=== PATIENT | male | born 1950 | race Caucasian/White ===

== ENCOUNTER 2022-02-26 18:05 | Inpatient (IN) | payer MEDICARE, BC, SELFPAY ==
[2022-02-26 18:46] VITALS: BP 204/103; PULSE 83; RESP 20; TEMP 37.9; O2SAT 93; BMI 21.5
--- NOTE | 2022-02-26 19:08 | ED_ITS ---
History of Present Illness General Date Seen: 02/26/22 Chief Complaint: Epistaxis/Nosebleed Stated Complaint: Spiting up blood, on blood thinner Time Seen by Provider: 02/26/22 18:10 Source: patient Mode of arrival: ambulatory Limitations: no limitations History of Present Illness HPI Narrative: Patient is a very nice 71-year-old gentleman who presents here with the left- sided nose bleed since 4:00 a.m., he is spitting up blood and swallowing blood, he told his that he would go to the ER before 9:00 a.m., but the bleeding has continued any re thought is planning came here instead. He is on warfarin for valve that is been replace, he tells me he has had to replace valves which I suspect her both his mitral and his aortic valve. His last INR was normal, but this was quite sometime ago. No significant history of nose bleeds in the past, denies any pain, denies any abdominal pain, any weakness, feeling he is going to be dizzy or pass out, has not been taking excessive ibuprofen or lever aspirin, does not drink Location: Yes left naris Onset/current episode: Yes hour(s) Duration: Yes constant Pertinent past history: Yes hypertension Context: Yes warfarin use Associated symptoms: Yes bleeding down back of throat Treatment prior to arrival: Yes nose pinching Related Data Home Medications Medication Instructions Recorded Confirmed carvedilol 3.125 mg tablet mg 02/26/22 cyclobenzaprine 5 mg tablet mg 02/26/22 gabapentin 100 mg capsule mg 02/26/22 warfarin 3 mg tablet mg 02/26/22 Allergies Allergy/AdvReac Type Severity Reaction Status Date / Time No Known Drug Allergies Allergy Verified 02/26/22 18:49 Review of Systems Status of ROS: Reports: 10 or more systems reviewed and unremarkable except as noted in History and below PFSH PFS Social History Smoking Status: Smoker, status unknown Non-prescribed substance use: denies use Exam Narrative: Exam Narrative: I see this gentleman in room 3 he is in no apparent distress but he does have blood in his mouth, and a little bit of blood around his left nares. Hypertensive , no apparent distress, speaking to me normally, pupils equal round reactive to light, well perfused, blood in the left nares none in the right, there has blood in the oropharynx in the back, he is got both the top and bottom plate. Chest is clear bilaterally with no wheezing crackles noted, there is a click in his chest, consistent with aortic valve, S1-S2 are otherwise normal. I do not hear a murmu in his chest., abdomen is soft, there is no tenderness to pal pation, bowel sounds are normal, color is otherwise good, he moves all extremities independently and well. Const: Vital Signs, click to edit/add: Vital Signs - 24 hr 02/26/22 18:46 Temperature 100.3 F H Pulse Rate [Right Pulse Oximeter] 83 Respiratory Rate 20 Blood Pressure [Ri ght Upper Arm] 204/103 H Pulse Oximetry 93 Oxygen Delivery Me thod Room Air Documenting provider has reviewed patient's vital signs: yes Course Course Hospital Course: Will start an IV, I will do some blood test, we will get him to rinse out his mouth, so I can see to make sure that the bleeding is not from the soft palate of the mouth, I suspect is from his nose, he likely will needed nasal pack. After getting his mouth rinse doubt, I did note that there is a small laceration on his lower lip, this is bleeding, and I suspect that this is the cause of all the blood in his mouth, that is refluxing into his left naris. I did use a little bit of lidocaine with epi, into this area has stop the oozing, and put a clip on his lip. Along with a 4 x 4. His blood pressure continued to be elevated, we will give him a little Ativan some Zofran as he was retching a little bit. Given his hemoglobin came back low at 7.8 knife no other documentation on him. I think we will need to watch him overnight. I will type and screen him also, I spoke to him he is agreeable to this I then discussed this with the hospitalist. I recheck the clip in 15 minutes I did note that the bleeding had pretty well stopped. We will leave it on for another 15 minutes, but at this point I do not think he needs stitch. Vital Signs Vital signs: Initial Vital Signs Temperature 100.3 F H 02/26/22 18:46 Temperature Source Temporal Artery Scan 02/26/22 18:46 Pulse Rate 83 02/26/22 18:46 Respiratory Rate 20 02/26/22 18:46 Blood Pressure 204/103 H 02/26/22 18:46 Blood Pressure Mean 136 02/26/22 18:46 Pulse Oximetry 93 02/26/22 18:46 Oxygen Delivery Method 02/26/22 18:46 Vital Signs Temperature 100.3 F H 02/26/22 18:46 Pulse Rate 83 02/26/22 18:46 Respiratory Rate 20 02/26/22 18:46 Blood Pressure 204/103 H 02/26/22 18:46 Pulse Oximetry 93 02/26/22 18:46 Oxygen Delivery Method 02/26/22 18:46 Temperature 100.3 F H 02/26/22 18:46 Pulse Rate 83 02/26/22 18:46 Respiratory Rate 20 02/26/22 18:46 Blood Pressure 204/103 H 02/26/22 18:46 Pulse Oximetry 93 02/26/22 18:46 Oxygen Delivery Method 02/26/22 18:46 MDM - Epistaxis MDM Narrative Medical decision making narrative: Differential diagnosis here includes nasal bleeding, hemoptysis, hematemesis, oral laceration, anemia, Medical Records Attestation: I reviewed the patient's medical records. Lab Data Attestation: I reviewed the patient's lab results. Labs: Lab Results 02/26/22 02/26/22 02/26/22 Range/Units 19:48 19:48 19:48 WBC 10.88 (4.50-11.00) K/uL RBC 2.53 L (4.30-5.90) m/uL Hgb 7.8 L* (13.5-17.5) gm/dL Hct 23.0 L (37.0-53.0) % MCV 91 (80-100) fL MCH 31 (26-34) pg MCHC 34 (32-36) gm/dL RDW Coeff of Bernabe 17.1 H (11.5-15.5) % Plt Count 436 (140-440) K/uL Neut % (Auto) 79.3 H (42.0-72.0) % Lymph % (Auto) 8.6 L (20-44) % [place] % (Auto) 9.8 (0.0-11.0) % Eos % (Auto) 1.7 (0.0-7.0) % Baso % (Auto) 0.2 (0.0-3.0) % Neut # (Auto) 8.60 H (1.7-7.0) K/uL Lymph # (Auto) 0.90 (0.90-2.90) K/uL [place] # (Auto) 1.10 H (0.00-0.90) K/UL Eos # (Auto) 0.18 (0.00-0.50) K/uL Baso # (Auto) 0.02 (0.00-0.30) K/uL INR 5.12 H* (0.91-1.10) APTT 129 H* (23-33) Seconds Sodium 136 (135-149) mmol/L Potassium 3.7 (3.6-5.1) mmol/L Chloride 103 (96-114) mmol/L Carbon Dioxide 27 (20-32) mmol/L BUN 19 (7-30) mg/dL Creatinine 0.5 (0.5-1.5) mg/dL Estimated Creat Clear 65.97 Estimated GFR 108 ml/min Glucose 93 (60-115) mg/dL Calcium 8.3 L (8.4-10.6) mg/dL Discharge Plan Discharge Clinical Impression: Elevated blood pressure reading, Dizziness, Anemia, Coagulopathy, Laceration of lip Patient Disposition: Admitted As Inpatient Prescriptions: No Action carvedilol 3.125 mg tablet warfarin 3 mg tablet gabapentin 100 mg capsule cyclobenzaprine 5 mg tablet Label Comments: TAKE ONE TABLET BY MOUTH THREE TIMES DAILY NEEDED FOR MUSCLE SPASM
[2022-02-26] MEDS: 0.9 % SODIUM CHLORIDE 500 ML 500 ML IV (19:21)
[2022-02-26] MEDS: OXYMETAZOLINE 0.05% NASAL SPRAY 1 SPRAY NOSTRIL-B (19:22)
[2022-02-26 19:54] LABS: Basophils Absolute Auto 0.02 K/uL (0.00-0.30); Basophils Percent Auto 0.2 % (0.0-3.0); Eosinophils Absolute Auto 0.18 K/uL (0.00-0.50); Eosinophils Percent Auto 1.7 % (0.0-7.0); Immature Granulocytes Abs Auto 0.04 K/uL (0.00-0.30); Immature Granulocytes Pct Auto 0.4 %; Lymphocytes Percent Auto 8.6 % (20-44); Mean Corpuscular HGB Conc 34 gm/dL (32-36); Mean Corpuscular Hemoglobin 31 pg (26-34); Mean Corpuscular Volume 91 fL (80-100); Monocytes Percent Auto 9.8 % (0.0-11.0); Neutrophils Percent Auto 79.3 % (42.0-72.0); Platelet Count* 436 K/uL (140-440); RDW Coefficient of Variation % 17.1 % (11.5-15.5); Red Blood Count 2.53 m/uL (4.30-5.90); White Blood Count* 10.88 K/uL (4.50-11.00)
[2022-02-26 19:57] LABS: Hemoglobin* 7.8 gm/dL (13.5-17.5)
[2022-02-26] MEDS: ONDANSETRON 2 MG/ML inj 4 MG IVP (20:03)
[2022-02-26] MEDS: LORazepam 2 MG/ML inj 0.5 MG IVP (20:03)
[2022-02-26 20:06] LABS: Chloride* 103 mmol/L (96-114); Potassium* 3.7 mmol/L (3.6-5.1); Sodium* 136 mmol/L (135-149)
[2022-02-26 20:09] LABS: Blood Urea Nitrogen* 19 mg/dL (7-30); Carbon Dioxide* 27 mmol/L (20-32); Creatinine* 0.5 mg/dL (0.5-1.5); Est. Creatinine Clearance* 65.97; Estimated Glomerular Filt Rate 108 ml/min
[2022-02-26 20:10] LABS: Calcium* 8.3 mg/dL (8.4-10.6); Glucose* 93 mg/dL (60-115)
[2022-02-26 20:23] LABS: INR 5.12 (0.91-1.10); Partial Thromboplastin Time* 129 Seconds (23-33); Prothrombin Time 49.4 Seconds
--- NOTE | 2022-02-26 20:23 | ED.NURSE ---
inr 5.1, ptt 129. md gamboa updated on criticals.
[2022-02-26 20:55] LABS: PCR FLU A Negative PCR FLU A (Negative); PCR FLU B Negative PCR FLU B (Negative)
[2022-02-26 20:56] LABS: SARS PCR* POSITIVE SARS-CoV-2 (Negative)
[2022-02-26 21:00] VITALS: BP 172/98
--- NOTE | 2022-02-26 21:34 | ED.NURSE ---
Per Dr. Naranjo, Pt accepted by Dr. aBrnes. Report given to LOUISE Pereira.
--- NOTE | 2022-02-26 21:50 | ED.NURSE ---
Report given to Med/surg Patient transported via cart with mechatronics technologist to room 276.
[2022-02-26 21:51] VITALS: O2SAT 94
[2022-02-26 22:06] LABS: Albumin* 3.5 g/dL (3.3-5.0)
[2022-02-26 22:09] LABS: Alanine Aminotransferase* 15 U/L (4-50); Alkaline Phosphatase* 126 U/L (40-150); Aspartate Amino Transferase* 24 U/L (12-35); Bilirubin Direct* 0.3 mg/dL (0.0-0.5); Bilirubin Total* 0.9 mg/dL (0.1-1.5); Total Protein* 7.3 g/dL (6.0-8.3)
--- NOTE | 2022-02-26 22:11 | PM.IMHP1 ---
Hospitalist- H&P: HPI History of Present Illness Date Seen: 02/26/22 Chief complaint: Spiting up blood, on blood thinner Narrative: Isaac Clay is a 71 year old male admitted to the hospital with ongoing bleeding. He reports that he was bleeding for about 4-1/2 hours at home. He said he was bleeding from both his nose and his mouth. Evaluation in the emergency room showed that he was bleeding from a lesion in the middle of his lower lip just inside on the mucosal surface. The bleeding was controlled in the emergency department using direct pressure only. He is on chronic anticoagulation with warfarin and his INR today is 5.1. He is also on aspirin 81 mg daily. He is on anticoagulation because he has a TAVR which required a 2nd TAVR and subsequently he has valvular regurgitation. The indication for his aspirin is uncertain possibly also because of his TAVR. He is not aware of having coronary or cerebrovascular disease. He has had previous problems with bleeding. He had an upper GI bleed 2 years ago and he was hospitalized at [facility] for this. EGD showed a nonbleeding angiectasia in the stomach and 2 bleeding angiectasias in the duodenum. These were treated with argon plasma coagulation. Last summer he had a retroperitoneal bleed. Review of Systems Narrative: Patient reports that he has had ongoing back pain for last few days. He is not aware of a specific injury. He is not aware of a fever, cold, cough, sore throat, chest pain, abdominal pain, nausea, vomiting. Urination is normal. Bowel movements are soft but otherwise normal. No blood in his stool. [facility] Medical History (Updated 02/26/22 @ 22:44 by Jose Alejandro Barnes MD) AAA (abdominal aortic aneurysm) without rupture COPD (chronic obstructive pulmonary disease) History of GI bleed Lung cancer Nasopharyngeal cancer Paravalvular leak (prosthetic valve) Retroperitoneal bleed Surgical History (Updated 02/26/22 @ 22:31 by Jose Alejandro Barnes MD) History of arthroscopic knee surgery History of cardiac radiofrequency ablation History of lobectomy of lung History of right inguinal hernia repair History of splenectomy S/P TAVR (transcatheter aortic valve replacement) Family History (Updated 02/26/22 @ 22:34 by Jose Alejandro Barnes MD) Brother Nasopharyngeal carcinoma Father Diabetes Mother Melanoma Social History (Updated 02/26/22 @ 22:34 by Jose Alejandro Barnes MD) Narrative: Patient has remote history of smoking. He lives in [place] with his . She currently has significant health problems as well. He does not drink alcohol. No recreational drug use. Highest level of school completed/degree received: don't know Smoking Status: Smoker, status unknown How often do you have a drink containing alcohol: never AUDIT-C Alcohol total score: 0 Non-prescribed substance use: denies use Caffeine: Yes (3-4 pops/day) service: No Meds Home Medications and Allergies Home Medications Medication Instructions Recorded Confirmed Type carvedilol 3.125 mg tablet 3.125 mg PO BID 02/26/22 02/26/22 History cyclobenzaprine 5 mg tablet 5 mg PO TID PRN 02/26/22 02/26/22 History gabapentin 100 mg capsule 100 mg PO DAILY 02/26/22 02/26/22 History gabapentin 300 mg capsule 300 mg PO HS 02/26/22 02/26/22 History pantoprazole 40 mg tablet,delayed 40 mg PO DAILY 02/26/22 02/26/22 History release tamsulosin 0.4 mg capsule 0.4 mg PO .bidac 02/26/22 02/26/22 History warfarin 3 mg tablet 3 mg PO DAILY 02/26/22 02/26/22 History Allergies Allergy/AdvReac Type Severity Reaction Status Date / Time No Known Drug Allergies Allergy Verified 02/26/22 18:49 Exam Narrative: Exam Narrative: He is alert and appears in no distress. He gives his own history. He is oriented to his circumstances. Head is normal. Eyes normal. Oropharynx with dry mucous membranes. He has some staining of blood in his mouth. He has a nasal clamp on his lower lip which is cause the bleeding in his lip to stop. The mucosal surface of his lower lip has a crack in it which is likely the site of the bleeding. This is controlled now. Neck is supple without mass or adenopathy. Respirations with somewhat diminished breath sounds but otherwise clear to auscultation without wheezing rales or rhonchi. Cardiovascular: S1, S2, 2/6 systolic murmur. No gallop or rub. Regular rate and rhythm. Abdomen is soft he has mild tenderness just above the right inguinal area and suprapubic area. No significant pain except tenderness with palpation. There is no mass there. External genitalia normal. Const: Vital Signs, click to edit/add: Vital Signs - 24 hr 02/26/22 18:46 02/26/22 21:00 Temperature 100.3 F H Pulse Rate [Right Pulse Oximeter] 83 Respiratory Rate 20 Blood Pressure [Ri ght Upper Arm] 204/103 H 172/98 H Pulse Oximetry 93 Oxygen Delivery Me thod Room Air Documenting provider has reviewed patient's vital signs: yes Hospitalist - H&P: Result Labs Labs: Short CBC 02/26/22 Range/Units 19:48 WBC 10.88 (4.50-11.00) K/uL Hgb 7.8 L* (13.5-17.5) gm/dL Hct 23.0 L (37.0-53.0) % Plt Count 436 (140-440) K/uL BMP 02/26/22 19:48 Sodium 136 Potassium 3.7 Chloride 103 Carbon Dioxide 27 BUN 19 Creatinine 0.5 Glucose 93 Calcium 8.3 L Assessment and Plan Assessment and plan (1) Bleeding: Status: Acute (2) Laceration of lip: Problem comment: Bleeding stopped with pressure. Avoid trauma to lower lip Status: Acute (3) COVID: Problem comment: On presentation to the hospital he had a low-grade fever. COVID was discovered on screening for hospital admission. Not currently hypoxic. Uncertain when he acquired COVID. Likely recent infection given that he has a fever. Very high risk for complications so will start Remdesivir. Status: Acute (4) Coagulopathy: Problem comment: Vitamin K 2.5 mg given to reverse coagulopathy. Reassess need for aspirin and warfarin with Cardiology. Status: Acute (5) Abdominal tenderness: Problem comment: Patient is reporting suprapubic and right inguinal area tenderness. I do not palpate an obvious mass. Reassess in the morning an image if ongoing symptoms. Status: Acute (6) Anemia: Problem comment: Acute on chronic. Baseline hemoglobin is 9.5 Status: Acute (7) Dizziness: Problem comment: Possibly multifactorial. Possibly chronic. Does not appear to be orthostatic. Continue to monitor Status: Acute (8) Back pain: Problem comment: Suspect this is acute on chronic as well. Reassess daily Status: Acute Plan 71-year-old male admitted to the hospital with uncontrolled bleeding from his lower lip with secondary finding of coagulopathy. Bleeding has been controlled with pressure. Vitamin K given to reverse coagulopathy. Monitor for ongoing bleeding. Found to have fever with COVID infection. Start Remdesivir as patient is very high risk for complications with previous history of lung cancer, COPD, heart disease. Multiple other symptoms can be addressed as well including his abdominal tenderness, back pain, dizziness. Only limited evaluation of were done on those problems tonight Total time spent tonight is 90 minutes, 60 minutes in coordination of care discussing with patient and other providers management of COVID and bleeding.
[2022-02-26 22:19] VITALS: PULSE 78; RESP 20; TEMP 37.2; O2SAT 94; BMI 20.7
[2022-02-26 22:31] LABS: C Reactive Protein* 22.7 mg/dL (0.5-1.0)
[2022-02-26] MEDS: TAMSULOSIN HCL 0.4 MG CAPSULE PO (22:53)
[2022-02-26] MEDS: GABAPENTIN 300 MG CAPSULE PO ×2 (22:53→22:55)
[2022-02-26] MEDS: CYCLOBENZAPRINE HCL 10 MG TABLET 5 MG PO (22:53)
[2022-02-26] MEDS: ACETAMINOPHEN 325 MG TABLET 650 MG PO (22:56)
[2022-02-26] MEDS: carvediloL 6.25 MG TABLET 3.125 MG PO (23:06)
--- NOTE | 2022-02-26 23:44 | PC.NURSE ---
Patient admitted to the M/S floor around 2200. Patient cooperative with care. Lower lip contines to bleed. Clamp put into place and patient removed. Clamp put back into place and patient instructed to leave d/t bleeding. Vitamin K given. Remdesivir given. Attempted to call , Leandra @ [phone] but no answer.
[2022-02-27] VITALS (13 sets, daily range): BP systolic 113–192; BP diastolic 61–90; PULSE 66–89; RESP 16–18; TEMP 36.9–38.3; O2SAT 91–98
[2022-02-27] MEDS: ACETAMINOPHEN 325 MG TABLET 650 MG PO ×2 (04:57→17:32)
[2022-02-27] MEDS: CYCLOBENZAPRINE HCL 10 MG TABLET 5 MG PO ×3 (04:58→22:20)
[2022-02-27 05:30] LABS: Slide Review Reflex No
--- NOTE | 2022-02-27 06:22 | PC.NURSE ---
End of shift status [id number] Pt alert and oriented. Pleasant and cooperative. PRN tylenol and flexeril given for c/o back pain. BP elevated. T-max 100.5. Remains on room air. Lower lip laceration continues to bleed. Mouth washed out, gauze and clip applied to lip. Remained in bed this shift. Encouraged to shift weight in bed. Using urinal in bed independently. Pt observed resting intermittently between cares.
[2022-02-27 07:03] LABS: Basophils Absolute Auto 0.01 K/uL (0.00-0.30); Basophils Percent Auto 0.1 % (0.0-3.0); Eosinophils Absolute Auto 0.16 K/uL (0.00-0.50); Hematocrit 19.6 % (37.0-53.0); Immature Granulocytes Abs Auto 0.07 K/uL (0.00-0.30); Immature Granulocytes Pct Auto 0.9 %; Lymphocytes Percent Auto 9.4 % (20-44); Mean Corpuscular HGB Conc 35 gm/dL (32-36); Mean Corpuscular Hemoglobin 32 pg (26-34); Mean Corpuscular Volume 92 fL (80-100); Monocytes Percent Auto 15.1 % (0.0-11.0); Neutrophils Percent Auto 72.5 % (42.0-72.0); Platelet Count* 416 K/uL (140-440); RDW Coefficient of Variation % 16.9 % (11.5-15.5); Red Blood Count 2.14 m/uL (4.30-5.90); White Blood Count* 7.89 K/uL (4.50-11.00)
[2022-02-27 07:21] LABS: Hemoglobin* 6.9 gm/dL (13.5-17.5)
[2022-02-27 07:23] LABS: Slide Review Reflex No
[2022-02-27 08:18] LABS: INR 4.65 (0.91-1.10); Prothrombin Time 45.8 Seconds
[2022-02-27] MEDS: OMEPRAZOLE 20 MG CAPSULE DR 40 MG PO (08:26)
[2022-02-27] MEDS: GABAPENTIN 100 MG CAPSULE PO (08:27)
[2022-02-27] MEDS: carvediloL 6.25 MG TABLET 3.125 MG PO ×2 (08:27→17:33)
[2022-02-27] MEDS: TAMSULOSIN HCL 0.4 MG CAPSULE PO ×2 (08:28→19:59)
[2022-02-27 08:33] LABS: Partial Thromboplastin Time* 108 Seconds (23-33)
[2022-02-27 08:58] LABS: Chloride* 104 mmol/L (96-114); Potassium* 3.5 mmol/L (3.6-5.1); Sodium* 135 mmol/L (135-149)
[2022-02-27 09:01] LABS: Blood Urea Nitrogen* 14 mg/dL (7-30); Carbon Dioxide* 27 mmol/L (20-32); Creatinine* 0.5 mg/dL (0.5-1.5); Est. Creatinine Clearance* 63.53; Estimated Glomerular Filt Rate 108 ml/min
[2022-02-27 09:02] LABS: Calcium* 7.7 mg/dL (8.4-10.6); Glucose* 95 mg/dL (60-115)
--- NOTE | 2022-02-27 09:07 | CRLHL7_ITS ---
For Patients: As a result of the Century Cures Act, medical imaging exams and procedure reports are released immediately into your electronic medical record. You may view this report before your referring provider. If you have questions, please contact your health care provider. INDICATION: Abdominal pain. History of retroperitoneal bleed. TECHNIQUE: CT abdomen and pelvis acquired with 72 cc Isovue 370 IV contrast. COMPARISON: August 19, 2021. FINDINGS: Lower chest: Cardiomegaly present. Trace left-sided pleural effusion with adjacent atelectasis. Liver: Unremarkable. Normal in size and attenuation. No suspicious masses. Gallbladder and bile ducts: Unremarkable. No stones or inflammation. No biliary dilatation. Pancreas: Unremarkable. No mass or inflammation. Spleen: Status post splenectomy with a residual splenule in the left upper quadrant which is unchanged in appearance. Adrenal glands: Unremarkable. No nodules. Kidneys: Unremarkable. No suspicious masses, stones, or hydronephrosis. GI tract: Unremarkable. Normal in caliber. No sign of mass or inflammation. Vasculature: Diffuse relatively severe atherosclerosis again demonstrated. Stable fusiform aneurysmal dilatation of the abdominal aorta and iliac arteries. These are unchanged. No sign of aortic leak or rupture. Lymph nodes: No lymphadenopathy. Peritoneum/Abdominal Wall: Unremarkable. No sign of mass or infiltration. No free air or significant free fluid. Pelvis: Unchanged prostatomegaly. Pelvic structures otherwise unremarkable. Bones: Unremarkable for age. IMPRESSION: 1. No acute or specific finding to explain abdominal pain. 2. No signs of recurrent retroperitoneal bleeding or metastatic disease. 3. Trace left-sided pleural effusion. Please note that all CT scans at this facility use dose modulation, iterative reconstruction, and/or weight-based dosing when appropriate to reduce radiation dose to as low as reasonably achievable. Dictated by Ky Guajardo MD @ 02/27/2022 11:44:40 AM (Electronically Signed)
--- NOTE | 2022-02-27 12:19 | P.IMPN_ITS ---
Progress Note: A&P Assessment and plan (1) Laceration of lip: Problem details: - Bleeding stopped with pressure, continue clamp as needed. Avoid trauma to lower lip Status: Acute (2) COVID: Problem details: - temperature of 100.5? on admission, no hypoxia. Timeline of COVID acquisition unclear, notes that is also ill at home - not requiring supplemental oxygen - high risk for complications so will start Remdesivir Status: Acute (3) Coagulopathy: Problem details: - Vitamin K 2.5 mg given on 02/26 to reverse coagulopathy - Repeat vitamin K 2.5 orally on 02/27 given persistently elevated INR and bleeding - blood transfusion 02/27 given hemoglobin of 6.9 Status: Acute (4) Abdominal tenderness: Problem details: - no acute findings on CT of abdomen/pelvis, obtained 02/27/22 Status: Acute (5) Anemia: Problem details: - acute on chronic. Baseline hemoglobin is 9.5 - transfused 1 U PRBCs 02/27 Status: Acute (6) Back pain: Problem details: - Acute on chronic, follow symptomatically Status: Acute Plan - per above - continue to hold Warfarin - daily INRs Subjective Date Seen: 02/27/22 Interval history: No acute events overnight. Isaac continues to complain of low abdominal pain, in addition to back pain. Notes that his back pain is chronic, unclear if it is different than baseline. He is tolerating Remdesivir. He has no cough or hypoxia. This morning, patient's INR is 4.65, hemoglobin 6.9. He is amenable to a blood transfusion and other dose of oral vitamin K. Exam Narrative: Exam Narrative: GEN: Alert and oriented, sitting comfortably in bed and does appear ill/pale HEENT: Normal external ears, EOMIs bilaterally, no scleral icterus, + conjunctival pallor. Patient has a clamp on lower lip; I do not remove this for formal exam given bleeding risk CV: RRR, + systolic murmur without concerning findings, consistent with history R: LCTA bilaterally without concerning wheezing, rales, or rhonchi Ab: Moderately tender in bilateral lower quadrants without rebound or guarding, no skin changes noted Back: No bruising or skin lesions on back noted, no tenderness to palpation over spinous processes, mild discomfort with palpation of bilateral flanks Ext: wwp, no concerning edema Skin: No concerning skin lesions or rashes on exposed skin Neuro: Nonfocal Psych: Appropriate Const: Vital Signs, click to edit/add: Vital Signs - 24 hr 02/26/22 18:46 02/26/22 21:00 02/26/22 21:51 Temperature 100.3 F H Pulse Rate [Pulse Oximeter] Pulse Rate [Right Pulse Oximeter] 83 Respiratory Rate 20 Blood Pressure [Ri ght Arm] Blood Pressure [Ri ght Upper Arm] 204/103 H 172/98 H Pulse Oximetry 93 94 Oxygen Delivery Me thod Room Air 02/26/22 22:19 02/27/22 00:15 02/27/22 00:15 Temperature 99 F 100.5 F H 100.5 F H Pulse Rate [Pulse Oximeter] 78 76 Pulse Rate [Right Pulse Oximeter] Respiratory Rate 20 16 Blood Pressure [Ri ght Arm] 157/75 H Blood Pressure [Ri ght Upper Arm] Pulse Oximetry 94 91 Oxygen Delivery Me thod Room Air Room Air 02/27/22 00:15 02/27/22 04:41 02/27/22 07:00 Temperature 98.5 F Pulse Rate [Pulse Oximeter] 71 Pulse Rate [Right Pulse Oximeter] Respiratory Rate 18 Blood Pressure [Ri ght Arm] 189/87 H Blood Pressure [Ri ght Upper Arm] Pulse Oximetry 91 98 96 Oxygen Delivery Me thod Room Air 02/27/22 07:00 02/27/22 07:00 Temperature 98.8 F Pulse Rate [Pulse Oximeter] 66 66 Pulse Rate [Right Pulse Oximeter] Respiratory Rate 18 18 Blood Pressure [Ri ght Arm] 175/86 H Blood Pressure [Ri ght Upper Arm] Pulse Oximetry 96 Oxygen Delivery Me thod Room Air Labs Labs: Laboratory Results - last 24 hr 02/26/22 02/26/22 02/26/22 19:48 19:48 19:48 WBC 10.88 RBC 2.53 L Hgb 7.8 L* Hct 23.0 L MCV 91 MCH 31 MCHC 34 RDW Coeff of Bernabe 17.1 H Plt Count 436 Neut % (Auto) 79.3 H Lymph % (Auto) 8.6 L [place] % (Auto) 9.8 Eos % (Auto) 1.7 Baso % (Auto) 0.2 Neut # (Auto) 8.60 H Lymph # (Auto) 0.90 [place] # (Auto) 1.10 H Eos # (Auto) 0.18 Baso # (Auto) 0.02 INR 5.12 H* APTT 129 H* Sodium 136 Potassium 3.7 Chloride 103 Carbon Dioxide 27 BUN 19 Creatinine 0.5 Estimated Creat Clear 65.97 Estimated GFR 108 Glucose 93 Calcium 8.3 L Total Bilirubin 0.9 Direct Bilirubin 0.3 AST 24 ALT 15 Alkaline Phosphatase 126 C-Reactive Protein 22.7 H Total Protein 7.3 Albumin 3.5 SARS-CoV-2 (PCR) Influenza Type A (PCR) Influenza Type B (PCR) Blood Type Antibody Screen Crossmatch ([facility]) 02/26/22 02/26/22 02/27/22 19:48 20:10 06:30 WBC 7.89 RBC 2.14 L Hgb 6.9 L* Hct 19.6 L MCV 92 MCH 32 MCHC 35 RDW Coeff of Bernabe 16.9 H Plt Count 416 Neut % (Auto) 72.5 H Lymph % (Auto) 9.4 L [place] % (Auto) 15.1 H Eos % (Auto) 2.0 Baso % (Auto) 0.1 Neut # (Auto) 5.70 Lymph # (Auto) 0.70 L [place] # (Auto) 1.20 H Eos # (Auto) 0.16 Baso # (Auto) 0.01 INR APTT Sodium Potassium Chloride Carbon Dioxide BUN Creatinine Estimated Creat Clear Estimated GFR Glucose Calcium Total Bilirubin Direct Bilirubin AST ALT Alkaline Phosphatase C-Reactive Protein Total Protein Albumin SARS-CoV-2 (PCR) POSITIVE SARS-CoV-2 A Influenza Type A (PCR) Negative PCR FLU A Influenza Type B (PCR) Negative PCR FLU B Blood Type O Positive Antibody Screen NEGATIVE Crossmatch ([facility]) See Detail 02/27/22 02/27/22 06:30 06:30 WBC RBC Hgb Hct MCV MCH MCHC RDW Coeff of Bernabe Plt Count Neut % (Auto) Lymph % (Auto) [place] % (Auto) Eos % (Auto) Baso % (Auto) Neut # (Auto) Lymph # (Auto) [place] # (Auto) Eos # (Auto) Baso # (Auto) INR 4.65 H APTT 108 H* Sodium 135 Potassium 3.5 L Chloride 104 Carbon Dioxide 27 BUN 14 Creatinine 0.5 Estimated Creat Clear 63.53 Estimated GFR 108 Glucose 95 Calcium 7.7 L Total Bilirubin Direct Bilirubin AST ALT Alkaline Phosphatase C-Reactive Protein Total Protein Albumin SARS-CoV-2 (PCR) Influenza Type A (PCR) Influenza Type B (PCR) Blood Type Antibody Screen Crossmatch ([facility])
[2022-02-27] MEDS: 0.9 % SODIUM CHLORIDE 250 ml IV (13:30)
--- NOTE | 2022-02-27 19:05 | PC.NURSE ---
End of shift [id number]: Pt alert and oriented. Pleasant and cooperative. KIANA. Afebrile most shift until evening, temp was 100.3 PRN tylenol administered. PRN Flexeril administered for c/o back pain. BP elevated. Pt. high 90's on room air. Lower lip laceration stopped bleeding and clamp removed. Remained in bed this shift during PRBC administration, pt. tolerated well. Up to chair for lunch and pt. tolerated activity well. Pt. using urinal in bed independently.
[2022-02-27 19:28] LABS: Hemoglobin* 7.5 gm/dL (13.5-17.5)
[2022-02-27] MEDS: LORazepam 0.5 MG TABLET PO (22:21)
[2022-02-28] VITALS (14 sets, daily range): BP systolic 103–193; BP diastolic 53–89; PULSE 66–76; RESP 16–20; TEMP 36.7–38.4; O2SAT 93–99
[2022-02-28] MEDS: ACETAMINOPHEN 325 MG TABLET 650 MG PO ×3 (03:08→23:50)
--- NOTE | 2022-02-28 04:44 | PC.NURSE ---
Shift note 19-07: Pt alert, able to make needs known, up to BSC w/ SBA. Pt continues to c/o 4-9/10 chronic back pain, verbalizes able to tolerate pain w/ use of Flexeril and repositioning. Lungs clear, on RA, intermittent cough producing yellowish sputum. Max temp of 101.2, Tylenol given x1. Hemoccult negative.
[2022-02-28] MEDS: OMEPRAZOLE 20 MG CAPSULE DR 40 MG PO (05:06)
[2022-02-28 06:45] LABS: Basophils Percent Auto 0.1 % (0.0-3.0); Hematocrit 22.9 % (37.0-53.0); Immature Granulocytes Pct Auto 0.6 %; Lymphocytes Percent Auto 6.1 % (20-44); Mean Corpuscular HGB Conc 35 gm/dL (32-36); Mean Corpuscular Hemoglobin 31 pg (26-34); Mean Corpuscular Volume 90 fL (80-100); Monocytes Percent Auto 8.4 % (0.0-11.0); Neutrophils Percent Auto 83.8 % (42.0-72.0); Platelet Count* 428 K/uL (140-440); RDW Coefficient of Variation % 16.6 % (11.5-15.5); Red Blood Count 2.54 m/uL (4.30-5.90); White Blood Count* 15.53 K/uL (4.50-11.00)
[2022-02-28 06:53] LABS: INR 2.12 (0.91-1.10); Prothrombin Time 24.8 Seconds
[2022-02-28 06:54] LABS: Hemoglobin* 7.9 gm/dL (13.5-17.5); Slide Review Reflex No
[2022-02-28 06:56] LABS: Albumin* 2.8 g/dL (3.3-5.0); Chloride* 103 mmol/L (96-114); Sodium* 134 mmol/L (135-149)
[2022-02-28 06:57] LABS: Potassium* 3.7 mmol/L (3.6-5.1)
[2022-02-28 06:59] LABS: Alanine Aminotransferase* 13 U/L (4-50); Alkaline Phosphatase* 96 U/L (40-150); Aspartate Amino Transferase* 21 U/L (12-35); Bilirubin Total* 0.9 mg/dL (0.1-1.5); Blood Urea Nitrogen* 12 mg/dL (7-30); Carbon Dioxide* 26 mmol/L (20-32); Creatinine* 0.5 mg/dL (0.5-1.5); Est. Creatinine Clearance* 63.53; Estimated Glomerular Filt Rate 108 ml/min; Glucose* 93 mg/dL (60-115); Total Protein* 6.1 g/dL (6.0-8.3)
[2022-02-28 07:00] LABS: Calcium* 7.6 mg/dL (8.4-10.6)
[2022-02-28] MEDS: carvediloL 6.25 MG TABLET 3.125 MG PO ×2 (08:36→18:20)
[2022-02-28] MEDS: GABAPENTIN 100 MG CAPSULE PO (09:29)
[2022-02-28] MEDS: TAMSULOSIN HCL 0.4 MG CAPSULE PO ×2 (09:29→21:17)
[2022-02-28] MEDS: MAGNESIUM HYDROXIDE 30 ML ORAL.SUSP PO (15:07)
--- NOTE | 2022-02-28 15:42 | PM.IMPN1 ---
Progress Note: A&P Assessment and plan (1) Laceration of lip: Problem details: - Bleeding stopped with pressure, continue clamp as needed. Avoid trauma to lower lip Status: Acute (2) COVID: Problem details: - temperature of 100.5? on admission, no hypoxia. 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 Baseline hemoglobin is 9.5 - transfused 1 U PRBCs 02/27, and will transfuse with 1 more unit packed red blood cells 02 28 Status: Acute (6) Back pain: Problem details: - Acute on chronic, follow symptomatically Status: Acute Assessment and Plan: Continue supportive efforts (7) Hypovolemic shock: Status: Acute Plan 1. Reviewed impression and recommendations with patient. He is agreeable. 2. Transfuse with 1 more unit of packed red blood cells 3. Add daily scheduled senna Plus once daily milk of magnesia 30 mL Time Spent With Patient Total time spent: 40 minutes Subjective Time Seen by Provider: 09:00 Date Seen: 02/28/22 Interval history: Hospital day 3. Acknowledges a sense of orthostasis today. Has otherwise been doing well. No complaints or concerns. Denies nausea vomiting. Denies abdominal pain. Denies chest heaviness, pressure, tightness. Denies palpitations. Denies dyspnea at rest. Acknowledges baseline dyspnea with exertion. No longer bleeding. Tolerating medication regimen, including remdesivir. Exam Narrative: Exam Narrative: Appears comfortable and in no acute distress. Vision is grossly normal. [id number] chronic bilateral hearing deficit noted. Lips are stable. No bleeding. Dry skin noted. Lungs are clear to auscultation. Heart tones with regular rhythm. Abdomen with active bowel sounds, soft, nontender. Extremities without edema. Const: Vital Signs, click to edit/add: Vital Signs - 24 hr 02/27/22 19:45 02/27/22 23:00 02/27/22 23:00 Temperature 99.7 F H Pulse Rate [Pulse Oximeter] 79 76 Pulse Rate [orthos tatic lying Left] Pulse Rate [orthos tatic sitting Left ] Pulse Rate [orthos tatic standing Lef t] Respiratory Rate 18 18 Blood Pressure [Le ft Arm] Blood Pressure [Ri ght Arm] 124/64 Blood Pressure [or thostatic lying] Blood Pressure [or thostatic sitting Left Arm] Blood Pressure [or thostatic standing Left Arm] Pulse Oximetry 95 95 Oxygen Delivery Me thod Room Air 02/27/22 23:00 02/28/22 03:08 02/28/22 03:00 Temperature 99.9 F H 101.2 F H 101.2 F H Pulse Rate [Pulse Oximeter] 76 72 Pulse Rate [orthos tatic lying Left] Pulse Rate [orthos tatic sitting Left ] Pulse Rate [orthos tatic standing Lef t] Respiratory Rate 18 18 Blood Pressure [Le ft Arm] Blood Pressure [Ri ght Arm] 176/89 H 177/83 H Blood Pressure [or thostatic lying] Blood Pressure [or thostatic sitting Left Arm] Blood Pressure [or thostatic standing Left Arm] Pulse Oximetry 95 93 Oxygen Delivery Me thod Room Air Room Air 02/28/22 05:05 02/28/22 08:11 02/28/22 07:00 Temperature 98.0 F 99.3 F Pulse Rate [Pulse Oximeter] 76 Pulse Rate [orthos tatic lying Left] Pulse Rate [orthos tatic sitting Left ] Pulse Rate [orthos tatic standing Lef t] Respiratory Rate 20 Blood Pressure [Le ft Arm] 176/84 H Blood Pressure [Ri ght Arm] Blood Pressure [or thostatic lying] Blood Pressure [or thostatic sitting Left Arm] Blood Pressure [or thostatic standing Left Arm] Pulse Oximetry 93 99 Oxygen Delivery Me thod Room Air 02/28/22 12:45 02/28/22 13:17 02/28/22 13:18 Temperature 99.1 F 99.1 F Pulse Rate [Pulse Oximeter] 66 Pulse Rate [orthos tatic lying Left] 66 Pulse Rate [orthos tatic sitting Left ] 70 Pulse Rate [orthos tatic standing Lef t] 73 Respiratory Rate 18 Blood Pressure [Le ft Arm] 147/71 H Blood Pressure [Ri ght Arm] Blood Pressure [or thostatic lying] 147/71 H Blood Pressure [or thostatic sitting Left Arm] 130/64 Blood Pressure [or thostatic standing Left Arm] 103/53 L Pulse Oximetry 95 Oxygen Delivery Me thod Room Air Documenting provider has reviewed patient's vital signs: yes Labs Labs: Laboratory Results - last 24 hr 02/26/22 02/27/22 02/28/22 19:48 19:03 06:18 WBC RBC Hgb 7.5 L* Hct MCV MCH MCHC RDW Coeff of Bernabe Plt Count Neut % (Auto) Lymph % (Auto) Culberson % (Auto) Eos % (Auto) Baso % (Auto) Neut # (Auto) Lymph # (Auto) [place] # (Auto) Eos # (Auto) Baso # (Auto) INR 2.12 H Sodium Potassium Chloride Carbon Dioxide BUN Creatinine Estimated Creat Clear Estimated GFR Glucose Calcium Total Bilirubin AST ALT Alkaline Phosphatase Total Protein Albumin Crossmatch ([facility]) See Detail 02/28/22 02/28/22 06:18 06:18 WBC 15.53 H RBC 2.54 L Hgb 7.9 L* Hct 22.9 L MCV 90 MCH 31 MCHC 35 RDW Coeff of Bernabe 16.6 H Plt Count 428 Neut % (Auto) 83.8 H Lymph % (Auto) 6.1 L Culberson % (Auto) 8.4 Eos % (Auto) 1.0 Baso % (Auto) 0.1 Neut # (Auto) 13.00 H Lymph # (Auto) 0.90 Culberson # (Auto) 1.30 H Eos # (Auto) 0.20 Baso # (Auto) 0.00 INR Sodium 134 L Potassium 3.7 Chloride 103 Carbon Dioxide 26 BUN 12 Creatinine 0.5 Estimated Creat Clear 63.53 Estimated GFR 108 Glucose 93 Calcium 7.6 L Total Bilirubin 0.9 AST 21 ALT 13 Alkaline Phosphatase 96 Total Protein 6.1 Albumin 2.8 L Crossmatch (G)
[2022-02-28] MEDS: CYCLOBENZAPRINE HCL 10 MG TABLET 5 MG PO (21:16)
[2022-02-28] MEDS: GABAPENTIN 300 MG CAPSULE PO (21:16)
[2022-02-28] MEDS: SENNOSIDES/DOCUSATE TABLET 1 TAB PO (21:17)
--- NOTE | 2022-02-28 23:37 | PC.NURSE ---
Started infusion of PRB. No reaction. Pt. tolerated first 15 min and hour well. Resting comfortably. VSS. Temp 100.1. PRN Flexeril administered for back pain.
[2022-02-28] MEDS: 0.9 % SODIUM CHLORIDE 250 ml IV (23:59)
[2022-03-01] VITALS (9 sets, daily range): BP systolic 127–186; BP diastolic 71–93; PULSE 64–93; RESP 16–20; TEMP 37.2–38; O2SAT 90–97
--- NOTE | 2022-03-01 05:33 | PC.NURSE ---
Shift note: Pt is on bedrest, complained of weakness and pain. Pt has fever of 100.4, Tylenol was given. Pt uses urinal in bed.
[2022-03-01] MEDS: OMEPRAZOLE 20 MG CAPSULE DR 40 MG PO (06:19)
[2022-03-01 07:26] LABS: Hematocrit 25.8 % (37.0-53.0); Hemoglobin* 8.7 gm/dL (13.5-17.5); Mean Corpuscular HGB Conc 34 gm/dL (32-36); Mean Corpuscular Hemoglobin 30 pg (26-34); Mean Corpuscular Volume 89 fL (80-100); Platelet Count* 452 K/uL (140-440); Red Blood Count 2.91 m/uL (4.30-5.90); White Blood Count* 12.27 K/uL (4.50-11.00)
[2022-03-01 07:33] LABS: Slide Review Reflex No
[2022-03-01 07:41] LABS: INR 1.78 (0.91-1.10); Prothrombin Time 21.7 Seconds
[2022-03-01] MEDS: carvediloL 6.25 MG TABLET 3.125 MG PO ×2 (08:37→17:54)
[2022-03-01] MEDS: GABAPENTIN 100 MG CAPSULE PO (08:38)
[2022-03-01] MEDS: TAMSULOSIN HCL 0.4 MG CAPSULE PO ×2 (08:38→21:08)
[2022-03-01] MEDS: SENNOSIDES/DOCUSATE TABLET 1 TAB PO ×2 (08:38→21:08)
[2022-03-01] MEDS: ACETAMINOPHEN 325 MG TABLET 650 MG PO ×3 (09:19→21:08)
[2022-03-01] MEDS: CYCLOBENZAPRINE HCL 10 MG TABLET 5 MG PO (09:20)
[2022-03-01] MEDS: WARFARIN 3 MG TABLET PO (16:26)
[2022-03-01] MEDS: KETOROLAC 15 MG/ML inj IVP (16:26)
--- NOTE | 2022-03-01 17:20 | PC.NURSE ---
Shift Summary: Patient pleasant and cooperative, has been in bed all shift. When doing orthostatic BP unable to stand, dizzy when sitting at edge of bed. Using urinal per self. Continues to have back pain, new orders, aqua-k pad placed. Tolerating regular diet well, denies nausea. o2 sats >90% on RA.
--- NOTE | 2022-03-01 17:25 | P.IMPN_ITS ---
Progress Note: A&P Assessment and plan (1) Laceration of lip: Problem details: - Bleeding stopped with pressure, continue clamp as needed. Avoid trauma to lower lip Status: Acute Assessment and Plan: Bleeding is resolved. (2) COVID: Problem details: - temperature of 100.5? on admission, no hypoxia. 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 Will need close monitoring for INRs hereafter. (4) Abdominal tenderness: Problem details: - no acute findings on CT of abdomen/pelvis, obtained 02/27/22 Status: Acute (5) Anemia: Problem details: - acute on chronic. Baseline hemoglobin is 9.5 - transfused 1 U PRBCs 02/27, and 1 more unit packed red blood cells 02/28/2022 Status: Acute (6) Back pain: Problem details: - Acute on chronic, follow symptomatically Status: Acute Assessment and Plan: I have schedule acetaminophen. P.r.n. tramadol 25 mg p.o. q.i.d. Topical heat and ice as needed (7) Hypovolemic shock: Status: Acute Assessment and Plan: Appears to have resolved now. He continues to complain of a sense of orthostasis but there is no obvious orthostatic blood pressure or pulse changes. Reassess orthostatic blood pressures and pulses tomorrow morning. Plan PT and OT consultation. Did discuss with patient that if he is not able to go back home that he may need to consider an alternative living situation for short period of time. He states he is not interested in this at this time. Time Spent With Patient Total time spent: 30 minutes Subjective Time Seen by Provider: 15:00 Date Seen: 03/01/22 Interval history: Hospital day 4. Acknowledges a sense of orthostasis still today. Has otherwise been doing well. Also notes increasing low back pain. Denies nausea vomiting. Denies abdominal pain. Denies chest heaviness, pressure, tightness. Denies palpitations. Denies dyspnea at rest. Acknowledges baseline dyspnea with exertion. No longer bleeding. Tolerating medication regimen, including remdesivir. Exam Narrative: Exam Narrative: Appears comfortable and in no acute distress. Articulate, friendly, cooperative. Nevertheless appears anxious. Lungs clear to auscultation. Heart tones with regular rhythm. Abdomen is thin with active bowel sounds, soft, nontender. Extremities without edema. Can move all 4 extremities. No focal motor neurologic deficits. No obvious nystagmus, spontaneous or with rotations of the head. Skin is warm, dry, intact. Const: Vital Signs, click to edit/add: Vital Signs - 24 hr 02/28/22 17:26 02/28/22 21:50 02/28/22 19:00 Temperature 98.2 F 100.1 F H 100.1 F H Pulse Rate 67 Pulse Rate [Pulse Oximeter] 66 67 Pulse Rate [orthos tatic lying Left] Pulse Rate [orthos tatic sitting Left ] Respiratory Rate 20 16 16 Blood Pressure 139/76 Blood Pressure [Le ft Arm] Blood Pressure [Ri ght Arm] 121/69 139/76 Blood Pressure [or thostatic lying] Blood Pressure [or thostatic sitting Left Arm] Pulse Oximetry 96 93 Oxygen Delivery Me thod Room Air Room Air 02/28/22 23:00 02/28/22 23:00 02/28/22 23:00 Temperature 100.3 F H Pulse Rate Pulse Rate [Pulse Oximeter] 67 Pulse Rate [orthos tatic lying Left] Pulse Rate [orthos tatic sitting Left ] Respiratory Rate 16 16 Blood Pressure Blood Pressure [Le ft Arm] 193/89 H Blood Pressure [Ri ght Arm] Blood Pressure [or thostatic lying] Blood Pressure [or thostatic sitting Left Arm] Pulse Oximetry 93 93 Oxygen Delivery Me thod Room Air 02/28/22 22:06 03/01/22 02:44 03/01/22 07:56 Temperature 100.3 F H 100.4 F H Pulse Rate 67 Pulse Rate [Pulse Oximeter] 72 Pulse Rate [orthos tatic lying Left] 65 Pulse Rate [orthos tatic sitting Left ] 64 Respiratory Rate 16 16 Blood Pressure 193/89 H Blood Pressure [Le ft Arm] 170/76 H Blood Pressure [Ri ght Arm] Blood Pressure [or thostatic lying] 178/82 H Blood Pressure [or thostatic sitting Left Arm] 146/73 H Pulse Oximetry 93 90 Oxygen Delivery Me thod Room Air 03/01/22 08:23 03/01/22 08:23 03/01/22 10:00 Temperature 98.9 F 99.1 F Pulse Rate Pulse Rate [Pulse Oximeter] 64 66 Pulse Rate [orthos tatic lying Left] Pulse Rate [orthos tatic sitting Left ] Respiratory Rate 20 18 Blood Pressure Blood Pressure [Le ft Arm] 178/82 H 127/71 Blood Pressure [Ri ght Arm] Blood Pressure [or thostatic lying] Blood Pressure [or thostatic sitting Left Arm] Pulse Oximetry 94 94 95 Oxygen Delivery Me thod Room Air Room Air 03/01/22 15:43 03/01/22 16:01 03/01/22 16:35 Temperature 99.1 F Pulse Rate Pulse Rate [Pulse Oximeter] 65 Pulse Rate [orthos tatic lying Left] 71 Pulse Rate [orthos tatic sitting Left ] 71 Respiratory Rate 18 Blood Pressure Blood Pressure [Le ft Arm] 163/83 H Blood Pressure [Ri ght Arm] Blood Pressure [or thostatic lying] 186/93 H Blood Pressure [or thostatic sitting Left Arm] 157/78 H Pulse Oximetry 96 96 Oxygen Delivery Me thod Room Air Documenting provider has reviewed patient's vital signs: yes Labs Labs: Laboratory Results - last 24 hr 02/26/22 03/01/22 03/01/22 19:48 07:15 07:15 WBC 12.27 H RBC 2.91 L Hgb 8.7 L Hct 25.8 L MCV 89 MCH 30 MCHC 34 Plt Count 452 H INR 1.78 H Procalcitonin Blood Type O Positive Antibody Screen NEGATIVE Crossmatch ([facility]) See Detail 03/01/22 07:15 WBC RBC Hgb Hct MCV MCH MCHC Plt Count INR Procalcitonin 0.40 Blood Type Antibody Screen Crossmatch ([facility])
[2022-03-01] MEDS: GABAPENTIN 300 MG CAPSULE PO (21:08)
[2022-03-01] MEDS: TRAMADOL HCL 50 MG TABLET 25 MG PO (21:08)
[2022-03-01] MEDS: SODIUM CHLORIDE 0.9 % (FLUSH) 10 ML SYRINGE 5 ML IVF (21:09)
[2022-03-02] VITALS (11 sets, daily range): BP systolic 96–185; BP diastolic 58–94; PULSE 59–112; RESP 16–18; TEMP 36.5–37.1; O2SAT 65–99
[2022-03-02] MEDS: OMEPRAZOLE 20 MG CAPSULE DR 40 MG PO (05:02)
[2022-03-02] MEDS: TRAMADOL HCL 50 MG TABLET 25 MG PO ×3 (05:15→23:19)
--- NOTE | 2022-03-02 05:54 | PC.NURSE ---
[id number] Pt rested well during night, using urinal in bed. he does c/o lightheaded/dizziness when sitting up in bed. Coughing up think yellow phlegm, encouraged pt to use Aer[employer]. maintaining O2 sats well in the 90's on RA.
[2022-03-02 07:49] LABS: HCO3 VBG 29 mmol/L (21-28); PCO2 VBG 39 mmHG (40-50); PO2 VBG 53.8 mmHG (25-47); pH VBG 7.477 (7.32-7.43)
[2022-03-02 07:55] LABS: Hematocrit 27.1 % (37.0-53.0); Hemoglobin* 9.1 gm/dL (13.5-17.5); Mean Corpuscular HGB Conc 34 gm/dL (32-36); Mean Corpuscular Hemoglobin 30 pg (26-34); Mean Corpuscular Volume 89 fL (80-100); Platelet Count* 467 K/uL (140-440); Red Blood Count 3.04 m/uL (4.30-5.90); White Blood Count* 10.23 K/uL (4.50-11.00)
[2022-03-02 08:01] LABS: Slide Review Reflex No
[2022-03-02 08:10] LABS: Albumin* 2.8 g/dL (3.3-5.0); Chloride* 102 mmol/L (96-114); Potassium* 4.1 mmol/L (3.6-5.1); Sodium* 133 mmol/L (135-149)
[2022-03-02 08:13] LABS: Blood Urea Nitrogen* 14 mg/dL (7-30); Carbon Dioxide* 27 mmol/L (20-32); Creatinine* 0.5 mg/dL (0.5-1.5); Est. Creatinine Clearance* 63.53; Estimated Glomerular Filt Rate 108 ml/min
[2022-03-02 08:14] LABS: Calcium* 7.7 mg/dL (8.4-10.6); Glucose* 89 mg/dL (60-115); Phosphorus* 3.3 mg/dL (2.5-4.5)
[2022-03-02 08:18] LABS: INR 1.63 (0.91-1.10); Prothrombin Time 20.2 Seconds
[2022-03-02] MEDS: ACETAMINOPHEN 325 MG TABLET 650 MG PO ×4 (09:08→20:40)
[2022-03-02] MEDS: GABAPENTIN 100 MG CAPSULE PO (09:09)
[2022-03-02] MEDS: SENNOSIDES/DOCUSATE TABLET 1 TAB PO (09:10)
[2022-03-02] MEDS: TAMSULOSIN HCL 0.4 MG CAPSULE PO (09:10)
[2022-03-02] MEDS: carvediloL 6.25 MG TABLET 3.125 MG PO ×2 (09:10→17:47)
[2022-03-02] MEDS: SODIUM CHLORIDE 0.9 % (FLUSH) 10 ML SYRINGE 5 ML IVF ×2 (09:14→20:40)
[2022-03-02] MEDS: WARFARIN 5 MG TABLET PO (10:03)
[2022-03-02] MEDS: 0.9 % SODIUM CHLORIDE 500 ML 500 ML IV (10:05)
--- NOTE | 2022-03-02 14:45 | P.IMPN_ITS ---
Progress Note: A&P Assessment and plan (1) Laceration of lip: Problem details: - Bleeding stopped with pressure, continue clamp as needed. Avoid trauma to lower lip Status: Acute (2) COVID: Problem details: - temperature of 100.5? on admission, no hypoxia. 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 Baseline hemoglobin is 9.5 - transfused 1 U PRBCs 02/27, and 1 more unit packed red blood cells 02/28/2022 Status: Acute (6) Back pain: Problem details: - Acute on chronic, follow symptomatically Status: Acute (7) Hypovolemic shock: Problem details: Resolved on presentation with IV fluid and packed red blood cell administration Status: Acute (8) Orthostatic hypotension: Problem details: Most likely related to combination of alpha-xin tamsulosin, chronic beta- xin use with decrease heart rate response, and acute blood loss anemia Status: Acute Assessment and Plan: 1. Decrease the tamsulosin does from 0.4 mg twice daily to 0.4 mg at bedtime starting tomorrow. Will stop b.i.d. dosing of tamsulosin today. I informed the patient that he may need to follow up with his primary care physician and/or urologist should his urinary outlet obstruction worsen with the decreased dose of the tamsulosin. May need to consider temporary catheter verses procedure for long-term management. Plan Should he tolerate the decreased dose of the tamsulosin he may be in a position to be discharged home as early as tomorrow. Time Spent With Patient Total time spent: 30 minutes Subjective Time Seen by Provider: 11:00 Date Seen: 12/19/22 Interval history: Hospital day 5. Still notes a sense of orthostasis when he transfers from supine to sitting and sitting to standing. Worse when transferring from sitting to standing. This is not necessarily new, as he has had these sort of symptoms in the past. Has otherwise been doing well. His complaint of low back pain, while still present, is slightly improved from yesterday. Denies nausea vomiting. Denies abdominal pain. Denies chest heaviness, pressure, tightness. Denies palpitations. Denies dyspnea at rest. Acknowledges baseline dyspnea with exertion. No longer bleeding. Tolerating medication regimen, including remdesivir. Exam Narrative: Exam Narrative: Appears comfortable. No acute distress. Friendly, articulate, cooperative. Alert and oriented to self, place, time, situation. Lungs clear to auscultation. Heart tones with regular rhythm. Abdomen with active bowel sounds, soft, nontender. Extremities without edema. Independent in transfer, station, and gait, but does move slowly with standing and walking. No focal motor neurologic deficits. Skin is warm, dry, intact. Const: Vital Signs, click to edit/add: Vital Signs - 24 hr 03/01/22 15:43 03/01/22 16:01 03/01/22 16:35 Temperature 99.1 F Pulse Rate [Pulse Oximeter] 65 Pulse Rate [orthos tatic lying Left] 71 Pulse Rate [orthos tatic sitting Left ] 71 Pulse Rate [orthos tatic standing Lef t] Respiratory Rate 18 Blood Pressure [Le ft Arm] 163/83 H Blood Pressure [Ri ght Arm] Blood Pressure [or thostatic lying Ri ght Arm] Blood Pressure [or thostatic lying] 186/93 H Blood Pressure [or thostatic sitting Left Arm] 157/78 H Blood Pressure [or thostatic sitting Right Arm] Blood Pressure [or thostatic standing Right Arm] Pulse Oximetry 96 96 Oxygen Delivery Me thod Room Air 03/01/22 19:00 03/01/22 23:00 03/01/22 23:00 Temperature 99.1 F 98.9 F Pulse Rate [Pulse Oximeter] 93 91 Pulse Rate [orthos tatic lying Left] Pulse Rate [orthos tatic sitting Left ] Pulse Rate [orthos tatic standing Lef t] Respiratory Rate 18 18 Blood Pressure [Le ft Arm] Blood Pressure [Ri ght Arm] 158/82 H Blood Pressure [or thostatic lying Ri ght Arm] Blood Pressure [or thostatic lying] Blood Pressure [or thostatic sitting Left Arm] Blood Pressure [or thostatic sitting Right Arm] Blood Pressure [or thostatic standing Right Arm] Pulse Oximetry 94 97 97 Oxygen Delivery Me thod Room Air Room Air 03/02/22 03:00 03/02/22 07:00 03/02/22 07:00 Temperature 98.2 F Pulse Rate [Pulse Oximeter] 59 L 68 Pulse Rate [orthos tatic lying Left] Pulse Rate [orthos tatic sitting Left ] Pulse Rate [orthos tatic standing Lef t] Respiratory Rate 18 Blood Pressure [Le ft Arm] Blood Pressure [Ri ght Arm] 172/84 H Blood Pressure [or thostatic lying Ri ght Arm] Blood Pressure [or thostatic lying] Blood Pressure [or thostatic sitting Left Arm] Blood Pressure [or thostatic sitting Right Arm] Blood Pressure [or thostatic standing Right Arm] Pulse Oximetry 93 95 Oxygen Delivery Ri thod Room Air 03/02/22 07:00 03/02/22 09:00 03/02/22 12:30 Temperature 98.7 F Pulse Rate [Pulse Oximeter] 68 Pulse Rate [orthos tatic lying Left] 77 64 Pulse Rate [orthos tatic sitting Left ] 72 65 Pulse Rate [orthos tatic standing Lef t] 68 63 Respiratory Rate 16 Blood Pressure [Le ft Arm] Blood Pressure [Ri ght Arm] 172/85 H Blood Pressure [or thostatic lying Ri ght Arm] 171/85 H 146/72 H Blood Pressure [or thostatic lying] Blood Pressure [or thostatic sitting Left Arm] Blood Pressure [or thostatic sitting Right Arm] 141/78 H 141/71 H Blood Pressure [or thostatic standing Right Arm] 96/66 116/58 L Pulse Oximetry 95 Oxygen Delivery Me thod Room Air 03/02/22 11:00 Temperature 97.7 F Pulse Rate [Pulse Oximeter] 64 Pulse Rate [orthos tatic lying Left] Pulse Rate [orthos tatic sitting Left ] Pulse Rate [orthos tatic standing Lef t] Respiratory Rate 16 Blood Pressure [Le ft Arm] Blood Pressure [Ri ght Arm] 146/72 H Blood Pressure [or thostatic lying Ri ght Arm] Blood Pressure [or thostatic lying] Blood Pressure [or thostatic sitting Left Arm] Blood Pressure [or thostatic sitting Right Arm] Blood Pressure [or thostatic standing Right Arm] Pulse Oximetry 97 Oxygen Delivery Me thod Room Air Documenting provider has reviewed patient's vital signs: yes Labs Labs: Laboratory Results - last 24 hr 03/01/22 03/02/22 03/02/22 07:15 07:37 07:37 WBC 10.23 RBC 3.04 L Hgb 9.1 L Hct 27.1 L MCV 89 MCH 30 MCHC 34 Plt Count 467 H INR 1.63 H VBG pH VBG pCO2 VBG pO2 VBG HCO3 Sodium Potassium Chloride Carbon Dioxide BUN Creatinine Estimated Creat Clear Estimated GFR Glucose Calcium Phosphorus Albumin Procalcitonin 0.40 03/02/22 03/02/22 07:37 07:37 WBC RBC Hgb Hct MCV MCH MCHC Plt Count INR VBG pH 7.477 H VBG pCO2 39 L VBG pO2 53.8 H VBG HCO3 29 H Sodium 133 L Potassium 4.1 Chloride 102 Carbon Dioxide 27 BUN 14 Creatinine 0.5 Estimated Creat Clear 63.53 Estimated GFR 108 Glucose 89 Calcium 7.7 L Phosphorus 3.3 Albumin 2.8 L Procalcitonin
[2022-03-02 17:46] LABS: C Reactive Protein* 8.2 mg/dL (0.5-1.0)
--- NOTE | 2022-03-02 18:38 | PC.NURSE ---
Pt alert and oriented, pleasant and cooperative. Pt lung sounds clear. Pt reports dizziness with position changes. Pt orthostatic in am, Dr. Schreiber updated and 500 ml bolus NS given. Recheck of orthostatic BP's taken after lunch, improved. Pt continues to report dizziness with position changes. Pt reports chronic back pain, managed with Tramadol and brenda Tylenol. Up 1 assist. Pt had episode of incontinent bowel.
[2022-03-02] MEDS: GABAPENTIN 300 MG CAPSULE PO (20:40)
[2022-03-03] VITALS (10 sets, daily range): BP systolic 87–191; BP diastolic 52–95; PULSE 62–79; RESP 16–20; TEMP 37.2–38.1; O2SAT 93–98
[2022-03-03] MEDS: LORazepam 0.5 MG TABLET PO (02:54)
--- NOTE | 2022-03-03 03:24 | PC.NURSE ---
Pt rested well this night. States pain 8/10 at all times. PRN meds given with no change. Pt voiding. Remains on RA. LS clear. Sats in the mid to high 90s. Afebrile.
[2022-03-03] MEDS: OMEPRAZOLE 20 MG CAPSULE DR 40 MG PO (06:08)
[2022-03-03] MEDS: 0.9 % SODIUM CHLORIDE 500 ML 500 ML IV (08:10)
[2022-03-03 08:13] LABS: INR 1.72 (0.91-1.10)
[2022-03-03] MEDS: ACETAMINOPHEN 325 MG TABLET 650 MG PO ×3 (08:54→20:23)
[2022-03-03] MEDS: SENNOSIDES/DOCUSATE TABLET 1 TAB PO ×2 (08:55→20:22)
[2022-03-03] MEDS: GABAPENTIN 100 MG CAPSULE PO (08:55)
[2022-03-03] MEDS: SODIUM CHLORIDE 0.9 % (FLUSH) 10 ML SYRINGE 5 ML IVF ×2 (08:55→20:24)
[2022-03-03] MEDS: carvediloL 6.25 MG TABLET 1.5625 MG PO ×2 (10:05→17:26)
--- NOTE | 2022-03-03 10:39 | CRLHL7_ITS ---
For Patients: As a result of the Cures Act, medical imaging exams and procedure reports are released immediately into your electronic medical record. You may view this report before your referring provider. If you have questions, please contact your health care provider. INDICATION: Fever, COVID. History of osteosarcoma. TECHNIQUE: Chest 1 view. COMPARISON: Chest radiograph 02/25/2020. CT chest, abdomen, pelvis 11/27/2019. FINDINGS: Suture chains in the right mid and upper lung appear new since prior exam. There is associated right lung volume loss and mild elevation of the right hemidiaphragm. Streaky opacity in the right upper lobe may represent pneumonia. Probable scarring along the right hemidiaphragm. Linear atelectasis or scarring left lower lung. No pleural effusion or pneumothorax. Heart size upper limits of normal. Dilation and tortuosity of the ascending thoracic aorta. TAVR. Normal pulmonary vascularity. The bones are unremarkable. IMPRESSION: 1. Streaky opacity in the right upper lung may represent pneumonia. 2. Interval postoperative changes in the right lung with associated volume loss. 3. Dilation and tortuosity of the ascending thoracic aorta Dictated by Rosalba Rivera MD @ 03/03/2022 12:34:47 PM (Electronically Signed)
[2022-03-03 12:27] LABS: Eosinophils Absolute Auto 0.42 K/uL (0.00-0.50); Eosinophils Percent Auto 4.1 % (0.0-7.0); Hematocrit 26.8 % (37.0-53.0); Hemoglobin* 9.2 gm/dL (13.5-17.5); Immature Granulocytes Abs Auto 0.04 K/uL (0.00-0.30); Immature Granulocytes Pct Auto 0.4 %; Lymphocytes Percent Auto 5.7 % (20-44); Mean Corpuscular HGB Conc 34 gm/dL (32-36); Mean Corpuscular Hemoglobin 31 pg (26-34); Mean Corpuscular Volume 89 fL (80-100); Neutrophils Percent Auto 76.8 % (42.0-72.0); Platelet Count* 465 K/uL (140-440); RDW Coefficient of Variation % 16.7 % (11.5-15.5); Red Blood Count 3.02 m/uL (4.30-5.90); White Blood Count* 10.32 K/uL (4.50-11.00)
[2022-03-03 12:29] LABS: Slide Review Reflex No
[2022-03-03 12:46] LABS: Sodium* 129 mmol/L (135-149)
[2022-03-03 13:04] LABS: C Reactive Protein* 16.7 mg/dL (0.5-1.0)
--- NOTE | 2022-03-03 15:40 | PC.NURSE ---
Pt pleasant an cooperative at initial assessment. 500 cc NS fluid bolus over 1hour initiated at initial assessment. Ortho static BPs reported to Dr. Hurd. Pt had adequate I & 0, rested at intervals. During the late afternoon pt became forgetful about seeing the hospitalist this morning. Reassurance provided and Dr. Hurd in to speak with pt about his questions, concerns about his INR. RN called to update at shift change Leandra Sood [phone] and discuss her concerns about Karl's confusion/symptoms. Report to Alisha GIL for evening shift.
--- NOTE | 2022-03-03 16:35 | P.IMPN_ITS ---
Progress Note: A&P Assessment and plan (1) Laceration of lip: Problem details: - Bleeding stopped with pressure, continue clamp as needed. Avoid trauma to lower lip Status: Acute (2) COVID: Problem details: - temperature of 100.5? on admission, no hypoxia. 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 today. Continue with daily PT INR. (4) Abdominal tenderness: Problem details: - no acute findings on CT of abdomen/pelvis, obtained 02/27/22 Status: Acute (5) Anemia: Problem details: - acute on chronic. Baseline hemoglobin is 9.5 - transfused 1 U PRBCs 02/27, and 1 more unit packed red blood cells 02/28/2022 Status: Acute (6) Back pain: Problem details: - Acute on chronic, follow symptomatically Status: Acute (7) Hypovolemic shock: Problem details: Resolved on presentation with IV fluid and packed red blood cell administration Status: Acute (8) Orthostatic hypotension: Problem details: Most likely related to combination of alpha-xin tamsulosin, chronic beta- xin use with decrease heart rate response, acute blood loss anemia and hypovolemia, and possible concurrent sick sinus syndrome. Status: Acute Assessment and Plan: 1. Hold the alpha xin altogether. Last dose he received was yesterday morning. 2. Decrease carvedilol dose in half to 1.0625 mg twice daily. 3. With his hypertension I will add a low dose of lisinopril 2.5 mg once daily. (9) Right upper lobe pulmonary infiltrate: Problem details: Likely a pneumonia. Secondary complication of COVID. Status: Acute Assessment and Plan: 1. Will at ceftriaxone and azithromycin. 2. Continue to monitor vital signs and labs. Plan 1. Answered patient's questions to satisfaction. 2. Patient agreeable. Time Spent With Patient Total time spent: 30 minutes Subjective Time Seen by Provider: 11:00 Date Seen: 03/03/22 Interval history: Hospital day 6. Still notes orthostasis when he transfers from supine to sitting and sitting to standing. Worse when transferring from sitting to standing. This is not necessarily new, as he has had these sort of symptoms in the past. However it seems more profound now than it has in the past for him. Also acknowledges a sense of more weakness as the days have evolved here in the hospital. Has otherwise been doing well. His complaint of low back pain is still present. Denies sense of urinary hesitancy or inability to empty his bladder. Denies nausea vomiting. Denies abdominal pain. Denies chest heaviness, pressure, tightness. Denies palpitations. Denies dyspnea at rest. Acknowledges baseline dyspnea with exertion. No longer bleeding. Tolerating medication regimen, including remdesivir. Intermittent cough sometimes productive of purulent sputum, no hemoptysis or any other blood loss. Exam Narrative: Exam Narrative: No acute distress. Brigido when he talks, seems anxious, but also appears comfortable. Seemingly oriented to self, place, and situation. Knows he has been here few days but is losing track of time. Lungs clear to auscultation. Heart tones with regular rhythm. Murmur still present. Abdomen with active bowel sounds, soft, nontender. Extremities without edema. Skin is warm, dry, intact. No focal motor neurologic deficits. Const: Vital Signs, click to edit/add: Vital Signs - 24 hr 03/02/22 19:31 03/02/22 20:40 03/02/22 23:21 Temperature 97.7 F 97.7 F 97.7 F Pulse Rate [Pulse Oximeter] 59 L 65 Pulse Rate [orthos tatic lying Left] Pulse Rate [orthos tatic sitting Left ] Pulse Rate [orthos tatic standing Lef t] Respiratory Rate 16 16 Blood Pressure [Le ft Arm] Blood Pressure [Ri ght Arm] 148/78 H 179/87 H Blood Pressure [or thostatic lying Ri ght Arm] Blood Pressure [or thostatic lying] Blood Pressure [or thostatic sitting Left Arm] Blood Pressure [or thostatic sitting Right Arm] Blood Pressure [or thostatic standing Left Arm] Blood Pressure [or thostatic standing Right Arm] Pulse Oximetry 97 95 Oxygen Delivery Me thod Room Air Room Air 03/02/22 23:24 03/02/22 23:24 03/03/22 02:46 Temperature 99 F Pulse Rate [Pulse Oximeter] 65 66 Pulse Rate [orthos tatic lying Left] Pulse Rate [orthos tatic sitting Left ] Pulse Rate [orthos tatic standing Lef t] Respiratory Rate 16 16 Blood Pressure [Le ft Arm] Blood Pressure [Ri ght Arm] 167/87 H Blood Pressure [or thostatic lying Ri ght Arm] Blood Pressure [or thostatic lying] Blood Pressure [or thostatic sitting Left Arm] Blood Pressure [or thostatic sitting Right Arm] Blood Pressure [or thostatic standing Left Arm] Blood Pressure [or thostatic standing Right Arm] Pulse Oximetry 65 L 97 [facility] 03/03/22 05:54 03/03/22 08:54 03/03/22 08:00 Temperature 100.6 F H 100.6 F H Pulse Rate [Pulse Oximeter] 73 Pulse Rate [orthos tatic lying Left] 65 Pulse Rate [orthos tatic sitting Left ] 67 Pulse Rate [orthos tatic standing Lef t] 74 Respiratory Rate 18 Blood Pressure [Le ft Arm] 169/95 H Blood Pressure [Ri ght Arm] Blood Pressure [or thostatic lying Ri ght Arm] Blood Pressure [or thostatic lying] 191/84 H Blood Pressure [or thostatic sitting Left Arm] 161/77 H Blood Pressure [or thostatic sitting Right Arm] Blood Pressure [or thostatic standing Left Arm] 97/52 L Blood Pressure [or thostatic standing Right Arm] Pulse Oximetry 95 [facility] 03/03/22 08:00 03/03/22 11:00 03/03/22 10:00 Temperature 100.1 F H Pulse Rate [Pulse Oximeter] 70 Pulse Rate [orthos tatic lying Left] 70 Pulse Rate [orthos tatic sitting Left ] 74 Pulse Rate [orthos tatic standing Lef t] 79 Respiratory Rate 20 Blood Pressure [Le ft Arm] Blood Pressure [Ri ght Arm] 135/77 Blood Pressure [or thostatic lying Ri ght Arm] 135/77 Blood Pressure [or thostatic lying] Blood Pressure [or thostatic sitting Left Arm] Blood Pressure [or thostatic sitting Right Arm] 106/81 Blood Pressure [or thostatic standing Left Arm] Blood Pressure [or thostatic standing Right Arm] 87/53 L Pulse Oximetry 95 97 Oxygen Delivery Me thod Documenting provider has reviewed patient's vital signs: yes Labs Labs: Laboratory Results - last 24 hr 03/02/22 03/03/22 03/03/22 07:37 07:40 12:20 WBC 10.32 RBC 3.02 L Hgb 9.2 L Hct 26.8 L MCV 89 MCH 31 MCHC 34 RDW Coeff of Bernabe 16.7 H Plt Count 465 H Neut % (Auto) 76.8 H Lymph % (Auto) 5.7 L Simpson % (Auto) 13.0 H Eos % (Auto) 4.1 Baso % (Auto) 0.0 Neut # (Auto) 7.90 H Lymph # (Auto) 0.60 L Simpson # (Auto) 1.30 H Eos # (Auto) 0.42 Baso # (Auto) 0.00 INR 1.72 H Sodium C-Reactive Protein 8.2 H 03/03/22 12:20 WBC RBC Hgb Hct MCV MCH MCHC RDW Coeff of Bernabe Plt Count Neut % (Auto) Lymph % (Auto) Simpson % (Auto) Eos % (Auto) Baso % (Auto) Neut # (Auto) Lymph # (Auto) Simpson # (Auto) Eos # (Auto) Baso # (Auto) INR Sodium 129 L C-Reactive Protein 16.7 H Imaging Chest x-ray: Attestation: I have reviewed the pertinent imaging results. Radiologist's impression: 1. Streaky opacity in the right upper lung may represent pneumonia. 2. Interval postoperative changes in the right lung with associated volume loss. 3. Dilation and tortuosity of the ascending thoracic aorta
[2022-03-03] MEDS: AZITHROMYCIN 250 MG TABLET 500 MG PO (17:25)
[2022-03-03] MEDS: CYCLOBENZAPRINE HCL 10 MG TABLET 5 MG PO (17:28)
[2022-03-03] MEDS: WARFARIN 5 MG TABLET PO (17:29)
[2022-03-03] MEDS: cefTRIAXone 1 GM in 0.9 % SODIUM CHLORIDE Mini-bag 100 ML IVPB (17:29)
[2022-03-03 18:36] LABS: Appearance Urine Clear (Clear); Bilirubin Urine Negative (Negative); Blood Urine Negative (Negative); Color Urine Yellow (Yellow); Glucose Urine Negative (Negative); Ketones Urine Negative (Negative); Leukocyte Esterase Urine Negative (Negative); Nitrite Urine Negative (Negative); Protein Urine Negative (Negative); Urobilinogen Urine 0.2 (0.2-1.0); pH Urine 6.5 (5.0-8.5)
[2022-03-03 19:00] LABS: RBC Urine 0-2 (0-2); WBC Urine 0-2 (0-5)
[2022-03-03] MEDS: GABAPENTIN 300 MG CAPSULE PO (20:22)
[2022-03-03] MEDS: SODIUM CHLORIDE 1 GM TABLET PO (20:23)
[2022-03-04] VITALS (8 sets, daily range): BP systolic 96–180; BP diastolic 62–89; PULSE 64–94; RESP 16–18; TEMP 36.7–37.6; O2SAT 94–99
--- NOTE | 2022-03-04 05:32 | PC.NURSE ---
Shift note: Pt has been in bed throughout the shift, pleasant and cooperative. Confirmed back pain of 3 but managed with reposition. Pt is vitally stable except high Bp recorded this shift.
[2022-03-04] MEDS: TRAMADOL HCL 50 MG TABLET 25 MG PO ×2 (06:44→21:23)
[2022-03-04] MEDS: OMEPRAZOLE 20 MG CAPSULE DR 40 MG PO (06:44)
[2022-03-04 07:33] LABS: Sodium* 133 mmol/L (135-149)
[2022-03-04 07:45] LABS: INR 1.82 (0.91-1.10)
[2022-03-04] MEDS: GABAPENTIN 100 MG CAPSULE PO (08:24)
[2022-03-04] MEDS: SENNOSIDES/DOCUSATE TABLET 1 TAB PO ×2 (08:25→21:23)
[2022-03-04] MEDS: SODIUM CHLORIDE 1 GM TABLET PO ×3 (08:25→17:39)
[2022-03-04] MEDS: carvediloL 6.25 MG TABLET 1.5625 MG PO ×2 (08:25→17:39)
[2022-03-04] MEDS: lisinopriL 5 MG TABLET 2.5 MG PO (08:25)
[2022-03-04] MEDS: SODIUM CHLORIDE 0.9 % (FLUSH) 10 ML SYRINGE 5 ML IVF ×3 (08:26→21:24)
[2022-03-04] MEDS: ACETAMINOPHEN 325 MG TABLET 650 MG PO ×4 (08:26→21:23)
[2022-03-04] MEDS: WARFARIN 5 MG TABLET PO (14:08)
--- NOTE | 2022-03-04 15:53 | PM.IMPN1 ---
Progress Note: A&P Assessment and plan (1) Laceration of lip: Problem details: - Bleeding stopped with pressure, continue clamp as needed. Avoid trauma to lower lip Status: Acute (2) COVID: Problem details: - temperature of 100.5? on admission, no hypoxia. 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 Baseline hemoglobin is 9.5 - transfused 1 U PRBCs 02/27, and 1 more unit packed red blood cells 02/28/2022 Status: Acute (6) Back pain: Problem details: - Acute on chronic, follow symptomatically Status: Acute (7) Hypovolemic shock: Problem details: Resolved on presentation with IV fluid and packed red blood cell administration Status: Acute (8) Orthostatic hypotension: Problem details: Most likely related to combination of alpha-xin tamsulosin, chronic beta-xin use with decrease heart rate response, acute blood loss anemia and hypovolemia, and possible concurrent sick sinus syndrome. Status: Acute (9) Right upper lobe pulmonary infiltrate: Problem details: Likely a pneumonia. Secondary complication of COVID. Status: Acute Plan 1. For now continue with current IV ceftriaxone and oral azithromycin coverage for the pneumonia that we were able to establish yesterday. In time we can switch to oral medications only. 2. Continue with Aerobika device use to help clear sputum. 3. Continue to hold the alpha-xin tamsulosin and monitor orthostatic blood pressures and pulses. 4. If he continues to be stable it is possible he might be able to be discharged to the next 1-2 days. 5. Did discuss with patient the possibility that he may have urinary retention as we have stopped his alpha-xin. Should that occur he has agreed to allow is to place a catheter until such time he has he can have appropriate follow-up in the outpatient setting. Time Spent With Patient Total time spent: 40 Subjective Time Seen by Provider: 11:30 Date Seen: 03/04/22 Interval history: Hospital day 7. Still notes orthostasis when he transfers from supine to sitting and sitting to standing. Worse when transferring from sitting to standing. This is not necessarily new, as he has had these sort of symptoms in the past. However it seems more profound now than it has in the past for him. Still weak. Weakness seems to be stabilizing as he is able to move a little bit more. His complaint of low back pain is still present. Denies sense of urinary hesitancy or inability to empty his bladder. Denies nausea vomiting. Denies abdominal pain. Denies chest heaviness, pressure, tightness. Denies palpitations. Denies dyspnea at rest. Acknowledges baseline dyspnea with exertion. No longer bleeding. Tolerating medication regimen, including remdesivir. Intermittent cough sometimes productive of purulent sputum, no hemoptysis or any other blood loss. Exam Narrative: Exam Narrative: T-max yesterday 100.6? F. Afebrile today. Appears comfortable. No acute distress. Alert, oriented to self, place, time, situation. Articulate and cooperative. Forgetful. Although I saw him a couple times her stay does not remember seeing me. Lungs with the most part clear, some scattered rhonchi in the right compared to the left. No wheezing or rales. No CVA tenderness. Heart tones with regular rhythm, normal S1-S2. Still has systolic murmur. Abdomen with active bowel sounds, soft, nontender. Able to transfer from supine to sitting and sitting to standing. Reviewed orthostatic blood pressures and pulses which appeared to be about as they were previously. Has been off the tamsulosin now for nearly 48 hours. Skin is dry and intact. Trace bilateral lower extremity edema. Const: Vital Signs, click to edit/add: Vital Signs - 24 hr 03/03/22 16:54 03/03/22 19:00 03/03/22 23:00 Temperature 99.5 F 98.9 F Pulse Rate [Pulse Oximeter] 63 63 Pulse Rate [orthos tatic lying Left] Pulse Rate [orthos tatic sitting Left ] Pulse Rate [orthos tatic standing Lef t] Respiratory Rate 20 20 Blood Pressure [Le ft Arm] 180/88 H 148/78 H Blood Pressure [Ri ght Arm] 175/90 H Blood Pressure [or thostatic lying Ri ght Arm] Blood Pressure [or thostatic sitting Right Arm] Blood Pressure [or thostatic standing Right Arm] Pulse Oximetry 93 95 94 Oxygen Delivery Me thod Room Air Room Air 03/03/22 23:00 03/03/22 23:00 03/04/22 03:00 Temperature 98.9 F 98.9 F Pulse Rate [Pulse Oximeter] 63 66 Pulse Rate [orthos tatic lying Left] Pulse Rate [orthos tatic sitting Left ] Pulse Rate [orthos tatic standing Lef t] Respiratory Rate 18 18 18 Blood Pressure [Le ft Arm] 182/86 H 145/88 H Blood Pressure [Ri ght Arm] Blood Pressure [or thostatic lying Ri ght Arm] Blood Pressure [or thostatic sitting Right Arm] Blood Pressure [or thostatic standing Right Arm] Pulse Oximetry 94 95 Oxygen Delivery Me thod Room Air Room Air 03/04/22 06:00 03/04/22 08:22 03/04/22 08:22 Temperature 99.6 F Pulse Rate [Pulse Oximeter] 81 Pulse Rate [orthos tatic lying Left] 71 Pulse Rate [orthos tatic sitting Left ] 71 Pulse Rate [orthos tatic standing Lef t] 94 Respiratory Rate 18 Blood Pressure [Le ft Arm] Blood Pressure [Ri ght Arm] 135/70 Blood Pressure [or thostatic lying Ri ght Arm] 172/86 H Blood Pressure [or thostatic sitting Right Arm] 136/75 Blood Pressure [or thostatic standing Right Arm] 96/62 Pulse Oximetry 94 94 Oxygen Delivery Me thod Room Air 03/04/22 12:27 Temperature 98.9 F Pulse Rate [Pulse Oximeter] 64 Pulse Rate [orthos tatic lying Left] Pulse Rate [orthos tatic sitting Left ] Pulse Rate [orthos tatic standing Lef t] Respiratory Rate 16 Blood Pressure [Le ft Arm] Blood Pressure [Ri ght Arm] 145/77 H Blood Pressure [or thostatic lying Ri ght Arm] Blood Pressure [or thostatic sitting Right Arm] Blood Pressure [or thostatic standing Right Arm] Pulse Oximetry 96 Oxygen Delivery Me thod Room Air Labs Labs: Laboratory Results - last 24 hr 03/03/22 03/04/22 03/04/22 18:14 06:19 06:19 INR 1.82 H Sodium 133 L Urine Color Yellow Urine Appearance Clear Urine pH 6.5 Ur Specific [place] 1.020 Urine Protein Negative Urine Glucose (UA) Negative Urine Ketones Negative Urine Blood Negative Urine Nitrite Negative Urine Bilirubin Negative Urine Urobilinogen 0.2 Ur Leukocyte Esterase Negative Urine RBC 0-2 Urine WBC 0-2 Ur Squamous Epith Cells None Urine Bacteria None
[2022-03-04] MEDS: AZITHROMYCIN 250 MG TABLET 500 MG PO (17:38)
[2022-03-04] MEDS: 0.9 % SODIUM CHLORIDE 250 ml IV (17:39)
[2022-03-04] MEDS: cefTRIAXone 1 GM in 0.9 % SODIUM CHLORIDE Mini-bag 100 ML IVPB (17:39)
[2022-03-04 20:49] LABS: Troponin I* < 0.01 ng/mL (0.01-0.04)
[2022-03-04] MEDS: GABAPENTIN 300 MG CAPSULE PO (21:23)
--- NOTE | 2022-03-04 22:41 | PC.NURSE ---
End of Shift: Patient pleasant and cooperative. Afebrile. O2 sats greater than 90% on room air. C/o chronic pain in back up to 6-7/10 and PRN Ultram given x1. Up to bathroom and chair with 1 assist, walker and gait belt. Denies any lightheadedness or dizziness. Tolerating regular diet with no nausea. C/o some left chest discomfort at 1900. When asked to rate states I just know it's there. Updated MD, EKG and labs drawn. Patient states resolved as he was able to rest.
[2022-03-05] VITALS (7 sets, daily range): BP systolic 85–177; BP diastolic 60–86; PULSE 66–77; RESP 18–20; TEMP 36.9–37.6; O2SAT 94–98
--- NOTE | 2022-03-05 05:26 | PC.NURSE ---
Shift note: Pt has had adequate sleep tonight. No pain reported. Ambulate with A1, GB to and from the BR. V/S Stable except high Bp of 180/83 but denied dizziness and headache.
[2022-03-05] MEDS: OMEPRAZOLE 20 MG CAPSULE DR 40 MG PO (06:34)
[2022-03-05 06:53] LABS: Hematocrit 25.5 % (37.0-53.0); Hemoglobin* 8.7 gm/dL (13.5-17.5); Mean Corpuscular HGB Conc 34 gm/dL (32-36); Mean Corpuscular Hemoglobin 31 pg (26-34); Mean Corpuscular Volume 90 fL (80-100); Platelet Count* 479 K/uL (140-440); Red Blood Count 2.85 m/uL (4.30-5.90); White Blood Count* 10.92 K/uL (4.50-11.00)
--- NOTE | 2022-03-05 07:00 | CRLHL7_ITS ---
For Patients: As a result of the Cures Act, medical imaging exams and procedure reports are released immediately into your electronic medical record. You may view this report before your referring provider. If you have questions, please contact your health care provider. INDICATION: Fever. COVID. COMPARISON: 03/03/2022 TECHNIQUE: AP sitting study FINDINGS: TUBES AND LINES: None. HEART AND MEDIASTINUM: Enlarged heart. Tortuous and dilated thoracic aorta. The heart and mediastinum appear similar to the prior exam.Status post aortic valve repair LUNGS AND PLEURAL SPACES: Linear opacity in the right upper lobe less dense than previously probably atelectasis or scarring. No focal consolidation, infiltrate or mass.No pleural effusion. OSSEOUS STRUCTURES: Age-appropriate appearance. No acute focal finding. IMPRESSION: Linear opacity in the right upper lobe less dense than previously probably representing atelectasis or scarring. No focal consolidation, infiltrate or mass. Unchanged cardiac contour. Aortic valve repair. Dictated by Grady Xiong MD @ 03/05/2022 7:38:59 AM (Electronically Signed)
[2022-03-05 07:01] LABS: Slide Review Reflex No
[2022-03-05 07:06] LABS: Chloride* 101 mmol/L (96-114); Potassium* 4.2 mmol/L (3.6-5.1); Sodium* 132 mmol/L (135-149)
[2022-03-05 07:09] LABS: Carbon Dioxide* 26 mmol/L (20-32); Creatinine* 0.5 mg/dL (0.5-1.5); Est. Creatinine Clearance* 63.53; Estimated Glomerular Filt Rate 108 ml/min
[2022-03-05 07:10] LABS: Blood Urea Nitrogen* 13 mg/dL (7-30); Calcium* 8.2 mg/dL (8.4-10.6); Glucose* 87 mg/dL (60-115)
[2022-03-05 07:24] LABS: C Reactive Protein* 16.4 mg/dL (0.5-1.0); Troponin I* < 0.01 ng/mL (0.01-0.04)
[2022-03-05 07:29] LABS: INR 2.35 (0.91-1.10); Prothrombin Time 26.9 Seconds
[2022-03-05] MEDS: SODIUM CHLORIDE 1 GM TABLET PO ×3 (08:16→18:30)
[2022-03-05] MEDS: SENNOSIDES/DOCUSATE TABLET 1 TAB PO ×2 (08:16→20:33)
[2022-03-05] MEDS: lisinopriL 5 MG TABLET 2.5 MG PO (08:16)
[2022-03-05] MEDS: ACETAMINOPHEN 325 MG TABLET 650 MG PO ×4 (08:16→20:33)
[2022-03-05] MEDS: GABAPENTIN 100 MG CAPSULE PO (08:16)
[2022-03-05] MEDS: carvediloL 6.25 MG TABLET 1.5625 MG PO ×2 (08:18→18:31)
[2022-03-05] MEDS: TRAMADOL HCL 50 MG TABLET 25 MG PO ×2 (08:19→20:50)
[2022-03-05] MEDS: SODIUM CHLORIDE 0.9 % (FLUSH) 10 ML SYRINGE 5 ML IVF ×3 (08:21→20:33)
[2022-03-05] MEDS: FLUDROCORTISONE ACETATE 0.1 MG TABLET 0.05 MG PO (15:38)
--- NOTE | 2022-03-05 15:45 | PC.NURSE ---
Pt unable to ambulate to chair due to B/P drop and dizziness upon sitting and standing. Dr. Hurd aware. Denies N/V. Scheduled Tylenol for chronic back pain with relief.
--- NOTE | 2022-03-05 17:48 | P.IMPN_ITS ---
Progress Note: A&P Assessment and plan (1) Laceration of lip: Problem details: - Bleeding stopped with pressure, continue clamp as needed. Avoid trauma to lower lip Status: Acute (2) COVID: Problem details: - temperature of 100.5? on admission, no hypoxia. 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 Baseline hemoglobin is 9.5 - transfused 1 U PRBCs 02/27, and 1 more unit packed red blood cells 02/28/2022 Status: Acute (6) Back pain: Problem details: - Acute on chronic, follow symptomatically Status: Acute (7) Hypovolemic shock: Problem details: Resolved on presentation with IV fluid and packed red blood cell administration Status: Acute (8) Orthostatic hypotension: Problem details: Most likely this is chronic and not explainable on the basis of an untoward iatrogenic response to his various medications including the alpha-xin, tamsulosin, and the beta-xin, carvedilol. Additionally, not explainable on the basis of acute blood loss anemia and hypovolemia. Most consistent with neurogenic orthostatic hypotension, particularly with the paucity of an appropriate virgen-receptor reflex induced increased heart rate with associated decreased blood pressure. Status: Acute (9) Right upper lobe pulmonary infiltrate: Problem details: Likely a pneumonia. Secondary complication of COVID. Status: Acute Assessment and Plan: On day 3 of IV ceftriaxone and oral azithromycin. Will continue. (10) Neurogenic orthostatic hypotension: Status: Acute Assessment and Plan: 1. For the most part we stop the medicines that could be causing some of this, mainly the alpha-xin, tamsulosin, and we have lowered the dose of his beta-xin, carvedilol, significantly. 2. We have increased his sodium intake and water intake without adequate response. 3. We attempted to modify his activities without adequate response. 4. We will need to add compression stockings. I will order thigh-high [place] compression stockings for now to see if that helps. 5. I will also add a low dose of fludrocortisone 0.05 mg once daily. 6. Will continue to monitor orthostatic blood pressures and pulses. Plan 1. Reviewed with patient. 2. Discussed frankly with patient that he either needs to go home with adequate support or he needs to consider detention facility or assisted-living support. He states he absolutely will not go to a penitentiary at this juncture. 3. Will continue to work with PT and OT. 4. Depending how responds to our interventions it is possible that he might be able to be discharged from the hospital safely sometime in the near future. Time Spent With Patient Total time spent: 40 minutes Subjective Time Seen by Provider: 10:00 Date Seen: 03/05/22 Interval history: Hospital day 8. Despite being off the alpha-xin for more than 2 days, he continues to note orthostasis when he transfers from supine to sitting and sitting to standing, worse when transferring from sitting to standing. Additionally, he continues to have an absence of inappropriate barrel reflex response from the massive blood pressure dropped, mainly he does not have an appropriate heart rate increase. The very minimal dose of carvedilol that he is currently on is certainly not responsible for the paucity of an appropriate heart rate response. Lastly, we have added salt tablets supplements, and attempted to modify his activities without resolution of this orthostasis. While his complaint of orthostasis is not necessarily new, as he has had these sort of symptoms in the past, he now notes that it is more noticeable now than it has in the past for him. Even so, he describes to me how he has made adapted is in his home for this, including he keeps his walker near him at all times in the home to help him with transfers and ambulation due to the sense of orthostasis. His complaint of low back pain is still present. Denies sense of urinary hesitancy or inability to empty his bladder. Denies nausea vomiting. Denies abdominal pain. Denies chest heaviness, pressure, tightness. Denies palpitations. Denies dyspnea at rest. Acknowledges baseline dyspnea with exertion. No longer bleeding. Tolerating medication regimen, including remdesivir. Intermittent cough sometimes productive of purulent sputum, no hemoptysis or any other blood loss. Exam Narrative: Exam Narrative: While in bed he appears comfortable. Able to sit up. He notes a sense of orthostasis when he transitions from supine to sitting. When he attempts to stand he states the orthostasis is overwhelming and he is to fearful of doing so. Lungs are clear to auscultation. No wheezing, rhonchi, or rales. Heart tones with regular rhythm, normal S1-S2. Loud murmur, unchanged. Abdomen with active bowel sounds, soft, nontender. Extremities with trace edema. Skin is warm, dry, and intact. No obvious focal motor neurologic deficits. Const: Vital Signs, click to edit/add: Vital Signs - 24 hr 03/04/22 19:00 03/04/22 23:00 03/04/22 23:00 Temperature 98.0 F Pulse Rate [Pulse Oximeter] 64 Pulse Rate [orthos tatic lying Left] Pulse Rate [orthos tatic sitting Left ] Respiratory Rate 18 18 Blood Pressure [Le ft Arm] Blood Pressure [Ri ght Arm] 169/78 H Blood Pressure [or thostatic lying Ri ght Arm] Blood Pressure [or thostatic sitting Right Arm] Pulse Oximetry 99 96 Oxygen Delivery Me thod Room Air 03/04/22 23:00 03/05/22 03:00 03/05/22 07:00 Temperature 98.7 F 98.7 F 99.7 F H Pulse Rate [Pulse Oximeter] 64 77 75 Pulse Rate [orthos tatic lying Left] Pulse Rate [orthos tatic sitting Left ] Respiratory Rate 18 18 18 Blood Pressure [Le ft Arm] 180/83 H 177/85 H Blood Pressure [Ri ght Arm] 171/86 H Blood Pressure [or thostatic lying Ri ght Arm] Blood Pressure [or thostatic sitting Right Arm] Pulse Oximetry 96 94 96 Oxygen Delivery Me thod Room Air Room Air Room Air 03/05/22 07:00 03/05/22 07:00 03/05/22 11:56 Temperature Pulse Rate [Pulse Oximeter] 75 Pulse Rate [orthos tatic lying Left] 68 Pulse Rate [orthos tatic sitting Left ] 69 Respiratory Rate 18 Blood Pressure [Le ft Arm] Blood Pressure [Ri ght Arm] Blood Pressure [or thostatic lying Ri ght Arm] 85/63 L Blood Pressure [or thostatic sitting Right Arm] 115/60 Pulse Oximetry 96 Oxygen Delivery Me thod 03/05/22 11:00 03/05/22 15:00 03/05/22 15:00 Temperature 99.4 F 99 F Pulse Rate [Pulse Oximeter] 68 66 Pulse Rate [orthos tatic lying Left] Pulse Rate [orthos tatic sitting Left ] Respiratory Rate 18 20 Blood Pressure [Le ft Arm] 128/65 Blood Pressure [Ri ght Arm] 115/60 Blood Pressure [or thostatic lying Ri ght Arm] Blood Pressure [or thostatic sitting Right Arm] Pulse Oximetry 98 96 Oxygen Delivery Me thod Room Air Room Air Documenting provider has reviewed patient's vital signs: yes Labs Labs: Laboratory Results - last 24 hr 03/04/22 03/05/22 03/05/22 19:48 06:22 06:22 WBC RBC Hgb Hct MCV MCH MCHC Plt Count INR 2.35 H Sodium 132 L Potassium 4.2 Chloride 101 Carbon Dioxide 26 BUN 13 Creatinine 0.5 Estimated Creat Clear 63.53 Estimated GFR 108 Glucose 87 Calcium 8.2 L Troponin I < 0.01 L < 0.01 L C-Reactive Protein 16.4 H 03/05/22 06:22 WBC 10.92 RBC 2.85 L Hgb 8.7 L Hct 25.5 L MCV 90 MCH 31 MCHC 34 Plt Count 479 H INR Sodium Potassium Chloride Carbon Dioxide BUN Creatinine Estimated Creat Clear Estimated GFR Glucose Calcium Troponin I C-Reactive Protein
[2022-03-05] MEDS: AZITHROMYCIN 250 MG TABLET 500 MG PO (18:29)
[2022-03-05] MEDS: cefTRIAXone 1 GM in 0.9 % SODIUM CHLORIDE Mini-bag 100 ML IVPB (18:31)
[2022-03-05] MEDS: CYCLOBENZAPRINE HCL 10 MG TABLET 5 MG PO (18:32)
--- NOTE | 2022-03-05 19:30 | PC.NURSE ---
Assumed care of this pt at 1500. VS wnl parameters. Please see eMar for meds provided. Pt calm & cooperative, using urinal to void clear yellow urine. IV rocephin infusing. Report to oncoming welder 2nd shift LOUISE Gomez
[2022-03-05] MEDS: GABAPENTIN 300 MG CAPSULE PO (20:33)
[2022-03-05] MEDS: MAG HYDROX/ALUMINUM HYD/SIMETH 30 ML ORAL.SUSP 15 ML PO (20:56)
[2022-03-06] VITALS (7 sets, daily range): BP systolic 43–174; BP diastolic 33–99; PULSE 66–90; RESP 18; TEMP 36.5–37.3; O2SAT 95–97
[2022-03-06] MEDS: CYCLOBENZAPRINE HCL 10 MG TABLET 5 MG PO (03:16)
--- NOTE | 2022-03-06 06:17 | PC.NURSE ---
End of shift status [id number] Pt alert and oriented. Pleasant and cooperative. PRN Ultram and flexeril given for c/o pain. BP elevated. Remains on room air. No signs of bleeding. Using urinal independently in bed. Encouraging to reposition self in bed. Intermittent resting throughout night.
[2022-03-06] MEDS: OMEPRAZOLE 20 MG CAPSULE DR 40 MG PO (08:19)
[2022-03-06] MEDS: carvediloL 6.25 MG TABLET 1.5625 MG PO ×2 (08:20→17:28)
[2022-03-06] MEDS: SENNOSIDES/DOCUSATE TABLET 1 TAB PO ×2 (08:20→20:54)
[2022-03-06] MEDS: GABAPENTIN 100 MG CAPSULE PO (08:21)
[2022-03-06] MEDS: ACETAMINOPHEN 325 MG TABLET 650 MG PO ×2 (08:22→20:54)
[2022-03-06] MEDS: SODIUM CHLORIDE 1 GM TABLET PO ×3 (08:22→17:29)
[2022-03-06] MEDS: FLUDROCORTISONE ACETATE 0.1 MG TABLET 0.05 MG PO (08:22)
[2022-03-06] MEDS: lisinopriL 5 MG TABLET 2.5 MG PO (08:23)
[2022-03-06 08:26] LABS: Hematocrit 27.3 % (37.0-53.0); Hemoglobin* 9.3 gm/dL (13.5-17.5); Mean Corpuscular HGB Conc 34 gm/dL (32-36); Mean Corpuscular Hemoglobin 31 pg (26-34); Mean Corpuscular Volume 90 fL (80-100); Platelet Count* 456 K/uL (140-440); Red Blood Count 3.05 m/uL (4.30-5.90); White Blood Count* 9.99 K/uL (4.50-11.00)
[2022-03-06] MEDS: SODIUM CHLORIDE 0.9 % (FLUSH) 10 ML SYRINGE 5 ML IVF ×2 (08:26→20:54)
[2022-03-06 08:28] LABS: Slide Review Reflex No
[2022-03-06 08:53] LABS: INR 2.19 (0.91-1.10); Prothrombin Time 25.5 Seconds
[2022-03-06 09:08] LABS: Sodium* 132 mmol/L (135-149)
[2022-03-06] MEDS: TRAMADOL HCL 50 MG TABLET 25 MG PO ×2 (12:22→20:54)
--- NOTE | 2022-03-06 13:49 | PC.NURSE ---
PATIENT PLEASANT AND COOPERATIVE, ALERT AND ORIENTED, GETS VERY DIZZY/LIGHTHEADED WITH AMBULATION, HAVE BEEN ABLE TO MOVE ONLY SHORT DISTANCE ie: CHAIR TO BED. BED TO CHAIR. ASSIST 1 WALKER AND BELT, SEE ORTHOSTAIC B/Ps, AWARE AND UPDATED, TOLERATING REGULAR DIET, AROUND 1200 PATIENT WORKING WITH PHYSICAL THERAPY EXPRESSED RIGHT SIDED CP WITH INCREASED SOB NO RADIATION OF PAIN, EKG DONE MD UPDATED WITH NO CHANGES TO ORDERS, PRN TRAMADOL GIVEN WITH RELIEF, PATIENT REPORTING HEADACHE AND BACKACHE SCHEDULED TYLENOL AND PRN TRAMADOL, PATIENT STATES MINIMAL RELIEF FOR HEADACHE, DECLINING ICE, AQUA K PAD AT BESIDE, ON RA,
--- NOTE | 2022-03-06 15:40 | P.IMPN_ITS ---
Progress Note: A&P Assessment and plan (1) Laceration of lip: Problem details: - Bleeding stopped with pressure, continue clamp as needed. Avoid trauma to lower lip Status: Acute (2) COVID: Problem details: - temperature of 100.5? on admission, no hypoxia. 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 Baseline hemoglobin is 9.5 - transfused 1 U PRBCs 02/27, and 1 more unit packed red blood cells 02/28/2022 Status: Acute (5) Back pain: Problem details: - Acute on chronic, follow symptomatically Status: Acute (6) Hypovolemic shock: Problem details: Resolved on presentation with IV fluid and packed red blood cell administration Status: Acute (7) Orthostatic hypotension: Problem details: Most likely this is chronic and not explainable on the basis of an untoward iatrogenic response to his various medications including the alpha-xin, tamsulosin, and the beta-xin, carvedilol. Additionally, not explainable on the basis of acute blood loss anemia and hypovolemia. Most consistent with neurogenic orthostatic hypotension, particularly with the paucity of an appropriate virgen-receptor reflex induced increased heart rate with associated decreased blood pressure. Status: Acute (8) Right upper lobe pulmonary infiltrate: Problem details: Likely a pneumonia. Secondary complication of COVID. Status: Acute (9) Neurogenic orthostatic hypotension: Problem details: Etiology of this is not entirely clear. It appears that this condition is profoundly worse since the patient has had COVID. Whether or not this is a long-haul COVID problem that he will be dealing with for period of time is currently uncertain. Status: Acute (10) Cognitive impairment: Problem details: Unclear how much of this is acute and how much of this is chronic. [place] early on in his hospital stay at this time was . 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 Status: Acute Plan 1. Reviewed with patient. Answers questions. 2. I was finally able to reach his , Leandra, on the telephone. I spoke with the and the patient today for 50 minutes, during the 1 o'clock hour. I reviewed the patient's hospital presentation, progression, treatment and interve ntions, and current status. indicates she is not able to comprehend how he can be so ill. She also expressed anger that he was not able to help her with shoveling their driveway. It was a difficult conversation to have with her. I had to try to keep bringing her back to his current condition and ask her what we could do to try to help him at this time. I emphasized to her that he is not safe to be discharged from the hospital at this time because we do not have a safe discharge disposition plan. She seemed to suggest that she might be able to help him at home on the 1 hand, on the other hand she indicates that she would need to see him and see if she could help him. I invited her to come to the hospital and be with him and see what his needs are in order for her to make that decision. I stressed to the patient and his that if they cannot do this at home, even with home care support, then we would need to consider long term facility or assisted living. 3. Consider increasing the dose of the fludrocortisone to 0.1 mg per day. Currently on 0.05 mg per day. Continue with sodium chloride tablets. Continue with thigh-high stockings applied daily. Continue to monitor orthostatic blood pressures and pulses daily. 4. Continue to work with physical therapy and occupational therapy. 5. Will stop azithromycin on day 5. Will switch from IV ceftriaxone to oral 3rd generation cephalosporin and complete a full 7 day course of this medication. 6. Continue with daily PT INRs. Continue with daily dosing of warfarin. Continue with holding the aspirin that he was on at the time of presentation. Time Spent With Patient Total time spent: 90 minute Subjective Time Seen by Provider: 10:00 Date Seen: 03/06/22 Interval history: Hospital day 9. 71 year old male admitted to the hospital with ongoing bleeding.? He reports that he was bleeding for about 4-1/2 hours at home.? He said he was bleeding from both his nose and his mouth.? Evaluation in the emergency room showed that he was bleeding from a lesion in the middle of his lower lip just inside on the mucosal surface.? The bleeding was controlled in the emergency department using direct pressure only.? He is on chronic anticoagulation with warfarin and his INR was 5.1.? He is also on aspirin 81 mg daily. 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 The indication for his aspirin is uncertain possibly also because of his TAVR.? He is not aware of having coronary or cerebrovascular disease. He has had previous problems with bleeding.? He had an upper GI bleed 2 years ago and he was hospitalized at [facility] for this.? EGD showed a nonbleeding angiectasia in the stomach and 2 bleeding angiectasias in the duodenum.? These were treated with argon plasma coagulation.? Last summer he had a retroperitoneal bleed. He was also found to have COVID-19 incidentally on presentation. Received 3 days of remdesivir. Subsequently developed fevers in hospital and assessment suggested a pneumonia. Treated with ceftriaxone IV and azithromycin p.o.. Throughout this time patient had fairly profound orthostatic blood pressure changes without anticipated baroreceptor response of tachycardia. Despite being off the alpha-xin, he continued to note orthostasis when transferring from supine to sitting and sitting to standing, worse when transferring from sitting to standing. Additionally, he continued to have an absence of an appropriate baroreceptor reflex response from the massive blood pressure dropped, mainly he does not have an appropriate heart rate increase. The very minimal dose of carvedilol that he is currently on is certainly not responsible for the paucity of an appropriate heart rate response. Lastly, we have added salt tablets supplements, modified his activities without resolution of this orthostasis. Yesterday we started him on fludrocortisone as well. While his complaint of orthostasis is not necessarily new, as he has had these sort of symptoms in the past, he now notes that it is more noticeable now than it has in the past for him. Even so, he describes to me how he has adapted is in his home for this, including he keeps his walker near him at all times in the home to help him with transfers and ambulation due to the sense of orthostasis. Certainly the severity of the orthostasis now is worse than it has ever been such that he is not even able to stand up without danger of syncope. No longer complaining of low back pain. Denies sense of urinary hesitancy or inability to empty his bladder. Denies nausea vomiting. Denies abdominal pain. Denies chest heaviness, pressure, tightness. Denies palpitations. Denies dyspnea at rest. Acknowledges baseline dyspnea with exertion. No longer bleeding. Tolerating medication regimen, including remdesivir. Intermittent cough sometimes productive of purulent sputum, no hemoptysis or any other blood loss. Exam Narrative: Exam Narrative: Alert, oriented to self, place, time, situation. Seemingly fearful and anxious. Nevertheless talkative, articulate, cooperative. Appears comfortable laying and sitting down. When attempting to stand he is obviously symptomatic from the severe orthostasis. Still some scattered rhonchi in the right lung otherwise both lungs are clear without wheezing or rales. No CVA tenderness. Heart tones with regular rhythm. Loud murmur across the precordium unchanged. Abdomen is thin with active bowel sounds, soft, nontender. Extremities with trace edema only. Skin is warm, dry, intact. No icterus or jaundice. No petechiae. No rashes. No obvious focal motor neurologic deficits. Profound orthostasis with paucity of heart rate response as specified in the record of his vital signs. Systolic blood pressure drops from 123 down to 43 from supine to standing today with a static heart rate response. Const: Vital Signs, click to edit/add: Vital Signs - 24 hr 03/05/22 20:27 03/05/22 23:00 03/05/22 23:00 Temperature 98.4 F Pulse Rate [Pulse Oximeter] 69 Respiratory Rate 20 20 Blood Pressure [Le ft Arm] Blood Pressure [Ri ght Arm] 175/84 H Blood Pressure [or thostatic lying Ri ght Arm] Blood Pressure [or thostatic sitting Right Arm] Blood Pressure [or thostatic standing Right Arm] Pulse Oximetry 95 95 Oxygen Delivery Me thod Room Air 03/06/22 03:00 03/06/22 07:00 03/06/22 07:00 Temperature 97.7 F Pulse Rate [Pulse Oximeter] 66 90 Respiratory Rate 18 18 Blood Pressure [Le ft Arm] 163/84 H Blood Pressure [Ri ght Arm] Blood Pressure [or thostatic lying Ri ght Arm] Blood Pressure [or thostatic sitting Right Arm] Blood Pressure [or thostatic standing Right Arm] Pulse Oximetry 96 95 Oxygen Delivery Me thod Room Air 03/06/22 07:00 03/06/22 10:30 03/06/22 11:00 Temperature 99.2 F 98.6 F Pulse Rate [Pulse Oximeter] 90 66 Respiratory Rate 18 18 Blood Pressure [Le ft Arm] Blood Pressure [Ri ght Arm] 138/92 H Blood Pressure [or thostatic lying Ri ght Arm] 123/67 Blood Pressure [or thostatic sitting Right Arm] 76/55 L Blood Pressure [or thostatic standing Right Arm] 43/33 L Pulse Oximetry 95 96 Oxygen Delivery Me thod Room Air Room Air Documenting provider has reviewed patient's vital signs: yes Labs Labs: Laboratory Results - last 24 hr 03/06/22 03/06/22 03/06/22 08:10 08:10 08:10 WBC 9.99 RBC 3.05 L Hgb 9.3 L Hct 27.3 L MCV 90 MCH 31 MCHC 34 Plt Count 456 H INR 2.19 H Sodium 132 L
--- NOTE | 2022-03-06 16:25 | PC.SOCIAL ---
Addendum entered by MARIVEL Burgos 03/06/22 16:56: Received a phone call back from pt's . Pt's states she spoke to MD earlier this afternoon and was confused on discharge plans. Discussed discharge plans with . Informed that pt's recommendations from therapy are to get PT/OT services from a short term rehab stay at SNF. Informed that since pt is currently Covid positive facilities would not accept him until 10 days out from the positive test which was 02/26/22. Will follow up with for discharge planning on Wednesday. may try to come to the hospital over the weekend to see how pt is doing and if she is able to provide care at home. states she is unsure when she can do this because she also has Covid and has been very sick at home. is also concerned about traveling in the current weather conditions. Social Work will follow up as necessary. Original Note: Discharge planning- Phone call to pt's , Leandra Jaimes, at [phone]. There was no answer. Left a voicemail requesting a phone call back to discuss discharge plans for pt. Social Work will follow up as necessary.
[2022-03-06] MEDS: AZITHROMYCIN 250 MG TABLET 500 MG PO (17:27)
[2022-03-06] MEDS: WARFARIN 2 MG TABLET PO (17:29)
[2022-03-06] MEDS: cefTRIAXone 1 GM in 0.9 % SODIUM CHLORIDE Mini-bag 100 ML IVPB (17:29)
[2022-03-06] MEDS: GABAPENTIN 300 MG CAPSULE PO (20:54)
[2022-03-07] VITALS (7 sets, daily range): BP systolic 104–173; BP diastolic 61–92; PULSE 65–76; RESP 16–18; TEMP 36.4–37.3; O2SAT 95–97
--- NOTE | 2022-03-07 05:06 | PC.NURSE ---
[id number] Pt pleasant and cooperative, c/o back pain, some relief with scheduled and prn meds. denies chest pain, headache or sob. using urinal independently
[2022-03-07] MEDS: OMEPRAZOLE 20 MG CAPSULE DR 40 MG PO (06:15)
[2022-03-07 07:37] LABS: Hematocrit 28.2 % (37.0-53.0); Hemoglobin* 9.5 gm/dL (13.5-17.5); Mean Corpuscular HGB Conc 34 gm/dL (32-36); Mean Corpuscular Hemoglobin 30 pg (26-34); Mean Corpuscular Volume 90 fL (80-100); Platelet Count* 408 K/uL (140-440); Red Blood Count 3.12 m/uL (4.30-5.90); White Blood Count* 10.34 K/uL (4.50-11.00)
[2022-03-07 07:39] LABS: Slide Review Reflex No
[2022-03-07 07:55] LABS: INR 2.28 (0.91-1.10); Prothrombin Time 26.3 Seconds
[2022-03-07] MEDS: SODIUM CHLORIDE 1 GM TABLET PO ×3 (08:27→17:46)
[2022-03-07] MEDS: GABAPENTIN 100 MG CAPSULE PO (09:38)
[2022-03-07] MEDS: FLUDROCORTISONE ACETATE 0.1 MG TABLET 0.05 MG PO (09:38)
[2022-03-07] MEDS: ACETAMINOPHEN 325 MG TABLET 650 MG PO ×4 (09:38→21:16)
[2022-03-07] MEDS: SODIUM CHLORIDE 0.9 % (FLUSH) 10 ML SYRINGE 5 ML IVF ×2 (09:39→21:17)
[2022-03-07] MEDS: SENNOSIDES/DOCUSATE TABLET 1 TAB PO (09:39)
[2022-03-07] MEDS: SENNOSIDES/DOCUSATE TABLET 2 TAB PO ×2 (11:40→21:17)
--- NOTE | 2022-03-07 13:28 | PM.IMPN1 ---
Progress Note: A&P Assessment and plan (1) Laceration of lip: Problem details: No further bleeding. Continue warfarin at therapeutic INR Status: Acute (2) COVID: Problem details: - temperature of 100.5? on admission, no hypoxia. 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 Baseline hemoglobin is 9.5 - transfused 1 U PRBCs 02/27, and 1 more unit packed red blood cells 02/28/2022 Status: Acute (5) Back pain: Problem details: - Acute on chronic, follow symptomatically Status: Acute (6) Hypovolemic shock: Problem details: Resolved on presentation with IV fluid and packed red blood cell administration. Still orthostatic despite stopping blood pressure medicines and addition of Florinef Status: Acute (7) Orthostatic hypotension: Problem details: Most likely this is chronic and not explainable on the basis of an untoward iatrogenic response to his various medications including the SAMRA-inhibitor, alpha-xin, tamsulosin, and the beta-xin, carvedilol. Additionally, not explainable on the basis of acute blood loss anemia and hypovolemia. Most consistent with neurogenic orthostatic hypotension, particularly with the paucity of an appropriate virgen-receptor reflex induced increased heart rate with associated decreased blood pressure. Monitor for affects from Florinef Status: Acute (8) Right upper lobe pulmonary infiltrate: Problem details: Likely a pneumonia. Secondary complication of COVID. Pneumonia clinically resolved. Discontinue antibiotics. Status: Acute (9) Neurogenic orthostatic hypotension: Problem details: Etiology of this is not entirely clear. It appears that this condition is profoundly worse since the patient has had COVID. Whether or not this is a long-haul COVID problem that he will be dealing with for period of time is currently uncertain. Status: Acute (10) Cognitive impairment: Problem details: Unclear how much of this is acute and how much of this is chronic. [place] early on in his hospital stay at this time was . 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 Status: Acute Plan Continue in hospital until he is able to ambulate without severe hypotension. Outpatient followup of acute on chronic anemia and orthostatic hypotension. Time Spent With Patient Total time spent: Total time spent today is 45 minutes, 30 minutes in coordination of care discussing with patient and other providers ongoing evaluation management of multiple issues outlined above. Subjective Date Seen: 03/07/22 Interval history: 71-year-old male admitted to the hospital with bleeding from a lesion/laceration on his lip, anemia, anticoagulation, dizziness and COVID infection. The bleeding has stopped. Patient remains anticoagulated with warfarin. He has had some progressive anemia since admission. Most prominently he has had orthostatic hypotension. Blood pressure medicines have been discontinued. His supine blood pressure is a relatively high but standing blood pressures are relatively low. He does become symptomatic at times when he stands up. He is not hypoxic. No chest pain. No cough or fever. He has been eating normally. Exam Narrative: Exam Narrative: He is alert and appears in no distress. Quite pleasant and talkative. Eyes normal. Oropharynx normal. No bleeding. Neck is supple out mass or adenopathy. Respirations are clear to auscultation. Cardiovascular: S1, S2, regular rate and rhythm. Abdomen is soft without tenderness or mass. Extremities without edema. He moves all 4 extremities well. Const: Vital Signs, click to edit/add: Vital Signs - 24 hr 03/06/22 15:40 03/06/22 19:00 03/06/22 23:00 Temperature 98.6 F 98.3 F 98.2 F Pulse Rate [Pulse Oximeter] 72 70 72 Pulse Rate [orthos tatic lying Left] Pulse Rate [orthos tatic sitting Left ] Pulse Rate [orthos tatic standing Lef t] Respiratory Rate 18 18 18 Blood Pressure [Le ft Arm] Blood Pressure [Ri ght Arm] 138/76 174/87 H 142/99 H Blood Pressure [or thostatic lying] Blood Pressure [or thostatic sitting Left Arm] Blood Pressure [or thostatic standing Left Arm] Pulse Oximetry 97 96 96 Oxygen Delivery Me thod Room Air Room Air Room Air 03/07/22 03:00 03/07/22 07:00 03/07/22 07:00 Temperature 98.2 F 99.1 F Pulse Rate [Pulse Oximeter] 67 71 71 Pulse Rate [orthos tatic lying Left] Pulse Rate [orthos tatic sitting Left ] Pulse Rate [orthos tatic standing Lef t] Respiratory Rate 16 18 18 Blood Pressure [Le ft Arm] Blood Pressure [Ri ght Arm] 173/91 H 146/84 H Blood Pressure [or thostatic lying] Blood Pressure [or thostatic sitting Left Arm] Blood Pressure [or thostatic standing Left Arm] Pulse Oximetry 95 97 Oxygen Delivery Me thod Room Air Room Air 03/07/22 10:00 03/07/22 11:00 Temperature 98.3 F Pulse Rate [Pulse Oximeter] 67 Pulse Rate [orthos tatic lying Left] 65 Pulse Rate [orthos tatic sitting Left ] 67 Pulse Rate [orthos tatic standing Lef t] 72 Respiratory Rate 18 Blood Pressure [Le ft Arm] 137/82 Blood Pressure [Ri ght Arm] Blood Pressure [or thostatic lying] 153/79 H Blood Pressure [or thostatic sitting Left Arm] 137/82 Blood Pressure [or thostatic standing Left Arm] 104/61 Pulse Oximetry 97 Oxygen Delivery Me thod Room Air Documenting provider has reviewed patient's vital signs: yes Labs Labs: Laboratory Results - last 24 hr 03/07/22 03/07/22 07:16 07:16 WBC 10.34 RBC 3.12 L Hgb 9.5 L Hct 28.2 L MCV 90 MCH 30 MCHC 34 Plt Count 408 INR 2.28 H
--- NOTE | 2022-03-07 14:54 | PC.NURSE ---
End of Shift: Patient pleasant and cooperative. Patient vitally stable, lung clear/diminished, BS WNL, IV intact. Patient rates back pain 6/10, scheduled tylenol given. Patient 1 assist, walker, gb. Patient used urinal to urinate, No BM this shift. Patient tolerating regular diet. Bladder scan performed found less than 300 but more than 200cc.
[2022-03-07] MEDS: WARFARIN 2 MG TABLET PO (16:48)
[2022-03-07] MEDS: GABAPENTIN 300 MG CAPSULE PO (21:17)
--- NOTE | 2022-03-07 22:33 | PC.NURSE ---
Shift [id number]- Patient complains of back pain this evening, but declines additional intervention. He is pleasant and cooperative, though declines to get out of bed this shift. He uses urinal for voiding. No BM.
[2022-03-07] MEDS: TRAMADOL HCL 50 MG TABLET 25 MG PO (23:21)
[2022-03-08] VITALS (10 sets, daily range): BP systolic 61–227; BP diastolic 45–117; PULSE 68–87; RESP 16–18; TEMP 36.1–37.3; O2SAT 95–98
--- NOTE | 2022-03-08 05:12 | PC.NURSE ---
[id number] Pt did not sleep well during night, approx 0245, pt c/o lower abd pain/cramping, diaphoretic, and hypertensive 227/117 and 241/116, attempted to have bowel movement and unsuccessful. applied aqua k pad to abd, rechecked bp 45 min later 170/95, pain 5/10. attempted to have bm again approx 0500, remains unsuccessful, pt bowel sounds active, denies passing gas, non distended. will continue to monitor pt. charge updated.
[2022-03-08] MEDS: OMEPRAZOLE 20 MG CAPSULE DR 40 MG PO (06:16)
[2022-03-08] MEDS: SENNOSIDES/DOCUSATE TABLET 2 TAB PO ×2 (08:27→20:57)
[2022-03-08] MEDS: FLUDROCORTISONE ACETATE 0.1 MG TABLET 0.05 MG PO (08:27)
[2022-03-08] MEDS: ACETAMINOPHEN 325 MG TABLET 650 MG PO ×4 (08:28→20:57)
[2022-03-08] MEDS: SODIUM CHLORIDE 1 GM TABLET PO (08:28)
[2022-03-08] MEDS: GABAPENTIN 100 MG CAPSULE PO (08:29)
[2022-03-08 08:44] LABS: Basophils Percent Auto 0.2 % (0.0-3.0); Eosinophils Percent Auto 4.8 % (0.0-7.0); Hematocrit 28.7 % (37.0-53.0); Hemoglobin* 9.6 gm/dL (13.5-17.5); Immature Granulocytes Pct Auto 0.4 %; Lymphocytes Percent Auto 7.6 % (20-44); Mean Corpuscular HGB Conc 33 gm/dL (32-36); Mean Corpuscular Hemoglobin 30 pg (26-34); Mean Corpuscular Volume 90 fL (80-100); Monocytes Percent Auto 10.5 % (0.0-11.0); Neutrophils Percent Auto 76.5 % (42.0-72.0); Platelet Count* 452 K/uL (140-440); RDW Coefficient of Variation % 16.7 % (11.5-15.5); Red Blood Count 3.18 m/uL (4.30-5.90); White Blood Count* 11.33 K/uL (4.50-11.00)
[2022-03-08 08:45] LABS: Slide Review Reflex No
[2022-03-08 09:05] LABS: Chloride* 100 mmol/L (96-114)
[2022-03-08 09:06] LABS: INR 2.34 (0.91-1.10); Potassium* 4.4 mmol/L (3.6-5.1); Prothrombin Time 26.8 Seconds; Sodium* 131 mmol/L (135-149)
[2022-03-08 09:08] LABS: Creatinine* 0.5 mg/dL (0.5-1.5); Est. Creatinine Clearance* 63.53; Estimated Glomerular Filt Rate 108 ml/min
[2022-03-08 09:09] LABS: Blood Urea Nitrogen* 15 mg/dL (7-30); Calcium* 8.4 mg/dL (8.4-10.6); Carbon Dioxide* 28 mmol/L (20-32); Glucose* 90 mg/dL (60-115)
[2022-03-08 09:23] LABS: C Reactive Protein* 16.6 mg/dL (0.5-1.0)
[2022-03-08] MEDS: SODIUM CHLORIDE 0.9 % (FLUSH) 10 ML SYRINGE 5 ML IVF ×2 (09:31→20:58)
--- NOTE | 2022-03-08 15:10 | ONC.NURNOTE ---
alert and oriented . fatiqued this am. states wants to rest. LS cr LLL. temp 97. sats 95 ra. back rub for chronic LBP with relief. tylenol given. C/O abd discomfort. abd flat. hyperactive bs. heating pad for comfort with good results. 2 senna given . symptomatic at lunchtime when getting him up to the chair. dizzy and light headed. orthostatics 127/68-71 lying flat. 61/45-87 standing. layed him back in bed. enc him to tcdb , turn hourly and reposition. in afternoon erasmo bladder scan for 28cc. total void this last 8 hr 450cc. clear light [place]. ate bfast and lunch. up to chair in after noon lemuel well. little dizzy when first getting up. but once in chair it went away.
--- NOTE | 2022-03-08 16:29 | PM.IMPN1 ---
Progress Note: A&P Assessment and plan (1) Laceration of lip: Problem details: No further bleeding. Continue warfarin at therapeutic INR Status: Acute (2) COVID: Problem details: - temperature of 100.5? on admission, no hypoxia. 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 Baseline hemoglobin is 9.5 - transfused 1 U PRBCs 02/27, and 1 more unit packed red blood cells 02/28/2022 Status: Acute (5) Back pain: Problem details: - Acute on chronic, follow symptomatically Status: Acute (6) Hypovolemic shock: Problem details: Resolved on presentation with IV fluid and packed red blood cell administration. Still orthostatic despite stopping blood pressure medicines and addition of Florinef Status: Acute (7) Orthostatic hypotension: Problem details: Most likely this is chronic and not explainable on the basis of an untoward iatrogenic response to his various medications including the SAMRA-inhibitor, alpha-xin, tamsulosin, and the beta-xin, carvedilol. Additionally, not explainable on the basis of acute blood loss anemia and hypovolemia. Most consistent with neurogenic orthostatic hypotension, particularly with the paucity of an appropriate virgen-receptor reflex induced increased heart rate with associated decreased blood pressure. Monitor for affects from Florinef. Midodrine also added to medication for orthostatic hypotension. Status: Acute (8) Right upper lobe pulmonary infiltrate: Problem details: Likely a pneumonia. Secondary complication of COVID. Pneumonia clinically resolved. Discontinue antibiotics. Status: Acute (9) Neurogenic orthostatic hypotension: Problem details: Etiology of this is not entirely clear. It appears that this condition is profoundly worse since the patient has had COVID. Whether or not this is a long-haul COVID problem that he will be dealing with for period of time is currently uncertain. Now on Florinef and midodrine Status: Acute (10) Cognitive impairment: Problem details: Unclear how much of this is acute and how much of this is chronic. [place] early on in his hospital stay at this time was . 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 Status: Acute Plan Continue in-hospital to treat orthostatic hypotension. Discharge to home when symptoms are well enough controlled that he can safely ambulate. Will need outpatient followup possibly starting with Cardiology initially to address this Time Spent With Patient Total time spent: Total time spent today is 40 minutes, 30 minutes in coordination of care and discussing with patient and other providers evaluation and management of orthostatic hypotension Subjective Date Seen: 03/08/22 Interval history: 71-year-old male seen in followup of hospitalization with bleeding from his lip, coagulopathy, COVID. Above problems appear to have resolved but patient remains very orthostatic. All of his normal blood pressure medications have been discontinued as well as his tamsulosin. Florinef has been added as well. Despite this he has still marked orthostatic changes associated with dizziness though knows syncopal or near syncopal episodes have occurred. He otherwise reports generally feeling well. No cough or fever or chest pain. He has been eating normally. Exam Narrative: Exam Narrative: He is alert and appears in no distress. Speech is normal. He is pleasant. Respirations are clear to auscultation. Good air exchange all lung tinajero. Cardiovascular: S1, S2, 2/6 systolic murmur. No gallop or rub. Abdomen: Bowel sounds active. Abdomen is soft without tenderness or mass. Extremities without edema. He moves all 4 extremities well. When I sit him up he is asymptomatic but nursing staff report was standing he does get lightheaded. Orthostatic blood pressures show cyst supine blood pressure at 127/68 with pulse of 71 and standing blood pressure of 61/45 with pulse of 87 Const: Vital Signs, click to edit/add: Vital Signs - 24 hr 03/07/22 18:49 03/07/22 23:00 03/08/22 03:00 Temperature 98.1 F 98.5 F 99.1 F Pulse Rate [Pulse Oximeter] 66 71 85 Pulse Rate [orthos tatic lying Left] Pulse Rate [orthos tatic sitting Left ] Pulse Rate [orthos tatic standing Lef t] Respiratory Rate 16 18 18 Blood Pressure [Le ft Arm] 152/88 H Blood Pressure [Ri ght Arm] 166/92 H 227/117 H Blood Pressure [or thostatic lying Ri ght Arm] Blood Pressure [or thostatic sitting Right Arm] Blood Pressure [or thostatic standing Right Arm] Pulse Oximetry 97 95 98 Oxygen Delivery Me thod Room Air Room Air 03/08/22 03:37 03/08/22 08:30 03/08/22 12:00 Temperature 98.8 F Pulse Rate [Pulse Oximeter] 77 Pulse Rate [orthos tatic lying Left] 71 Pulse Rate [orthos tatic sitting Left ] 76 Pulse Rate [orthos tatic standing Lef t] 87 Respiratory Rate 16 Blood Pressure [Le ft Arm] 135/75 Blood Pressure [Ri ght Arm] 170/95 H Blood Pressure [or thostatic lying Ri ght Arm] 127/68 Blood Pressure [or thostatic sitting Right Arm] 92/52 L Blood Pressure [or thostatic standing Right Arm] 61/45 L Pulse Oximetry 95 Oxygen Delivery Me thod Room Air 03/08/22 11:00 03/08/22 15:16 03/08/22 15:30 Temperature 97 F L 98.3 F Pulse Rate [Pulse Oximeter] 80 Pulse Rate [orthos tatic lying Left] Pulse Rate [orthos tatic sitting Left ] Pulse Rate [orthos tatic standing Lef t] Respiratory Rate 18 Blood Pressure [Le ft Arm] 137/82 Blood Pressure [Ri ght Arm] Blood Pressure [or thostatic lying Ri ght Arm] Blood Pressure [or thostatic sitting Right Arm] Blood Pressure [or thostatic standing Right Arm] Pulse Oximetry 98 Oxygen Delivery Me thod Room Air Documenting provider has reviewed patient's vital signs: yes Labs Labs: Laboratory Results - last 24 hr 03/08/22 03/08/22 03/08/22 07:53 07:58 07:58 WBC 11.33 H RBC 3.18 L Hgb 9.6 L Hct 28.7 L MCV 90 MCH 30 MCHC 33 RDW Coeff of Bernabe 16.7 H Plt Count 452 H Neut % (Auto) 76.5 H Lymph % (Auto) 7.6 L [place] % (Auto) 10.5 Eos % (Auto) 4.8 Baso % (Auto) 0.2 Neut # (Auto) 8.70 H Lymph # (Auto) 0.90 [place] # (Auto) 1.20 H Eos # (Auto) 0.50 Baso # (Auto) 0.00 INR 2.34 H Sodium 131 L Potassium 4.4 Chloride 100 Carbon Dioxide 28 BUN 15 Creatinine 0.5 Estimated Creat Clear 63.53 Estimated GFR 108 Glucose 90 Calcium 8.4 C-Reactive Protein 16.6 H
[2022-03-08] MEDS: WARFARIN 2 MG TABLET PO (17:07)
[2022-03-08] MEDS: GABAPENTIN 300 MG CAPSULE PO (20:57)
[2022-03-08] MEDS: MIDODRINE HCL 5 MG TABLET PO (20:57)
--- NOTE | 2022-03-08 22:52 | PC.NURSE ---
Shift [id number]- Patient up to chair this evening. He has large BM this evening, formed with streak of red blood- it was otherwise brown in appearance. Guaiac positive for sample collected from streak, though negative from sample obtained from other area of stool. He continues to have pain in lower back. Does not request any additional interventions for pain.
[2022-03-09] VITALS (7 sets, daily range): BP systolic 85–189; BP diastolic 55–114; PULSE 60–86; RESP 16–18; TEMP 36.5–36.9; O2SAT 94–98
[2022-03-09] MEDS: TRAMADOL HCL 50 MG TABLET 25 MG PO ×3 (04:46→19:34)
--- NOTE | 2022-03-09 05:25 | PC.NURSE ---
Pt rested well this night. BP elevated. Pain controlled Afebrile. Oriented x3. Pt states still isn't feeling well and gets dizzy when standing but ok when moving to sitting position.
[2022-03-09] MEDS: OMEPRAZOLE 20 MG CAPSULE DR 40 MG PO (06:25)
[2022-03-09 09:06] LABS: Basophils Absolute Auto 0.01 K/uL (0.00-0.30); Basophils Percent Auto 0.1 % (0.0-3.0); Eosinophils Percent Auto 9.9 % (0.0-7.0); Hematocrit 32.3 % (37.0-53.0); Hemoglobin* 10.7 gm/dL (13.5-17.5); Immature Granulocytes Abs Auto 0.02 K/uL (0.00-0.30); Immature Granulocytes Pct Auto 0.2 %; Lymphocytes Percent Auto 9.5 % (20-44); Mean Corpuscular HGB Conc 33 gm/dL (32-36); Mean Corpuscular Hemoglobin 30 pg (26-34); Mean Corpuscular Volume 92 fL (80-100); Neutrophils Absolute Auto 6.14 K/uL (1.7-7.0); Neutrophils Percent Auto 71.3 % (42.0-72.0); Platelet Count* 425 K/uL (140-440); RDW Coefficient of Variation % 16.9 % (11.5-15.5); Red Blood Count 3.53 m/uL (4.30-5.90); Slide Review Reflex No; White Blood Count* 8.62 K/uL (4.50-11.00)
[2022-03-09 09:17] LABS: Chloride* 101 mmol/L (96-114); Sodium* 135 mmol/L (135-149)
[2022-03-09 09:18] LABS: Potassium* 4.2 mmol/L (3.6-5.1)
[2022-03-09 09:20] LABS: Blood Urea Nitrogen* 17 mg/dL (7-30); Carbon Dioxide* 26 mmol/L (20-32); Creatinine* 0.5 mg/dL (0.5-1.5); Est. Creatinine Clearance* 63.53; Estimated Glomerular Filt Rate 108 ml/min
[2022-03-09 09:21] LABS: Calcium* 8.5 mg/dL (8.4-10.6); Glucose* 125 mg/dL (60-115); INR 2.21 (0.91-1.10); Prothrombin Time 25.7 Seconds
[2022-03-09] MEDS: ACETAMINOPHEN 325 MG TABLET 650 MG PO ×4 (09:35→19:34)
[2022-03-09] MEDS: SENNOSIDES/DOCUSATE TABLET 2 TAB PO ×2 (09:35→19:35)
[2022-03-09] MEDS: GABAPENTIN 100 MG CAPSULE PO (09:35)
[2022-03-09] MEDS: MIDODRINE HCL 5 MG TABLET PO ×2 (09:36→19:35)
[2022-03-09] MEDS: SODIUM CHLORIDE 0.9 % (FLUSH) 10 ML SYRINGE 5 ML IVF ×2 (09:36→19:37)
[2022-03-09] MEDS: FLUDROCORTISONE ACETATE 0.1 MG TABLET PO (09:36)
--- NOTE | 2022-03-09 14:03 | P.IMPN_ITS ---
Progress Note: A&P Assessment and plan (1) Laceration of lip: Problem details: No further bleeding. Continue warfarin at therapeutic INR Status: Acute (2) COVID: Problem details: - temperature of 100.5? on admission, no hypoxia. 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 Baseline hemoglobin is 9.5 - transfused 1 U PRBCs 02/27, and 1 more unit packed red blood cells 02/28/2022 Status: Acute (5) Back pain: Problem details: - Acute on chronic, follow symptomatically Status: Acute (6) Hypovolemic shock: Problem details: Resolved on presentation with IV fluid and packed red blood cell administration. Still orthostatic despite stopping blood pressure medicines and addition of Florinef Status: Acute (7) Orthostatic hypotension: Problem details: Most likely this is chronic and not explainable on the basis of an untoward iatrogenic response to his various medications including the SAMRA-inhibitor, alpha-xin, tamsulosin, and the beta-xin, carvedilol. Additionally, not explainable on the basis of acute blood loss anemia and hypovolemia. Most consistent with neurogenic orthostatic hypotension, particularly with the paucity of an appropriate virgen-receptor reflex induced increased heart rate with associated decreased blood pressure. Monitor for affects from Florinef. Midodrine also added to medication for orthostatic hypotension. Status: Acute (8) Right upper lobe pulmonary infiltrate: Problem details: Likely a pneumonia. Secondary complication of COVID. Pneumonia clinically resolved. Discontinue antibiotics. Status: Acute (9) Neurogenic orthostatic hypotension: Problem details: Etiology of this is not entirely clear. It appears that this condition is profoundly worse since the patient has had COVID. Whether or not this is a long-haul COVID problem that he will be dealing with for period of time is currently uncertain. Now on Florinef and midodrine Status: Acute (10) Cognitive impairment: Problem details: Unclear how much of this is acute and how much of this is chronic. [place] early on in his hospital stay at this time was . 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 Status: Acute Plan Patient remains severely orthostatic with his blood pressure. He remains hypertensive when he is supine and hypotensive when he stands but he is not symptomatic to the point of syncope or near syncope. Because of this I think he can possibly be discharged in the next day to home with outpatient follow-up and evaluation for his orthostatic hypotension. Patient is in agreement with this plan. If he is unable to go home tomorrow may need to consider other options for him. Will resume warfarin at therapeutic doses but hold aspirin because of bleeding problems pending cardiology followup Time Spent With Patient Total time spent: Total time spent today is 45 minutes, 30 minutes in coordination care and discussing with patient other providers management of orthostatic hypotension and disposition plans Subjective Date Seen: 03/09/22 Interval history: 71-year-old male seen in followup of profound orthostatic hypotension as well as COVID illness and bleeding from his lip with coagulopathy. Patient reports no specific concerns today. He he has got no fever, cough, shortness of breath, chest pain, palpitations. He has a little lightheadedness when he gets up but is not feel presyncope. He has been able to ambulate on his own fairly well. He has been able to eat and to drink as well. All of his blood pressure medicines have been discontinued and he is now on Florinef and midodrine to treat his orthostatic hypotension. He is also wearing support hose. With these interventions his blood pressures have been consistently elevated when he is supine and still consistently low when he is standing. He feels strongly that he is not yet ready to go home and live independently. Exam Narrative: Exam Narrative: He is alert and appears in no distress. He sitting up in chair. Speech is normal. Respirations are clear to auscultation. Cardiovascular: S1, S2, regular rate and rhythm. Abdomen: Bowel sounds active. Abdomen with mild diffuse tenderness. This is unchanged from previous examinations. Extremities with no significant edema. He has a good peripheral pulse with good perfusion. Orthostatic vitals: Supine 180/93 with a pulse of 60 standing 85/55 with pulse of 86 Const: Vital Signs, click to edit/add: Vital Signs - 24 hr 03/08/22 15:16 03/08/22 15:30 03/08/22 18:41 Temperature 98.3 F 98 F Pulse Rate [Pulse Oximeter] 80 71 Pulse Rate [orthos tatic lying Left] Pulse Rate [orthos tatic sitting Left ] Pulse Rate [orthos tatic standing Lef t] Respiratory Rate 18 16 Blood Pressure [Le ft Arm] 137/82 130/89 Blood Pressure [Ri ght Arm] Blood Pressure [or thostatic lying Ri ght Arm] Blood Pressure [or thostatic sitting Right Arm] Blood Pressure [or thostatic standing Right Arm] Pulse Oximetry 98 96 Oxygen Delivery Me thod Room Air Room Air 03/08/22 23:14 03/08/22 23:34 03/09/22 03:11 Temperature 98.3 F 98.3 F Pulse Rate [Pulse Oximeter] 68 68 77 Pulse Rate [orthos tatic lying Left] Pulse Rate [orthos tatic sitting Left ] Pulse Rate [orthos tatic standing Lef t] Respiratory Rate 18 18 16 Blood Pressure [Le ft Arm] Blood Pressure [Ri ght Arm] 147/99 H 175/93 H Blood Pressure [or thostatic lying Ri ght Arm] Blood Pressure [or thostatic sitting Right Arm] Blood Pressure [or thostatic standing Right Arm] Pulse Oximetry 98 98 Oxygen Delivery Nm thod Room Air Room Air 03/09/22 08:54 03/09/22 07:45 03/09/22 12:45 Temperature 98.0 F 97.9 F Pulse Rate [Pulse Oximeter] 60 63 Pulse Rate [orthos tatic lying Left] 60 Pulse Rate [orthos tatic sitting Left ] 78 Pulse Rate [orthos tatic standing Lef t] 86 Respiratory Rate 16 16 Blood Pressure [Le ft Arm] 150/81 H Blood Pressure [Ri ght Arm] 180/93 H Blood Pressure [or thostatic lying Ri ght Arm] 180/93 H Blood Pressure [or thostatic sitting Right Arm] 121/82 Blood Pressure [or thostatic standing Right Arm] 85/55 L Pulse Oximetry 97 98 Oxygen Delivery Me thod Room Air Room Air Documenting provider has reviewed patient's vital signs: yes Labs Labs: Laboratory Results - last 24 hr 12/26/22 12/26/22 12/26/22 08:52 08:52 08:52 WBC 8.62 RBC 3.53 L Hgb 10.7 L Hct 32.3 L MCV 92 MCH 30 MCHC 33 RDW Coeff of Bernabe 16.9 H Plt Count 425 Neut % (Auto) 71.3 Lymph % (Auto) 9.5 L [place] % (Auto) 9.0 Eos % (Auto) 9.9 H Baso % (Auto) 0.1 Neut # (Auto) 6.14 Lymph # (Auto) 0.80 L [place] # (Auto) 0.80 Eos # (Auto) 0.90 H Baso # (Auto) 0.01 INR 2.21 H Sodium 135 Potassium 4.2 Chloride 101 Carbon Dioxide 26 BUN 17 Creatinine 0.5 Estimated Creat Clear 63.53 Estimated GFR 108 Glucose 125 H Calcium 8.5
--- NOTE | 2022-03-09 14:33 | PC.SOCIAL ---
Discharge planning- Therapy recommending home health care for PT/OT. Met with pt in pt's room to discuss recommendation. Pt states that he does not want home health care services in place at home and believes he has enough support in place in his home. Pt states he is going to follow up with his human resources administrator after leaving the hospital. Provided information to charge nurse. Social work will follow up as necessary.
--- NOTE | 2022-03-09 14:37 | PC.NURSE ---
End of shift note: Patient is upbeat and cooperative today. Is fearful of going home. After talking with Dr. Barnes, he will discharge tomorrow home. Patient has been up in chair all day. has ambulated in [place] 3 times today. Took a shower and has ambulated to bathroom X2 as well. Has tolerated this activity without difficulty. Does get short of breath, but has not had light headed or dizziness today. TEDs have been in place to help with this. Continues to take new medications to help keep BP up. Orthostatics were completed this morning and a large drop was seen, however patient did not get dizzy or feel he was going to pass out. Just got short of breath and a little light headed. MD was updated with these results. PIV is patent and intact. Sating 98% on room air. No fever. Does have chronic back and right knee pain for which he gets scheduled Tylenol for. Refused ice and heat for this. The hot shower did help though. Complained of a headache and lower abdominal pain today. Did have 2 soft, brown stools without evidence of blood. Patient did pass a lot of flatus as well and stated that this helped his abdominal pain some, but not completed. Did receive tramadol for all complaints of pain with minimal relief. Asked patient if he had any other ideas, and he stated that all of these are chronic and he can tolerate them. Lung sounds are clear. Bowel sounds are active. Tolerating a regular diet. Ambulates with stand by assist with 1, walker, and Gait belt. Plan is to return home tomorrow with new medications and TEDs. Patient was able to pull teds up to thigh once they were around the heal.
[2022-03-09] MEDS: WARFARIN 2 MG TABLET PO (16:45)
[2022-03-09] MEDS: GABAPENTIN 300 MG CAPSULE PO (19:35)
[2022-03-10] MEDS: TRAMADOL HCL 50 MG TABLET 25 MG PO (01:07)
[2022-03-10] MEDS: LORazepam 0.5 MG TABLET PO (01:07)
--- NOTE | 2022-03-10 01:51 | PC.NURSE ---
Shift Note [id number]: Pt a/o and able to verbalize needs. Friendly and cooperative. Spent most of the evening in his chair and had a good appetite for supper. BP's elevated while supine or in semi-martel's. Pt did begin c/o increased headache about 0030. BP was 189/94 at that time. Pt also c/o chronic back pain 08/22, PRN Tramadol and Ativan given. Pt also repositioned with pillow between knees. Moves well with assist x1.
[2022-03-10 03:00] VITALS: BP 179/99; PULSE 76; RESP 16; TEMP 36.7; O2SAT 96
--- NOTE | 2022-03-10 06:05 | PC.NURSE ---
Patient was alert and oriented x4. BP elevated, reported to charge account identification clerk and will report to MD in AM. Patient's BP has been running high when laying down. Endorses headache, utilizing tramadol and scheduled tylenol. He was pleasant and cooperative with cares.
[2022-03-10 06:31] LABS: Basophils Absolute Auto 0.01 K/uL (0.00-0.30); Basophils Percent Auto 0.1 % (0.0-3.0); Eosinophils Percent Auto 9.9 % (0.0-7.0); Hematocrit 28.5 % (37.0-53.0); Hemoglobin* 9.6 gm/dL (13.5-17.5); Immature Granulocytes Abs Auto 0.02 K/uL (0.00-0.30); Immature Granulocytes Pct Auto 0.2 %; Lymphocytes Percent Auto 9.7 % (20-44); Mean Corpuscular HGB Conc 34 gm/dL (32-36); Mean Corpuscular Hemoglobin 30 pg (26-34); Mean Corpuscular Volume 89 fL (80-100); Monocytes Percent Auto 12.1 % (0.0-11.0); Neutrophils Absolute Auto 6.34 K/uL (1.7-7.0); Platelet Count* 400 K/uL (140-440); RDW Coefficient of Variation % 16.4 % (11.5-15.5); Red Blood Count 3.19 m/uL (4.30-5.90); White Blood Count* 9.32 K/uL (4.50-11.00)
[2022-03-10] MEDS: OMEPRAZOLE 20 MG CAPSULE DR 40 MG PO (06:38)
[2022-03-10 06:39] LABS: Slide Review Reflex No
[2022-03-10 06:54] LABS: INR 2.27 (0.91-1.10); Prothrombin Time 26.2 Seconds
[2022-03-10 07:00] VITALS: BP 179/87; PULSE 94; RESP 26; TEMP 36.3; O2SAT 97
[2022-03-10 08:00] VITALS: BP 106/84; BP 125/102; BP 164/88; PULSE 71; PULSE 74; PULSE 83
[2022-03-10] MEDS: ACETAMINOPHEN 325 MG TABLET 650 MG PO ×2 (09:33→18:04)
[2022-03-10] MEDS: SENNOSIDES/DOCUSATE TABLET 2 TAB PO (09:33)
[2022-03-10] MEDS: SODIUM CHLORIDE 0.9 % (FLUSH) 10 ML SYRINGE 5 ML IVF (09:34)
[2022-03-10] MEDS: GABAPENTIN 100 MG CAPSULE PO (09:34)
[2022-03-10] MEDS: MIDODRINE HCL 5 MG TABLET PO (09:34)
[2022-03-10] MEDS: FLUDROCORTISONE ACETATE 0.1 MG TABLET PO (09:34)
[2022-03-10 11:00] VITALS: BP 132/85; PULSE 76; RESP 20; TEMP 36.3; O2SAT 97
[2022-03-10 15:00] VITALS: BP 126/74; PULSE 76; PULSE 77; RESP 20; TEMP 36.3; O2SAT 96
--- NOTE | 2022-03-10 16:18 | P.DS_ITS ---
DS: Providers Provider Date Seen: 03/10/22 Date of admission: 02/27/22 12:44 Primary care physician: Justin Branch MD Admitting Clinician: Jose Alejandro Barnes MD Consults: 03/01/22 16:01 Consult to Occupational Therapy [CONS] Routine Comment: Reason(s) for OT Consult:: Evaluate and Treat Any Restrictions?:: No Restrictions Consult to Physical Therapy [CONS] Routine Comment: Reason(s) for PT Consult:: Evaluate and Treat Any Restrictions?:: No Restrictions Attending Physician on discharge: Roma Abbott MD Date of Discharge: 03/10/22 DS: Diagnosis Discharge Diagnosis (1) COVID: Status: Acute Problem details: - temperature of 100.5? on admission, no hypoxia. Timeline of COVID acquisition unclear, notes that is also ill at home - not requiring supplemental oxygen - high risk for complications, completed 3 days of Remdesivir on 03/01/2022 (2) Anemia: Status: Acute Problem details: - acute on chronic. 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 Continue warfarin at therapeutic INR (5) Cognitive impairment: Status: Acute Problem details: Unclear how much of this is acute and how much of this is chronic. [place] early on in his hospital stay at this time was . 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 (6) Neurogenic orthostatic hypotension: Status: Acute Problem details: Etiology of this is not entirely clear. It appears that this condition is profoundly worse since the patient has had COVID. Whether or not this is a long-haul COVID problem that he will be dealing with for period of time is currently uncertain. Now on Florinef and midodrine (7) Right upper lobe pulmonary infiltrate: Status: Acute Problem details: Likely a pneumonia. Secondary complication of COVID. Pneumonia clinically re solved. Discontinue antibiotics. DS: Summary Hospital Course Hospital Course: HOSPITALIST DISCHARGE SUMMARY ATTENDING PHYSICIAN: Jenniffer Abbott MD FINAL DIAGNOSIS: Covid 19 Neurogenic orthostatic hypotension ABLA - lip laceration/supra therapeutic anticoagulation HOSPITAL FOLLOWUP ISSUES: 1. Orthostatic hypotension. We held his Coreg and Flomax. His volume status and anemia resolved. Added Florinef and Midodrine. Our suspicion is this is neurogenic or part of long haul covid. Outpatient Cardiology appt arranged for Mar 24, 2022. 2. ABLA, discharge hemoglobin was 9.6 from a nadior of 6.9. s/p 2 units of PRBCS. etiology was a lip laceration and elevated INR 3. supratherapeutic INR, admit INR was 5.12, discharge was 2.27. He is on coumadin s/p TAVR REFERRALS WHILE ADMITTED: PT/OT REFERRALS AFTER DISCHARGE: Cardiology PCP BRIEF HOSPITAL COURSE: Admitted, transfused and given Vit K for ABLA. Lip was clipped in ED and no further bleeding noted. +Covid with RUL pneumonia. Given 3 days of IV remdesivir and antibiotics. His greatest valentina was orthostatic hypotension. He would have systolics in the 180's and withstanding/ambulation he would drop in the 80's. Minimally symptomatic but would endorse some dizziness. We held his Coreg and Flomax. We started Florinef and Midodrine. This improved his numbers some; he was less symptomatic. Our thought was this was neurogenic or part of a long haul COVID presentation mostly because this persisted after acute COVID treatment and observation, persisted after holding meds, persisted after blood transfusion and intravascular volume depletion. We arranged a f/u with cardiology for 03/24/22. SUBSTANTIVE NOTATIONS ON IMAGING, LAB, MICROBIOLOGY/PATHOLOGY STUDIES: Reviewed CXR, CT. No Echo completed. DISCHARGE MEDICATIONS: See Reconciled list - SIGNIFICANT CHANGES: As above, Held Coreg/Flomax Started and continued Florinef and Midodrine. REVIEW OF SYSTEMS Ambulating without dizziness No new chest pain or dyspnea Pain controlled No voiding difficulties Tolerating diet challenge PHYSICAL EXAM: CONSTITUTIONAL: quirky but alert and interactive. VITAL SIGNS: see record. HEENT: Normocephalic, atraumatic. PERRL, EOMI, conjunctivae pink, no scleral icterus. Ears and nose externally normal. Pharynx normal. NECK: No JVD. No carotid bruit, no thyromegaly, no adenopathy. CHEST: Clear to auscultation bilaterally. HEART: S1 and S2 normal. Edema ABDOMEN: Soft, nontender. Normal bowel sounds. MUSCULOSKELETAL: No gross joint deformity or swelling. NEURO: Cranial nerves intact. Grossly intact. No asymmetric findings. SKIN: No rashes, petechiae, concerning changes PSYCHIATRIC: Mood euthymic. DISPOSITION: home with Time spent on discharge 37 minutes. Status at Discharge Functional status at discharge: uses cane/walker Overall status at discharge: patient is progressing back to baseline Time Spent with Patient Time attestation: Total time spent providing and/or coordinating discharge services: Time spent: Greater than 30 minutes Exam Const: Vital Signs, click to edit/add: Vital Signs - 24 hr 03/09/22 19:00 03/09/22 23:00 03/09/22 23:00 Temperature 98 F 98.5 F Pulse Rate [Pulse Oximeter] 72 74 74 Pulse Rate [orthos tatic lying Left] Pulse Rate [orthos tatic sitting Left ] Pulse Rate [orthos tatic standing Lef t] Respiratory Rate 18 18 18 Blood Pressure [Le ft Arm] Blood Pressure [Ri ght Arm] 159/92 H 189/94 H Blood Pressure [or thostatic lying Ri ght Arm] Blood Pressure [or thostatic sitting Right Arm] Blood Pressure [or thostatic standing Right Arm] Pulse Oximetry 97 94 Oxygen Delivery Me thod Room Air Room Air 03/10/22 03:00 03/10/22 07:00 03/10/22 08:00 Temperature 98.1 F 97.3 F L Pulse Rate [Pulse Oximeter] 76 94 Pulse Rate [orthos tatic lying Left] 74 Pulse Rate [orthos tatic sitting Left ] 71 Pulse Rate [orthos tatic standing Lef t] 83 Respiratory Rate 16 26 H Blood Pressure [Le ft Arm] 179/87 H Blood Pressure [Ri ght Arm] 179/99 H Blood Pressure [or thostatic lying Ri ght Arm] 164/88 H Blood Pressure [or thostatic sitting Right Arm] 106/84 Blood Pressure [or thostatic standing Right Arm] 125/102 H Pulse Oximetry 96 97 Oxygen Delivery Wa thod Room Air Room Air DS: Data Data Completed and Pending Labs on day of discharge: Labs from last 24 hours 03/10/22 03/10/22 06:13 06:13 WBC 9.32 RBC 3.19 L Hgb 9.6 L Hct 28.5 L MCV 89 MCH 30 MCHC 34 RDW Coeff of Bernabe 16.4 H Plt Count 400 Neut % (Auto) 68.0 Lymph % (Auto) 9.7 L [place] % (Auto) 12.1 H Eos % (Auto) 9.9 H Baso % (Auto) 0.1 Neut # (Auto) 6.34 Lymph # (Auto) 0.90 [place] # (Auto) 1.10 H Eos # (Auto) 0.90 H Baso # (Auto) 0.01 INR 2.27 H Discharge Plan Discharge Disposition: Home, Self-Care Date of Admission: 02/27/22 12:44 Attending Provider on Discharge: Jose Alejandro Barnes Primary Care Provider: Justin Branch Condition: Stable Anticipated Discharge Date/Time: 03/10/22 11:29 Discharge Medications: New midodrine 5 mg Tablet 5 mg PO BID Qty: 60 0RF warfarin [Jantoven] 2 mg Tablet 2 mg PO DAILYC Qty: 30 0RF fludrocortisone 0.1 mg Tablet 0.1 mg PO DAILY Qty: 30 0RF sennosides-docusate sodium [Stool Softener-Laxative] 8.6-50 mg Tablet 2 tab PO BID Qty: 100 0RF Continued gabapentin 100 mg capsule 100 mg PO BID gabapentin 300 mg capsule 300 mg PO HS pantoprazole 40 mg tablet,delayed release (DR/EC) 40 mg PO DAILY Discontinued carvedilol 3.125 mg tablet 3.125 mg PO BID warfarin 3 mg tablet 3 mg PO DAILY cyclobenzaprine 5 mg tablet 5 mg PO TID PRN Label Comments: TAKE ONE TABLET BY MOUTH THREE TIMES DAILY NEEDED FOR MUSCLE SPASM tamsulosin 0.4 mg capsule 0.4 mg PO BIDWM Label Comments: TAKE ONE CAPSULE BY MOUTH TWICE DAILY BEFORE MEALS aspirin [Aspirin Childrens] 81 mg tablet,chewable 81 mg PO DAILY Discharge Orders: Discharge Order (Routine); Ordered 03/10/22 Ordered By: Jenniffer Abbott Patient Education: Fludrocortisone Acetate (By mouth) (Florinef Acetate), Midodrine (By mouth), Senna (By mouth) (Sen, Senna-lax), Near Syncope (DC), Anemia (DC) Additional Instructions: Follow-up with your non destructive testing scientist, Jn Pinto MD, at next available appointment to review anticoagulation/antiplatelet medications and orthostatic blood pressure evaluation and management. You will see the carvedilol and tamsulosin on hold. Please continue to hold these until you speak with the non destructive testing scientist and or your PCP. Activity Level: Activity as Tolerated Activity Detail: When you get up from laying down or sitting moves slowly to avoid getting dizzy or lightheaded. Wear compression stockings on your legs. Discharge Diet: Regular Diet Detail: You do not need to avoid salt or sodium in your diet Follow Up Appointments: Jn Pinto [Other] - 03/24/22 2:10 pm (With Zuleyma Aguilar, one of Dr. Pinto's team. ) Justin Branch MD [Primary Care Provider] - 03/13/22 1:40 pm (Arrival time of 1:25 PM for INR lab test.) Forms: [employer] Info Instructions
[2022-03-10] MEDS: WARFARIN 2 MG TABLET PO (18:05)
[2022-03-10 19:13] VITALS: BP 188/110; PULSE 72; RESP 20; TEMP 36.3
--- NOTE | 2022-03-10 19:17 | PC.NURSE ---
Nursing Care Hours: [id number] Pt this shift calm and cooperative with cares. Orthostatics pressures done, c/o lightheaded when sitting from lying but no c/o when standing. Tolerating regular diet, urinating in urinal independently. Stable on room air, intermittent cough noted. Received a shower this afternoon. Discharge ready at 1100 but pt unable to get ride until after 1730. Discharge instructions provided, all questions and concerns answered. Pt concerned about discontinuing taking Flomax d/t hx of catheters. Blueprint Processor explained that Flomax may decrease blood pressure and treatment is trying to keep blood pressure from dropping d/t hypotension. Advised to not take the Flomax for three more days and discuss with primary risks and benefits at the follow up appt on 03/13/22.
== END 2022-03-10 19:00 | disposition home or self-care (01) | DRG 813 ==
LOC: ED 20:47 → MEDSURG 21:46
PROVIDERS: Family Medicine; Internal Medicine; Admitting Provider Family Medicine; Emergency Provider Family Medicine; PCP Family Medicine; Visit Provider Family Medicine
DX: D68.32 Hemorrhagic disorder due to extrinsic circulating anticoagulants (principal); U07.1 COVID-19; R57.1 Hypovolemic shock; J12.82 Pneumonia due to coronavirus disease 2019; D62 Acute posthemorrhagic anemia; G90.3 Multi-system degeneration of the autonomic nervous system; S01.511A Laceration without foreign body of lip, initial encounter; K13.79 Other lesions of oral mucosa; T45.515A Adverse effect of anticoagulants, initial encounter; G31.84 Mild cognitive impairment of uncertain or unknown etiology; R50.9 Fever, unspecified; R42 Dizziness and giddiness; I10 Essential (primary) hypertension; I71.40 Abdominal aortic aneurysm, without rupture, unspecified; J44.9 Chronic obstructive pulmonary disease, unspecified; Z79.01 Long term (current) use of anticoagulants; Z95.2 Presence of prosthetic heart valve; M54.9 Dorsalgia, unspecified; R10.819 Abdominal tenderness, unspecified site; Z85.118 Personal history of other malignant neoplasm of bronchus and lung; Z85.22 Personal history of malignant neoplasm of nasal cavities, middle ear, and accessory sinuses
CPT/HCPCS: 36415; 36430; 51798; 71045; 74177; 80048; 80053; 80069; 80076; 81001; 82803; 84145; 84295; 84484; 85018; 85025; 85027; 85610; 85730; 86140; 86850; 86900; 86901; 86922; 87086; 87631; 93005; 93306; 93308; 93321; 93325; 94761; 97110; 97116; 97161; 97165; 97530; 97535; 99284; A9270; G0378; J0696; J1885; J2060; J2405; J7050; J7120; P9016; Q9967

== ENCOUNTER 2022-08-20 12:47 | Outpatient (CLI) | payer MEDICARE, BC, SELFPAY | END 2022-08-20 12:48 | disposition home or self-care (01) | LOC: AMB 09-08 02:00 | PROVIDERS: PCP Family Medicine; Visit Provider Internal Medicine | DX: R41.82 Altered mental status, unspecified (principal) | CPT/HCPCS: A0425; A0429 ==

== ENCOUNTER 2022-08-23 14:20 | Outpatient (CLI) | payer MEDICARE, BC, SELFPAY | END 2022-08-23 14:21 | disposition home or self-care (01) | PROVIDERS: Visit Provider Family Medicine | DX: K92.2 Gastrointestinal hemorrhage, unspecified (principal) | CPT/HCPCS: A0425; A0426; A0428 ==

== ENCOUNTER 2022-09-03 13:51 | Inpatient (IN) | payer MEDICARE, BC, SELFPAY ==
[2022-09-03] VITALS (23 sets, daily range): BP systolic 121–194; BP diastolic 68–94; PULSE 77–92; RESP 16–24; TEMP 35.9–37.1; O2SAT 93–100; BMI 21.4
[2022-09-03 15:01] LABS: Basophils Absolute Auto 0.01 K/uL (0.00-0.30); Basophils Percent Auto 0.1 % (0.0-3.0); Eosinophils Absolute Auto 0.28 K/uL (0.00-0.50); Eosinophils Percent Auto 3.3 % (0.0-7.0); Hematocrit 20.8 % (37.0-53.0); Immature Granulocytes Abs Auto 0.03 K/uL (0.00-0.30); Immature Granulocytes Pct Auto 0.4 %; Lymphocytes Percent Auto 11.4 % (20-44); Mean Corpuscular HGB Conc 31 gm/dL (32-36); Mean Corpuscular Hemoglobin 30 pg (26-34); Mean Corpuscular Volume 98 fL (80-100); Monocytes Percent Auto 10.5 % (0.0-11.0); Neutrophils Percent Auto 74.3 % (42.0-72.0); Platelet Count* 427 K/uL (140-440); RDW Coefficient of Variation % 16.8 % (11.5-15.5); Red Blood Count 2.13 m/uL (4.30-5.90); White Blood Count* 8.37 K/uL (4.50-11.00)
--- NOTE | 2022-09-03 15:05 | ED.NURSE ---
Assessment completed today with patient. He stated my will be really worried, I think we could call her once we know more. Agreed to contact whenever he feels ready. Patient stated that at the time of the incident, he was in a very hot car and should have went to a different car with air conditioning. Reassured him that we would check a couple things and assist him if he needed any help with discharging. Patient anxious to leave.
[2022-09-03 15:11] LABS: Hemoglobin* 6.4 gm/dL (13.5-17.5); Slide Review Reflex No
[2022-09-03 15:15] LABS: Chloride* 107 mmol/L (96-114); Potassium* 3.9 mmol/L (3.6-5.1); Sodium* 142 mmol/L (135-149)
[2022-09-03 15:18] LABS: Blood Urea Nitrogen* 29 mg/dL (7-30); Calcium* 8.2 mg/dL (8.4-10.6); Carbon Dioxide* 25 mmol/L (20-32); Creatinine* 0.9 mg/dL (0.5-1.5); Estimated Glomerular Filt Rate 90 ml/min; Glucose* 105 mg/dL (60-115)
--- NOTE | 2022-09-03 15:30 | ED.NURSE ---
Patient now okay with receiving information now that the test results are back. She was called and updated.
[2022-09-03] MEDS: 0.9 % SODIUM CHLORIDE 1000 ml 1,000 ML 125 ML IV (15:43)
--- NOTE | 2022-09-03 16:26 | P.IMHP_ITS ---
Hospitalist- H&P: HPI History of Present Illness Time Seen by Provider: 15:30 Date Seen: 09/03/22 Chief complaint: Neurological symptoms Narrative: Isaac Clay is a 72 year old man who was in his usual state of health until earlier today. He has been having some problems with his car. His car was at a repair shop. The car had been sitting out in the hot sun for a while. He entered his car to clean out some items that he needed to transfer them to his r ental car. He indicates he sense that the car was too hot that he needed to get out of the car but he remained in the car and did not get out. 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 They summoned EMS. EMS arrived shortly thereafter. Patient was still unconscious when EMS arrived. Systolic blood pressure when they arrived was 70 mmHg. Patient became conscious thereafter. Able to have meaningful dialogue in discussion. Does not recall having a syncopal episode. It is estimated he may have been unconscious for few seconds only by the time the bystander realized the patient's precarious condition. Brought to our emergency department at [facility]. In the emergency department he was awake, alert, oriented x3. Does not recall having a syncopal episode but acknowledges that he has no recall of EMS coming to assess him until he was awakened after the assessment was in process. Denies any discomforts. Review of Systems Status of ROS: Reports: 10 or more systems reviewed and unremarkable except as noted in History and below Narrative: Denies chest or neck or back heaviness, pressure, tightness, or pain. Denies feeling orthostatic or near syncopal or dizzy. Denies vertigo. Denies nausea or vomiting. States he is thirsty. Denies dyspnea at rest, paroxysmal nocturnal dyspnea, or orthopnea. Previously was on warfarin and has not been on warfarin for couple of weeks now. Warfarin was stopped at the time of his recent GI bleed. Still has intermittent dark stools but denies onofre rectal bleeding. Denies blood loss of any other sort. Denies dysphagia or odynophagia. Denies dyspepsia. Denies abdominal pain. Denies nausea or vomiting. Denies constipation or diarrhea. Denies dysuria, urgency, frequency, or hematuria. Denies polyuria or polydipsia. No focal motor neurologic deficits. Denies fevers, rigors, diaphoresis. Denies night sweats. Denies weight gain or weight loss. Still takes midodrine for orthostatic hypotension. [facility] Medical History GI bleed ?K92.2 - Gastrointestinal hemorrhage, unspecified (ICD-10) ABLA (acute blood loss anemia) ?D62 - Acute posthemorrhagic anemia (ICD-10) Hypertension ?I10 - Essential (primary) hypertension (ICD-10) Neurogenic orthostatic hypotension ?G90.3 - Multi-system degeneration of the autonomic nervous system (ICD-10) Aortic valve stenosis, acquired ?I35.0 - Nonrheumatic aortic (valve) stenosis (ICD-10) AAA (abdominal aortic aneurysm) without rupture ?I71.40 - Abdominal aortic aneurysm, without rupture, unspecified (ICD-10) Lung cancer ?C34.90 - Malignant neoplasm of unspecified part of unspecified bronchus or lung (ICD-10) Paravalvular leak (prosthetic valve) ?T82.03XA - Leakage of heart valve prosthesis, initial encounter (ICD-10) COPD (chronic obstructive pulmonary disease) ?J44.9 - Chronic obstructive pulmonary disease, unspecified (ICD-10) 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, unspecified (ICD-10) Retroperitoneal bleed ?R58 - Hemorrhage, not elsewhere classified (ICD-10) History of GI bleed ?Z87.19 - Personal history of other diseases of the digestive system (ICD-10) Surgical History History of cardiac radiofrequency ablation ?Z98.890 - Other specified postprocedural states (ICD-10) History of arthroscopic knee surgery ?Z98.890 - Other specified postprocedural states (ICD-10) History of splenectomy ?Z90.81 - Acquired absence of spleen (ICD-10) History of right inguinal hernia repair ?Z98.890 - Other specified postprocedural states (ICD-10) ?Z87.19 - Personal history of other diseases of the digestive system (ICD-10) History of lobectomy of lung ?Z90.2 - Acquired absence of lung [part of] (ICD-10) S/P TAVR (transcatheter aortic valve replacement) ?Z95.2 - Presence of prosthetic heart valve (ICD-10) Family History Brother Nasopharyngeal carcinoma Father Diabetes Mother Melanoma Social History Narrative: Patient has remote history of smoking. He lives in [place] with his . She currently has significant health problems as well. He does not drink alcohol. No recreational drug use. What is your current living situation: I presently have a place to live Problems where you live: no known problems Problems where you live details: N/A In the past 12 months, utilities in danger of being shut off: no In the past 12 mos, have been you worried that your food would run out before you had money to buy more?: never true In the past 12 mos, the food you bought just didn't last and you didn't have money to buy more?: never true Highest level of school completed/degree received: high school graduate Smoking Status: Former smoker How often do you have a drink containing alcohol: never AUDIT-C Alcohol total score: 0 Non-prescribed substance use: denies use Caffeine: Yes (few cups of coffee daily) How often does anyone, including family, friends and others, physically hurt you : How often does anyone, including family, friends and others, insult or talk down to you: How often does anyone, including family, friends and others, threaten you with harm: How often does anyone, including family, friends and others, scream or curse at you: service: Yes Meds Home Medications and Allergies Home Medications Medication Instructions Recorded Confirmed Type gabapentin 100 mg capsule 100 mg PO BID 02/26/22 09/03/22 History gabapentin 300 mg capsule 300 mg PO HS 02/26/22 09/03/22 History pantoprazole 40 mg tablet,delayed 40 mg PO DAILY 02/26/22 09/03/22 History release tamsulosin 0.4 mg capsule 0.4 mg PO BID 08/20/22 09/03/22 History Allergies Allergy/AdvReac Type Severity Reaction Status Date / Time No Known Drug Allergies Allergy Verified 08/20/22 13:32 Exam Narrative: Exam Narrative: He is awake, alert, oriented to self, place, time, situation. Very hard of hearing, chronic. Not new. Vision is grossly normal. Tympanic membranes normal bilaterally. Midline nasal septum. Dry buccal mucosa. Dentition fair repair. Neck is supple. Midline trachea. Bounding pulses in the supraclavicular fossa on the right, not new. No JVD or hepatojugular reflux. No carotid bruits. Lungs are clear to auscultation. Chest wall excursions are full. No CVA or spinal tenderness. Heart tones with regular rhythm, normal S1-S2. Chronic murmur, unchanged. PMI not laterally displaced. Active bowel sounds. Thin. Soft, nontender. No rebound or guarding. Extremities without edema. Transfers with standby assist only. No focal motor neurologic deficits. Const: Vital Signs, click to edit/add: Vital Signs - 24 hr 09/03/22 13:58 09/03/22 15:03 09/03/22 15:04 Temperature 98.7 F Pulse Rate 81 81 Pulse Rate [Pulse Oximeter] 78 Respiratory Rate 16 Blood Pressure 155/80 H Blood Pressure [Le ft Upper Arm] 126/68 Pulse Oximetry 100 98 98 Oxygen Delivery Me thod Room Air 09/03/22 15:15 Temperature Pulse Rate 83 Pulse Rate [Pulse Oximeter] Respiratory Rate Blood Pressure Blood Pressure [Le ft Upper Arm] Pulse Oximetry 99 Oxygen Delivery Me thod Documenting provider has reviewed patient's vital signs: yes Hospitalist - H&P: Result Labs Labs: Short CBC 09/03/22 Range/Units 14:44 WBC 8.37 (4.50-11.00) K/uL Hgb 6.4 L* (13.5-17.5) gm/dL Hct 20.8 L (37.0-53.0) % Plt Count 427 (140-440) K/uL BMP 09/03/22 14:44 Sodium 142 Potassium 3.9 Chloride 107 Carbon Dioxide 25 BUN 29 Creatinine 0.9 Glucose 105 Calcium 8.2 L ECG Attestation: I personally reviewed and interpreted this ECG as follows: ECG interpretation date: 09/03/22 ECG interpretation time: 15:30 Prior ECG tracings: not available for review Pacemaker model: Sinus rhythm. Right bundle branch block. Assessment and Plan Assessment and plan (1) Anemia: Problem comment: - acute on chronic. Baseline hemoglobin is 9.5 - transfused 1 U PRBCs 02/27, and 1 more unit packed red blood cells 02/28/2022 - transfused 4 U PRBCs 08/2022 in association with UGI bleed Status: Resolved (2) Syncope and collapse: Status: Acute (3) GI bleed: Problem comment: - 4 U PRBCs transfused 08/20/2022 , Hg improved from 5.6-9.3 overnight, stable at 9.3 at discharge - reviewed CT of abdomen and pelvis with no acute findings, including no retroperitoneal bleeding. - Esophagogastroduodenoscopy obtained 08/21/22: unremarkable for evidence of active bleeding or stigmata of recent bleeding. - Evaluation for possible hemolysis: Retic count low (24.4 pg), haptoglobin pending, LDH elevated (363 U/L), unconjugated (indirect) bilirubin was normal and not elevated. - Continued to have melena, VS and Hgb stable. We called [place] and spoke with Dr. Mccain from who agreed that this patient needed a colonoscopy and small- bowel follow-through, which we do not have available here. Then spoke with hospitalist, Dr. Dangelo, who accepted this patient in transfer to [place]. 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 No obvious overt blood loss at this time. Esophagogastroduodenoscopy obtained 08/20/2022 was unremarkable for evidence of active bleeding or stigmata of recent bleeding. -continue to hold warfarin. Patient desires discontinuation of anticoagulation. Hgb stable on discharge. Tolerating general diet. Status: Acute (5) Neurogenic orthostatic hypotension: Problem comment: -consider possibly long haul covid -discharged in dec on florinef and midodrine -now only on midodrine. This was on hold since he has been admitted to the hospital given his elevated blood pressures and increased risk of cardiac complications in association with this elevated blood pressure. Symptomatic ort hostatis, so considering restarting midodrine at lower dose. F/u with PCP. Status: Chronic (6) Paravalvular leak (prosthetic valve): Status: Chronic (7) Aortic valve stenosis, acquired: Problem comment: -reviewed last cards note in March, updated record -impressively compensated for degree of leak/ -concerned that anticoagulation is now more of a risk than benefit -full code - would want CPR/intubation/transfer/open heart for repair if needed. Status: Chronic (8) AAA (abdominal aortic aneurysm): Problem comment: CT abd/pelvis 08/20/22: Stable mild infrarenal abdominal aortic aneurysm, 3.7 centimeters in AP diameter. Recommend follow-up examination at [address] of the abdomen and pelvis or ultrasound of the abdominal aorta. Status: Chronic (9) S/P TAVR (transcatheter aortic valve replacement): Problem comment: -Status post successful TAVR with 34 mm evolute pro plus in September 2019 with subsequent moderate to severe paravalvular regurgitation -Status post attempted balloon post dilation with need for valve in valve TAVR in October 2020 -Severe/critical low flow low gradient aortic stenosis status post valve in valve TAVR -Minimal residual gradient with at least moderate if not moderate to severe persistent paravalvular regurgitation -NYHA functional class I to 2 -CCS score 0 -Preserved LV systolic function -last echo 03/07/2022: Normal LV size, severe left ventricular hypertrophy, EF of 60-65%. Functioning 34 mm CoreValve Evolut R bioprosthesis AVR, with no stenosis and moderate to severe regurgitation. Status: Chronic (10) Mass of left ear canal: Problem comment: 08/20/22 CT head: Heterogeneous soft tissue/debris along the medial left external auditory canal, with apparent erosions along the floor, and nonspecific opacifi cation of the left mastoid tip. Advise clinical correlation for possible cholesteatoma formation. - F/u with ENT as outpatient. Unclear if patient is a surgical candidate with paravalvular leak. May need to see cardiology if surgery is recommended. Status: Suspected (11) Hypertension: Problem comment: - midodrine still on hold Status: Chronic Plan 1. Reviewed with patient. 2. Reviewed with Dr. Pierce, physician in the emergency department. 3. Admit for observation. Patient agreeable. 4. Transfuse 2 units packed red blood cells and monitor hemoglobin serially. 5. Telemetry. 6. Monitor for blood loss. 7. Daily weight and orthostatic blood pressures and pulses. 8. Should his condition worsen or not improve may need to consider transfer him back to [facility] or they recently cauterized AV malformations in the small bowel with extended upper endoscopy scope. 9. Answered patient's questions to satisfaction.
--- NOTE | 2022-09-03 16:39 | ED_ITS ---
HPI - General Adult General Date Seen: 09/03/22 Chief complaint: Neuro Symptoms/Altered Deficit Stated complaint: Neurological symptoms Time Seen by Provider: 09/03/22 14:01 Source: patient and EMS Mode of arrival: ambulatory Limitations: no limitations History of Present Illness HPI narrative: Patient is a 72-year-old male who was recently admitted to this hospital and eventually transferred to [facility] with a GI bleed. Hemoglobin was as low as 5.6. At that time he was on Coumadin due to an aortic valve replacement. His Coumadin was stopped when he left [place]. They did a pill camera and found some angio ectasias a in the proximal jejunum. This apparently was cauterized. Colonoscopy was unremarkable. Discharge hemoglobin was in the 7s. He apparently was prescribed midodrine but it is unclear if he has been taking it. He tells me he took a dose this morning but his discharge summary says that he will be weaning himself off of that medication. Today he was exchanging vehicles at [employer] and was sitting in one of the vehicles in the heat to catches breath and apparently was found unresponsive. EMS was called and his blood pressure was on the order of 70/40. Was given 500 mL of IV fluids and comes in stating that he feels well and does not want to be here. He has continued to have some dark stools but was told to expect that. No hematemesis. His blood pressure on arrival here is in the 120s over 60s. He denies chest pains or shortness of breath. Related Data Home Medications Medication Instructions Recorded Confirmed gabapentin 100 mg capsule 100 mg PO BID 02/26/22 09/03/22 gabapentin 300 mg capsule 300 mg PO HS 02/26/22 09/03/22 pantoprazole 40 mg tablet,delayed 40 mg PO DAILY 02/26/22 09/03/22 release tamsulosin 0.4 mg capsule 0.4 mg PO BID 08/20/22 09/03/22 Previous Rx's Medication Instructions Recorded sennosides 8.6 mg-docusate sodium 2 tab PO BID #100 tabs 03/09/22 50 mg tablet (Stool Softener-Laxative) midodrine 5 mg tablet 2.5 mg (1/2 x 5 mg) PO BID #30 tabs 08/22/22 Allergies Allergy/AdvReac Type Severity Reaction Status Date / Time No Known Drug Allergies Allergy Verified 08/20/22 13:32 Review of Systems Narrative: Review of systems is outlined above otherwise noted to be negative. PCP is Dr. Branch. The source of his neurogenic orthostatic hypotension is felt to be possibly long COVID. [facility] Medical History (Updated 09/03/22 @ 16:47 by Charles Pierce MD) GI bleed ?K92.2 - Gastrointestinal hemorrhage, unspecified (ICD-10) ABLA (acute blood loss anemia) ?D62 - Acute posthemorrhagic anemia (ICD-10) Hypertension ?I10 - Essential (primary) hypertension (ICD-10) Neurogenic orthostatic hypotension ?G90.3 - Multi-system degeneration of the autonomic nervous system (ICD-10) Aortic valve stenosis, acquired ?I35.0 - Nonrheumatic aortic (valve) stenosis (ICD-10) AAA (abdominal aortic aneurysm) without rupture ?I71.40 - Abdominal aortic aneurysm, without rupture, unspecified (ICD-10) Lung cancer ?C34.90 - Malignant neoplasm of unspecified part of unspecified bronchus or lung (ICD-10) Paravalvular leak (prosthetic valve) ?T82.03XA - Leakage of heart valve prosthesis, initial encounter (ICD-10) COPD (chronic obstructive pulmonary disease) ?J44.9 - Chronic obstructive pulmonary disease, unspecified (ICD-10) 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, unspecified (ICD-10) Retroperitoneal bleed ?R58 - Hemorrhage, not elsewhere classified (ICD-10) History of GI bleed ?Z87.19 - Personal history of other diseases of the digestive system (ICD-10) Surgical History (Updated 08/31/22 @ 00:01 by Background Daemon) History of cardiac radiofrequency ablation ?Z98.890 - Other specified postprocedural states (ICD-10) History of arthroscopic knee surgery ?Z98.890 - Other specified postprocedural states (ICD-10) History of splenectomy ?Z90.81 - Acquired absence of spleen (ICD-10) History of right inguinal hernia repair ?Z98.890 - Other specified postprocedural states (ICD-10) ?Z87.19 - Personal history of other diseases of the digestive system (ICD-10) History of lobectomy of lung ?Z90.2 - Acquired absence of lung [part of] (ICD-10) S/P TAVR (transcatheter aortic valve replacement) ?Z95.2 - Presence of prosthetic heart valve (ICD-10) Family History Brother Nasopharyngeal carcinoma Father Diabetes Mother Melanoma Social History Narrative: Patient has remote history of smoking. He lives in [place] with his . She currently has significant health problems as well. He does not drink alcohol. No recreational drug use. What is your current living situation: I presently have a place to live Problems where you live: no known problems Problems where you live details: N/A In the past 12 months, utilities in danger of being shut off: no In the past 12 mos, have been you worried that your food would run out before you had money to buy more?: never true In the past 12 mos, the food you bought just didn't last and you didn't have money to buy more?: never true Highest level of school completed/degree received: high school graduate Smoking Status: Former smoker How often do you have a drink containing alcohol: never AUDIT-C Alcohol total score: 0 Non-prescribed substance use: denies use Caffeine: Yes (few cups of coffee daily) How often does anyone, including family, friends and others, physically hurt you : How often does anyone, including family, friends and others, insult or talk down to you: How often does anyone, including family, friends and others, threaten you with harm: How often does anyone, including family, friends and others, scream or curse at you: service: Yes Exam Narrative: Exam Narrative: Vitals noted. Cognitively he is sharp and is an adequate historian. HEENT: Conjunctiva clear. Tympanic membranes are pearly white bilaterally. He is hard of hearing. Posterior pharynx is clear without erythema or exudate. Neck is supple without adenopathy, thyromegaly, carotid bruit. Lungs: Clear to auscultation in all tinajero. No wheezes, rales, rhonchi. Heart: Regular rate and rhythm with a systolic murmur. Abdomen: Soft and nontender. No guarding, rigidity, rebound. Bowel sounds are normal. No palpable masses. Extremities: No cyanosis or edema. Good distal pulses. Skin: He is pale. No abnormalities noted of the exposed skin. Neurologic: Awake, alert, fully oriented. Neurologic exam is nonfocal. Const: Vital Signs, click to edit/add: Vital Signs - 24 hr 09/03/22 13:58 09/03/22 15:03 09/03/22 15:04 Temperature 98.7 F Pulse Rate 81 81 Pulse Rate [Pulse Oximeter] 78 Respiratory Rate 16 Blood Pressure 155/80 H Blood Pressure [Le ft Upper Arm] 126/68 Pulse Oximetry 100 98 98 Oxygen Delivery Me thod Room Air 09/03/22 15:15 09/03/22 15:30 09/03/22 15:31 Temperature Pulse Rate 83 86 86 Pulse Rate [Pulse Oximeter] Respiratory Rate Blood Pressure 171/88 H Blood Pressure [Le ft Upper Arm] Pulse Oximetry 99 97 97 Oxygen Delivery Me thod 09/03/22 15:45 09/03/22 16:00 09/03/22 16:01 Temperature Pulse Rate 85 84 Pulse Rate [Pulse Oximeter] Respiratory Rate Blood Pressure 161/84 H Blood Pressure [Le ft Upper Arm] Pulse Oximetry 96 98 Oxygen Delivery Me thod 09/03/22 16:26 09/03/22 16:30 Temperature Pulse Rate 84 82 Pulse Rate [Pulse Oximeter] Respiratory Rate Blood Pressure Blood Pressure [Le ft Upper Arm] Pulse Oximetry 93 94 Oxygen Delivery Me thod Course Course Hospital Course: Patient is seen and examined. Labs are ordered. He has had 500 mL of fluid and his blood pressure and heart rate are currently normal. EKG shows normal sinus rhythm with a right bundle branch block and a rate of 76. No acute ST or T-wave changes. Reevaluation(s) Reevaluation #1: Hemoglobin has returned at 6.4. Basic metabolic panel is normal. Discussed with the patient that he is going to need to stay in the hospital for further transfusion. He is agreeable. I discussed the case with Dr. Hrud who will come down to the emergency department and evaluate him. Type and screen have been ordered. Vital Signs Vital signs: Initial Vital Signs Temperature 98.7 F 09/03/22 13:58 Temperature Source Temporal Artery Scan 09/03/22 13:58 Pulse Rate 78 09/03/22 13:58 Respiratory Rate 16 09/03/22 13:58 Blood Pressure 126/68 09/03/22 13:58 Blood Pressure Mean 87 09/03/22 13:58 Blood Pressure Position Sitting 09/03/22 13:58 Pulse Oximetry 100 09/03/22 13:58 Oxygen Delivery Method Room Air 09/03/22 13:58 Vital Signs Temperature 98.7 F 09/03/22 13:58 Pulse Rate 78 09/03/22 13:58 Respiratory Rate 16 09/03/22 13:58 Blood Pressure 126/68 09/03/22 13:58 Pulse Oximetry 100 09/03/22 13:58 Oxygen Delivery Method Room Air 09/03/22 13:58 Temperature 98.7 F 09/03/22 13:58 Pulse Rate 82 09/03/22 16:30 Respiratory Rate 16 09/03/22 13:58 Blood Pressure 161/84 H 09/03/22 16:01 Pulse Oximetry 94 09/03/22 16:30 Oxygen Delivery Method Room Air 09/03/22 13:58 Medical Decision Making Lab Data Labs: Lab Results 09/03/22 Range/Units 14:44 WBC 8.37 (4.50-11.00) K/uL RBC 2.13 L (4.30-5.90) m/uL Hgb 6.4 L* (13.5-17.5) gm/dL Hct 20.8 L (37.0-53.0) % MCV 98 (80-100) fL MCH 30 (26-34) pg MCHC 31 L (32-36) gm/dL RDW Coeff of Bernabe 16.8 H (11.5-15.5) % Plt Count 427 (140-440) K/uL Neut % (Auto) 74.3 H (42.0-72.0) % Lymph % (Auto) 11.4 L (20-44) % [place] % (Auto) 10.5 (0.0-11.0) % Eos % (Auto) 3.3 (0.0-7.0) % Baso % (Auto) 0.1 (0.0-3.0) % Neut # (Auto) 6.20 (1.7-7.0) K/uL Lymph # (Auto) 1.00 (0.90-2.90) K/uL [place] # (Auto) 0.90 (0.00-0.90) K/UL Eos # (Auto) 0.28 (0.00-0.50) K/uL Baso # (Auto) 0.01 (0.00-0.30) K/uL Sodium 142 (135-149) mmol/L Potassium 3.9 (3.6-5.1) mmol/L Chloride 107 (96-114) mmol/L Carbon Dioxide 25 (20-32) mmol/L BUN 29 (7-30) mg/dL Creatinine 0.9 (0.5-1.5) mg/dL Estimated GFR 90 ml/min Glucose 105 (60-115) mg/dL Calcium 8.2 L (8.4-10.6) mg/dL Discharge Plan Discharge Clinical Impression: ABLA (acute blood loss anemia) Patient Disposition: Admitted As Observation Condition: Stable Prescriptions: No Action gabapentin 100 mg capsule 100 mg PO BID gabapentin 300 mg capsule 300 mg PO HS pantoprazole 40 mg tablet,delayed release (DR/EC) 40 mg PO DAILY sennosides-docusate sodium [Stool Softener-Laxative] 8.6-50 mg Tablet 2 tab PO BID Qty: 100 0RF tamsulosin 0.4 mg capsule 0.4 mg PO BID midodrine 5 mg Tablet 2.5 mg PO BID Qty: 30 0RF Follow Up/Referrals: Justin Branch MD [Primary Care Provider] -
[2022-09-03] MEDS: TAMSULOSIN HCL 0.4 MG CAPSULE PO (21:15)
[2022-09-03] MEDS: GABAPENTIN 100 MG CAPSULE PO (21:15)
[2022-09-03] MEDS: GABAPENTIN 300 MG CAPSULE PO (21:15)
[2022-09-03] MEDS: MIDODRINE HCL 5 MG TABLET 2.5 MG PO (21:16)
[2022-09-03] MEDS: ACETAMINOPHEN 325 MG TABLET 650 MG PO (22:50)
[2022-09-03] MEDS: 0.9 % SODIUM CHLORIDE 250 ml IV (22:58)
--- NOTE | 2022-09-03 23:24 | PC.NURSE ---
End of Shift: Pt admitted to Med Surg via ED for hgb of 6.4. Pt reports SOB at rest, O2 sats 100% RA. Denies pain. 2 units blood administered, pt reported headache during second unit administration, 15 minute BP was 194/85. updated, order to decrease blood flow to 100ml/hr and administer tylenol. Pt ambulates in room with walker and SBA. Tolerating regular diet.
[2022-09-04] VITALS (15 sets, daily range): BP systolic 134–189; BP diastolic 74–114; PULSE 60–80; RESP 18–22; TEMP 36.4–37.1; O2SAT 95–99
[2022-09-04 02:16] LABS: Hemoglobin* 7.4 gm/dL (13.5-17.5)
[2022-09-04] MEDS: 0.9 % SODIUM CHLORIDE 1000 ml 1,000 ML 125 ML IV ×2 (04:24→14:37)
--- NOTE | 2022-09-04 05:59 | PC.NURSE ---
Pleasant and cooperative 72 year old male with anemia. Patient received 2 units of PRBC's, tolerated transfusions well without any further headache. Denies any dizziness or lightheadedness. Hgb drawn after 2nd unit of blood completed, lab called with value of 7.4. [employer] spoke with Dr. Hurd prior to the end of his shift to inquire about parameters on the hgb once transfusion completed, per MD staff only needs to contact naturopathic oncology provider hospitalist/Gianni if there is no change in hgb from admission. Lung sounds clear, shortness of breath with exertion, patient reports that he has SOB at baseline. Denies any pain.
[2022-09-04 07:17] LABS: Hemoglobin* 7.6 gm/dL (13.5-17.5)
[2022-09-04] MEDS: OMEPRAZOLE 20 MG CAPSULE DR 40 MG PO (08:41)
[2022-09-04] MEDS: MIDODRINE HCL 5 MG TABLET 2.5 MG PO ×2 (08:41→20:58)
[2022-09-04] MEDS: TAMSULOSIN HCL 0.4 MG CAPSULE PO ×2 (08:42→20:56)
[2022-09-04] MEDS: SENNOSIDES/DOCUSATE TABLET 2 TAB PO ×2 (08:42→20:57)
[2022-09-04] MEDS: GABAPENTIN 100 MG CAPSULE PO ×2 (08:42→20:57)
[2022-09-04] MEDS: FUROSEMIDE 10 MG/ML inj 20 MG IV (08:43)
[2022-09-04] MEDS: SODIUM CHLORIDE 0.9 % (FLUSH) 10 ML SYRINGE 5 ML IVF (08:47)
--- NOTE | 2022-09-04 08:48 | PT.IPE ---
HOLD PT ROBER D/T DENNY KwokB
--- NOTE | 2022-09-04 11:28 | PM.IMPN1 ---
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 Will transfuse and assess for ongoing bleeding. Would like to get his hemoglobin close to 9 and stable before discharge. Status: Acute (2) Syncope and collapse: Problem details: Primarily due to acute blood loss though aortic valvular disease likely also contributing. 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 Likely the source of current bleeding. Manage medically initially. Status: Acute (4) S/P TAVR (transcatheter aortic valve replacement): Problem details: -Status post successful TAVR with 34 mm evolute pro plus in September 2019 with subsequent moderate to severe paravalvular regurgitation -Status post attempted balloon post dilation with need for valve in valve TAVR in October 2020 -Severe/critical low flow low gradient aortic stenosis status post valve in valve TAVR -Minimal residual gradient with at least moderate if not moderate to severe persistent paravalvular regurgitation -NYHA functional class I to 2 -CCS score 0 -Preserved LV systolic function -last echo 03/07/2022: Normal LV size, severe left ventricular hypertrophy, EF of 60-65%. Functioning 34 mm CoreValve Evolut R bioprosthesis AVR, with no stenosis and moderate to severe regurgitation. Status: Chronic (5) Exertional dyspnea: Problem details: I am concerned that he is symptomatic with his exertional dyspnea primarily from valvular heart disease rather than from bleeding and anemia. Refer back to Cardiology for ongoing evaluation and treatment Status: Acute Plan Continue in-hospital for monitoring of acute blood loss anemia from GI bleeding. Transfuse as necessary. Repeat endoscopy at tertiary care if ongoing bleeding problems. 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 Time Spent With Patient Total time spent: Total time spent today is 45 minutes, 30 minutes in coordination care and discussing with patient other providers management of bleeding and heart disease Subjective Date Seen: 09/04/22 Interval history: 72-year-old male with history of GI bleeding seen in followup of hospital admission for acute blood loss anemia. Patient has had a history of ongoing recurrent problems with GI bleeding. Most recently was at [facility] a week and half ago. He had upper and lower endoscopy and a PillCam evaluation. This showed proximal jejunal bleeding source. Repeat endoscopy led to cauterization of an AVM. He was doing well after this until yesterday when he had a spell with presumed syncope. He was outside in the heat feeling very diaphoretic but also very lightheaded and then apparently lost consciousness. He is brought to the emergency room by paramedics where he was found to be anemic as well. Overnight he received 2 units of blood transfusion. He has no specific concerns today. He does report recently he has been having exertional dyspnea. It is not clear that this gets better when his anemia is treated. He does have aortic regurgitation related to a TAVR. He has had 2 TAVR procedures but still has aortic regurgitation. He has a tissue valve. He was on warfarin and aspirin. Last winter the aspirin was stopped and this past month the warfarin was stopped due to ongoing bleeding problems and no hard indication for anticoagulation. He continues to have melanotic stools at home in the past 2 weeks. Exam Narrative: Exam Narrative: He is alert and appears in no distress. Speech is normal. He is oriented to his circumstances. He is hard of hearing. Respirations are clear to auscultation. Cardiovascular: S1, S2, systolic and diastolic murmurs in right upper sternal border. Abdomen is soft with minimal tenderness. No mass. Extremities without edema. Const: Vital Signs, click to edit/add: Vital Signs - 24 hr 09/03/22 13:58 09/03/22 15:03 09/03/22 15:04 Temperature 98.7 F Pulse Rate 81 81 Pulse Rate [Left] Pulse Rate [Pulse Oximeter] 78 Pulse Rate [orthos tatic lying Left P ulse Oximeter] Pulse Rate [orthos tatic sitting Left ] Pulse Rate [orthos tatic standing Lef t] Respiratory Rate 16 Blood Pressure 155/80 H Blood Pressure [Le ft Arm] Blood Pressure [Le ft Upper Arm] 126/68 Blood Pressure [or thostatic lying Le ft Arm] Blood Pressure [or thostatic sitting Left Arm] Blood Pressure [or thostatic standing Left Arm] Pulse Oximetry 100 98 98 Oxygen Delivery Me thod Room Air 09/03/22 15:15 09/03/22 15:30 09/03/22 15:31 Temperature Pulse Rate 83 86 86 Pulse Rate [Left] Pulse Rate [Pulse Oximeter] Pulse Rate [orthos tatic lying Left P ulse Oximeter] Pulse Rate [orthos tatic sitting Left ] Pulse Rate [orthos tatic standing Lef t] Respiratory Rate Blood Pressure 171/88 H Blood Pressure [Le ft Arm] Blood Pressure [Le ft Upper Arm] Blood Pressure [or thostatic lying Le ft Arm] Blood Pressure [or thostatic sitting Left Arm] Blood Pressure [or thostatic standing Left Arm] Pulse Oximetry 99 97 97 Oxygen Delivery Ks thod 09/03/22 15:45 09/03/22 16:00 09/03/22 16:01 Temperature Pulse Rate 85 84 Pulse Rate [Left] Pulse Rate [Pulse Oximeter] Pulse Rate [orthos tatic lying Left P ulse Oximeter] Pulse Rate [orthos tatic sitting Left ] Pulse Rate [orthos tatic standing Lef t] Respiratory Rate Blood Pressure 161/84 H Blood Pressure [Le ft Arm] Blood Pressure [Le ft Upper Arm] Blood Pressure [or thostatic lying Le ft Arm] Blood Pressure [or thostatic sitting Left Arm] Blood Pressure [or thostatic standing Left Arm] Pulse Oximetry 96 98 [facility] 09/[facility]/22 16:26 09/03/22 16:30 09/03/22 17:07 Temperature Pulse Rate 84 82 Pulse Rate [Left] Pulse Rate [Pulse Oximeter] Pulse Rate [orthos tatic lying Left P ulse Oximeter] 86 Pulse Rate [orthos tatic sitting Left ] 83 Pulse Rate [orthos tatic standing Lef t] 92 Respiratory Rate Blood Pressure Blood Pressure [Le ft Arm] Blood Pressure [Le ft Upper Arm] Blood Pressure [or thostatic lying Le ft Arm] 123/78 Blood Pressure [or thostatic sitting Left Arm] 145/78 H Blood Pressure [or thostatic standing Left Arm] 121/72 Pulse Oximetry 93 94 Oxygen Delivery Ks thod 09/03/22 17:15 09/03/22 17:15 09/03/22 19:00 Temperature 96.6 F L 97.5 F L Pulse Rate Pulse Rate [Left] 84 82 Pulse Rate [Pulse Oximeter] Pulse Rate [orthos tatic lying Left P ulse Oximeter] Pulse Rate [orthos tatic sitting Left ] Pulse Rate [orthos tatic standing Lef t] Respiratory Rate 18 24 20 Blood Pressure Blood Pressure [Le ft Arm] 154/75 H 152/77 H Blood Pressure [Le ft Upper Arm] Blood Pressure [or thostatic lying Le ft Arm] Blood Pressure [or thostatic sitting Left Arm] Blood Pressure [or thostatic standing Left Arm] Pulse Oximetry 100 100 99 Oxygen Delivery Me thod Room Air Room Air Room Air 09/03/22 19:20 09/03/22 19:48 09/03/22 20:05 Temperature 97.6 F 97.5 F L Pulse Rate 90 86 82 Pulse Rate [Left] Pulse Rate [Pulse Oximeter] Pulse Rate [orthos tatic lying Left P ulse Oximeter] Pulse Rate [orthos tatic sitting Left ] Pulse Rate [orthos tatic standing Lef t] Respiratory Rate 24 20 Blood Pressure 123/78 152/77 H Blood Pressure [Le ft Arm] Blood Pressure [Le ft Upper Arm] Blood Pressure [or thostatic lying Le ft Arm] Blood Pressure [or thostatic sitting Left Arm] Blood Pressure [or thostatic standing Left Arm] Pulse Oximetry 98 99 Oxygen Delivery Me thod 09/03/22 20:50 09/03/22 22:25 09/03/22 22:44 Temperature 97.9 F 98.1 F 97.8 F Pulse Rate 78 78 77 Pulse Rate [Left] Pulse Rate [Pulse Oximeter] Pulse Rate [orthos tatic lying Left P ulse Oximeter] Pulse Rate [orthos tatic sitting Left ] Pulse Rate [orthos tatic standing Lef t] Respiratory Rate 22 20 20 Blood Pressure 132/85 177/94 H 194/85 H Blood Pressure [Le ft Arm] Blood Pressure [Le ft Upper Arm] Blood Pressure [or thostatic lying Le ft Arm] Blood Pressure [or thostatic sitting Left Arm] Blood Pressure [or thostatic standing Left Arm] Pulse Oximetry 99 98 99 Oxygen Delivery Me thod 09/03/22 22:50 09/03/22 23:00 09/03/22 23:00 Temperature 97.8 F Pulse Rate Pulse Rate [Left] 78 Pulse Rate [Pulse Oximeter] Pulse Rate [orthos tatic lying Left P ulse Oximeter] Pulse Rate [orthos tatic sitting Left ] Pulse Rate [orthos tatic standing Lef t] Respiratory Rate 16 Blood Pressure Blood Pressure [Le ft Arm] Blood Pressure [Le ft Upper Arm] Blood Pressure [or thostatic lying Le ft Arm] Blood Pressure [or thostatic sitting Left Arm] Blood Pressure [or thostatic standing Left Arm] Pulse Oximetry 96 Oxygen Delivery Me thod Room Air 09/03/22 23:00 09/03/22 23:29 09/04/22 00:29 Temperature 97.2 F L 97.7 F 97.5 F L Pulse Rate 78 76 Pulse Rate [Left] 78 Pulse Rate [Pulse Oximeter] Pulse Rate [orthos tatic lying Left P ulse Oximeter] Pulse Rate [orthos tatic sitting Left ] Pulse Rate [orthos tatic standing Lef t] Respiratory Rate 16 16 18 Blood Pressure 161/76 H 189/95 H Blood Pressure [Le ft Arm] 161/76 H Blood Pressure [Le ft Upper Arm] Blood Pressure [or thostatic lying Le ft Arm] Blood Pressure [or thostatic sitting Left Arm] Blood Pressure [or thostatic standing Left Arm] Pulse Oximetry 96 96 97 Oxygen Delivery Me thod Room Air 09/04/22 02:08 09/04/22 03:00 09/04/22 06:00 Temperature 97.9 F 97.9 F Pulse Rate 73 Pulse Rate [Left] 73 Pulse Rate [Pulse Oximeter] Pulse Rate [orthos tatic lying Left P ulse Oximeter] 70 Pulse Rate [orthos tatic sitting Left ] 71 Pulse Rate [orthos tatic standing Lef t] 79 Respiratory Rate 18 18 Blood Pressure 184/97 H Blood Pressure [Le ft Arm] 184/97 H Blood Pressure [Le ft Upper Arm] Blood Pressure [or thostatic lying Le ft Arm] 179/89 H Blood Pressure [or thostatic sitting Left Arm] 163/94 H Blood Pressure [or thostatic standing Left Arm] 136/87 Pulse Oximetry 97 97 Oxygen Delivery Me thod Room Air 09/04/22 07:00 09/04/22 07:00 09/04/22 07:00 Temperature 97.9 F Pulse Rate Pulse Rate [Left] 80 80 Pulse Rate [Pulse Oximeter] Pulse Rate [orthos tatic lying Left P ulse Oximeter] Pulse Rate [orthos tatic sitting Left ] Pulse Rate [orthos tatic standing Lef t] Respiratory Rate 20 20 20 Blood Pressure Blood Pressure [Le ft Arm] 188/97 H Blood Pressure [Le ft Upper Arm] Blood Pressure [or thostatic lying Le ft Arm] Blood Pressure [or thostatic sitting Left Arm] Blood Pressure [or thostatic standing Left Arm] Pulse Oximetry 98 98 Oxygen Delivery Me thod Room Air Room Air 09/04/22 10:43 09/04/22 11:00 09/04/22 11:00 Temperature 98.3 F 98.0 F 98.0 F Pulse Rate 79 78 Pulse Rate [Left] 78 Pulse Rate [Pulse Oximeter] Pulse Rate [orthos tatic lying Left P ulse Oximeter] Pulse Rate [orthos tatic sitting Left ] Pulse Rate [orthos tatic standing Lef t] Respiratory Rate 20 20 20 Blood Pressure 135/78 134/74 Blood Pressure [Le ft Arm] 134/74 Blood Pressure [Le ft Upper Arm] Blood Pressure [or thostatic lying Le ft Arm] Blood Pressure [or thostatic sitting Left Arm] Blood Pressure [or thostatic standing Left Arm] Pulse Oximetry 98 98 98 Oxygen Delivery Me thod Room Air Documenting provider has reviewed patient's vital signs: yes Labs Labs: Laboratory Results - last 24 hr 09/03/22 09/04/22 09/04/22 14:44 02:05 05:47 WBC 8.37 RBC 2.13 L Hgb 6.4 L* 7.4 L* 7.6 L* Hct 20.8 L MCV 98 MCH 30 MCHC 31 L RDW Coeff of Bernabe 16.8 H Plt Count 427 Neut % (Auto) 74.3 H Lymph % (Auto) 11.4 L [place] % (Auto) 10.5 Eos % (Auto) 3.3 Baso % (Auto) 0.1 Neut # (Auto) 6.20 Lymph # (Auto) 1.00 [place] # (Auto) 0.90 Eos # (Auto) 0.28 Baso # (Auto) 0.01 Sodium 142 Potassium 3.9 Chloride 107 Carbon Dioxide 25 BUN 29 Creatinine 0.9 Estimated GFR 90 Glucose 105 Calcium 8.2 L Blood Type O Positive Antibody Screen NEGATIVE Crossmatch (AHG) See Detail
--- NOTE | 2022-09-04 12:37 | NUTR.NU ---
RDN with MD consult for anemia. RDN visited with patient whom agreed to diet education without designated caregiver present. Nutrition education provided for anemia. Discussed recommended foods to include in diet. Recommended patient aim for at least 8 mg iron daily, if not more. Reviewed foods high in iron content. Educational handouts provided to support discussion. RDN's contact information was provided and patient was encouraged to call with questions. Patient had no questions or concerns at this time.
--- NOTE | 2022-09-04 12:50 | PC.NURSE ---
Per patient request i spoke with his to attempt to resolve concern related to information not being given yesterday. I listened to her and elevated her concerns to our patient advocate. I also mentioned that we wish to protect her husbands information and must follow HIPAA and facility policies when giving information. She was receptive at the end of the call.
--- NOTE | 2022-09-04 13:44 | REH.OT ---
OT: Pt eval on hold due to pt receiving multiple blood transfusions today. Will reschedule to tomorrow am.
[2022-09-04 14:25] LABS: Fecal Occult Blood* Negative (Negative)
--- NOTE | 2022-09-04 19:10 | PC.NURSE ---
End of shift: Patient is alert and oriented, [place]. Patient received 1 unit of PRBC's, tolerated transfusions well. Denies any dizziness or lightheadedness.? Hgb drawn after unit of blood completed and Hgb was 9.0. Lab will recheck at 2200. VSS. Lung sounds clear, shortness of breath with exertion, patient reports that he has SOB at baseline.? Denies any pain and has a non productive cough. NS running at 125 mls. 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
[2022-09-04] MEDS: ACETAMINOPHEN 325 MG TABLET 650 MG PO (20:56)
[2022-09-04] MEDS: GABAPENTIN 300 MG CAPSULE PO (20:57)
[2022-09-04 22:02] LABS: Hemoglobin* 8.4 gm/dL (13.5-17.5)
[2022-09-05] VITALS (10 sets, daily range): BP systolic 120–198; BP diastolic 66–104; PULSE 60–87; RESP 18–20; TEMP 36.3–37; O2SAT 95–98
--- NOTE | 2022-09-05 06:18 | PC.NURSE ---
[id number]: Patient appreciative and pleasant. A1/walker/GB with some dizziness. A&Ox3. Tylenol administered for low-grade headache with results. [place]. 1 unit PRBC infused. Tolerated well.
[2022-09-05 07:17] LABS: Basophils Absolute Auto 0.03 K/uL (0.00-0.30); Basophils Percent Auto 0.5 % (0.0-3.0); Eosinophils Percent Auto 8.2 % (0.0-7.0); Hematocrit 30.7 % (37.0-53.0); Hemoglobin* 10.1 gm/dL (13.5-17.5); Immature Granulocytes Abs Auto 0.02 K/uL (0.00-0.30); Immature Granulocytes Pct Auto 0.3 %; Lymphocytes Percent Auto 15.9 % (20-44); Mean Corpuscular HGB Conc 33 gm/dL (32-36); Mean Corpuscular Hemoglobin 30 pg (26-34); Mean Corpuscular Volume 92 fL (80-100); Monocytes Percent Auto 11.4 % (0.0-11.0); Neutrophils Absolute Auto 4.18 K/uL (1.7-7.0); Neutrophils Percent Auto 63.7 % (42.0-72.0); Platelet Count* 395 K/uL (140-440); RDW Coefficient of Variation % 16.2 % (11.5-15.5); Red Blood Count 3.35 m/uL (4.30-5.90); White Blood Count* 6.56 K/uL (4.50-11.00)
[2022-09-05 08:02] LABS: Slide Review Reflex Yes
[2022-09-05 08:03] LABS: Slide Review Acceptable Review (Acceptable)
[2022-09-05] MEDS: 0.9 % SODIUM CHLORIDE 1000 ml 1,000 ML 125 ML IV ×3 (09:24→16:45)
[2022-09-05] MEDS: TAMSULOSIN HCL 0.4 MG CAPSULE PO ×2 (09:25→20:02)
[2022-09-05] MEDS: GABAPENTIN 100 MG CAPSULE PO ×2 (09:25→20:02)
[2022-09-05] MEDS: OMEPRAZOLE 20 MG CAPSULE DR 40 MG PO (09:25)
[2022-09-05] MEDS: SENNOSIDES/DOCUSATE TABLET 2 TAB PO (09:25)
[2022-09-05] MEDS: MIDODRINE HCL 5 MG TABLET 2.5 MG PO ×2 (09:26→20:02)
--- NOTE | 2022-09-05 15:52 | P.IMPN_ITS ---
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 Will transfuse and assess for ongoing bleeding. Would like to get his hemoglobin close to 9 and stable before discharge. Initiate oral iron therapy. May need IV iron therapy. Status: Acute (2) Syncope and collapse: Problem details: Primarily due to acute blood loss though aortic valvular disease likely also contributing. 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 Likely the source of current bleeding. Manage medically initially. Status: Acute (4) S/P TAVR (transcatheter aortic valve replacement): Problem details: -Status post successful TAVR with 34 mm evolute pro plus in September 2019 with subsequent moderate to severe paravalvular regurgitation -Status post attempted balloon post dilation with need for valve in valve TAVR in October 2020 -Severe/critical low flow low gradient aortic stenosis status post valve in valve TAVR -Minimal residual gradient with at least moderate if not moderate to severe persistent paravalvular regurgitation -NYHA functional class I to 2 -CCS score 0 -Preserved LV systolic function -last echo 03/07/2022: Normal LV size, severe left ventricular hypertrophy, EF of 60-65%. Functioning 34 mm CoreValve Evolut R bioprosthesis AVR, with no sten osis and moderate to severe regurgitation. Status: Chronic (5) Exertional dyspnea: Problem details: I am concerned that he is symptomatic with his exertional dyspnea primarily from valvular heart disease rather than from bleeding and anemia. Refer back to Cardiology for ongoing evaluation and treatment Status: Acute (6) Lesion of left ear: Problem details: Seen on CT of the head 3 weeks ago. Outpatient follow up Status: Acute Plan Continue in-hospital for monitoring of hemoglobin. Like to obtain some stability of his hemoglobin prior to discharge. Significant outpatient follow- up pending for bleeding, left ear concerns and heart disease with exertional dyspnea. Time Spent With Patient Total time spent: 40 minutes, 30 minutes in coordination of care discussing with patient other providers ongoing evaluation management of bleeding and other medical problems Subjective Date Seen: 09/05/22 Interval history: 72-year-old male with history of GI bleeding seen in followup of hospital admission for acute blood loss anemia. Patient has had a history of ongoing recurrent problems with GI bleeding. Most recently was at [facility] a week and half ago. He had upper and lower endoscopy and a PillCam evaluation. This showed proximal jejunal bleeding source. Repeat endoscopy led to cauterization of an AVM. He was doing well after this until yesterday when he had a spell with presumed syncope. He was outside in the heat feeling very diaphoretic but also very lightheaded and then apparently lost consciousness. He is brought to the emergency room by paramedics where he was found to be anemic as well. Overnight he received his 4th unit blood transfusion. He has no specific concerns today. Tolerating transfusions well. He does report recently he has been having exertional dyspnea. It is not clear that this gets better when his anemia is treated. He does have aortic regurgitation related to a TAVR. He has had 2 TAVR procedures but still has aortic regurgitation. He has a tissue valve. He was on warfarin and aspirin. Last winter the aspirin was stopped and this past month the warfarin was stopped due to ongoing bleeding problems and no hard indication for anticoagulation. He continues to have melanotic stools at home in the past 2 weeks. Exam Narrative: Exam Narrative: He is alert and appears in no distress. Oriented to his circumstances. Respirations are clear to auscultation. Cardiovascular: S1, S2, regular rate and rhythm. 1/6 diastolic outflow murmur at the right upper sternal border and 2/6 systolic murmur at the right upper sternal border. Abdomen is soft without tenderness or mass. Extremities without edema. Const: Vital Signs, click to edit/add: Vital Signs - 24 hr 09/04/22 20:21 09/04/22 21:49 09/04/22 23:00 Temperature 98.4 F 98.8 F Pulse Rate Pulse Rate [Left] 76 68 Pulse Rate [orthos tatic lying Left P ulse Oximeter] Pulse Rate [orthos tatic sitting Left ] Pulse Rate [orthos tatic standing Lef t] Respiratory Rate 20 18 18 Blood Pressure Blood Pressure [Le ft Arm] 139/78 177/114 H Blood Pressure [or thostatic lying Le ft Arm] Blood Pressure [or thostatic sitting Left Arm] Blood Pressure [or thostatic standing Left Arm] Pulse Oximetry 98 97 96 Oxygen Delivery Me thod Nasal Cannula Room Air Room Air 09/04/22 23:00 09/04/22 23:37 09/04/22 23:59 Temperature 98.4 F 98.7 F Pulse Rate 66 60 61 Pulse Rate [Left] Pulse Rate [orthos tatic lying Left P ulse Oximeter] Pulse Rate [orthos tatic sitting Left ] Pulse Rate [orthos tatic standing Lef t] Respiratory Rate 18 18 Blood Pressure 138/81 157/79 H Blood Pressure [Le ft Arm] Blood Pressure [or thostatic lying Le ft Arm] Blood Pressure [or thostatic sitting Left Arm] Blood Pressure [or thostatic standing Left Arm] Pulse Oximetry 96 95 Oxygen Delivery Me thod 09/05/22 00:41 09/05/22 01:50 09/05/22 02:20 Temperature 98.6 F 97.6 F 98.1 F Pulse Rate 60 60 64 Pulse Rate [Left] Pulse Rate [orthos tatic lying Left P ulse Oximeter] Pulse Rate [orthos tatic sitting Left ] Pulse Rate [orthos tatic standing Lef t] Respiratory Rate 20 18 20 Blood Pressure 176/82 H 193/103 H 198/104 H Blood Pressure [Le ft Arm] Blood Pressure [or thostatic lying Le ft Arm] Blood Pressure [or thostatic sitting Left Arm] Blood Pressure [or thostatic standing Left Arm] Pulse Oximetry 95 96 98 Oxygen Delivery Me thod 09/05/22 02:20 09/05/22 06:06 09/05/22 07:00 Temperature 98.1 F Pulse Rate 64 Pulse Rate [Left] 64 Pulse Rate [orthos tatic lying Left P ulse Oximeter] 63 Pulse Rate [orthos tatic sitting Left ] 64 Pulse Rate [orthos tatic standing Lef t] 73 Respiratory Rate 20 Blood Pressure Blood Pressure [Le ft Arm] 198/104 H Blood Pressure [or thostatic lying Le ft Arm] 187/94 H Blood Pressure [or thostatic sitting Left Arm] 158/92 H Blood Pressure [or thostatic standing Left Arm] 122/70 Pulse Oximetry 98 Oxygen Delivery Me thod Room Air 09/05/22 07:00 09/05/22 07:00 09/05/22 07:00 Temperature 97.4 F L Pulse Rate Pulse Rate [Left] 69 69 Pulse Rate [orthos tatic lying Left P ulse Oximeter] Pulse Rate [orthos tatic sitting Left ] Pulse Rate [orthos tatic standing Lef t] Respiratory Rate 20 20 20 Blood Pressure Blood Pressure [Le ft Arm] 196/97 H Blood Pressure [or thostatic lying Le ft Arm] Blood Pressure [or thostatic sitting Left Arm] Blood Pressure [or thostatic standing Left Arm] Pulse Oximetry 97 97 Oxygen Delivery Me thod Room Air Room Air 09/05/22 11:00 09/05/22 14:27 09/05/22 14:27 Temperature 97.6 F Pulse Rate Pulse Rate [Left] 74 74 Pulse Rate [orthos tatic lying Left P ulse Oximeter] Pulse Rate [orthos tatic sitting Left ] Pulse Rate [orthos tatic standing Lef t] Respiratory Rate 20 20 20 Blood Pressure Blood Pressure [Le ft Arm] 149/78 H Blood Pressure [or thostatic lying Le ft Arm] Blood Pressure [or thostatic sitting Left Arm] Blood Pressure [or thostatic standing Left Arm] Pulse Oximetry 96 96 Oxygen Delivery Me thod Room Air Room Air Documenting provider has reviewed patient's vital signs: yes Labs Labs: Laboratory Results - last 24 hr 09/03/22 09/04/22 09/05/22 14:44 21:54 05:53 WBC 6.56 RBC 3.35 L Hgb 8.4 L 10.1 L Hct 30.7 L MCV 92 MCH 30 MCHC 33 RDW Coeff of Bernabe 16.2 H Plt Count 395 Neut % (Auto) 63.7 Lymph % (Auto) 15.9 L [place] % (Auto) 11.4 H Eos % (Auto) 8.2 H Baso % (Auto) 0.5 Neut # (Auto) 4.18 Lymph # (Auto) 1.00 [place] # (Auto) 0.70 Eos # (Auto) 0.50 Baso # (Auto) 0.03 Diff Slide Review Acceptable Review Blood Type O Positive Antibody Screen NEGATIVE Crossmatch (AHG) See Detail
[2022-09-05 16:46] LABS: Hemoglobin* 10.1 gm/dL (13.5-17.5)
--- NOTE | 2022-09-05 18:18 | PC.NURSE ---
End of shift: Patient is alert and oriented, [place]. Hgb is 10.1. VSS. Lung sounds clear, Patient ambulated hallway and tolerated short distance. Denies any pain and has a non productive cough. NS running at 125 mls. 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
[2022-09-05] MEDS: ACETAMINOPHEN 325 MG TABLET 650 MG PO (20:01)
[2022-09-05] MEDS: GABAPENTIN 300 MG CAPSULE PO (20:02)
[2022-09-06] MEDS: 0.9 % SODIUM CHLORIDE 1000 ml 1,000 ML 125 ML IV ×2 (01:07→10:06)
[2022-09-06 03:00] VITALS: BP 159/88; PULSE 71; RESP 20; TEMP 36.6; O2SAT 97
--- NOTE | 2022-09-06 06:39 | PC.NURSE ---
Pt had restful night sleep with wakes only to bedside urinal. Tylenol given x 1 per MAR for headache with relief. Pt otherwise has no complaints.
[2022-09-06 06:50] VITALS: BP 107/77; BP 139/99; BP 210/104; PULSE 69; PULSE 71
[2022-09-06 06:54] LABS: Basophils Absolute Auto 0.01 K/uL (0.00-0.30); Basophils Percent Auto 0.1 % (0.0-3.0); Eosinophils Percent Auto 8.6 % (0.0-7.0); Hematocrit 29.7 % (37.0-53.0); Hemoglobin* 9.7 gm/dL (13.5-17.5); Immature Granulocytes Abs Auto 0.07 K/uL (0.00-0.30); Mean Corpuscular HGB Conc 33 gm/dL (32-36); Mean Corpuscular Hemoglobin 30 pg (26-34); Mean Corpuscular Volume 93 fL (80-100); Monocytes Percent Auto 11.8 % (0.0-11.0); Neutrophils Absolute Auto 4.59 K/uL (1.7-7.0); Neutrophils Percent Auto 63.5 % (42.0-72.0); Platelet Count* 396 K/uL (140-440); RDW Coefficient of Variation % 16.3 % (11.5-15.5); Red Blood Count 3.21 m/uL (4.30-5.90); White Blood Count* 7.22 K/uL (4.50-11.00)
[2022-09-06 07:00] VITALS: BP 184/96; PULSE 63; PULSE 70; RESP 20; TEMP 36.6; O2SAT 100
[2022-09-06 07:04] LABS: Slide Review Reflex No
[2022-09-06] MEDS: SENNOSIDES/DOCUSATE TABLET 2 TAB PO (10:05)
[2022-09-06] MEDS: TAMSULOSIN HCL 0.4 MG CAPSULE PO (10:05)
[2022-09-06] MEDS: FERROUS SULFATE 325 MG TABLET PO (10:05)
[2022-09-06] MEDS: GABAPENTIN 100 MG CAPSULE PO (10:05)
[2022-09-06] MEDS: OMEPRAZOLE 20 MG CAPSULE DR 40 MG PO (10:06)
--- NOTE | 2022-09-06 13:16 | P.DS_ITS ---
DS: Providers Provider Date Seen: 09/06/22 Date of admission: 09/04/22 10:29 Primary care physician: Justin Branch MD Admitting Clinician: Pedro Hurd MD Attending Physician on discharge: Claude Barnes MD DS: Diagnosis Discharge Diagnosis (1) ABLA (acute blood loss anemia): Status: Acute Problem details: Likely bleeding from his AVM. Will transfuse and assess for ongoing bleeding. Hemoglobin is stable around 9 in the last day. Close follow-up to recheck hemoglobin. May need ongoing transfusions to address ongoing GI bleeding from AVM. Initiate oral iron therapy. May need IV iron therapy. 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 Likely the source of current bleeding. Manage medically initially. Unclear at what point repeat GI investigation for bleeding is indic ated. (3) Neurogenic orthostatic hypotension: Status: Chronic Problem details: He has quite severe orthostatic hypotension. Likely a combination of neurogenic, GI bleeding, valvular heart disease. Recommend support hose and caution with moving from supine to sitting to standing. Due to marked elevation of supine blood pressures will temporarily stop midodrine. Close follow-up to recheck in clinic (4) Syncope and collapse: Status: Acute Problem details: Combination of orthostatic hypotension, blood loss anemia and valvular heart disease (5) Lesion of left ear: Status: Acute Problem details: Seen on CT of the head 3 weeks ago. Outpatient follow up (6) Paravalvular leak (prosthetic valve): Status: Chronic (7) S/P TAVR (transcatheter aortic valve replacement): Status: Chronic Problem details: -Status post successful TAVR with 34 mm evolute pro plus in September 2019 with subsequent moderate to severe paravalvular regurgitation -Status post attempted balloon post dilation with need for valve in valve TAVR in October 2020 -Severe/critical low flow low gradient aortic stenosis status post valve in valve TAVR -Minimal residual gradient with at least moderate if not moderate to severe persistent paravalvular regurgitation -NYHA functional class I to 2 -CCS score 0 -Preserved LV systolic function -last echo 03/07/2022: Normal LV size, severe left ventricular hypertrophy, EF of 60-65%. Functioning 34 mm CoreValve Evolut R bioprosthesis AVR, with no stenosis and moderate to severe regurgitation. (8) Exertional dyspnea: Status: Acute Problem details: I am concerned that he is symptomatic with his exertional dyspnea primarily from valvular heart disease rather than from bleeding and anemia. Refer back to Cardiology for ongoing evaluation and treatment DS: Summary Hospital Course Hospital Course: 72-year-old male with history of GI bleeding seen in followup of hospital admission for acute blood loss anemia.? Patient has had a history of ongoing recurrent problems with GI bleeding.? Most recently was at [facility] a week and half ago.? He had upper and lower endoscopy and a PillCam evaluation.? This showed proximal jejunal bleeding source.? Repeat endoscopy led to cauteriza tion of an AVM.? He was doing well after this until yesterday when he had a spell with presumed syncope.? He was outside in the heat feeling very diaphoretic but also very lightheaded and then apparently lost consciousness.? He is brought to the emergency room by paramedics where he was found to be anemic as well. Longstanding history of orthostatic hypotension. This winter was on Florinef and midodrine. Florinef was stopped. He continues to have marked orthostatic changes in his blood pressure. This morning on discharge his supine blood pressure was 210/104, his sitting blood pressure was 139/99 and his standing blood pressure was 107/77. I chose to stop the midodrine for now. I have urged him to use support hose and to move very cautiously from supine to sitting to standing. Due to recurrent syncope which I think is from orthostatic problems I continue to recommend not driving. In the hospital he had 4 units of blood transfusion. In the last 24 hours his hemoglobin has been stable.? He has no new concerns today. He still reports chronic exertional dyspnea? Tolerating transfusions well. He does report having exertional dyspnea.? It is not better when his anemia is treated.? He still has exertional dyspnea with a hemoglobin of 10. He does have aortic regurgitation related to a TAVR.? He has had 2 TAVR procedures but still has aortic regurgitation.? He has a tissue valve.? He was on warfarin and aspirin.? Last winter the aspirin was stopped and this past month the warfarin was stopped due to ongoing bleeding problems and no hard indication for anticoagulation.? He continues to have melanotic stools at home in the past 2 weeks. Status at Discharge Functional status at discharge: independent ambulation Overall status at discharge: patient is progressing back to baseline Time Spent with Patient Time attestation: Total time spent providing and/or coordinating discharge services: Time spent: Greater than 30 minutes Exam Narrative: Exam Narrative: He is alert and appears in no distress. Respirations are clear to auscultation. Cardiovascular: S1, S2 with a 1/6 diastolic murmur and a 2/6 systolic murmur at the right upper sternal border. Abdomen is soft without tenderness or mass. Extremities without significant edema. Const: Vital Signs, click to edit/add: Vital Signs - 24 hr 09/05/22 14:27 09/05/22 14:27 09/05/22 15:00 Temperature Pulse Rate 73 Pulse Rate [Left] 74 Pulse Rate [orthos tatic lying Left P ulse Oximeter] Pulse Rate [orthos tatic sitting Left ] Pulse Rate [orthos tatic standing Lef t] Respiratory Rate 20 20 Blood Pressure [Le ft Arm] Blood Pressure [or thostatic lying Le ft Arm] Blood Pressure [or thostatic sitting Left Arm] Blood Pressure [or thostatic standing Left Arm] Pulse Oximetry 96 Oxygen Delivery Me thod Room Air 09/05/22 15:00 09/05/22 19:25 09/05/22 23:00 Temperature 97.6 F 98.4 F Pulse Rate 70 Pulse Rate [Left] 68 87 Pulse Rate [orthos tatic lying Left P ulse Oximeter] Pulse Rate [orthos tatic sitting Left ] Pulse Rate [orthos tatic standing Lef t] Respiratory Rate 20 20 Blood Pressure [Le ft Arm] 129/66 125/77 Blood Pressure [or thostatic lying Le ft Arm] Blood Pressure [or thostatic sitting Left Arm] Blood Pressure [or thostatic standing Left Arm] Pulse Oximetry 98 97 Oxygen Delivery Me thod Room Air Room Air 09/05/22 23:00 09/05/22 23:00 09/06/22 03:00 Temperature 98.0 F 97.9 F Pulse Rate Pulse Rate [Left] 74 71 Pulse Rate [orthos tatic lying Left P ulse Oximeter] Pulse Rate [orthos tatic sitting Left ] Pulse Rate [orthos tatic standing Lef t] Respiratory Rate 20 20 20 Blood Pressure [Le ft Arm] 120/72 159/88 H Blood Pressure [or thostatic lying Le ft Arm] Blood Pressure [or thostatic sitting Left Arm] Blood Pressure [or thostatic standing Left Arm] Pulse Oximetry 96 96 97 Oxygen Delivery Me thod Room Air Room Air Room Air 09/06/22 06:50 09/06/22 07:00 09/06/22 07:00 Temperature Pulse Rate Pulse Rate [Left] 70 Pulse Rate [orthos tatic lying Left P ulse Oximeter] 69 Pulse Rate [orthos tatic sitting Left ] 71 Pulse Rate [orthos tatic standing Lef t] 69 Respiratory Rate 20 20 Blood Pressure [Le ft Arm] Blood Pressure [or thostatic lying Le ft Arm] 210/104 H Blood Pressure [or thostatic sitting Left Arm] 139/99 H Blood Pressure [or thostatic standing Left Arm] 107/77 Pulse Oximetry 100 Oxygen Delivery Me thod Room Air 09/06/22 07:00 09/06/22 07:00 Temperature 97.9 F Pulse Rate 63 Pulse Rate [Left] 70 Pulse Rate [orthos tatic lying Left P ulse Oximeter] Pulse Rate [orthos tatic sitting Left ] Pulse Rate [orthos tatic standing Lef t] Respiratory Rate 20 Blood Pressure [Le ft Arm] 184/96 H Blood Pressure [or thostatic lying Le ft Arm] Blood Pressure [or thostatic sitting Left Arm] Blood Pressure [or thostatic standing Left Arm] Pulse Oximetry 100 Oxygen Delivery Me thod Room Air Documenting provider has reviewed patient's vital signs: yes DS: Data Data Completed and Pending Completed studies during hospitalization: Procedures Inspection of Upper Intestinal Tract, Via Natural or Artificial Opening Endoscopic (08/20/22) Introduction of Remdesivir Anti-infective into Peripheral Vein, Percutaneous Approach, [employer] (02/27/22) Transfusion of Nonautologous Red Blood Cells into Peripheral Vein, Percutaneous Approach (08/20/22) Labs on day of discharge: Labs from last 24 hours 09/06/22 09/05/22 05:48 16:42 WBC 7.22 RBC 3.21 L Hgb 9.7 L 10.1 L Hct 29.7 L MCV 93 MCH 30 MCHC 33 RDW Coeff of Bernabe 16.3 H Plt Count 396 Neut % (Auto) 63.5 Lymph % (Auto) 15.0 L Benzie % (Auto) 11.8 H Eos % (Auto) 8.6 H Baso % (Auto) 0.1 Neut # (Auto) 4.59 Lymph # (Auto) 1.10 Benzie # (Auto) 0.90 Eos # (Auto) 0.60 H Baso # (Auto) 0.01 Discharge Plan Discharge Disposition: Home, Self-Care Date of Admission: 09/04/22 10:29 Attending Provider on Discharge: Jose Alejandro Barnes Primary Care Provider: Justin Branch Condition: Stable Anticipated Discharge Date/Time: 09/06/22 11:00 Discharge Medications: New ferrous sulfate 325 mg (65 mg iron) Tablet 325 mg PO DAILYWM Qty: 100 0RF Continued gabapentin 100 mg capsule 100 mg PO BID gabapentin 300 mg capsule 300 mg PO HS pantoprazole 40 mg tablet,delayed release (DR/EC) 40 mg PO DAILY sennosides-docusate sodium [Stool Softener-Laxative] 8.6-50 mg Tablet 2 tab PO BID Qty: 100 0RF tamsulosin 0.4 mg capsule 0.4 mg PO BID Discontinued midodrine 5 mg Tablet 2.5 mg PO BID Qty: 30 0RF Discharge Orders: Discharge Order (Routine); Ordered 09/06/22 Ordered By: Jose Alejandro Barnes Patient Education: Iron Supplements (By mouth), Anemia (DC) Additional Instructions: wear compression stockings when walking or standing. Move slowly from sitting to standing to avoid getting lightheaded or passing out. Activity Level: Activity as Tolerated Discharge Diet: Regular Follow Up Appointments: Justin Branch MD [Primary Care Provider] - 09/08/22 10:05 am ([facility] to recheck of your blood count and blood pressure. Arrange a follow-up appointment with Cardiology as well.) Forms: [employer] Info Instructions
--- NOTE | 2022-09-06 14:35 | PC.NURSE ---
Discharge: Patient is alert and oriented, MODOC. Hgb is 9.7. VSS. Lung sounds clear, Patient ambulated hallway and tolerated short distance. Denies any pain and has a non productive cough. NS running at 125 mls. 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 Discharged today via taxi service at 1125. Spouse was notified. Discharge instructions given and signed, patient verbalized understanding of instructions. IV removed intact. Belongings sheet signed. voucher given for taxi service.
== END 2022-09-06 11:25 | disposition home or self-care (01) | DRG 812 ==
LOC: ED 16:47 → MEDSURG 16:56
PROVIDERS: Family Medicine; Admitting Provider Internal Medicine; Emergency Provider Family Medicine; PCP Family Medicine; Visit Provider Internal Medicine
DX: D62 Acute posthemorrhagic anemia (principal); K92.2 Gastrointestinal hemorrhage, unspecified; G90.3 Multi-system degeneration of the autonomic nervous system; T82.03XA Leakage of heart valve prosthesis, initial encounter; Q27.33 Arteriovenous malformation of digestive system vessel; I35.0 Nonrheumatic aortic (valve) stenosis; I35.1 Nonrheumatic aortic (valve) insufficiency; R06.00 Dyspnea, unspecified; I71.40 Abdominal aortic aneurysm, without rupture, unspecified; I10 Essential (primary) hypertension; H93.8X2 Other specified disorders of left ear; Z95.2 Presence of prosthetic heart valve
CPT/HCPCS: 36415; 36430; 80048; 82270; 85018; 85025; 86850; 86900; 86901; 86922; 93005; 97110; 97116; 97162; 97165; 97535; 99282; 99284; 99285; G0378; A9270; J1940; J7030; J7050; P9016

== ENCOUNTER 2022-11-25 07:33 | Day surgery (SDC) | payer MEDICARE, BC, SELFPAY ==
[2022-11-25] MEDS: KETOROLAC OPHTH 0.5% 1 DROP EYE-RIGHT ×3 (07:30→07:40)
[2022-11-25] MEDS: TETRACAINE 0.5% OPHTH 1 DROP EYE-RIGHT ×2 (07:30→07:35)
[2022-11-25 07:48] VITALS: BP 151/87; PULSE 73; RESP 16; TEMP 36.4; O2SAT 98
[2022-11-25 07:54] VITALS: BMI 21.4
[2022-11-25] MEDS: SODIUM CHLORIDE 0.9 % (FLUSH) 10 ML SYRINGE IVF (08:00)
--- NOTE | 2022-11-25 08:08 | SUR.PREOP ---
The eye drops brought by the patient (Ketorolac and Prednisolone) are examined and I have determined they are labeled by the patient's pharmacy for this patient as prescribed by the surgeon. The bottles are intact, recently obtained and appear to be correct.
[2022-11-25] MEDS: TETRACAINE 0.5% OPHTH 2 DROP EYE-RIGHT (08:48)
--- NOTE | 2022-11-25 08:49 | W.ANESCHARGE ---
Anesthesia Charges Start Date/Time Anesthesia Start Date: 11/25/22 Anesthesia Start Time: 08:35 Stop Date/Time Anesthesia Stop Date: 11/25/22 Anesthesia Stop Time: 09:34 Summary Extremes of Age - Over 70 or under 1: MDA
[2022-11-25] MEDS: BALANCED SALT IRRIG SOLN 15 ML EYE-RIGHT (08:52)
--- NOTE | 2022-11-25 09:34 | W.ANESCHARGE ---
Anesthesia Charges Start Date/Time Anesthesia Start Date: 11/25/22 Anesthesia Start Time: 08:35 Stop Date/Time Anesthesia Stop Date: 11/25/22 Anesthesia Stop Time: 09:34
[2022-11-25 09:42] VITALS: BP 146/78; PULSE 59; RESP 16; TEMP 36.4; O2SAT 99
--- NOTE | 2022-11-25 10:21 | P.OPTPRC_ITS ---
Procedure Note Date of procedure: 11/25/22 Will [facility] bill your pro fee for this procedure?: Yes Procedure Description: SURGEON: Viviana Richey MD PREOPERATIVE DIAGNOSIS: 1. Mature cataract, right eye. 2. Miosis, right eye. POSTOPERATIVE DIAGNOSIS: 1. Mature cataract, right eye. 2. Miosis, right eye. NAME OF OPERATION: Phacoemulsification of cataract with posterior chamber intraocular lens implantation in the right eye with pupilloplasty. ANESTHESIA: Topical. ESTIMATED BLOOD LOSS: Less than 2 cc. COMPLICATIONS: None. PATHOLOGY SPECIMEN: None. INDICATIONS: See consult note for details. The risks, benefits and alternatives of the procedure were explained to the patient, who elected to proceed and signed informed consent to do so. PROCEDURE: The patient was brought to the pre-holding area where the right eye was identified as the operative eye. I placed my initials above this eye. The patient received eye drops consisting of 0.5% tetracaine, 1% tropicamide, 10% phenylephrine, and 0.5% ketorolac. The patient was then brought to the operating room where the right eye was again identified as the operative eye. The eye was prepped with Betadine and draped in the usual sterile ophthalmic fashion. A #15 super-sharp blade was used to create a paracentesis site. 1% non-preserved intracameral lidocaine was injected into the anterior chamber. Endocoat was injected into the anterior chamber. A 2.4 mm keratome was used to create a three-plane self-sealing incision 1 mm anterior to the temporal limbus. A #15 super-sharp blade was used to create four additional paracentesis sites. Four Grieshaber iris hooks were placed in order to stretch the iris. A cystotome was used to create an anterior capsular leaflet. The Utrata forceps were used to extend this to form a continuous curvilinear capsulorrhexis. Hydrodissection was performed. The cataract was removed with phacoemulsification using the [id number] technique. The irrigation and aspiration tip was used to remove the remaining cortex. Healon was injected into the capsular bag. An SHALOM ZCB00 intraocular lens of 21.0 diopters was injected into the capsular bag. The four Grieshaber iris hooks were removed. The irrigation and aspiration tip was used to remove the remaining viscoelastic. Miostat was injected into the anterior chamber. Balanced salt solution on a cannula was used to hydrate the wound, and the wound was found to be watertight. The pupil was noted to be round. DISPOSITION: The patient was taken to the recovery room and discharged to home in stable condition. The patient was instructed to call me or go to the emergency department with any sudden change, including dramatic loss of vision, severe pain in the eye or eyebrow region, nausea, or vomiting. The patient will follow up in the clinic tomorrow morning.
== END 2022-11-25 09:52 | disposition home or self-care (01) ==
PROVIDERS: PCP Family Medicine; Visit Provider Ophthalmology
PROC: (CPT 66982; principal; 2022-11-25 07:30)
DX: H25.89 Other age-related cataract (principal); H57.03 Miosis
CPT/HCPCS: 66982; 00142; 99100; A9270; J2250; J2405; J3010; V2632

== ENCOUNTER 2022-12-09 07:34 | Day surgery (SDC) | payer MEDICARE, BC, SELFPAY ==
[2022-12-09] MEDS: TETRACAINE 0.5% OPHTH 1 DROP EYE-LEFT ×2 (07:52→07:58)
[2022-12-09] MEDS: KETOROLAC OPHTH 0.5% 1 DROP EYE-LEFT ×3 (07:57→08:10)
[2022-12-09] MEDS: SODIUM CHLORIDE 0.9 % (FLUSH) 10 ML SYRINGE IVF (08:10)
[2022-12-09 08:14] VITALS: BP 144/88; PULSE 69; RESP 16; TEMP 36.7; O2SAT 97
[2022-12-09 08:18] VITALS: BMI 21.4
[2022-12-09] MEDS: TETRACAINE 0.5% OPHTH 2 DROP EYE-LEFT (08:43)
--- NOTE | 2022-12-09 08:46 | W.ANESCHARGE ---
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
[2022-12-09] MEDS: BALANCED SALT IRRIG SOLN 15 ML EYE-LEFT (08:47)
[2022-12-09 09:45] VITALS: BP 171/86; PULSE 69; RESP 16; TEMP 36.6; O2SAT 98
--- NOTE | 2022-12-09 10:53 | W.PM.OPTPROC ---
Procedure Note Date of procedure: 12/09/22 Will [facility] bill your pro fee for this procedure?: Yes Procedure Description: SURGEON: SHERRI PRUETT MD PREOPERATIVE DIAGNOSIS: 1. MATURE CATARACT, LEFT EYE. 2. MIOSIS, LEFT EYE. POSTOPERATIVE DIAGNOSIS: 1. MATURE CATARACT, LEFT EYE. 2. MIOSIS, LEFT EYE. NAME OF OPERATION: PHACOEMULSIFICATION OF CATARACT WITH POSTERIOR CHAMBER INTRAOCULAR LENS IMPLANTATION IN THE LEFT EYE WITH PUPILLOPLASTY. ANESTHESIA: TOPICAL. ESTIMATED BLOOD LOSS: LESS THAN 2 CC. COMPLICATIONS: NONE. PATHOLOGY SPECIMEN: NONE. INDICATIONS: SEE CONSULT NOTE FOR DETAILS. THE RISKS, BENEFITS AND ALTERNATIVES OF THE PROCEDURE WERE EXPLAINED TO THE PATIENT, WHO ELECTED TO PROCEED AND SIGNED INFORMED CONSENT TO DO SO. PROCEDURE: THE PATIENT WAS BROUGHT TO THE PRE-HOLDING AREA WHERE THE LEFT EYE WAS IDENTIFIED THE OPERATIVE EYE. I PLACED MY INITIALS ABOVE THIS EYE. THE PATIENT RECEIVED EYE DROPS CONSISTING OF 0.5% TETRACAINE, 1% TROPICAMIDE, 10% PHENYLEPHRINE, AND 0.5% KETOROLAC. THE PATIENT WAS THEN BROUGHT TO THE OPERATING ROOM WHERE THE LEFT EYE WAS AGAIN IDENTIFIED THE OPERATIVE EYE. THE EYE WAS PREPPED WITH BETADINE AND DRAPED IN THE USUAL STERILE OPHTHALMIC FASHION. A #15 SUPER-SHARP BLADE WAS USED TO CREATE A PARACENTESIS SITE. 1% NON-PRESERVED INTRACAMERAL LIDOCAINE WAS INJECTED INTO THE ANTERIOR CHAMBER. ENDOCOAT WAS INJECTED INTO THE ANTERIOR CHAMBER. A 2.4 MM KERATOME WAS USED TO CREATE A THREE-PLANE SELF-SEALING INCISION 1 MM ANTERIOR TO THE TEMPORAL LIMBUS. A #15 SUPER-SHARP BLADE WAS USED TO CREATE FOUR ADDITIONAL PARACENTESIS SITES. FOUR GRIESHABER IRIS HOOKS WERE PLACED IN ORDER TO STRETCH THE IRIS. A CYSTOTOME WAS USED TO CREATE AN ANTERIOR CAPSULAR LEAFLET. THE UTRATA FORCEPS WERE USED TO EXTEND THIS TO FORM A CONTINUOUS CURVILINEAR CAPSULORRHEXIS. HYDRODISSECTION WAS PERFORMED. THE CATARACT WAS REMOVED WITH PHACOEMULSIFICATION USING THE [id number] TECHNIQUE. THE IRRIGATION AND ASPIRATION TIP WAS USED TO REMOVE THE REMAINING CORTEX. HEALON WAS INJECTED INTO THE CAPSULAR BAG. AN SHALOM ZCB00 INTRAOCULAR LENS OF 21.5 DIOPTERS WAS INJECTED INTO THE CAPSULAR BAG. THE FOUR GRIESHABER IRIS HOOKS WERE REMOVED. THE IRRIGATION AND ASPIRATION TIP WAS USED TO REMOVE THE REMAINING VISCOELASTIC. MIOSTAT WAS INJECTED INTO THE ANTERIOR CHAMBER. BALANCED SALT SOLUTION ON A CANNULA WAS USED TO HYDRATE THE WOUND, AND THE WOUND WAS FOUND TO BE WATERTIGHT. THE PUPIL WAS NOTED TO BE ROUND. DISPOSITION: THE PATIENT WAS TAKEN TO THE RECOVERY ROOM AND DISCHARGED TO HOME IN STABLE CONDITION. THE PATIENT WAS INSTRUCTED TO CALL ME OR GO TO THE EMERGENCY DEPARTMENT WITH ANY SUDDEN CHANGE, INCLUDING DRAMATIC LOSS OF VISION, SEVERE PAIN IN THE EYE OR EYEBROW REGION, NAUSEA, OR VOMITING. THE PATIENT WILL FOLLOW UP IN THE CLINIC TOMORROW MORNING.
--- NOTE | 2022-12-09 11:05 | W.ANESCHARGE ---
Anesthesia Charges Start Date/Time Anesthesia Start Date: 12/09/22 Anesthesia Start Time: 08:38 Stop Date/Time Anesthesia Stop Date: 12/09/22 Anesthesia Stop Time: 09:25 Summary Extremes of Age - Over 70 or under 1: MDA
== END 2022-12-09 09:49 | disposition home or self-care (01) ==
PROVIDERS: PCP Family Medicine; Visit Provider Ophthalmology
PROC: (CPT 66982; principal; 2022-12-09 07:30)
DX: H25.89 Other age-related cataract (principal); H57.03 Miosis
CPT/HCPCS: 66982; 00142; 99100; A9270; J2250; J2405; J3010; V2632

== ENCOUNTER 2023-04-30 15:01 | Inpatient (IN) | payer MEDICARE, BC, SELFPAY ==
[2023-04-30] VITALS (30 sets, daily range): BP systolic 109–169; BP diastolic 62–94; PULSE 63–90; RESP 16–20; TEMP 36.9–37.4; O2SAT 93–99; BMI 21.3; BMI 21.5
--- NOTE | 2023-04-30 15:12 | ED.GENADULT ---
HPI - General Adult General Date Seen: 04/30/23 Chief complaint: Extremity Pain/Injury, Lower Stated complaint: Knee pain Time Seen by Provider: 04/30/23 15:09 History of Present Illness HPI narrative: Very pleasant 73-year-old gentleman with a past medical history including aortic valve stenosis, TAVR, abdominal aortic aneurysm, history of GI bleeding (with significant anemia and hemoglobin down to 5.4 in in August 2022), hypertension, lung cancer, COPD, and history of blood-loss anemia from retroperitoneal bleeding, history of cardiac ablation, splenectomy, lung cancer with lung lobectomy. He is presenting to the ER today by private car. He he is dropped off by his who is angry with him and already went home. History from the patient is that he has some chronic weakness in his has told him not to go for walks anymore. He was out for a walk 3 days ago on Wednesday. He had stopped and a Chapel to stare prior and then when he got up to leave the Chapel he fell. He fell forward onto the ground and injured his left knee. He is not sure if he tripped or fainted. He had tremendous pain in his left knee. They were 2 bystanders who were there so they helped him get up to a bench. They asked him if they should call someone for him or give him a ride home, but he refused. He realizes now, that that was a mistake. He had tremendous pain in his left knee when trying to walk home. Since he got home he basically has been in bed. He has not been really able to get out of bed very far. is been bringing him food in bed. He has been using a diaper to urinate and then throwing the diaper in a bedside trash can. He has not had have any bowel movements since before he fell. He is having left knee pain and swelling. The pain radiates from the knee down into the lower ext leg and into the thigh. It hurts to move or bend the knee at all. He also wonders if he might be anemic again. He says sometimes he gets short of breath and falls when he is anemic. In review of his records I see that he was hospitalized at [facility] in August 2022. He had GI bleeding with significant anemia. At that time he had been on warfarin for aortic valve, and his anticoagulation was reversed. He was transfused with packed red cells. Presenting hemoglobin was 5.4. After transfusions came up to 9.7 on 09/06/2022. Most recent INR was 1.11 in August/2022. Most recent creatinine was in August 2022 and it was normal at 0.9. Related Data Home Medications Medication Instructions Recorded Confirmed gabapentin 100 mg capsule 100 mg PO BID 02/26/22 12/09/22 gabapentin 300 mg capsule 300 mg PO HS 02/26/22 12/09/22 pantoprazole 40 mg tablet,delayed 40 mg PO DAILY 02/26/22 12/09/22 release tamsulosin 0.4 mg capsule 0.4 mg PO BID 08/20/22 12/09/22 amlodipine 5 mg tablet 5 mg PO DAILY 11/23/22 12/09/22 aspirin 81 mg tablet,delayed 81 mg PO DAILY 11/23/22 12/09/22 release Previous Rx's Medication Instructions Recorded sennosides 8.6 mg-docusate sodium 2 tab PO BID #100 tabs 03/09/22 50 mg tablet (Stool Softener-Laxative) ferrous sulfate 325 mg (65 mg 325 mg PO DAILYWM #100 tabs 09/06/22 iron) tablet Allergies Allergy/AdvReac Type Severity Reaction Status Date / Time No Known Drug Allergies Allergy Verified 11/25/22 07:42 [facility] Medical History (Updated 04/30/23 @ 17:54 by Jaxon Novak MD) AAA (abdominal aortic aneurysm) ?I71.40 - Abdominal aortic aneurysm, without rupture, unspecified (ICD-10) Lesion of left ear ?H93.92 - Unspecified disorder of left ear (ICD-10) Exertional dyspnea ?R06.09 - Other forms of dyspnea (ICD-10) GI bleed ?K92.2 - Gastrointestinal hemorrhage, unspecified (ICD-10) ABLA (acute blood loss anemia) ?D62 - Acute posthemorrhagic anemia (ICD-10) Hypertension ?I10 - Essential (primary) hypertension (ICD-10) Neurogenic orthostatic hypotension ?G90.3 - Multi-system degeneration of the autonomic nervous system (ICD-10) Aortic valve stenosis, acquired ?I35.0 - Nonrheumatic aortic (valve) stenosis (ICD-10) AAA (abdominal aortic aneurysm) without rupture ?I71.40 - Abdominal aortic aneurysm, without rupture, unspecified (ICD-10) Lung cancer ?C34.90 - Malignant neoplasm of unspecified part of unspecified bronchus or lung (ICD-10) Paravalvular leak (prosthetic valve) ?T82.03XA - Leakage of heart valve prosthesis, initial encounter (ICD-10) COPD (chronic obstructive pulmonary disease) ?J44.9 - Chronic obstructive pulmonary disease, unspecified (ICD-10) 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, unspecified (ICD-10) Retroperitoneal bleed ?R58 - Hemorrhage, not elsewhere classified (ICD-10) History of GI bleed ?Z87.19 - Personal history of other diseases of the digestive system (ICD-10) Surgical History (Updated 09/14/22 @ 00:01 by Background Daemon) History of cardiac radiofrequency ablation ?Z98.890 - Other specified postprocedural states (ICD-10) History of arthroscopic knee surgery ?Z98.890 - Other specified postprocedural states (ICD-10) History of splenectomy ?Z90.81 - Acquired absence of spleen (ICD-10) History of right inguinal hernia repair ?Z98.890 - Other specified postprocedural states (ICD-10) ?Z87.19 - Personal history of other diseases of the digestive system (ICD-10) History of lobectomy of lung ?Z90.2 - Acquired absence of lung [part of] (ICD-10) S/P TAVR (transcatheter aortic valve replacement) ?Z95.2 - Presence of prosthetic heart valve (ICD-10) Family History Brother Nasopharyngeal carcinoma Father Diabetes Mother Melanoma Social History Narrative: Patient has remote history of smoking. He lives in [place] with his . She currently has significant health problems as well. He does not drink alcohol. No recreational drug use. What is your current living situation?: I presently have a place to live Problems where you live: no known problems Problems where you live details: none In the past 12 months, utilities in danger of being shut off: no In past 12 months, lack of transportation kept you from medical appts, meetings, work, or getting things needed for daily living: no In the past 12 mos, have been you worried that your food would run out before you had money to buy more?: never true In the past 12 mos, the food you bought just didn't last and you didn't have money to buy more?: never true Highest level of school completed/degree received: high school graduate Smoking Status: Former smoker Do you use any of these nicotine containing products: None Second hand tobacco smoke exposure: No How often do you have a drink containing alcohol: never How often do you have six or more drinks on one occasion: Never AUDIT-C Alcohol total score: 0 Non-prescribed substance use: denies use Caffeine: Yes (coffee) How often does anyone, including family, friends and others, physically hurt you: never How often does anyone, including family, friends and others, insult or talk down to you: never How often does anyone, including family, friends and others, threaten you with harm: never How often does anyone, including family, friends and others, scream or curse at you: never service: Yes Exam Narrative: Exam Narrative: Constitutional: Appears thin and frail. He shaky. The skin on his fingers is whitish and blanched. Fingers are cold to the touch. He says that they do get like that some time. Does not sound this is an acute pallor or mottling. Difficult to get oxygen measurement on his finger so a forehead probe was placed. He is somewhat tremulous, unclear if he is just cold or anxious or in withdrawal or having rigors. HENT: Head: Atraumatic. Nose: Nose normal. Mouth/Throat: Oral mucosa is clear and moist. no trismus. Pharynx normal. Tonsils symmetric. No tonsillar enlargement, erythema, or exudate. Eyes: Conjunctivae normal. EOM normal. Pupils equal, round, and reactive to light. No scleral icterus. Neck: He does have posterior pain. No definite midline tenderness or step-off. However cannot be cleared by nexus criteria. Normal range of motion. Anterior Neck supple. No tracheal deviation present. Cardiovascular: Normal rate, regular rhythm. No gallop. No friction rub. Systolic murmur heard (has known aortic stenosis). Symmetric radial and PT artery pulses Pulmonary/Chest: Effort normal. No stridor. No respiratory distress. No wheezes. No rales. No rhonchi . No tenderness. Abdominal: Soft. Bowel sounds normal. No distension. No mass. Mild suprapubic tenderness. No rebound. No guarding. Musculoskeletal: He does have posterior neck pain without any definite midline point tenderness or step-off. RUE: Normal range of motion. No tenderness. No deformity LUE: Normal range of motion. No tenderness. No deformity RLE: Right hip tenderness. No definite for shortening or rotation. Limited range of motion the hip and knee due to right hip pain. Pelvis is stable to LLE: Range of motion testing in the hip the knee is limited by knee pain. No definite hip or femur tenderness. He is tender over the distal femur about 10-15 cm proximal to the knee and down to the knee. There is marked any swelling and diffuse knee tenderness. No definite bruising but there is perhaps mild redness and warmth around the knee. No tenderness over the did the tibial spine, gastrocnemius, Achilles. Medial and lateral malleoli are nontender. Hindfoot, midfoot, forefoot nontender. He does have intact distal sensory function. Palpable DP and PT pulse. Neurological: Alert and oriented to person, place, and time. Normal strength. CN II-VII intact. No sensory deficit. GCS eye subscore is 4. GCS verbal subscore is 5. GCS motor subscore is 6. Normal coordination Skin: Skin is warm and dry. No rash noted. No pallor. Normal capillary refill. Psychiatric: Normal mood. Anxious. Const: Vital Signs, click to edit/add: Vital Signs - 24 hr 04/30/23 15:10 04/30/23 15:21 04/30/23 16:25 Temperature 99.4 F Pulse Rate [Pulse Oximeter] 90 Respiratory Rate 16 Blood Pressure [Ri ght Upper Arm] 109/73 109/73 138/75 Pulse Oximetry 96 Oxygen Delivery Me thod Room Air 04/30/23 17:30 04/30/23 18:00 04/30/23 18:30 Temperature Pulse Rate [Pulse Oximeter] 90 86 76 Respiratory Rate Blood Pressure [Ri ght Upper Arm] 165/81 H 134/70 110/75 Pulse Oximetry 99 95 95 Oxygen Delivery Me thod Room Air Room Air Room Air 04/30/23 19:00 04/30/23 19:00 04/30/23 19:31 Temperature 99.4 F Pulse Rate [Pulse Oximeter] 83 63 Respiratory Rate 20 Blood Pressure [Ri ght Upper Arm] 154/88 H 118/65 Pulse Oximetry 94 95 Oxygen Delivery Me thod Room Air Room Air Course Course ED Course: Patient arrived in ER bed 3 in history and physical were performed. I ordered initial labs, IV, and imaging studies to evaluate for potential injuries. Initial differential was most concerning for probable left knee fracture. Also possible right hip fracture or right-sided pelvic fracture also pot truck bowl intra-abdominal or lumbar spine injuries. Also with neck pain and head injury I ordered head and neck CT. Unfortunately, images were obtained but then Radiology went off line were unable to review his images. I reviewed the knee x-ray and I do believe it shows a comminuted patellar fracture. I reviewed the patient's head CT and I did not see any obvious findings. I Reviewed this patient's C-spine CT shows abnormal alignment of the cervical vertebrae and signs of chronic arthritis and possibly an acute chip fracture off of C5. I reviewed the patient's abdomen/pelvis CT. He has had a previous aortic repair but no obvious leak of endograft or any free fluid. No definite fracture but I am concerned about possible impacted fracture of the patient's right femoral neck. Unfortunately our radiology is gone off line there is no clear time for resumption of Radiology Services. Or night able to get these scans read by radiologist to determine whether not there are truly an acute injury. Therefore transfer to an outside hospital is indicated. Discussed with the patient. He would request transfer to [facility], if necessary. He has had extensive cardiology care at [facility] in the past. I had expensive phone conversations through the [facility] access center /transfer line. Discussed with the trauma surgeon at [facility], Dr. Brooks and then with the ER doctor at [facility], Dr. Coronado, then Orthopedics, Dr. Ojeda. Ultimately we were waiting on the patient to be assigned a bed at [facility]. Subsequently our radiology surface were resumed the patient's scans were read by Dr. Buster Ceballos. Head and neck CT showed no acute injury. Abdomen pelvis shows no acute injury or hip fracture. Knee x-ray is confirmed to show a patellar fracture. Discussed the patellar fracture with our orthopedist service. Discussed with Mick DOS SANTOS. They recommend non operative management . Immobilization in extension with knee immobilizer. He was having significant pain requiring intravenous fentanyl and IV Dilaudid. The patient has been laying in bed and not able to get up and move for the past 3 days since his fall. Lab workup shows mild leukocytosis of 11.5 without any clear infection. He is not febrile. Hemoglobin is anemic at 10.8 but that is at baseline. BUN elevated, likely due to prerenal azotemia. Creatinine normal. With immobilization concern is for possible rhabdomyolysis. CK is elevated at 1058. IV fluids administered here in the ER. After 2 L of saline he has put out about 600 mL of urine into his urinal. With his weakness and knee pain and immobility, he will require hospitalization for pain control and monitoring. Will also need IV fluids to make sure he does not develop worsening rhabdomyolysis. Discussed with our hospitalist, Dr. Wakefield. Vital Signs Vital signs: Initial Vital Signs Blood Pressure 109/73 04/30/23 15:10 Blood Pressure Mean 85 04/30/23 15:10 Blood Pressure Position Semi-Fowlers 04/30/23 15:10 Vital Signs Blood Pressure 109/73 04/30/23 15:10 Temperature 99.4 F 04/30/23 19:31 Pulse Rate 63 04/30/23 19:00 Respiratory Rate 20 04/30/23 19:31 Blood Pressure 118/65 04/30/23 19:00 Pulse Oximetry 95 04/30/23 19:00 Oxygen Delivery Method Room Air 04/30/23 19:00 Medications Administered Medications: Generic Name Dose Route Start Last Admin Trade Name Freq PRN Reason Stop Dose Admin Hydromorphone HCl 0.5 mg 04/30/23 18:17 04/30/23 18:35 Hydromorphone 0.5 Mg/0.5 Ml Inj IVP 0.5 mg Q1H PRN Administration Pain Discontinued Medications Generic Name Dose Route Start Last Admin Trade Name Freq PRN Reason Stop Dose Admin Fentanyl 50 mcg 04/30/23 15:26 04/30/23 16:20 Fentanyl 100 Mcg/2 Ml Inj IVP 04/30/23 15:27 50 mcg ONCE ONE Administration Sodium Chloride 1,000 mls @ 1,000 mls/hr 04/30/23 15:30 04/30/23 17:21 0.9 % Sodium Chloride 1000 Ml IV 04/30/23 16:29 Infused .Q1H MICHELLE Infusion Sodium Chloride 1,000 mls @ 1,000 mls/hr 04/30/23 18:30 04/30/23 19:20 0.9 % Sodium Chloride 1000 Ml IV 04/30/23 19:29 Infused .Q1H MICHELLE Infusion Ondansetron HCl 4 mg 04/30/23 15:26 04/30/23 16:20 Ondansetron 2 Mg/Ml Inj IVP 04/30/23 15:27 4 mg ONCE ONE Administration Medical Decision Making MDM Narrative Medical decision making narrative: 73-year-old gentleman with a complex past history presents to the ER today from his home for evaluation of left knee pain, right hip pain, neck pain, low back pain, generalized weakness, and inability to function ever since he had a fall that occurred while he was out for walk 2 days ago. He reports that he is not sure if he fainted or just tripped and fell. He has a history of falls related to anemia and wants us to check his hemoglobin. He has not had any recent black or bloody stools or any recent diarrhea. Hemoglobin today is 10.8 which is at his baseline. Considering cardiac causes for syncope we did check EKG which shows sinus rhythm and first-degree AV block. No high-degree AV block or other arrhythmia. No chest pain or palpitations. He does have a long history of heart trouble including aortic stenosis with TAVR and repeat valve surgery as well as aortic aneurysm repair. No evidence for any obvious rupture of his aortic aneurysm on my read of the CT abdomen pelvis. Since falling, he had tremendous difficulty walking home and has not been able to be really get out of bed since then. He has had 2+ days in bed. He has been relying on his to bring him food water and he has been urinating into diapers. He has not been able to get out of bed to have a bowel movement. Labs do shows elevated CK at 1054 concerning for evolving rhabdomyolysis. BUN is elevated at 51 but creatinine of 0.8. Suspect this may be prerenal. IV saline administered. He did produce urine of 600 mL here in the ER after 2 L of saline. He is not febrile. White count minimally elevated at 11. Venous lactate normal. He will be admitted by the hospitalist, Dr. Wakefield. Lab Data Labs: Lab Results 04/30/23 04/30/23 Range/Units 16:24 18:30 WBC 11.59 H (4.50-11.00) K/uL RBC 3.35 L (4.30-5.90) m/uL Hgb 10.8 L (13.5-17.5) gm/dL Hct 32.4 L (37.0-53.0) % MCV 97 (80-100) fL MCH 32 (26-34) pg MCHC 33 (32-36) gm/dL RDW Coeff of Bernabe 15.6 H (11.5-15.5) % Plt Count 313 (140-440) K/uL Neut % (Auto) 87.0 H (42.0-72.0) % Lymph % (Auto) 3.7 L (20-44) % [place] % (Auto) 8.7 (0.0-11.0) % Eos % (Auto) 0.0 (0.0-7.0) % Baso % (Auto) 0.2 (0.0-3.0) % Neut # (Auto) 10.10 H (1.7-7.0) K/uL Lymph # (Auto) 0.40 L (0.90-2.90) K/uL [place] # (Auto) 1.00 H (0.00-0.90) K/UL Eos # (Auto) 0.00 (0.00-0.50) K/uL Baso # (Auto) 0.00 (0.00-0.30) K/uL Abs Immat Gran (auto) 0.00 (0.00-0.30) K/uL Imm/Tot Granulo (auto) 0.4 % Sodium 137 (135-149) mmol/L Potassium 4.2 (3.6-5.1) mmol/L Chloride 101 (96-114) mmol/L Carbon Dioxide 26 (20-32) mmol/L Anion Gap 10 (7-15) mEq/L BUN 51 H (7-30) mg/dL Creatinine 0.8 (0.5-1.5) mg/dL Estimated Creat Clear 63.62 Estimated GFR 93 ml/min Glucose 115 (60-115) mg/dL Lactate 1.0 (0.5-1.9) mmol/L Calcium 9.5 (8.4-10.6) mg/dL Total Creatine Kinase 1054 H (54-186) U/L Urine Color Yellow (Yellow) Urine Appearance Clear (Clear) Urine pH 5.5 (5.0-8.5) Ur Specific [place] 1.015 (1.000-1.030) Urine Protein 2+ A (Negative) Urine Glucose (UA) Negative (Negative) Urine Ketones Trace A (Negative) Urine Blood 2+ A (Negative) Urine Nitrite Negative (Negative) Urine Bilirubin Negative (Negative) Urine Urobilinogen 0.2 (0.2-1.0) Ur Leukocyte Esterase Negative (Negative) Urine RBC 0-2 (0-2) Urine WBC 0-2 (0-5) Ur Squamous Epith Cells Few (None-Few) Urine Bacteria Few A (None) ECG Data Attestation: I personally reviewed and interpreted this ECG as follows: Interpretation: Normal sinus rhythm with first-degree AV block. Rate 85 SD 240 QRS axis right bundle-branch block. Left anterior fascicular block. Left axis deviation. ST segment/T wave: She artifact obscures baseline. No visible ST segment elevation or depression. QTc: 518 Discharge Plan Discharge Clinical Impression: Acute neck pain, Acute pain of right hip, Weakness, Fall, Fracture, patella Prescriptions: No Action gabapentin 100 mg capsule 100 mg PO BID gabapentin 300 mg capsule 300 mg PO HS pantoprazole 40 mg tablet,delayed release (DR/EC) 40 mg PO DAILY sennosides-docusate sodium [Stool Softener-Laxative] 8.6-50 mg Tablet 2 tab PO BID Qty: 100 0RF amlodipine 5 mg tablet 5 mg PO DAILY aspirin 81 mg tablet,delayed release (DR/EC) 81 mg PO DAILY tamsulosin 0.4 mg capsule 0.4 mg PO BID ferrous sulfate 325 mg (65 mg iron) Tablet 325 mg PO DAILYWM Qty: 100 0RF Follow Up/Referrals: Justin Branch MD [Primary Care Provider] -
--- NOTE | 2023-04-30 15:26 | CT_ITS ---
Final Report Patient: VANESA GAMA Facility:?[facility] Patient ID:?[id number] Site Patient ID:?[id number]. Site :?[id number] Study:?CT Spine Cervical WO-04/30/2023 3:53:11 PM Ordering Physician:TASIA Final Report: Indication: Fall, trauma, neck pain Technique: Noncontrast CT through the cervical spine with multiplanar reformats Comparison: None Findings: Alignment: Nonspecific reversal of the normal cervical lordotic curvature. Mild C3-4 and C5-6 anterolisthesis. Mild leftward curvature. Bones: No acute fracture. No lytic or blastic lesion. Cervical levels: Yeiu-ty-ywzvdyol multilevel degenerative changes with no acute abnormality appreciated. Soft tissues: No acute abnormality appreciated. Impression: No acute abnormality appreciated. Please note that all CT scans at this facility use dose modulation, iterative reconstruction, and/or weight-based dosing when appropriate to reduce radiation dose to as low as reasonably achievable. Dictated by Alexis Ceballos MD @ 04/30/2023 7:13:19 PM (Electronic Signature)
--- NOTE | 2023-04-30 15:26 | CT_ITS ---
Final Report Patient: VANESA GAMA Facility:?[facility] Patient ID:?[id number] Site Patient ID:?[id number]. Site :?1950 Study:?CT Abdomen/Pelvis W/ ISOVUE 370-04/30/2023 3:53:36 PM Ordering Physician:TASIA Final Report: Indication: Fall, back pain, right hip pain, suprapubic pain Technique: Postcontrast CT through the abdomen and pelvis following 74 milliliters Isovue 370 IV Comparison: None Findings: Portions of the examination are degraded by respiratory motion artifact. Lower chest: Aortic valve hardware and cardiomegaly no acute abnormality appreciated. Hepatobiliary: Unremarkable. Spleen: Diminutive, unremarkable. Pancreas: No acute abnormality appreciated. Adrenal glands: Unremarkable. Kidneys: No appreciated parenchymal abnormality. No calculi. No hydronephrosis. Bowel: Scattered diverticula. No obstruction. No focal perienteric or pericolonic stranding is appreciated. Vascular: Calcified and noncalcified atherosclerosis. Infrarenal abdominal aortic aneurysm measures 3.8 centimeters. Partially calcified fusiform dilation of the hepatic artery. No acute abnormality appreciated. Iliofemoral ectasia. Lymph nodes: No gross lymphadenopathy. Peritoneum: No free air. No free fluid. : No acute abnormality appreciated. Soft tissues: No acute abnormality appreciated. Bones: Degenerative changes of the spine and pelvis with no acute abnormality appreciated. Impression: Chronic findings as described above with no acute abnormality appreciated. Please note that all CT scans at this facility use dose modulation, iterative reconstruction, and/or weight-based dosing when appropriate to reduce radiation dose to as low as reasonably achievable. Dictated by Alexis Ceballos MD @ 04/30/2023 7:24:57 PM (Electronic Signature)
--- NOTE | 2023-04-30 15:26 | XR_ITS ---
Final Report Patient: VANESA GAMA Facility:?[facility] Patient ID:?[id number] Site Patient ID:?[id number]. Site :?1950 Study:?XRay Extremity Left KNEE-04/30/2023 4:02:17 PM Ordering Physician:TASIA Final Report: Indication: Fall, knee pain and swelling Technique: Two views of the left knee Comparison: None Findings: Linear lucency through the patella suspicious for patellar fracture. No additional fracture appreciated. Moderate joint effusion. Moderate tricompartmental degenerative changes. Soft tissue swelling. Vascular calcifications. Impression: Findings suspicious for patellar fracture. Consider sunrise views or CT for further evaluation. Dictated by Alexis Ceballos MD @ 04/30/2023 6:28:54 PM (Electronic Signature)
--- NOTE | 2023-04-30 15:27 | CT_ITS ---
Final Report Patient: VANESA GAMA Facility:?[facility] Patient ID:?[id number] Site Patient ID:?[id number]. 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 Chronic right frontal infarct. No acute transcortical infarct. No acute hemorrhage. No significant mass effect or midline shift. No cerebral edema or mass lesion appreciated. Ventricles: Unremarkable. Sinuses, orbits, mastoids: Trace mastoid fluid with no acute abnormality appreciated. Calvarium and soft tissues: No acute abnormality appreciated. Impression: Moderate chronic senescent changes and chronic infarcts with no acute abnormality appreciated. Please note that all CT scans at this facility use dose modulation, iterative reconstruction, and/or weight-based dosing when appropriate to reduce radiation dose to as low as reasonably achievable. Dictated by Alexis Ceballos MD @ 04/30/2023 6:33:54 PM (Electronic Signature)
[2023-04-30] MEDS: 0.9 % SODIUM CHLORIDE 1000 ml 1,000 ML IV ×2 (16:17→18:33)
[2023-04-30] MEDS: ONDANSETRON 2 MG/ML inj 4 MG IVP (16:20)
[2023-04-30] MEDS: fentaNYL 100 MCG/2 ML inj 50 MCG IVP (16:20)
[2023-04-30 16:34] LABS: Basophils Percent Auto 0.2 % (0.0-3.0); Hematocrit 32.4 % (37.0-53.0); Hemoglobin* 10.8 gm/dL (13.5-17.5); Immature Granulocytes Pct Auto 0.4 %; Lymphocytes Percent Auto 3.7 % (20-44); Mean Corpuscular HGB Conc 33 gm/dL (32-36); Mean Corpuscular Hemoglobin 32 pg (26-34); Mean Corpuscular Volume 97 fL (80-100); Monocytes Percent Auto 8.7 % (0.0-11.0); Platelet Count* 313 K/uL (140-440); RDW Coefficient of Variation % 15.6 % (11.5-15.5); Red Blood Count 3.35 m/uL (4.30-5.90); White Blood Count* 11.59 K/uL (4.50-11.00)
[2023-04-30 16:44] LABS: Chloride* 101 mmol/L (96-114); Potassium* 4.2 mmol/L (3.6-5.1); Sodium* 137 mmol/L (135-149)
[2023-04-30 16:47] LABS: Anion Gap 10 mEq/L (7-15); Blood Urea Nitrogen* 51 mg/dL (7-30); Calcium* 9.5 mg/dL (8.4-10.6); Carbon Dioxide* 26 mmol/L (20-32); Creatine Kinase* 1054 U/L (54-186); Creatinine* 0.8 mg/dL (0.5-1.5); Est. Creatinine Clearance* 63.62; Estimated Glomerular Filt Rate 93 ml/min; Glucose* 115 mg/dL (60-115)
[2023-04-30 16:48] LABS: Slide Review Reflex No
[2023-04-30] MEDS: HYDROmorphone 0.5 mg/0.5 ml inj IVP (18:35)
[2023-04-30 18:37] LABS: Appearance Urine Clear (Clear); Bilirubin Urine Negative (Negative); Blood Urine 2+ (Negative); Glucose Urine Negative (Negative); Ketones Urine Trace (Negative); Leukocyte Esterase Urine Negative (Negative); Nitrite Urine Negative (Negative); Protein Urine 2+ (Negative); Specific Gravity Urine 1.015 (1.000-1.030); Urobilinogen Urine 0.2 (0.2-1.0); pH Urine 5.5 (5.0-8.5)
[2023-04-30 18:45] LABS: Color Urine Yellow (Yellow)
[2023-04-30 18:52] LABS: Bacteria Urine Few; RBC Urine 0-2 (0-2); Squamous Epithelial Cell Urine Few (None-Few); WBC Urine 0-2 (0-5)
--- NOTE | 2023-05-01 00:15 | P.IMHP_ITS ---
Hospitalist- H&P: HPI History of Present Illness Time Seen by Provider: 23:30 Date Seen: 04/30/23 Chief complaint: Knee pain Narrative: Vanesa Clay is a 73 year old male with a complicated past medical history that includes aortic stenosis for which he is status post TAVR x2, cardiac ablation, abdominal aortic aneurysm, history of significant GI bleeding and acute blood loss anemia, hypertension, lung cancer, COPD, retroperitoneal bleed, splenectomy, and right bundle-branch block who presented through the ER for knee pain from a recent fall. He was out for a walk when he tripped and fell, landing on his left knee. Since then he has had difficulty walking on his left knee due to pain and has mostly been in bed, using a diaper to urinate and his brings him food in bed. He tells me that he does not think his is able to handle him at home with his current level of debility and he thinks he will need rehab before being able to go home. While he has many chronic illnesses as above, he has otherwise been in his usual state of health with no recent fevers, chills, chest pain, or shortness of breath. Review of Systems Status of ROS: Reports: 10 or more systems reviewed and unremarkable except as noted in History and below [facility] Medical History (Updated 05/01/23 @ 00:35 by Katie Wakefield MD) Mass of left ear canal ?H93.8X2 - Other specified disorders of left ear (ICD-10) AAA (abdominal aortic aneurysm) ?I71.40 - Abdominal aortic aneurysm, without rupture, unspecified (ICD-10) Lesion of left ear ?H93.92 - Unspecified disorder of left ear (ICD-10) Exertional dyspnea ?R06.09 - Other forms of dyspnea (ICD-10) GI bleed ?K92.2 - Gastrointestinal hemorrhage, unspecified (ICD-10) ABLA (acute blood loss anemia) ?D62 - Acute posthemorrhagic anemia (ICD-10) Hypertension ?I10 - Essential (primary) hypertension (ICD-10) Neurogenic orthostatic hypotension ?G90.3 - Multi-system degeneration of the autonomic nervous system (ICD-10) Aortic valve stenosis, acquired ?I35.0 - Nonrheumatic aortic (valve) stenosis (ICD-10) AAA (abdominal aortic aneurysm) without rupture ?I71.40 - Abdominal aortic aneurysm, without rupture, unspecified (ICD-10) Lung cancer ?C34.90 - Malignant neoplasm of unspecified part of unspecified bronchus or lung (ICD-10) Paravalvular leak (prosthetic valve) ?T82.03XA - Leakage of heart valve prosthesis, initial encounter (ICD-10) COPD (chronic obstructive pulmonary disease) ?J44.9 - Chronic obstructive pulmonary disease, unspecified (ICD-10) 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, unspecified (ICD-10) Retroperitoneal bleed ?R58 - Hemorrhage, not elsewhere classified (ICD-10) History of GI bleed ?Z87.19 - Personal history of other diseases of the digestive system (ICD-10) Surgical History (Updated 05/01/23 @ 00:35 by Katie Wakefield MD) History of cardiac radiofrequency ablation ?Z98.890 - Other specified postprocedural states (ICD-10) History of arthroscopic knee surgery ?Z98.890 - Other specified postprocedural states (ICD-10) History of splenectomy ?Z90.81 - Acquired absence of spleen (ICD-10) History of right inguinal hernia repair ?Z98.890 - Other specified postprocedural states (ICD-10) ?Z87.19 - Personal history of other diseases of the digestive system (ICD-10) History of lobectomy of lung ?Z90.2 - Acquired absence of lung [part of] (ICD-10) S/P TAVR (transcatheter aortic valve replacement) ?Z95.2 - Presence of prosthetic heart valve (ICD-10) Family History Brother Nasopharyngeal carcinoma Father Diabetes Mother Melanoma Social History Narrative: Patient has remote history of smoking. He lives in [place] with his . She currently has significant health problems as well. He does not drink alcohol. No recreational drug use. What is your current living situation?: I presently have a place to live Problems where you live: no known problems Problems where you live details: none In the past 12 months, utilities in danger of being shut off: no In past 12 months, lack of transportation kept you from medical appts, meetings, work, or getting things needed for daily living: no In the past 12 mos, have been you worried that your food would run out before you had money to buy more?: never true In the past 12 mos, the food you bought just didn't last and you didn't have money to buy more?: never true Highest level of school completed/degree received: high school graduate Smoking Status: Former smoker Do you use any of these nicotine containing products: None Second hand tobacco smoke exposure: No How often do you have a drink containing alcohol: never How often do you have six or more drinks on one occasion: Never AUDIT-C Alcohol total score: 0 Non-prescribed substance use: denies use Caffeine: Yes (coffee) How often does anyone, including family, friends and others, physically hurt you : never How often does anyone, including family, friends and others, insult or talk down to you: never How often does anyone, including family, friends and others, threaten you with harm: never How often does anyone, including family, friends and others, scream or curse at you: never service: Yes Meds Home Medications and Allergies Home Medications Medication Instructions Recorded Confirmed Type gabapentin 100 mg capsule 100 mg PO BID 02/26/22 05/01/23 History gabapentin 300 mg capsule 300 mg PO HS 02/26/22 05/01/23 History pantoprazole 40 mg tablet,delayed 40 mg PO DAILY 02/26/22 05/01/23 History release tamsulosin 0.4 mg capsule 0.4 mg PO BID 08/20/22 05/01/23 History amlodipine 5 mg tablet 5 mg PO DAILY 11/23/22 05/01/23 History aspirin 81 mg tablet,delayed 81 mg PO DAILY 11/23/22 05/01/23 History release Allergies Allergy/AdvReac Type Severity Reaction Status Date / Time No Known Drug Allergies Allergy Verified 11/25/22 07:42 Exam Narrative: Exam Narrative: General: No acute distress. Awake alert oriented x3. HEENT: Normocephalic atraumatic, pupils equally round and reactive to light and accommodation. Oropharynx clear. Mucous membranes are moist. No cervical lymphadenopathy, thyromegaly or carotid bruits. No JVD. Neck is mildly tender to palpation along the paraspinous musculature, without tenderness to palpation along the spine itself. Cardiovascular: Regular rate and rhythm. 2/6 systolic murmur loudest at the right upper sternal border. Chest: No increased work of breathing. Clear to auscultation bilaterally. No crackles or wheezes. Abdomen: Bowel sounds present. Soft, nondistended, nontender. No hepatosplenomegaly or masses. Extremities: Left knee is in a brace. No edema, no cyanosis or clubbing. Skin: No jaundice, no pallor, no rashes. Const: Vital Signs, click to edit/add: Vital Signs - 24 hr 04/30/23 15:10 04/30/23 15:21 04/30/23 16:25 Temperature 99.4 F Pulse Rate Pulse Rate [Pulse Oximeter] 90 Respiratory Rate 16 Blood Pressure Blood Pressure [Ri ght Upper Arm] 109/73 109/73 138/75 Pulse Oximetry 96 Oxygen Delivery Me thod Room Air 04/30/23 17:30 04/30/23 18:00 04/30/23 18:30 Temperature Pulse Rate Pulse Rate [Pulse Oximeter] 90 86 76 Respiratory Rate Blood Pressure Blood Pressure [Ri ght Upper Arm] 165/81 H 134/70 110/75 Pulse Oximetry 99 95 95 Oxygen Delivery Me thod Room Air Room Air Room Air 04/30/23 19:00 04/30/23 19:00 04/30/23 19:20 Temperature Pulse Rate 76 Pulse Rate [Pulse Oximeter] 83 63 Respiratory Rate Blood Pressure Blood Pressure [Ri ght Upper Arm] 154/88 H 118/65 Pulse Oximetry 94 95 98 Oxygen Delivery Me thod Room Air Room Air 04/30/23 19:30 04/30/23 19:31 04/30/23 19:32 Temperature 99.4 F Pulse Rate 78 77 Pulse Rate [Pulse Oximeter] Respiratory Rate 20 Blood Pressure 146/79 H Blood Pressure [Ri ght Upper Arm] Pulse Oximetry 93 95 Oxygen Delivery Me thod 04/30/23 19:45 04/30/23 20:00 04/30/23 20:02 Temperature Pulse Rate 70 75 65 Pulse Rate [Pulse Oximeter] Respiratory Rate Blood Pressure 118/62 Blood Pressure [Ri ght Upper Arm] Pulse Oximetry 94 94 95 Oxygen Delivery Me thod 04/30/23 20:15 04/30/23 20:30 04/30/23 20:32 Temperature Pulse Rate 79 75 74 Pulse Rate [Pulse Oximeter] Respiratory Rate Blood Pressure 169/85 H Blood Pressure [Ri ght Upper Arm] Pulse Oximetry 96 98 96 Oxygen Delivery Me thod 04/30/23 20:45 04/30/23 21:00 04/30/23 21:02 Temperature Pulse Rate 81 72 71 Pulse Rate [Pulse Oximeter] Respiratory Rate Blood Pressure 144/74 H Blood Pressure [Ri ght Upper Arm] Pulse Oximetry 94 95 94 Oxygen Delivery Me thod 04/30/23 21:15 04/30/23 21:30 04/30/23 21:32 Temperature Pulse Rate 68 72 70 Pulse Rate [Pulse Oximeter] Respiratory Rate Blood Pressure 140/74 H Blood Pressure [Ri ght Upper Arm] Pulse Oximetry 95 97 95 Oxygen Delivery Me thod 04/30/23 21:45 04/30/23 22:00 04/30/23 22:02 Temperature Pulse Rate 65 68 66 Pulse Rate [Pulse Oximeter] Respiratory Rate Blood Pressure 129/64 Blood Pressure [Ri ght Upper Arm] Pulse Oximetry 94 95 97 Oxygen Delivery Me thod 04/30/23 22:15 04/30/23 22:30 04/30/23 22:32 Temperature Pulse Rate 70 68 67 Pulse Rate [Pulse Oximeter] Respiratory Rate Blood Pressure 136/74 Blood Pressure [Ri ght Upper Arm] Pulse Oximetry 96 95 96 Oxygen Delivery Me thod 04/30/23 23:00 Temperature Pulse Rate Pulse Rate [Pulse Oximeter] Respiratory Rate Blood Pressure Blood Pressure [Ri ght Upper Arm] Pulse Oximetry Oxygen Delivery Me thod Room Air Hospitalist - H&P: Result Labs Labs: Short CBC 04/30/23 Range/Units 16:24 WBC 11.59 H (4.50-11.00) K/uL Hgb 10.8 L (13.5-17.5) gm/dL Hct 32.4 L (37.0-53.0) % Plt Count 313 (140-440) K/uL BMP 04/30/23 16:24 Sodium 137 Potassium 4.2 Chloride 101 Carbon Dioxide 26 BUN 51 H Creatinine 0.8 Glucose 115 Calcium 9.5 Cardiac Enzymes 04/30/23 Range/Units 16:24 Total Creatine Kinase 1054 H (54-186) U/L Urine 04/30/23 Range/Units 18:30 Urine Color Yellow (Yellow) Urine Appearance Clear (Clear) Urine pH 5.5 (5.0-8.5) Ur Specific [place] 1.015 (1.000-1.030) Urine Protein 2+ A (Negative) Urine Glucose (UA) Negative (Negative) Facility: [facility] Site . Site : 1950 Study: XRay Extremity Left KNEE-04/30/2023 4:02:17 PM Ordering Physician: ESTEFANI Final Report: Indication: Fall, knee pain and swelling Technique: Two views of the left knee Comparison: None Findings: Linear lucency through the patella suspicious for patellar fracture. No additional fracture appreciated. Moderate joint effusion. Moderate tricompartmental degenerative changes. Soft tissue swelling. Vascular calcifications. Impression: Findings suspicious for patellar fracture. Consider sunrise views or CT for further evaluation. Dictated by Alexis Ceballos MD @ 04/30/2023 6:28:54 PM (Electronic Signature) Facility:?[facility] Patient ID:?[id number] Site Patient ID:?[id number]. Site :?1950 Study:?CT Abdomen/Pelvis W/ ISOVUE 370-04/30/2023 3:53:36 PM Ordering Physician:TASIA Final Report: Indication: Fall, back pain, right hip pain, suprapubic pain Technique: Postcontrast CT through the abdomen and pelvis following 74 milliliters Isovue 370 IV Comparison: None Findings: Portions of the examination are degraded by respiratory motion artifact. Lower chest: Aortic valve hardware and cardiomegaly no acute abnormality appreciated. Hepatobiliary: Unremarkable. Spleen: Diminutive, unremarkable. Pancreas: No acute abnormality appreciated. Adrenal glands: Unremarkable. Kidneys: No appreciated parenchymal abnormality. No calculi. No hydronephrosis. Bowel: Scattered diverticula. No obstruction. No focal perienteric or pericolonic stranding is appreciated. Vascular: Calcified and noncalcified atherosclerosis. Infrarenal abdominal aortic aneurysm measures 3.8 centimeters. Partially calcified fusiform dilation of the hepatic artery. No acute abnormality appreciated. Iliofemoral ectasia. Lymph nodes: No gross lymphadenopathy. Peritoneum: No free air. No free fluid. : No acute abnormality appreciated. Soft tissues: No acute abnormality appreciated. Bones: Degenerative changes of the spine and pelvis with no acute abnormality appreciated. Impression: Chronic findings as described above with no acute abnormality appreciated. Please note that all CT scans at this facility use dose modulation, iterative reconstruction, and/or weight-based dosing when appropriate to reduce radiation dose to as low as reasonably achievable. Dictated by Alexis Ceballos MD @ 04/30/2023 7:24:57 PM (Electronic Signature) Patient: VANESA CLAY Facility: [facility] Site . Site : 1950 Study: CT Spine Cervical WO-04/30/2023 3:53:11 PM Ordering Physician: ESTEFANI Final Report: Indication: Fall, trauma, neck pain Technique: Noncontrast CT through the cervical spine with multiplanar reformats Comparison: None Findings: Alignment: Nonspecific reversal of the normal cervical lordotic curvature. Mild C3-4 and C5-6 anterolisthesis. Mild leftward curvature. Bones: No acute fracture. No lytic or blastic lesion. Cervical levels: [id number] multilevel degenerative changes with no acute abnormality appreciated. Soft tissues: No acute abnormality appreciated. Impression: No acute abnormality appreciated. Please note that all CT scans at this facility use dose modulation, iterative reconstruction, and/or weight-based dosing when appropriate to reduce radiation dose to as low as reasonably achievable. Dictated by Alexis Ceballos MD @ 04/30/2023 7:13:19 PM (Electronic Signature) Facility: [facility] Site . 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 Chronic right frontal infarct. No acute transcortical infarct. No acute hemorrhage. No significant mass effect or midline shift. No cerebral edema or mass lesion appreciated. Ventricles: Unremarkable. Sinuses, orbits, mastoids: Trace mastoid fluid with no acute abnormality appreciated. Calvarium and soft tissues: No acute abnormality appreciated. Impression: Moderate chronic senescent changes and chronic infarcts with no acute abnormality appreciated. Please note that all CT scans at this facility use dose modulation, iterative reconstruction, and/or weight-based dosing when appropriate to reduce radiation dose to as low as reasonably achievable. Dictated by Alexis Ceballos MD @ 04/30/2023 6:33:54 PM (Electronic Signature) Assessment and Plan Assessment and plan (1) Fracture, patella: Status: Acute (2) Fall: Status: Acute (3) Rhabdomyolysis: Status: Acute (4) Acute pain of right hip: Status: Acute (5) Acute neck pain: Status: Acute (6) Weakness: Status: Acute (7) S/P TAVR (transcatheter aortic valve replacement): Problem comment: -Status post successful TAVR with 34 mm evolute pro plus in September 2019 with subsequent moderate to severe paravalvular regurgitation -Status post attempted balloon post dilation with need for valve in valve TAVR in October 2020 -Severe/critical low flow low gradient aortic stenosis status post valve in valve TAVR -Minimal residual gradient with at least moderate if not moderate to severe persistent paravalvular regurgitation -NYHA functional class I to 2 -CCS score 0 -Preserved LV systolic function -last echo 03/07/2022: Normal LV size, severe left ventricular hypertrophy, EF of 60-65%. Functioning 34 mm CoreValve Evolut R bioprosthesis AVR, with no stenosis and moderate to severe regurgitation. - Saw cardiology 09/17/2022, recommended anticoagulation no longer safe, stay off it life long, also not a candidate for any additional percutaneous options. Plan is to discuss open surgical procedure after ECHO in 6 months. Status: Chronic Plan 73-year-old male who fell on Wednesday and sustained a fracture of his left patella. Pain is significant enough to keep him bed ridden over the last few days and his CK is elevated. BUN is also elevated however creatinine is not. Admit for IV fluids and monitor CK. Treat with oral narcotics for pain and attempt PT and OT tomorrow. I suspect patient will need placement for rehab. Due to history of GI bleed will hold off on any pharmacologic prophylaxis for VTE. Also due to fall risk and patellar fracture, he is not appropriate for mechanical prophylaxis for VTE.
[2023-05-01] MEDS: HYDROmorphone 0.5 mg/0.5 ml inj IVP ×2 (00:32→01:46)
[2023-05-01] MEDS: LACTATED RINGERS 1000 ML 1,000 ML 125 ML IV ×2 (00:46→07:52)
[2023-05-01] MEDS: OXYCODONE 5 MG TABLET PO ×5 (01:56→21:53)
[2023-05-01] MEDS: ACETAMINOPHEN 325 MG TABLET PO ×2 (01:57→19:56)
[2023-05-01 03:00] VITALS: BP 131/77; PULSE 69; RESP 18; TEMP 37.2; O2SAT 96
[2023-05-01 06:36] LABS: Basophils Absolute Auto 0.02 K/uL (0.00-0.30); Basophils Percent Auto 0.2 % (0.0-3.0); Eosinophils Absolute Auto 0.01 K/uL (0.00-0.50); Eosinophils Percent Auto 0.1 % (0.0-7.0); Hematocrit 25.9 % (37.0-53.0); Hemoglobin* 8.8 gm/dL (13.5-17.5); Immature Granulocytes Abs Auto 0.03 K/uL (0.00-0.30); Immature Granulocytes Pct Auto 0.3 %; Lymphocytes Percent Auto 6.8 % (20-44); Mean Corpuscular HGB Conc 34 gm/dL (32-36); Mean Corpuscular Hemoglobin 33 pg (26-34); Mean Corpuscular Volume 97 fL (80-100); Monocytes Percent Auto 9.6 % (0.0-11.0); Platelet Count* 281 K/uL (140-440); RDW Coefficient of Variation % 15.5 % (11.5-15.5); Red Blood Count 2.68 m/uL (4.30-5.90); White Blood Count* 8.92 K/uL (4.50-11.00)
[2023-05-01 06:37] LABS: Slide Review Reflex No
[2023-05-01 07:28] LABS: Chloride* 104 mmol/L (96-114); Potassium* 3.6 mmol/L (3.6-5.1); Sodium* 135 mmol/L (135-149)
[2023-05-01 07:31] LABS: Anion Gap 6 mEq/L (7-15); Blood Urea Nitrogen* 33 mg/dL (7-30); Carbon Dioxide* 25 mmol/L (20-32); Creatine Kinase* 610 U/L (54-186); Creatinine* 0.7 mg/dL (0.5-1.5); Estimated Glomerular Filt Rate 97 ml/min
[2023-05-01 07:32] LABS: Calcium* 8.4 mg/dL (8.4-10.6); Glucose* 94 mg/dL (60-115)
[2023-05-01] MEDS: SENNOSIDES/DOCUSATE TABLET 1 TAB PO (07:49)
[2023-05-01] MEDS: FERROUS SULFATE 325 MG TABLET PO (07:49)
[2023-05-01 08:02] VITALS: BP 150/73; PULSE 65; RESP 20; TEMP 36.8; O2SAT 97
[2023-05-01] MEDS: AMLODIPINE 5 MG TABLET PO (08:39)
[2023-05-01] MEDS: ASPIRIN 81 MG TABLET EC PO (08:39)
[2023-05-01] MEDS: TAMSULOSIN HCL 0.4 MG CAPSULE PO ×2 (08:39→20:52)
[2023-05-01] MEDS: OMEPRAZOLE 20 MG CAPSULE DR 40 MG PO (08:39)
[2023-05-01] MEDS: GABAPENTIN 100 MG CAPSULE PO ×2 (08:39→13:49)
--- NOTE | 2023-05-01 09:02 | PC.NURSE ---
Patient arrived from ED at 2248. Pleasant, alert and oriented. Reports pain in his left knee, back and neck. Given PRN Dilaudid, Tylenol and Oxycodone for pain rated 8-10/10. Used urinal. Patient denies any swallowing difficulties and eats regular diet. However he reports that since his cancer diagnosis sometimes food gets stuck and at times he coughs it out. Oncoming nurse updated.?
[2023-05-01 11:08] VITALS: BP 134/70; PULSE 82; RESP 16; TEMP 36.9; O2SAT 98
--- NOTE | 2023-05-01 14:56 | P.IMPN_ITS ---
Progress Note: A&P Assessment and plan (1) Fracture, patella: Problem details: Conservative management with knee immobilizer Status: Acute (2) Fall: Problem details: Therapy to assess mobility and safety. Status: Acute (3) Rhabdomyolysis: Problem details: Mild. Continue to monitor. Status: Acute (4) Acute pain of right hip: Status: Acute (5) Acute neck pain: Status: Acute (6) Weakness: Status: Acute (7) S/P TAVR (transcatheter aortic valve replacement): Problem details: -Status post successful TAVR with 34 mm evolute pro plus in September 2019 with subsequent moderate to severe paravalvular regurgitation -Status post attempted balloon post dilation with need for valve in valve TAVR in October 2020 -Severe/critical low flow low gradient aortic stenosis status post valve in valve TAVR -Minimal residual gradient with at least moderate if not moderate to severe persistent paravalvular regurgitation -NYHA functional class I to 2 -CCS score 0 -Preserved LV systolic function -last echo 03/07/2022: Normal LV size, severe left ventricular hypertrophy, EF of 60-65%. Functioning 34 mm CoreValve Evolut R bioprosthesis AVR, with no stenosis and moderate to severe regurgitation. - Saw cardiology 09/17/2022, recommended anticoagulation no longer safe, stay off it life long, also not a candidate for any additional percutaneous options. Plan is to discuss open surgical procedure after ECHO in 6 months. Status: Chronic Plan Patient is admitted to the hospital for management of pain and disability related to fall and patella fracture. Continue evaluation with therapy to assess mobility. May need residential facility placement for rehab. Time Spent With Patient Total time spent: Total time spent today is 45 minutes, 35 minutes in coordination of care discussing with patient other providers ongoing management of patellar fracture and other injuries. Subjective Date Seen: 05/01/23 Interval history: Isaac Clay is a 73 year old male with a complicated past medical history that includes aortic stenosis for which he is status post TAVR x2, cardiac ablation, abdominal aortic aneurysm, history of significant GI bleeding and acute blood loss anemia, hypertension, lung cancer, COPD, retroperitoneal bleed, splenectomy, and right bundle-branch block who presented through the ER for knee pain from a recent fall. He was out for a walk when he tripped and fell, landing on his left knee. Since then he has had difficulty walking on his left knee due to pain and has mostly been in bed, using a diaper to urinate and his brings him food in bed. He tells me that he does not think his is able to handle him at home with his current level of debility and he thinks he will need rehab before being able to go home. While he has many chronic illnesses as above, he has otherwise been in his usual state of health with no recent fevers, chills, chest pain, or shortness of breath. Overnight patient still reports quite a bit of pain in his knee. He has lesser pains from other injuries as well. He does not think he can manage at home with a knee immobilizer. He reports no other concerns today. Specifically denies fever, cough, chest pain, shortness a breath, nausea, vomiting, diarrhea. He has had recent constipation. Exam Narrative: Exam Narrative: He is alert and appears in no distress. He is oriented to his circumstances and gives good details of his history. Head is without obvious trauma. Respirations are clear to auscultation. Cardiovascular: S1, S2, regular rate and rhythm. Abdomen: Bowel sounds active. Abdomen is soft without tenderness. Moves his upper extremities fairly well. Left lower extremity is in a knee immobilizer. He has minimal edema distal to that. Intact pulses and sensation and motion in his feet and ankles. Unable to lift left leg off the bed. Right lower extremity is normal in strength and motion. Const: Vital Signs, click to edit/add: Vital Signs - 24 hr 04/30/23 15:10 04/30/23 15:21 04/30/23 16:25 Temperature 99.4 F Pulse Rate Pulse Rate [Pulse Oximeter] 90 Respiratory Rate 16 Blood Pressure Blood Pressure [Le ft Arm] Blood Pressure [Ri ght Upper Arm] 109/73 109/73 138/75 Pulse Oximetry 96 Oxygen Delivery Me thod Room Air 04/30/23 17:30 04/30/23 18:00 04/30/23 18:30 Temperature Pulse Rate Pulse Rate [Pulse Oximeter] 90 86 76 Respiratory Rate Blood Pressure Blood Pressure [Le ft Arm] Blood Pressure [Ri ght Upper Arm] 165/81 H 134/70 110/75 Pulse Oximetry 99 95 95 Oxygen Delivery Me thod Room Air Room Air Room Air 04/30/23 19:00 04/30/23 19:00 04/30/23 19:20 Temperature Pulse Rate 76 Pulse Rate [Pulse Oximeter] 83 63 Respiratory Rate Blood Pressure Blood Pressure [Le ft Arm] Blood Pressure [Ri ght Upper Arm] 154/88 H 118/65 Pulse Oximetry 94 95 98 Oxygen Delivery Me thod Room Air Room Air 04/30/23 19:30 04/30/23 19:31 04/30/23 19:32 Temperature 99.4 F Pulse Rate 78 77 Pulse Rate [Pulse Oximeter] Respiratory Rate 20 Blood Pressure 146/79 H Blood Pressure [Le ft Arm] Blood Pressure [Ri ght Upper Arm] Pulse Oximetry 93 95 Oxygen Delivery Me thod 04/30/23 19:45 04/30/23 20:00 04/30/23 20:02 Temperature Pulse Rate 70 75 65 Pulse Rate [Pulse Oximeter] Respiratory Rate Blood Pressure 118/62 Blood Pressure [Le ft Arm] Blood Pressure [Ri ght Upper Arm] Pulse Oximetry 94 94 95 Oxygen Delivery Me thod 04/30/23 20:15 04/30/23 20:30 04/30/23 20:32 Temperature Pulse Rate 79 75 74 Pulse Rate [Pulse Oximeter] Respiratory Rate Blood Pressure 169/85 H Blood Pressure [Le ft Arm] Blood Pressure [Ri ght Upper Arm] Pulse Oximetry 96 98 96 Oxygen Delivery Me thod 04/30/23 20:45 04/30/23 21:00 04/30/23 21:02 Temperature Pulse Rate 81 72 71 Pulse Rate [Pulse Oximeter] Respiratory Rate Blood Pressure 144/74 H Blood Pressure [Le ft Arm] Blood Pressure [Ri ght Upper Arm] Pulse Oximetry 94 95 94 Oxygen Delivery Me thod 04/30/23 21:15 04/30/23 21:30 04/30/23 21:32 Temperature Pulse Rate 68 72 70 Pulse Rate [Pulse Oximeter] Respiratory Rate Blood Pressure 140/74 H Blood Pressure [Le ft Arm] Blood Pressure [Ri ght Upper Arm] Pulse Oximetry 95 97 95 Oxygen Delivery Me thod 04/30/23 21:45 04/30/23 22:00 04/30/23 22:02 Temperature Pulse Rate 65 68 66 Pulse Rate [Pulse Oximeter] Respiratory Rate Blood Pressure 129/64 Blood Pressure [Le ft Arm] Blood Pressure [Ri ght Upper Arm] Pulse Oximetry 94 95 97 Oxygen Delivery Me thod 04/30/23 22:15 04/30/23 22:30 04/30/23 22:32 Temperature Pulse Rate 70 68 67 Pulse Rate [Pulse Oximeter] Respiratory Rate Blood Pressure 136/74 Blood Pressure [Le ft Arm] Blood Pressure [Ri ght Upper Arm] Pulse Oximetry 96 95 96 Oxygen Delivery Me thod 04/30/23 23:00 04/30/23 23:00 05/01/23 03:00 Temperature 98.4 F 99.0 F Pulse Rate Pulse Rate [Pulse Oximeter] 81 69 Respiratory Rate 18 18 18 Blood Pressure Blood Pressure [Le ft Arm] 163/94 H 131/77 Blood Pressure [Ri ght Upper Arm] Pulse Oximetry 97 97 96 Oxygen Delivery Me thod Room Air Room Air 05/01/23 08:02 05/01/23 11:08 Temperature 98.2 F 98.5 F Pulse Rate Pulse Rate [Pulse Oximeter] 65 82 Respiratory Rate 20 16 Blood Pressure Blood Pressure [Le ft Arm] 150/73 H 134/70 Blood Pressure [Ri ght Upper Arm] Pulse Oximetry 97 98 Oxygen Delivery Me thod Room Air Room Air Documenting provider has reviewed patient's vital signs: yes Labs Labs: Laboratory Results - last 24 hr 04/30/23 04/30/23 05/01/23 16:24 18:30 06:07 WBC 11.59 H 8.92 RBC 3.35 L 2.68 L Hgb 10.8 L 8.8 L Hct 32.4 L 25.9 L MCV 97 97 MCH 32 33 MCHC 33 34 RDW Coeff of Bernabe 15.6 H 15.5 Plt Count 313 281 Neut % (Auto) 87.0 H 83.0 H Lymph % (Auto) 3.7 L 6.8 L [place] % (Auto) 8.7 9.6 Eos % (Auto) 0.0 0.1 Baso % (Auto) 0.2 0.2 Neut # (Auto) 10.10 H 7.40 H Lymph # (Auto) 0.40 L 0.60 L [place] # (Auto) 1.00 H 0.90 Eos # (Auto) 0.00 0.01 Baso # (Auto) 0.00 0.02 Abs Immat Gran (auto) 0.00 0.03 Imm/Tot Granulo (auto) 0.4 0.3 Sodium 137 135 Potassium 4.2 3.6 Chloride 101 104 Carbon Dioxide 26 25 Anion Gap 10 6 L BUN 51 H 33 H Creatinine 0.8 0.7 Estimated Creat Clear 63.62 64.20 Estimated GFR 93 97 Glucose 115 94 Lactate 1.0 Calcium 9.5 8.4 Total Creatine Kinase 1054 H 610 H Urine Color Yellow Urine Appearance Clear Urine pH 5.5 Ur Specific [place] 1.015 Urine Protein 2+ A Urine Glucose (UA) Negative Urine Ketones Trace A Urine Blood 2+ A Urine Nitrite Negative Urine Bilirubin Negative Urine Urobilinogen 0.2 Ur Leukocyte Esterase Negative Urine RBC 0-2 Urine WBC 0-2 Ur Squamous Epith Cells Few Urine Bacteria Few A
[2023-05-01 15:00] VITALS: BP 146/97; PULSE 76; RESP 16; TEMP 37.3; O2SAT 92
--- NOTE | 2023-05-01 15:18 | REH.OT ---
OT eval and treat ordered, attempted x2 but pt eating lunch and then on phone at another time. Will re-attempt again tomorrow.
--- NOTE | 2023-05-01 17:09 | PC.NURSE ---
Shift Summary: Patient pleasant and cooperative. Tried to get up out of bed however patient stated pain was too much and refused. Frequently repositioned, patient able to reposition self in bed with the exception of moving his left leg. Vitals stable and WNL. Patient pain managed with rest and PRN medication. Using urinal in bed. Patient states he sometimes gets food stuck in throat and coughs it up, states this has been going on since his diagnosis for cancer, MD aware. Encouraged patient to eat soft foods in small bites.
[2023-05-01] MEDS: SENNOSIDES/DOCUSATE TABLET 2 TAB PO (17:51)
[2023-05-01 19:50] VITALS: BP 169/80; PULSE 81; RESP 20; TEMP 37.2; O2SAT 96
[2023-05-01] MEDS: GABAPENTIN 300 MG CAPSULE PO (20:52)
[2023-05-01] MEDS: SODIUM CHLORIDE 0.9 % (FLUSH) 10 ML SYRINGE 5 ML IVF (20:53)
[2023-05-01 22:02] VITALS: BP 145/80; PULSE 90; RESP 22; TEMP 37.2; O2SAT 90
[2023-05-02 03:00] VITALS: BP 149/82; PULSE 70; RESP 18; TEMP 36.8; O2SAT 93
[2023-05-02] MEDS: ACETAMINOPHEN 325 MG TABLET PO ×2 (03:18→12:10)
[2023-05-02 07:12] LABS: Basophils Absolute Auto 0.02 K/uL (0.00-0.30); Basophils Percent Auto 0.2 % (0.0-3.0); Eosinophils Absolute Auto 0.17 K/uL (0.00-0.50); Eosinophils Percent Auto 1.9 % (0.0-7.0); Hematocrit 25.3 % (37.0-53.0); Hemoglobin* 8.5 gm/dL (13.5-17.5); Immature Granulocytes Abs Auto 0.02 K/uL (0.00-0.30); Immature Granulocytes Pct Auto 0.2 %; Lymphocytes Percent Auto 8.7 % (20-44); Mean Corpuscular HGB Conc 34 gm/dL (32-36); Mean Corpuscular Hemoglobin 32 pg (26-34); Mean Corpuscular Volume 95 fL (80-100); Monocytes Percent Auto 10.8 % (0.0-11.0); Neutrophils Percent Auto 78.2 % (42.0-72.0); Platelet Count* 281 K/uL (140-440); RDW Coefficient of Variation % 15.4 % (11.5-15.5); Red Blood Count 2.66 m/uL (4.30-5.90); White Blood Count* 8.98 K/uL (4.50-11.00)
--- NOTE | 2023-05-02 07:46 | PC.NURSE ---
Patient pleasant, alert and oriented. PRN Tylenol and Oxycodone given for pain in left knee. Remained in bed. Uses urinal during night.
[2023-05-02 07:53] LABS: Slide Review Reflex No
[2023-05-02 08:04] LABS: Chloride* 101 mmol/L (96-114); Sodium* 133 mmol/L (135-149)
[2023-05-02 08:05] LABS: Potassium* 3.6 mmol/L (3.6-5.1)
[2023-05-02 08:07] LABS: Anion Gap 5 mEq/L (7-15); Blood Urea Nitrogen* 20 mg/dL (7-30); Carbon Dioxide* 27 mmol/L (20-32); Creatine Kinase* 402 U/L (54-186); Creatinine* 0.6 mg/dL (0.5-1.5); Est. Creatinine Clearance* 64.82; Estimated Glomerular Filt Rate 101 ml/min
[2023-05-02 08:08] LABS: Calcium* 8.3 mg/dL (8.4-10.6); Glucose* 102 mg/dL (60-115)
[2023-05-02] MEDS: OXYCODONE 5 MG TABLET PO ×3 (08:44→16:46)
[2023-05-02 08:55] VITALS: BP 162/90; PULSE 73; RESP 20; TEMP 36.9; O2SAT 94
[2023-05-02] MEDS: TAMSULOSIN HCL 0.4 MG CAPSULE PO ×2 (09:27→20:33)
[2023-05-02] MEDS: ASPIRIN 81 MG TABLET EC PO (09:27)
[2023-05-02] MEDS: FERROUS SULFATE 325 MG TABLET PO (09:27)
[2023-05-02] MEDS: AMLODIPINE 5 MG TABLET PO (09:27)
[2023-05-02] MEDS: GABAPENTIN 100 MG CAPSULE PO ×2 (09:27→12:45)
[2023-05-02] MEDS: OMEPRAZOLE 20 MG CAPSULE DR 40 MG PO (09:27)
[2023-05-02] MEDS: SODIUM CHLORIDE 0.9 % (FLUSH) 10 ML SYRINGE 5 ML IVF ×2 (09:35→20:35)
[2023-05-02 11:00] VITALS: BP 144/82; PULSE 79; RESP 20; TEMP 36.9; O2SAT 90
[2023-05-02] MEDS: SENNOSIDES/DOCUSATE TABLET 1 TAB PO (12:45)
--- NOTE | 2023-05-02 14:59 | PC.NURSE ---
Shift Summary: Patient pleasant and cooperative. Up with 2 assist, walker and gait belt. Vitals stable and WNL. Patient up to bathroom to use toilet during shift, attempted to get into bathroom with OT but patient had difficulty. Given sponge bath at sink. Gown and bed linens changed. Patient c/o pain with ambulation, pain managed with elevating leg and PRN medication. Using urinal per self, staff empty.
[2023-05-02 15:00] VITALS: BP 117/63; PULSE 72; RESP 18; O2SAT 93
--- NOTE | 2023-05-02 15:42 | P.IMPN_ITS ---
Progress Note: A&P Assessment and plan (1) Fracture, patella: Problem details: Conservative management with knee immobilizer Status: Acute (2) Fall: Problem details: Therapy to assess mobility and safety. Status: Acute (3) Rhabdomyolysis: Problem details: Mild. Continue to monitor. Status: Acute (4) Acute pain of right hip: Status: Acute (5) Acute neck pain: Status: Acute (6) Weakness: Status: Acute (7) S/P TAVR (transcatheter aortic valve replacement): Problem details: -Status post successful TAVR with 34 mm evolute pro plus in September 2019 with subsequent moderate to severe paravalvular regurgitation -Status post attempted balloon post dilation with need for valve in valve TAVR in October 2020 -Severe/critical low flow low gradient aortic stenosis status post valve in valve TAVR -Minimal residual gradient with at least moderate if not moderate to severe persistent paravalvular regurgitation -NYHA functional class I to 2 -CCS score 0 -Preserved LV systolic function -last echo 03/07/2022: Normal LV size, severe left ventricular hypertrophy, EF of 60-65%. Functioning 34 mm CoreValve Evolut R bioprosthesis AVR, with no stenosis and moderate to severe regurgitation. - Saw cardiology 09/17/2022, recommended anticoagulation no longer safe, stay off it life long, also not a candidate for any additional percutaneous options. Plan is to discuss open surgical procedure after ECHO in 6 months. Status: Chronic Plan Continue in hospital pending safe discharge plan Time Spent With Patient Total time spent: Total time spent today is 30 minutes, 20 minutes in coordination of care discussing with patient other providers ongoing evaluation management of patella fracture and disability Subjective Date Seen: 05/02/23 Interval history: Isaac Clay is a 73 year old male with a complicated past medical history that includes aortic stenosis for which he is status post TAVR x2, cardiac ablation, abdominal aortic aneurysm, history of significant GI bleeding and acute blood loss anemia, hypertension, lung cancer, COPD, retroperitoneal bleed, splenectomy, and right bundle-branch block who presented through the ER for knee pain from a recent fall. He was out for a walk when he tripped and fell, landing on his left knee. Since then he has had difficulty walking on his left knee due to pain and has mostly been in bed, using a diaper to urinate and his brings him food in bed. He tells me that he does not think his is able to handle him at home with his current level of debility and he thinks he will need rehab before being able to go home. While he has many chronic illnesses as above, he has otherwise been in his usual state of health with no recent fevers, chills, chest pain, or shortness of breath. Patient still reports quite a bit of pain in his knee. He was able to stand on his knee with knee immobilizer. Not able to walk. He has lesser pains from other injuries as well. He does not think he can manage at home with a knee immobilizer. He reports no other concerns today. Specifically denies fever, cough, chest pain, shortness a breath, nausea, vomiting, diarrhea. He has had recent constipation. Exam Narrative: Exam Narrative: He is alert and appears in no distress. Lower extremities examined. He has moderate swelling around the left knee. It is not particularly warm to touch the without erythema. No external signs of trauma. Palpation shows mild tenderness over his patella. No other significant tenderness. Distally he has no significant edema. He moves his foot and ankle well on the left. Knee immobilizer was reapplied. Const: Vital Signs, click to edit/add: Vital Signs - 24 hr 05/01/23 19:50 05/01/23 22:02 05/02/23 03:00 Temperature 99.0 F 98.9 F 98.3 F Pulse Rate [Pulse Oximeter] 81 90 70 Respiratory Rate 20 22 18 Blood Pressure [Le ft Arm] 149/82 H Blood Pressure [Ri ght Arm] 169/80 H 145/80 H Pulse Oximetry 96 90 93 Oxygen Delivery Me thod Room Air Room Air Room Air 05/02/23 08:55 05/02/23 11:00 Temperature 98.4 F 98.4 F Pulse Rate [Pulse Oximeter] 73 79 Respiratory Rate 20 20 Blood Pressure [Le ft Arm] 162/90 H Blood Pressure [Ri ght Arm] 144/82 H Pulse Oximetry 94 90 Oxygen Delivery Me thod Room Air Room Air Documenting provider has reviewed patient's vital signs: yes Labs Labs: Laboratory Results - last 24 hr 05/02/23 05:47 WBC 8.98 RBC 2.66 L Hgb 8.5 L Hct 25.3 L MCV 95 MCH 32 MCHC 34 RDW Coeff of Bernabe 15.4 Plt Count 281 Neut % (Auto) 78.2 H Lymph % (Auto) 8.7 L [place] % (Auto) 10.8 Eos % (Auto) 1.9 Baso % (Auto) 0.2 Neut # (Auto) 7.00 Lymph # (Auto) 0.80 L [place] # (Auto) 1.00 H Eos # (Auto) 0.17 Baso # (Auto) 0.02 Abs Immat Gran (auto) 0.02 Imm/Tot Granulo (auto) 0.2 Sodium 133 L Potassium 3.6 Chloride 101 Carbon Dioxide 27 Anion Gap 5 L BUN 20 Creatinine 0.6 Estimated Creat Clear 64.82 Estimated GFR 101 Glucose 102 Calcium 8.3 L Total Creatine Kinase 402 H
[2023-05-02] MEDS: SENNOSIDES/DOCUSATE TABLET 2 TAB PO (16:46)
[2023-05-02 20:25] VITALS: BP 165/86; PULSE 75; RESP 17; TEMP 37.7; O2SAT 95
[2023-05-02] MEDS: GABAPENTIN 300 MG CAPSULE PO (20:33)
[2023-05-02 22:30] VITALS: BP 172/86; PULSE 74; RESP 20; TEMP 38.1; O2SAT 92
[2023-05-03] VITALS (8 sets, daily range): BP systolic 126–156; BP diastolic 77–91; PULSE 72–82; RESP 18–20; TEMP 36.6–38; O2SAT 92–96
[2023-05-03] MEDS: ACETAMINOPHEN 325 MG TABLET PO ×2 (00:21→08:07)
--- NOTE | 2023-05-03 06:06 | PC.NURSE ---
Patient pleasant, alert and oriented. Temp of 100.6. Reported felt fine. Tylenol given. Recheck Temp 99.9. Used urinal during night. Aqua K pad applied to back. ?
[2023-05-03] MEDS: FERROUS SULFATE 325 MG TABLET PO (08:08)
[2023-05-03] MEDS: OXYCODONE 5 MG TABLET PO ×3 (08:08→23:57)
[2023-05-03] MEDS: ASPIRIN 81 MG TABLET EC PO (09:07)
[2023-05-03] MEDS: TAMSULOSIN HCL 0.4 MG CAPSULE PO ×2 (09:07→20:04)
[2023-05-03] MEDS: SENNOSIDES/DOCUSATE TABLET 2 TAB PO (09:07)
[2023-05-03] MEDS: AMLODIPINE 5 MG TABLET PO (09:07)
[2023-05-03] MEDS: GABAPENTIN 100 MG CAPSULE PO ×2 (09:07→13:45)
[2023-05-03] MEDS: OMEPRAZOLE 20 MG CAPSULE DR 40 MG PO (09:07)
[2023-05-03] MEDS: LIDOCAINE 5% PATCH 1 PATCH TRANSDERMA (10:24)
--- NOTE | 2023-05-03 10:56 | PM.IMPN1 ---
Progress Note: A&P Assessment and plan (1) Fracture, patella: Problem details: Conservative management with knee immobilizer, WBAT. Pain management to include scheduled Tylenol (checking CMP), lidocaine patch left thigh, p.r.n. oxycodone. PT/OT consults. Therapies believe he would benefit from short-term rehab. SCDs for VTE PPX. Will avoid chemoprophylaxis given history of GI bleed Status: Acute (2) Rhabdomyolysis: Problem details: S/p fall. Mild. CK has trended down. IVF have been discontinued. Status: Acute (3) Weakness: Problem details: Acute on chronic, PT/OT, Director Compliance for discharge planning/placement needs. Status: Acute (4) S/P TAVR (transcatheter aortic valve replacement): Problem details: -Status post successful TAVR with 34 mm evolute pro plus in September 2019 with subsequent moderate to severe paravalvular regurgitation -Status post attempted balloon post dilation with need for valve in valve TAVR in October 2020 -Severe/critical low flow low gradient aortic stenosis status post valve in valve TAVR -Minimal residual gradient with at least moderate if not moderate to severe persistent paravalvular regurgitation -NYHA functional class I to 2 -CCS score 0 -Preserved LV systolic function -last echo 03/07/2022: Normal LV size, severe left ventricular hypertrophy, EF of 60-65%. Functioning 34 mm CoreValve Evolut R bioprosthesis AVR, with no stenosis and moderate to severe regurgitation. - Saw cardiology 09/17/2022, recommended anticoagulation no longer safe, stay off it life long, also not a candidate for any additional percutaneous options. Plan is to discuss open surgical procedure after ECHO in 6 months. Status: Chronic (5) Hypertension: Problem details: Continue amlodipine Status: Chronic Plan Per PT/OT, patient would benefit from senior care facility rehab. Director Compliance assist with discharge planning/placement needs. Time Spent With Patient Total time spent: Total time spent caring for the patient today was 45 minutes. This includes time spent for the visit reviewing the chart, time spent during the visit, time spent after the visit and documentation and planning in coordination of care. Subjective Date Seen: 05/03/23 Interval history: Patient is sitting up in bed this morning, feeling okay. Remains quite concerned how he will be able to care for himself with knee immobilizer in place. Feels quite weak. Tells me his will not be able to support him at home. Pain adequately controlled at rest. Tolerating orals without nausea vomiting. Noted to have a low-grade fever overnight, 100.6?, without new symptomatology. Exam Narrative: Exam Narrative: PHYSICAL EXAM General: Pleasant, very conversant, NAD HEENT: Normocephalic, atraumatic, sclera white, EOMI, oral mucosa moist Cardiovascular: RRR, S1S2. No pitting edema Pulmonary: CTA bilaterally without rhonchi, rales, expiratory wheezes. Mild upper airway noise noted. No dyspnea on room air Abdominal: Soft, nondistended, NTTP Neurological: Alert, answering questions appropriately, cranial nerves intact, no focal findings Extremities: No gross joint deformity or swelling. Immobilizer in place left lower extremity. Neurovascularly intact Skin: Warm, dry. Const: Vital Signs, click to edit/add: Vital Signs - 24 hr 05/02/23 11:00 05/02/23 15:00 05/02/23 20:25 Temperature 98.4 F 99.9 F H Pulse Rate [Pulse Oximeter] 79 72 75 Respiratory Rate 20 18 17 Blood Pressure [Le ft Arm] 165/86 H Blood Pressure [Ri ght Arm] 144/82 H 117/63 Pulse Oximetry 90 93 95 Oxygen Delivery Me thod Room Air Room Air Room Air 05/02/23 22:30 05/03/23 00:21 05/03/23 03:00 Temperature 100.6 F H 100.4 F H 99.9 F H Pulse Rate [Pulse Oximeter] 74 72 Respiratory Rate 20 20 Blood Pressure [Le ft Arm] 172/86 H 152/84 H Blood Pressure [Ri ght Arm] Pulse Oximetry 92 93 Oxygen Delivery Me thod Room Air Room Air 05/03/23 03:35 05/03/23 08:15 Temperature 99.9 F H 97.8 F Pulse Rate [Pulse Oximeter] 81 Respiratory Rate 18 Blood Pressure [Le ft Arm] Blood Pressure [Ri ght Arm] 126/77 Pulse Oximetry 94 Oxygen Delivery Sd thod Room Air
--- NOTE | 2023-05-03 11:33 | PC.SOCIAL ---
Addendum entered by MARIVEL Burgos 05/03/23 16:56: Phone call to pt's to provide update on discharge plans. Pt's expresses her concerns that pt is not calling her and giving her updates. Pt's does not want pt to go to SNF for rehab. Discussed with pt's that SNF for rehab is the current recommendation and pt is in agreement. Pt's was upset and calling pt names such as liar, self-centered, and stupid. Informed pt's if she had any further questions she may reach out to Social work and politely ended the call. Follow up with pt per pt's request. Pt has had a discussion with and states he still would like to go to SNF for rehab as pt is aware that he cannot care for himself at this time. Social work will follow up as needed. Original Note: Discharge planning- Met with pt to discuss discharge plans. Recommendation is short-term rehab at SNF for therapies. Pt agrees as he does not think he can provide care for himself and also does not think his can provide care to him due to her own medical issues. Pt would like to stay in [place], but states if there is no openings he would like to stay as close to [place] as possible. Pt requests that this worker contact pt's this afternoon (after 1:00 pm) to provide her with an update. Contacted the following SNF's for possible placement. 1. [facility]- Phone call to Mariah Ledbetter in admissions. There are no openings this week for a male. 2. [facility]- Phone call to [place] in admissions. There are openings. Secure e-mailed referral. Social work will follow up as needed.
[2023-05-03] MEDS: ACETAMINOPHEN 325 MG TABLET 650 MG PO ×2 (13:45→20:01)
--- NOTE | 2023-05-03 14:31 | PC.NURSE ---
shift note: vss stable. pt afeb. Lt knee in soft l/e splint. PP+ bilat. pt rating neck and knee pain 4-10. Pt medicated with PRN oxycodone with relief. IV patent
[2023-05-03] MEDS: GABAPENTIN 300 MG CAPSULE PO (20:02)
[2023-05-03] MEDS: SODIUM CHLORIDE 0.9 % (FLUSH) 10 ML SYRINGE 5 ML IVF (20:02)
--- NOTE | 2023-05-03 22:48 | PC.NURSE ---
Paitent pleasant and cooperative during the shift. Vitally stable and ambulating to bathroom with assist of 2, GB/walker. Nursing to continue to monitor and prepare for discharge to SNF tomorrow.?
[2023-05-04 02:30] VITALS: BP 144/88; PULSE 76; RESP 16; TEMP 36.8; O2SAT 94
[2023-05-04] MEDS: ACETAMINOPHEN 325 MG TABLET 650 MG PO ×4 (02:30→20:08)
--- NOTE | 2023-05-04 06:09 | PC.NURSE ---
Pt alert and oriented to self and place. Pt reports 6/10 pain in back, neck and left knee, pain managed with PRN and scheduled medications.?Pt?s knee immobilizer is in place. Pt is up A1/2 with walker and gait belt, voiding, and tolerating a soft diet. Pt slept throughout most of night. Night uneventful.??
[2023-05-04 06:20] LABS: Hematocrit 27.7 % (37.0-53.0); Hemoglobin* 9.5 gm/dL (13.5-17.5); Mean Corpuscular HGB Conc 34 gm/dL (32-36); Mean Corpuscular Hemoglobin 32 pg (26-34); Mean Corpuscular Volume 94 fL (80-100); Platelet Count* 310 K/uL (140-440); Red Blood Count 2.96 m/uL (4.30-5.90)
[2023-05-04 06:23] LABS: Slide Review Reflex No
[2023-05-04 06:30] LABS: Chloride* 100 mmol/L (96-114)
[2023-05-04 06:31] LABS: Potassium* 3.9 mmol/L (3.6-5.1); Sodium* 132 mmol/L (135-149)
[2023-05-04 06:33] LABS: Anion Gap 3 mEq/L (7-15); Aspartate Amino Transferase* 33 U/L (12-35); Bilirubin Total* 0.6 mg/dL (0.1-1.5); Carbon Dioxide* 29 mmol/L (20-32); Creatinine* 0.6 mg/dL (0.5-1.5); Est. Creatinine Clearance* 65.31; Estimated Glomerular Filt Rate 101 ml/min; Total Protein* 6.2 g/dL (6.0-8.3)
[2023-05-04 06:34] LABS: Alanine Aminotransferase* 27 U/L (4-50); Alkaline Phosphatase* 104 U/L (40-150); Blood Urea Nitrogen* 20 mg/dL (7-30); Calcium* 8.4 mg/dL (8.4-10.6); Glucose* 98 mg/dL (60-115)
[2023-05-04 08:52] VITALS: BP 127/65; PULSE 74; RESP 16; TEMP 37.1; O2SAT 97
[2023-05-04] MEDS: OMEPRAZOLE 20 MG CAPSULE DR 40 MG PO (08:59)
[2023-05-04] MEDS: AMLODIPINE 5 MG TABLET PO (09:00)
[2023-05-04] MEDS: TAMSULOSIN HCL 0.4 MG CAPSULE PO ×2 (09:00→20:08)
[2023-05-04] MEDS: GABAPENTIN 100 MG CAPSULE PO ×2 (09:00→14:01)
[2023-05-04] MEDS: FERROUS SULFATE 325 MG TABLET PO (09:00)
[2023-05-04] MEDS: SENNOSIDES/DOCUSATE TABLET 2 TAB PO (09:00)
[2023-05-04] MEDS: ASPIRIN 81 MG TABLET EC PO (09:00)
[2023-05-04] MEDS: OXYCODONE 5 MG TABLET PO ×3 (09:00→20:13)
[2023-05-04] MEDS: SODIUM CHLORIDE 0.9 % (FLUSH) 10 ML SYRINGE 5 ML IVF ×2 (09:00→20:09)
--- NOTE | 2023-05-04 09:14 | P.IMPN_ITS ---
Progress Note: A&P Assessment and plan (1) Fracture, patella: Problem details: Conservative management with knee immobilizer, WBAT. Pain management to include scheduled Tylenol (checking CMP), lidocaine patch left thigh, p.r.n. oxycodone. PT/OT consults. Therapies believe he would benefit from short-term rehab. SCDs for VTE PPX. Will avoid chemoprophylaxis given history of GI bleed Status: Acute (2) Rhabdomyolysis: Problem details: S/p fall. Mild. CK has trended down. IVF have been discontinued. 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 for discharge planning/placement needs Status: Acute (4) S/P TAVR (transcatheter aortic valve replacement): Problem details: -Status post successful TAVR with 34 mm evolute pro plus in September 2019 with subsequent moderate to severe paravalvular regurgitation -Status post attempted balloon post dilation with need for valve in valve TAVR in October 2020 -Severe/critical low flow low gradient aortic stenosis status post valve in valve TAVR -Minimal residual gradient with at least moderate if not moderate to severe persistent paravalvular regurgitation -NYHA functional class I to 2 -CCS score 0 -Preserved LV systolic function -last echo 03/07/2022: Normal LV size, severe left ventricular hypertrophy, EF of 60-65%. Functioning 34 mm CoreValve Evolut R bioprosthesis AVR, with no stenosis and moderate to severe regurgitation. - Saw cardiology 09/17/2022, recommended anticoagulation no longer safe, stay off it life long, also not a candidate for any additional percutaneous options. Plan is to discuss open surgical procedure after ECHO in 6 months. Status: Chronic (5) Hypertension: Problem details: Continue amlodipine Status: Chronic Plan Per PT/OT, patient would benefit from longterm facility rehab. [employer] Re[employer] Systems Operator assist with discharge planning/placement needs. Reassessing given patient's current request to return home with assistance of . She will not allow in-home therapies or home assessment. Will need to formulate safe discharge plan. Time Spent With Patient Total time spent: Total time spent caring for the patient today was 45 minutes. This includes time spent for the visit reviewing the chart, time spent during the visit, time spent after the visit and documentation and planning in coordination of care. Subjective Date Seen: 05/04/23 Interval history: Patient is sleeping this morning, easily awakens. Reports feeling okay this morning, pain of left lower extremity slightly better. He has been working with therapy. Plan as of yesterday was to find SNF placement, however according to a conversation between social welfare administrator and patient's , she does not want him placed in short-term rehab. He tells me this morning he thinks he should be able to return home with her assistance though she sleeps until noon daily. He tells me he can manage without her during this period. I let him know we will discuss with the rehab and social welfare administrator team to determine the safest discharge plan for him. Last fever > 24 hours ago. Remains asymptomatic otherwise. No leukocytosis. Exam Narrative: Exam Narrative: PHYSICAL EXAM General: Pleasant, very conversant, NAD HEENT: Normocephalic, atraumatic, sclera white, EOMI, oral mucosa moist Cardiovascular: RRR, S1S2. No pitting edema Pulmonary: CTA bilaterally without rhonchi, rales, expiratory wheezes. Mild upper airway noise noted. No dyspnea on room air Abdominal: Soft, nondistended, NTTP Neurological: Alert, answering questions appropriately, cranial nerves intact, no focal findings Extremities: No gross joint deformity or swelling. Immobilizer in place left lower extremity. Neurovascularly intact Skin: Warm, dry. Const: Vital Signs, click to edit/add: Vital Signs - 24 hr 05/03/23 11:00 05/03/23 15:00 05/03/23 15:00 Temperature 97.8 F 97.8 F Pulse Rate [Pulse Oximeter] 82 76 76 Respiratory Rate 18 18 18 Blood Pressure [Le ft Arm] Blood Pressure [Ri ght Arm] 156/78 H 146/91 H Pulse Oximetry 94 96 Oxygen Delivery Me thod Room Air Room Air 05/03/23 19:00 05/03/23 23:50 05/03/23 23:50 Temperature 99.8 F H 99.7 F H Pulse Rate [Pulse Oximeter] 80 75 Respiratory Rate 18 18 18 Blood Pressure [Le ft Arm] 152/87 H Blood Pressure [Ri ght Arm] 142/79 H Pulse Oximetry 93 92 Oxygen Delivery Me thod Room Air Room Air 05/04/23 02:30 05/04/23 08:52 05/04/23 08:52 Temperature 98.2 F 98.8 F Pulse Rate [Pulse Oximeter] 76 74 74 Respiratory Rate 16 16 16 Blood Pressure [Le ft Arm] 144/88 H 127/65 Blood Pressure [Ri ght Arm] Pulse Oximetry 94 97 Oxygen Delivery Me thod Room Air Room Air Labs Labs: Laboratory Results - last 24 hr 05/04/23 05:54 WBC 8.50 RBC 2.96 L Hgb 9.5 L Hct 27.7 L MCV 94 MCH 32 MCHC 34 Plt Count 310 Sodium 132 L Potassium 3.9 Chloride 100 Carbon Dioxide 29 Anion Gap 3 L BUN 20 Creatinine 0.6 Estimated Creat Clear 65.31 Estimated GFR 101 Glucose 98 Calcium 8.4 Total Bilirubin 0.6 AST 33 ALT 27 Alkaline Phosphatase 104 Total Protein 6.2 Albumin 3.0 L
[2023-05-04 11:00] VITALS: BP 104/60; PULSE 74; RESP 20; TEMP 37.1; O2SAT 97
--- NOTE | 2023-05-04 12:09 | PC.SOCIAL ---
Addendum entered by MARIVEL Burgos 05/04/23 13:01: Follow up visit with pt to confirm pt completed the phone call to appeal hospital discharge. Pt confirms he made the phone call and provides this worker with a Case number from insurance, which is case # [id number]. Original Note: Discharge planning- Received a phone call from Beverly in admissions at the [facility] informing that pt was accepted for admission and they can accept pt today until 2:30 pm. Met with pt and provided information. Pt informs that his friend is no longer able to provide him with a ride due to being sick. Pt states that he does not think his will give him a ride. Provided pt with information on pricing for non-emergency ambulance for transportation. Pt requests this worker to come back and states he will call his and discuss. Returned to pt's room 20 minutes later and pt was on the phone with his . This worker could hear pt's telling pt that the hospital can not throw you out and you can appeal your discharge. Pt ends call with and informs this worker that he understands he needs a rehab stay but has decided to change his mind after speaking with his . Pt refuses to go to SNF and refuses to discharge from the [facility] today. Pt requests information to appeal the hospital discharge. Discussed possible home care services for therapy and pt declines saying that he does not want anyone in the home. Provided pt with medicare rights form and contact information to appeal his discharge. Offered to assist pt with dialing the phone number to appeal discharge but pt declined and states he will call now. Provided update to charge nurse. informs pt that they will plan to discharge pt to home tomorrow morning at 10:00 am and requests pt to talk with his and arrange for a ride. Pt will discuss with his . Social work will follow up as needed.
[2023-05-04] MEDS: LIDOCAINE 5% PATCH 1 PATCH TRANSDERMA (14:38)
[2023-05-04 15:00] VITALS: RESP 20
[2023-05-04 19:00] VITALS: BP 114/70; PULSE 71; RESP 20; TEMP 37.6; O2SAT 94
--- NOTE | 2023-05-04 19:40 | PC.NURSE ---
Nursing Care Hours: [id number] Pt this shift calm and cooperative with cares. C/o pain to left knee /, treated per eMAR. 1 assit with walker and gait belt. VSS. Report given to Farzana GIL
[2023-05-04] MEDS: GABAPENTIN 300 MG CAPSULE PO (20:08)
[2023-05-05] VITALS (7 sets, daily range): BP systolic 112–150; BP diastolic 66–83; PULSE 68–78; RESP 16–20; TEMP 37–37.4; O2SAT 92–96
[2023-05-05] MEDS: OXYCODONE 5 MG TABLET PO ×4 (01:28→23:32)
[2023-05-05] MEDS: ACETAMINOPHEN 325 MG TABLET 650 MG PO ×4 (01:29→20:38)
--- NOTE | 2023-05-05 06:41 | PC.NURSE ---
Pt alert and oriented x3. Afebrile. Pt reports 5/10 pain in back, neck and left knee, pain managed with PRN and scheduled medications.?Pt?s knee immobilizer is on and in place. Pt discontinued IV with catheter intact, updated and gave order to discontinue IV.?Pt had shower and was washed up, tolerated well. Pt is up A1/2 with walker and gait belt, voiding, and tolerating a soft diet. Pt slept intermittently throughout night.??
[2023-05-05 06:45] LABS: Hematocrit 30.5 % (37.0-53.0); Hemoglobin* 10.3 gm/dL (13.5-17.5); Mean Corpuscular HGB Conc 34 gm/dL (32-36); Mean Corpuscular Hemoglobin 32 pg (26-34); Mean Corpuscular Volume 94 fL (80-100); Platelet Count* 355 K/uL (140-440); Red Blood Count 3.23 m/uL (4.30-5.90); White Blood Count* 8.72 K/uL (4.50-11.00)
[2023-05-05 06:46] LABS: Slide Review Reflex No
[2023-05-05 06:58] LABS: Chloride* 97 mmol/L (96-114)
[2023-05-05 06:59] LABS: Potassium* 4.2 mmol/L (3.6-5.1); Sodium* 133 mmol/L (135-149)
[2023-05-05 07:01] LABS: Creatinine* 0.7 mg/dL (0.5-1.5); Est. Creatinine Clearance* 65.07; Estimated Glomerular Filt Rate 97 ml/min
[2023-05-05 07:02] LABS: Anion Gap 7 mEq/L (7-15); Blood Urea Nitrogen* 25 mg/dL (7-30); Calcium* 8.8 mg/dL (8.4-10.6); Carbon Dioxide* 29 mmol/L (20-32); Glucose* 97 mg/dL (60-115)
[2023-05-05] MEDS: AMLODIPINE 5 MG TABLET PO (08:10)
[2023-05-05] MEDS: FERROUS SULFATE 325 MG TABLET PO (08:11)
[2023-05-05] MEDS: GABAPENTIN 100 MG CAPSULE PO ×2 (08:11→12:33)
[2023-05-05] MEDS: TAMSULOSIN HCL 0.4 MG CAPSULE PO ×2 (08:11→20:38)
[2023-05-05] MEDS: ASPIRIN 81 MG TABLET EC PO (08:11)
[2023-05-05] MEDS: OMEPRAZOLE 20 MG CAPSULE DR 40 MG PO (08:13)
--- NOTE | 2023-05-05 09:28 | PC.SOCIAL ---
Met with pt in room to discuss discharge plans. Pt states is going to pick him up downstairs at the [facility] for discharge at 10:00 am since he was told to plan for a discharge this morning. Asked pt if he received the decision of the appeal from his insurance and pt informs he did not. Pt informs he provided insurance with his 's phone number. Asked pt to call and see if she has received the decision for the appeal or has a voicemail from insurance. Informed pt that he should get the appeal decision prior to discharging. Pt informs he will follow up with his .
--- NOTE | 2023-05-05 11:18 | P.IMPN_ITS ---
Progress Note: A&P Assessment and plan (1) Fracture, patella: Problem details: Conservative management with knee immobilizer, WBAT. Pain management to include scheduled Tylenol (checking CMP), lidocaine patch left thigh, p.r.n. oxycodone. PT/OT consults. Therapies believe he would benefit from short-term rehab. SCDs for VTE PPX. Will avoid chemoprophylaxis given history of GI bleed Status: Acute (2) Rhabdomyolysis: Problem details: Resolved S/p fall. Mild. CK has trended down. IVF have been discontinued. 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 05/05: Patient plans to return home with assistance of his . Has refused SNF placement. Also refusing in-home safety evaluation, inpatient or outpatient PT/OT. Status: Acute (4) S/P TAVR (transcatheter aortic valve replacement): Problem details: -Status post successful TAVR with 34 mm evolute pro plus in September 2019 with subsequent moderate to severe paravalvular regurgitation -Status post attempted balloon post dilation with need for valve in valve TAVR in October 2020 -Severe/critical low flow low gradient aortic stenosis status post valve in valve TAVR -Minimal residual gradient with at least moderate if not moderate to severe persistent paravalvular regurgitation -NYHA functional class I to 2 -CCS score 0 -Preserved LV systolic function -last echo 03/07/2022: Normal LV size, severe left ventricular hypertrophy, EF of 60-65%. Functioning 34 mm CoreValve Evolut R bioprosthesis AVR, with no stenosis and moderate to severe regurgitation. - Saw cardiology 09/17/2022, recommended anticoagulation no longer safe, stay off it life long, also not a candidate for any additional percutaneous options. Plan is to discuss open surgical procedure after ECHO in 6 months. Status: Chronic (5) Hypertension: Problem details: Continue amlodipine Status: Chronic (6) Knee effusion, left: Problem details: 05/05: Significant effusion noted today, which was not present to this degree yesterday. Orthopedic surgery consulted for consideration of aspiration. Status: Acute Plan Patient appealed discharge on 05/04, awaiting final decision. Plans to return home with , refusing SNF, in-home safety evaluation, home or outpatient therapies. Medically stable for discharge. Pending orthopedic surgery consult, possible aspiration, which would not delay his discharge. Time Spent With Patient Total time spent: Total time spent caring for the patient today was 60 minutes. This includes time spent for the visit reviewing the chart, time spent during the visit, time spent after the visit and documentation and planning in coordination of care. Subjective Date Seen: 05/05/23 Interval history: Patient continues to improved, feeling better this morning. Left knee is still quite painful. Worked with therapy yesterday and was able to successfully complete a set of stairs, which he will need to be able to do at home. Is participating in hopes of successfully returning home with the assistance of his . No events reported overnight. Exam 2 Narrative: Exam Narrative: PHYSICAL EXAM General: Pleasant, very conversant, NAD HEENT: Normocephalic, atraumatic, sclera white, EOMI, oral mucosa moist Cardiovascular: RRR, S1S2. No pitting edema Pulmonary: CTA bilaterally without rhonchi, rales, expiratory wheezes. Mild upper airway noise noted. No dyspnea on room air Abdominal: Soft, nondistended, NTTP Neurological: Alert, answering questions appropriately, cranial nerves intact, no focal findings Extremities: Immobilizer removed, significant left knee effusion noted. No erythema. Neurovascularly intact Skin: Warm, dry. Const: Vital Signs, click to edit/add: Vital Signs - 24 hr 05/04/23 15:00 05/04/23 19:00 05/05/23 00:00 Temperature 99.6 F Pulse Rate [Pulse Oximeter] 71 Respiratory Rate 20 20 18 Blood Pressure [Le ft Arm] Blood Pressure [Ri ght Arm] 114/70 Pulse Oximetry 94 Oxygen Delivery Me thod Room Air 05/05/23 00:00 05/05/23 01:40 05/05/23 07:00 Temperature 99.2 F 99.2 F 98.6 F Pulse Rate [Pulse Oximeter] 70 70 74 Respiratory Rate 20 18 20 Blood Pressure [Le ft Arm] 150/83 H 142/73 H 113/66 Blood Pressure [Ri ght Arm] Pulse Oximetry 94 94 96 Oxygen Delivery Me thod Room Air Room Air Room Air Labs Labs: Laboratory Results - last 24 hr 05/05/23 06:00 WBC 8.72 RBC 3.23 L Hgb 10.3 L Hct 30.5 L MCV 94 MCH 32 MCHC 34 Plt Count 355 Sodium 133 L Potassium 4.2 Chloride 97 Carbon Dioxide 29 Anion Gap 7 BUN 25 Creatinine 0.7 Estimated Creat Clear 65.07 Estimated GFR 97 Glucose 97 Calcium 8.8
--- NOTE | 2023-05-05 11:29 | PC.SOCIAL ---
Discharge planning: Late entry: At 9:30am, met with pt in room regarding questions about his discharge. Answered pt's questions regarding Medicare discharge appeal. Shared with pt that he will be contacted by Medicare regarding the appeal decision and information on when his financial responsibility starts. At that time, the hospital will also receive a letter with their decision and social organization professor will come back to discuss the outcome of the decision and the discharge plan. Pt is planning to stay at the hospital until the decision on his appeal request is finalized. Pt was on the phone with his when social organization professor arrived for this discussion, patient requested social organization professor speak with . Answered 's questions regarding the appeal process and discharge planning. Pt shared additional concerns regarding the discharge planning process. tray service worker listened to concerns and answered questions and informed of the [facility] Grievance process and where to locate that information on the hospital website. is aware and agrees with pt decision to stay at the hospital until decision is obtained from Medicare on the appeal request. and patient requested this social organization professor assist with discharge planning today. tray service worker to follow up as needed.
--- NOTE | 2023-05-05 13:15 | P.ORCN_ITS ---
History of Present Illness HPI Time Seen by Provider: 12:10 Date Seen: 05/05/23 Consult date: 05/05/23 Requesting physician: Renita Redman Chief complaint: Knee pain Narrative: Isaac is 5 days post left patellar fracture. DOI: 04/30/23. Patient fell while leaving [facility] and landed directly on his left knee. Unsure if he stumbled or fainted. Patient presented to [place] ED the same day where imaging showed an acute patellar fracture. Non-operative management is recommended by Orthopedics. Today, Karl is resting in his bed and c/o severe left knee swelling and pressure. Pain worsens with any slight movement of this left knee. Patient is requesting an aspiration. [facility] Medical History Mass of left ear canal ?H93.8X2 - Other specified disorders of left ear (ICD-10) AAA (abdominal aortic aneurysm) ?I71.40 - Abdominal aortic aneurysm, without rupture, unspecified (ICD-10) Lesion of left ear ?H93.92 - Unspecified disorder of left ear (ICD-10) Exertional dyspnea ?R06.09 - Other forms of dyspnea (ICD-10) GI bleed ?K92.2 - Gastrointestinal hemorrhage, unspecified (ICD-10) ABLA (acute blood loss anemia) ?D62 - Acute posthemorrhagic anemia (ICD-10) Hypertension ?I10 - Essential (primary) hypertension (ICD-10) Neurogenic orthostatic hypotension ?G90.3 - Multi-system degeneration of the autonomic nervous system (ICD-10) Aortic valve stenosis, acquired ?I35.0 - Nonrheumatic aortic (valve) stenosis (ICD-10) AAA (abdominal aortic aneurysm) without rupture ?I71.40 - Abdominal aortic aneurysm, without rupture, unspecified (ICD-10) Lung cancer ?C34.90 - Malignant neoplasm of unspecified part of unspecified bronchus or lung (ICD-10) Paravalvular leak (prosthetic valve) ?T82.03XA - Leakage of heart valve prosthesis, initial encounter (ICD-10) COPD (chronic obstructive pulmonary disease) ?J44.9 - Chronic obstructive pulmonary disease, unspecified (ICD-10) 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, unspecified (ICD-10) Retroperitoneal bleed ?R58 - Hemorrhage, not elsewhere classified (ICD-10) History of GI bleed ?Z87.19 - Personal history of other diseases of the digestive system (ICD-10) Surgical History History of cardiac radiofrequency ablation ?Z98.890 - Other specified postprocedural states (ICD-10) History of arthroscopic knee surgery ?Z98.890 - Other specified postprocedural states (ICD-10) History of splenectomy ?Z90.81 - Acquired absence of spleen (ICD-10) History of right inguinal hernia repair ?Z98.890 - Other specified postprocedural states (ICD-10) ?Z87.19 - Personal history of other diseases of the digestive system (ICD-10) History of lobectomy of lung ?Z90.2 - Acquired absence of lung [part of] (ICD-10) S/P TAVR (transcatheter aortic valve replacement) ?Z95.2 - Presence of prosthetic heart valve (ICD-10) Family History Brother Nasopharyngeal carcinoma Father Diabetes Mother Melanoma Social History Narrative: Patient has remote history of smoking. He lives in [place] with his . She currently has significant health problems as well. He does not drink alcohol. No recreational drug use. What is your current living situation?: I presently have a place to live Problems where you live: no known problems Problems where you live details: n/a In the past 12 months, utilities in danger of being shut off: no In past 12 months, lack of transportation kept you from medical appts, meetings, work, or getting things needed for daily living: no In the past 12 mos, have been you worried that your food would run out before you had money to buy more?: never true In the past 12 mos, the food you bought just didn't last and you didn't have money to buy more?: never true Highest level of school completed/degree received: high school graduate Smoking Status: Former smoker Do you use any of these nicotine containing products: None Second hand tobacco smoke exposure: No How often do you have a drink containing alcohol: never How often do you have six or more drinks on one occasion: Never AUDIT-C Alcohol total score: 0 Non-prescribed substance use: denies use Caffeine: Yes (Coffee) How often does anyone, including family, friends and others, physically hurt you : never How often does anyone, including family, friends and others, insult or talk down to you: never How often does anyone, including family, friends and others, threaten you with harm: never How often does anyone, including family, friends and others, scream or curse at you: never service: Yes Meds Home Medications and Allergies Home Medications Medication Instructions Recorded Confirmed Type gabapentin 100 mg capsule 100 mg PO BID 02/26/22 05/01/23 History gabapentin 300 mg capsule 300 mg PO HS 02/26/22 05/01/23 History pantoprazole 40 mg tablet,delayed 40 mg PO DAILY 02/26/22 05/01/23 History release tamsulosin 0.4 mg capsule 0.4 mg PO BID 08/20/22 05/01/23 History amlodipine 5 mg tablet 5 mg PO DAILY 11/23/22 05/01/23 History aspirin 81 mg tablet,delayed 81 mg PO DAILY 11/23/22 05/01/23 History release Allergies Allergy/AdvReac Type Severity Reaction Status Date / Time No Known Drug Allergies Allergy Verified 11/25/22 07:42 Ortho Exam Narrative Exam Narrative: Patient is alert and oriented x3. No acute distress. Converses with nonlabored breathing. Resting comfortably in bed wearing a knee immobilizer. Left knee exam: No erythema, induration or other cutaneous changes. No ecchymosis. Moderate hemarthrosis effusion. Severe tenderness to light palpation anterior knee. ROM limited and severe pain with any slight movement. Bilateral calves are supple, with no swelling, pain, tenderness, erythema, discoloration or coolness to the touch. Intact distally with 2+ Dorsalis pedis and Posterior Tibial pulses, digits pink, warm with brisk cap refill. Confirmed sensation distally. Const Vital Signs, click to edit/add: Vital Signs - 24 hr 05/04/23 15:00 05/04/23 19:00 05/05/23 00:00 Temperature 99.6 F Pulse Rate [Pulse Oximeter] 71 Respiratory Rate 20 20 18 Blood Pressure [Left Arm] Blood Pressure [Right Arm] 114/70 Pulse Oximetry 94 Oxygen Delivery Method Room Air 05/05/23 00:00 05/05/23 01:40 05/05/23 07:00 Temperature 99.2 F 99.2 F 98.6 F Pulse Rate [Pulse Oximeter] 70 70 74 Respiratory Rate 20 18 20 Blood Pressure [Left Arm] 150/83 H 142/73 H 113/66 Blood Pressure [Right Arm] Pulse Oximetry 94 94 96 Oxygen Delivery Method Room Air Room Air Room Air 05/05/23 11:00 Temperature 98.8 F Pulse Rate [Pulse Oximeter] 75 Respiratory Rate 18 Blood Pressure [Left Arm] 120/66 Blood Pressure [Right Arm] Pulse Oximetry 95 Oxygen Delivery Method Room Air Documenting provider has reviewed patient's vital signs: yes Common normals: no apparent distress, average body habitus, oriented x3 and alert Exam limitations: other limitations (Patient [id number]. ) Neuro Common normals: oriented x3 Sensorium/orientation: alert Results Labs Labs: Laboratory Results - last 48 hr 05/04/23 05/05/23 05:54 06:00 WBC 8.50 8.72 RBC 2.96 L 3.23 L Hgb 9.5 L 10.3 L Hct 27.7 L 30.5 L MCV 94 94 MCH 32 32 MCHC 34 34 Plt Count 310 355 Sodium 132 L 133 L Potassium 3.9 4.2 Chloride 100 97 Carbon Dioxide 29 29 Anion Gap 3 L 7 BUN 20 25 Creatinine 0.6 0.7 Estimated Creat Clear 65.31 65.07 Estimated GFR 101 97 Glucose 98 97 Calcium 8.4 8.8 Total Bilirubin 0.6 AST 33 ALT 27 Alkaline Phosphatase 104 Total Protein 6.2 Albumin 3.0 L Assessment and Plan Assessment and plan (1) Fracture, patella: Problem comment: Conservative management with knee immobilizer, WBAT. Pain management to include scheduled Tylenol (checking CMP), lidocaine patch left thigh, p.r.n. oxycodone. PT/OT consults. Therapies believe he would benefit from short-term rehab. SCDs for VTE PPX. Will avoid chemoprophylaxis given history of GI bleed Status: Acute Assessment and Plan: Isaac has a moderate left knee hemarthrosis that would benefit from an aspiration to improve his left knee pressure and provide some pain relief. However, I explained to Karl that because his injury was 5 days ago this blood/fluid collection may have coagulated and be too thick/jelly-like to aspirate. Karl understands and wishes to attempt aspiration regardless. Risks and benefits were discussed, which include: risk of injection, injury to blood vessel/nerve/tendon, risk of an unsuccessful aspiration, risk of recurrence of left knee swelling/hemarthrosis. Patient stated understanding. The dermis over the left suprapatellar pouch was cleansed with an alcohol wipe and 3cc 1% lidocaine with epinephrine was injected superficially and subcutaneously. After a 5 minute wait, a 20 gauge needle was inserted into the suprapatellar pouch from a lateral approach. 65 mL of bloody fluid was aspirated. This fluid was not thick/coagulated. Aspiration was successful. Patient felt immediate relief and tolerated the procedure well. Band-Aid was applied. Post injection instructions given. May add a tubigrip under the knee immobilizer, to be worn daily, to minimize left knee swelling. Patient will follow-up with Orthopedics in 1 week or following discharge date. Phone Orthopedics with any questions or concerns. [phone]. Total time spent: Total time spent is greater than 50% in coordination of care (as documented) at patient's floor/unit and/or counseling patient: (2) Rhabdomyolysis: Problem comment: Resolved S/p fall. Mild. CK has trended down. IVF have been discontinued. 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 05/05: Patient plans to return home with assistance of his . Has refused SNF placement. Also refusing in-home safety evaluation, inpatient or outpatient PT/OT. Status: Acute Total time spent: Total time spent is greater than 50% in coordination of care (as documented) at patient's floor/unit and/or counseling patient: (4) S/P TAVR (transcatheter aortic valve replacement): Problem comment: -Status post successful TAVR with 34 mm evolute pro plus in September 2019 with subsequent moderate to severe paravalvular regurgitation -Status post attempted balloon post dilation with need for valve in valve TAVR in October 2020 -Severe/critical low flow low gradient aortic stenosis status post valve in valve TAVR -Minimal residual gradient with at least moderate if not moderate to severe persistent paravalvular regurgitation -NYHA functional class I to 2 -CCS score 0 -Preserved LV systolic function -last echo 03/07/2022: Normal LV size, severe left ventricular hypertrophy, EF of 60-65%. Functioning 34 mm CoreValve Evolut R bioprosthesis AVR, with no stenosis and moderate to severe regurgitation. - Saw cardiology 09/17/2022, recommended anticoagulation no longer safe, stay off it life long, also not a candidate for any additional percutaneous options. Plan is to discuss open surgical procedure after ECHO in 6 months. Status: Chronic Total time spent: Total time spent is greater than 50% in coordination of care (as documented) at patient's floor/unit and/or counseling patient: (5) Hypertension: Problem comment: Continue amlodipine Status: Chronic Total time spent: Total time spent is greater than 50% in coordination of care (as documented) at patient's floor/unit and/or counseling patient: (6) Knee effusion, left: Problem comment: 05/05: Significant effusion noted today, which was not present to this degree yesterday. Orthopedic surgery consulted for consideration of aspiration. Status: Acute Total time spent: Total time spent is greater than 50% in coordination of care (as documented) at patient's floor/unit and/or counseling patient:
[2023-05-05] MEDS: GABAPENTIN 300 MG CAPSULE PO (21:03)
--- NOTE | 2023-05-05 22:48 | PC.NURSE ---
Patient alert and awake during the shift. Pain adequately managed with scheduled and PRN pain medication. Noted left knee swelling during the shift- Knee tap performed and able to get out some fluid from knee. Patient reporting to nurse that heard back and appeal was denied. Patient plans to discharge home tomorrow before noon. Nursing to continue to monitor and prepare for discharge.
[2023-05-06] MEDS: ACETAMINOPHEN 325 MG TABLET 650 MG PO ×2 (02:32→08:58)
[2023-05-06 03:00] VITALS: BP 116/72; PULSE 67; RESP 16; TEMP 37.2; O2SAT 95
--- NOTE | 2023-05-06 06:29 | PC.NURSE ---
End of shift report [id number]: Pleasant and cooperative with cares. Pain to left knee well managed with current regimen. Pedal pulses intact bilaterally. Edema to left knee continues, biopsy site free of signs or symptoms of infection.
[2023-05-06 06:37] LABS: Hematocrit 27.4 % (37.0-53.0); Hemoglobin* 9.3 gm/dL (13.5-17.5); Mean Corpuscular HGB Conc 34 gm/dL (32-36); Mean Corpuscular Hemoglobin 32 pg (26-34); Mean Corpuscular Volume 95 fL (80-100); Platelet Count* 380 K/uL (140-440); White Blood Count* 8.89 K/uL (4.50-11.00)
[2023-05-06 06:40] LABS: Slide Review Reflex No
[2023-05-06 06:53] LABS: Chloride* 98 mmol/L (96-114); Sodium* 133 mmol/L (135-149)
[2023-05-06 06:54] LABS: Potassium* 4.4 mmol/L (3.6-5.1)
[2023-05-06 06:56] LABS: Anion Gap 6 mEq/L (7-15); Carbon Dioxide* 29 mmol/L (20-32); Creatinine* 0.7 mg/dL (0.5-1.5); Est. Creatinine Clearance* 64.36; Estimated Glomerular Filt Rate 97 ml/min
[2023-05-06 06:57] LABS: Blood Urea Nitrogen* 23 mg/dL (7-30); Calcium* 8.6 mg/dL (8.4-10.6); Glucose* 97 mg/dL (60-115)
--- NOTE | 2023-05-06 07:45 | PM.DS1 ---
DS: Providers Provider Date Seen: 05/06/23 Date of admission: 04/30/23 23:47 Primary care physician: Justin Branch MD Admitting Clinician: Katie Wakefield MD Consults: 04/30/23 23:35 Consult to Occupational Therapy [CONS] Routine Comment: Reason(s) for OT Consult:: Evaluate and Treat Any Restrictions?:: Unknown Consult to Physical Therapy [CONS] Routine Comment: Reason(s) for PT Consult:: Evaluate and Treat Any Restrictions?:: Unknown 04/30/23 23:46 Consult to Occupational Therapy [CONS] Routine Comment: Reason(s) for OT Consult:: Evaluate and Treat Any Restrictions?:: No Restrictions Consult to Physical Therapy [CONS] Routine Comment: Reason(s) for PT Consult:: Evaluate and Treat Any Restrictions?:: No Restrictions Consult to Choker Setter [CONS] Routine Comment: Reason for Consult:: Discharge Planning Needs 05/02/23 09:25 Consult to Physician [CONS] Routine Comment: Consulting Provider: Mick Bonilla Has provider been notified: Yes 05/05/23 10:36 Consult to Physician [CONS] Routine Comment: Effusion left knee - patellar fracture s/p fall Consulting Provider: Baudilio Ron Has provider been notified: Yes Attending Physician on discharge: DANYELLE Seymour, PA-C [facility] Hospitalist Date of Discharge: 05/06/23 DS: Diagnosis Discharge Diagnosis (1) Fracture, patella: Status: Acute Problem details: Manage conservatively with knee immobilizer, WBAT. Pain management included scheduled Tylenol (checking CMP), lidocaine patch left thigh, p.r.n. oxycodone and encouraged on discharge. PT/OT consulted, recommending benefit from short-term rehab. Patient and eventually declining placement, requesting return to home without in home or outpatient therapies or home safety eval SCDs for VTE PPX. Will avoid chemoprophylaxis given history of GI bleed (2) Rhabdomyolysis: Status: Acute Problem details: Resolved, CK trended, following IV fluids (3) Weakness: Status: Acute Problem details: Acute on chronic. Patient plans to return home with assistance of his . Has refused SNF placement. Also refusing in-home safety evaluation, inpatient or outpatient PT/OT. (4) S/P TAVR (transcatheter aortic valve replacement): Status: Chronic Problem details: -Status post successful TAVR with 34 mm evolute pro plus in September 2019 with subsequent moderate to severe paravalvular regurgitation -Status post attempted balloon post dilation with need for valve in valve TAVR in October 2020 -Severe/critical low flow low gradient aortic stenosis status post valve in valve TAVR -Minimal residual gradient with at least moderate if not moderate to severe persistent paravalvular regurgitation -NYHA functional class I to 2 -CCS score 0 -Preserved LV systolic function -last echo 03/07/2022: Normal LV size, severe left ventricular hypertrophy, EF of 60-65%. Functioning 34 mm CoreValve Evolut R bioprosthesis AVR, with no stenosis and moderate to severe regurgitation. - Saw cardiology 09/17/2022, recommended anticoagulation no longer safe, stay off it life long, also not a candidate for any additional percutaneous options. Plan is to discuss open surgical procedure after ECHO in 6 months. (5) Hypertension: Status: Chronic Problem details: Continued amlodipine (6) Knee effusion, left: Status: Acute Problem details: Significant effusion noted 05/05. Orthopedic surgery consulted, aspiration completed. Pain management as above, including cool compress/ice to area. DS: Summary Hospital Course Hospital Course: [age] year old male past medical history significant for hypertension, aortic valve stenosis, paravalvular leak, history of syncope, exertional dyspnea, right patellar fracture was admitted to the medical floor for further management left patellar fracture following a fall. Course of care and details as noted above. Patient is discharged to home with assistance of his , refusing SNF placement, in home or outpatient PT/OT, or in home safety eval. Continue with knee immobilizer and weight-bearing as tolerated. Will need outpatient follow-up with PCP for ongoing management. Remainder of chronic medical comorbidities were monitored and managed with home medications. Status at Discharge Functional status at discharge: uses cane/walker Overall status at discharge: patient is not back to baseline Time Spent with Patient Time attestation: Total time spent providing and/or coordinating discharge services: Time spent: Greater than 30 minutes Exam Narrative: Exam Narrative: PHYSICAL EXAM General: Pleasant, conversant, NAD Cardiovascular: RRR Pulmonary: No dyspnea Neurological: Alert, answering questions appropriately Skin: Warm, dry. Const: Vital Signs, click to edit/add: Vital Signs - 24 hr 05/05/23 11:00 05/05/23 15:00 05/05/23 15:00 Temperature 98.8 F 99.3 F Pulse Rate [Pulse Oximeter] 75 71 Respiratory Rate 18 16 16 Blood Pressure [Le ft Arm] 120/66 121/69 Pulse Oximetry 95 96 Oxygen Delivery Me thod Room Air Room Air 05/05/23 15:00 05/05/23 19:00 05/05/23 23:00 Temperature 99.1 F 99.3 F Pulse Rate [Pulse Oximeter] 78 71 68 Respiratory Rate 18 16 16 Blood Pressure [Le ft Arm] 112/66 121/69 Pulse Oximetry 92 96 Oxygen Delivery Me thod Room Air Room Air 05/05/23 23:00 05/06/23 03:00 Temperature 99.2 F 98.9 F Pulse Rate [Pulse Oximeter] 68 67 Respiratory Rate 16 16 Blood Pressure [Le ft Arm] 141/79 H 116/72 Pulse Oximetry 95 95 Oxygen Delivery Me thod Room Air Room Air DS: Data Data Completed and Pending Completed studies during hospitalization: Procedures Inspection of Upper Intestinal Tract, Via Natural or Artificial Opening Endoscopic (08/20/22) Introduction of Remdesivir Anti-infective into Peripheral Vein, Percutaneous Approach, [employer] (02/27/22) Transfusion of Nonautologous Red Blood Cells into Peripheral Vein, Percutaneous Approach (09/04/22) Labs on day of discharge: Labs from last 24 hours 05/06/23 05:55 WBC 8.89 RBC 2.90 L Hgb 9.3 L Hct 27.4 L MCV 95 MCH 32 MCHC 34 Plt Count 380 Sodium 133 L Potassium 4.4 Chloride 98 Carbon Dioxide 29 Anion Gap 6 L BUN 23 Creatinine 0.7 Estimated Creat Clear 64.36 Estimated GFR 97 Glucose [address] scan - head: Attestation: I have reviewed the pertinent imaging results. 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 Chronic right frontal infarct. No acute transcortical infarct. No acute hemorrhage. No significant mass effect or midline shift. No cerebral edema or mass lesion appreciated. Ventricles: Unremarkable. Sinuses, orbits, mastoids: Trace mastoid fluid with no acute abnormality appreciated. Calvarium and soft tissues: No acute abnormality appreciated. Impression: Moderate chronic senescent changes and chronic infarcts with no acute abnormality appreciated. Knee x-ray: Attestation: I have reviewed the pertinent imaging results. Radiologist's impression: Indication: Fall, knee pain and swelling Technique: Two views of the left knee Comparison: None Findings: Linear lucency through the patella suspicious for patellar fracture. No additional fracture appreciated. Moderate joint effusion. Moderate tricompartmental degenerative changes. Soft tissue swelling. Vascular calcifications. Impression: Findings suspicious for patellar fracture. Consider sunrise views or CT for further evaluation. CT C-spine: Attestation: I have reviewed the pertinent imaging results. Radiologist's impression: Technique: Noncontrast CT through the cervical spine with multiplanar reformats Comparison: None Findings: Alignment: Nonspecific reversal of the normal cervical lordotic curvature. Mild C3-4 and C5-6 anterolisthesis. Mild leftward curvature. Bones: No acute fracture. No lytic or blastic lesion. Cervical levels: [id number] multilevel degenerative changes with no acute abnormality appreciated. Soft tissues: No acute abnormality appreciated. Impression: No acute abnormality appreciated. CT scan - abdomen: Attestation: I have reviewed the pertinent imaging results. Radiologist's impression: Technique: Postcontrast CT through the abdomen and pelvis following 74 milliliters Isovue 370 IV Comparison: None Findings: Portions of the examination are degraded by respiratory motion artifact. Lower chest: Aortic valve hardware and cardiomegaly no acute abnormality appreciated. Hepatobiliary: Unremarkable. Spleen: Diminutive, unremarkable. Pancreas: No acute abnormality appreciated. Adrenal glands: Unremarkable. Kidneys: No appreciated parenchymal abnormality. No calculi. No hydronephrosis. Bowel: Scattered diverticula. No obstruction. No focal perienteric or pericolonic stranding is appreciated. Vascular: Calcified and noncalcified atherosclerosis. Infrarenal abdominal aortic aneurysm measures 3.8 centimeters. Partially calcified fusiform dilation of the hepatic artery. No acute abnormality appreciated. Iliofemoral ectasia. Lymph nodes: No gross lymphadenopathy. Peritoneum: No free air. No free fluid. : No acute abnormality appreciated. Soft tissues: No acute abnormality appreciated. Bones: Degenerative changes of the spine and pelvis with no acute abnormality appreciated. Impression: Chronic findings as described above with no acute abnormality appreciated. Discharge Plan Discharge Disposition: Home, Self-Care Date of Admission: 04/30/23 23:47 Attending Provider on Discharge: Renita M DeBus Consulting Providers: Mick Bonilla; Baudilio Ron Primary Care Provider: Justin Branch Condition: Improved Anticipated Discharge Date/Time: 05/06/23 11:00 Discharge Medications: New oxycodone 5 mg Tablet 5 mg PO Q4H PRN (Reason: Pain) Qty: 15 0RF sennosides-docusate sodium [Stool Softener-Laxative] 8.6-50 mg Tablet 1 tab PO BID Qty: 30 0RF Continued gabapentin 100 mg capsule 100 mg PO BID gabapentin 300 mg capsule 300 mg PO HS pantoprazole 40 mg tablet,delayed release (DR/EC) 40 mg PO DAILY amlodipine 5 mg tablet 5 mg PO DAILY aspirin 81 mg tablet,delayed release (DR/EC) 81 mg PO DAILY tamsulosin 0.4 mg capsule 0.4 mg PO BID ferrous sulfate 325 mg (65 mg iron) Tablet 325 mg PO DAILYWM Qty: 100 0RF Discharge Orders: Discharge Order (Routine); Ordered 05/06/23 Ordered By: Renita Redman Patient Education: Rhabdomyolysis (GEN), Patellar Fracture (GEN), Swollen Knee Joint (GEN) Additional Instructions: Knee immobilizer. Weight bear as tolerated. Tylenol 4 times daily. Lidocaine patch, over the counter, 12 hours per day. You may use oxycodone as needed for increased pain. Be aware this is a risk for increased falls. Take a stool softener twice daily while taking narcotics. Continue with PT/OT. Activity Level: Weight Bearing as Tolerated and Other Activity Detail: per PT/OT Discharge Diet: Regular Follow Up Appointments: Justin Branch MD [Primary Care Provider] - 05/13/23 (Outpatient follow up rhabdomyolysis, patellar fracture, knee effusion) Forms: [facility] Info Instructions
[2023-05-06 08:15] VITALS: BP 130/73; PULSE 72; RESP 16; TEMP 36.7; O2SAT 98
[2023-05-06] MEDS: FERROUS SULFATE 325 MG TABLET PO (08:57)
[2023-05-06] MEDS: AMLODIPINE 5 MG TABLET PO (08:57)
[2023-05-06] MEDS: OXYCODONE 5 MG TABLET PO (08:57)
[2023-05-06] MEDS: ASPIRIN 81 MG TABLET EC PO (08:57)
[2023-05-06] MEDS: TAMSULOSIN HCL 0.4 MG CAPSULE PO (08:57)
[2023-05-06] MEDS: SENNOSIDES/DOCUSATE TABLET 2 TAB PO (08:58)
[2023-05-06] MEDS: GABAPENTIN 100 MG CAPSULE PO (08:58)
[2023-05-06] MEDS: OMEPRAZOLE 20 MG CAPSULE DR 40 MG PO (08:58)
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
--- NOTE | 2023-05-06 14:47 | PC.APCO ---
Completed MA[facility] report due to self-neglect. Pt refused recommendations of SNF for therapy, home care PT/OT, and/or outpatient. Pt discharged home without a safe discharge plan. MAARC Report #[id number].
--- NOTE | 2023-05-06 15:42 | PC.NURSE ---
PATIENT RECEIVED OXYCODONE AND TYLENOL FOR KNEE PAIN; KNEE IMMOBILIZER TO KNEE. REVIEWED DC INSTRUCTIONS WITH PATIENT AND HE DENIED QUESTIONS OR CONCERNS. PATIENT DC'D HOME VIA .
--- NOTE | 2023-05-07 14:18 | PC.SOCIAL ---
Discharge planning: Received call from [facility] Vulnerable Adult worker, Adeline Cordoba, who states she met with pt and at home today with police present and that pt stated to her that he had made a mistake being discharged home instead of to a [facility]cf and wants to come back to the hospital for placement in a chcf. Pt stated to Adeline that his is unable to provide the care he needs at home. As pt currently has an open Vulnerable adult case with [facility], they will need to be updated on the discharge plan. Called [facility] and spoke with Beverly in admissions who states they can evaluate pt for a bed that may be available on Wednesday. They will not be able to confirm bed availability until Wednesday. During previous admission, pt had requested this placement and had been accepted prior to refusing placement and being discharged home. shake out worker secure emailed information from pt's rprevious admission to [facility] and will follow up by sending new information from this visit when available. shake out worker to follow up as needed.
== END 2023-05-06 11:35 | disposition home or self-care (01) | DRG 563 ==
LOC: ED 16:20 → MEDSURG 22:49
PROVIDERS: Family Medicine; Physician Assistant; Admitting Provider Family Medicine; Emergency Provider Emergency Medicine; PCP Family Medicine; Visit Provider Family Medicine
DX: S82.002A Unspecified fracture of left patella, initial encounter for closed fracture (principal); G90.3 Multi-system degeneration of the autonomic nervous system; M62.82 Rhabdomyolysis; W18.30XA Fall on same level, unspecified, initial encounter; Y93.01 Activity, walking, marching and hiking; I71.40 Abdominal aortic aneurysm, without rupture, unspecified; I10 Essential (primary) hypertension; I35.0 Nonrheumatic aortic (valve) stenosis; Z85.118 Personal history of other malignant neoplasm of bronchus and lung; Z85.818 Personal history of malignant neoplasm of other sites of lip, oral cavity, and pharynx; J44.9 Chronic obstructive pulmonary disease, unspecified; Z87.19 Personal history of other diseases of the digestive system; Z95.2 Presence of prosthetic heart valve; Z90.2 Acquired absence of lung [part of]; Z90.81 Acquired absence of spleen; M25.462 Effusion, left knee; R53.1 Weakness; Z87.891 Personal history of nicotine dependence
CPT/HCPCS: 36415; 70450; 72125; 73560; 74177; 80048; 80053; 81001; 82550; 83605; 85025; 85027; 87086; 93005; 97116; 97161; 97165; 97530; 97535; 99285; A9270; J1170; J2405; J3010; J7030; J7120; Q9967

== ENCOUNTER 2023-05-07 13:02 | Outpatient (CLI) | payer MEDICARE, BC, SELFPAY | END 2023-05-07 13:03 | disposition home or self-care (01) | LOC: AMB 05-19 12:19 | PROVIDERS: PCP Family Medicine; Visit Provider Emergency Medicine | DX: R53.1 Weakness (principal); M79.605 Pain in left leg | CPT/HCPCS: A0425; A0427 ==

== ENCOUNTER 2023-05-07 13:37 | Inpatient (IN) | payer MEDICARE, BC, SELFPAY ==
[2023-05-07 13:49] VITALS: BP 111/63; PULSE 88; RESP 16; TEMP 36.9; O2SAT 97; BMI 21.4
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
[2023-05-07 17:29] VITALS: BP 156/80; RESP 16; TEMP 36.9; O2SAT 91; BMI 21.8
--- NOTE | 2023-05-07 17:41 | PM.IMHP1 ---
Hospitalist- H&P: HPI History of Present Illness Date Seen: 05/07/23 Chief complaint: Knee pain Narrative: Isaac Clay is a 73 year old man sustained a right patellar fracture on 04/30/2023 following a fall. Was admitted to the hospital on this same day and then discharged yesterday, 05/06/2023, to his home. The recommendation from the patient's hospital team was for him to be discharged to a transitional care unit for ongoing rehabilitation and strengthening. He initially agreed to this. In time his convinced him that he should return home and that they would be able to care for him in the home. Thus on date of discharge he changed his mind and he was discharged home, knowing full well that the recommendation was that he be discharged to transitional care unit for ongoing rehabilitation and strengthening. Additionally, per his 's insistence, he also refused in-home or outpatient Physical or Occupational therapy, and in-home safety evaluation. Our family welfare social work professor staff made out a vulnerable adult report to the [facility] for ongoing monitoring and support. Since having been discharged from the hospital the patient states his has not helped him much at all. She brought him 1 meal only the entire time he has been home since discharge from the hospital yesterday. She has not helped him administer his medications or even with going to the bathroom. He forced himself over an extended period of time to eventually get to the bathroom and eventually get back to his bed, despite pain not being controlled. Denies any additional trauma or injury since being home. Patient tells me that the [facility] family welfare social work professor presented to his home today to assess him and his status. His refused to allow them to enter, raising her voice and accusing them of various things. [facility] thus departed and returned later with police accompaniment. Patient tells me that his again refused to allow them to enter, again hollering and cussing and accusing them of various things, however they eventually entered his home. He is in the downstairs of the home. His and his in the up stairs of the home. Patient reportedly told them his pain was not well-controlled, he was not able to care for himself, he did not feel safe in his home, changed his mind and would like to go to a rehabilitation facility, and thus an ambulance was summoned and picked him up and brought him back to the hospital for assessment despite his 's verbally violent opposition. In the emergency department today he was not found to have any additional injury. Was found to have pain that was not being adequately controlled. Our family welfare social work professor staff has been involved with the patient since his arrival to the emergency department. Our family welfare social work professor staff essentially confirm the patient's version of what transpired today. Patient indicates he has not had any analgesics medications today. He indicates he is hungry and thirsty. Tells me he has not had but 1 meal since he has been back in his home yesterday, which his brought for him. He is not able to get up and move about to care for himself safely. He is fearful of falling because of the pain and weakness. Has not had a bowel movement in several days, but again tells me that he has not had much to eat at all for the past day. Review of Systems Status of ROS: Reports: 10 or more systems reviewed and unremarkable except as noted in History and below Narrative: His biggest concern is the generalize sense of weakness and pain. He wonders if we could help administer his analgesics and get him something to eat. The pain has been limiting his ability to do much at all to care for himself. His has not been around to help him take his medications. He tells me he has not had any of his medications yet today. Remainder review of systems is unremarkable except as noted in the history of present illness section above. [facility] Medical History Mass of left ear canal ?H93.8X2 - Other specified disorders of left ear (ICD-10) AAA (abdominal aortic aneurysm) ?I71.40 - Abdominal aortic aneurysm, without rupture, unspecified (ICD-10) Lesion of left ear ?H93.92 - Unspecified disorder of left ear (ICD-10) Exertional dyspnea ?R06.09 - Other forms of dyspnea (ICD-10) GI bleed ?K92.2 - Gastrointestinal hemorrhage, unspecified (ICD-10) ABLA (acute blood loss anemia) ?D62 - Acute posthemorrhagic anemia (ICD-10) Hypertension ?I10 - Essential (primary) hypertension (ICD-10) Neurogenic orthostatic hypotension ?G90.3 - Multi-system degeneration of the autonomic nervous system (ICD-10) Aortic valve stenosis, acquired ?I35.0 - Nonrheumatic aortic (valve) stenosis (ICD-10) AAA (abdominal aortic aneurysm) without rupture ?I71.40 - Abdominal aortic aneurysm, without rupture, unspecified (ICD-10) Lung cancer ?C34.90 - Malignant neoplasm of unspecified part of unspecified bronchus or lung (ICD-10) Paravalvular leak (prosthetic valve) ?T82.03XA - Leakage of heart valve prosthesis, initial encounter (ICD-10) COPD (chronic obstructive pulmonary disease) ?J44.9 - Chronic obstructive pulmonary disease, unspecified (ICD-10) 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, unspecified (ICD-10) Retroperitoneal bleed ?R58 - Hemorrhage, not elsewhere classified (ICD-10) History of GI bleed ?Z87.19 - Personal history of other diseases of the digestive system (ICD-10) Surgical History History of cardiac radiofrequency ablation ?Z98.890 - Other specified postprocedural states (ICD-10) History of arthroscopic knee surgery ?Z98.890 - Other specified postprocedural states (ICD-10) History of splenectomy ?Z90.81 - Acquired absence of spleen (ICD-10) History of right inguinal hernia repair ?Z98.890 - Other specified postprocedural states (ICD-10) ?Z87.19 - Personal history of other diseases of the digestive system (ICD-10) History of lobectomy of lung ?Z90.2 - Acquired absence of lung [part of] (ICD-10) S/P TAVR (transcatheter aortic valve replacement) ?Z95.2 - Presence of prosthetic heart valve (ICD-10) Family History Brother Nasopharyngeal carcinoma Father Diabetes Mother Melanoma Social History Narrative: Patient has remote history of smoking. He lives in [place] with his . She currently has significant health problems as well. He does not drink alcohol. No recreational drug use. What is your current living situation?: I presently have a place to live Problems where you live: no known problems Problems where you live details: n/a In the past 12 months, utilities in danger of being shut off: no In past 12 months, lack of transportation kept you from medical appts, meetings, work, or getting things needed for daily living: no In the past 12 mos, have been you worried that your food would run out before you had money to buy more?: never true In the past 12 mos, the food you bought just didn't last and you didn't have money to buy more?: never true Highest level of school completed/degree received: high school graduate Smoking Status: Former smoker Do you use any of these nicotine containing products: None Second hand tobacco smoke exposure: No How often do you have a drink containing alcohol: never How often do you have six or more drinks on one occasion: Never AUDIT-C Alcohol total score: 0 Non-prescribed substance use: denies use Caffeine: Yes (Coffee) How often does anyone, including family, friends and others, physically hurt you: never How often does anyone, including family, friends and others, insult or talk down to you: never How often does anyone, including family, friends and others, threaten you with harm: never How often does anyone, including family, friends and others, scream or curse at you: never service: Yes Meds Home Medications and Allergies Home Medications Medication Instructions Recorded Confirmed Type gabapentin 100 mg capsule 100 mg PO BID 02/26/22 05/07/23 History gabapentin 300 mg capsule 300 mg PO HS 02/26/22 05/07/23 History pantoprazole 40 mg tablet,delayed 40 mg PO BID 02/26/22 05/07/23 History release tamsulosin 0.4 mg capsule 0.4 mg PO BID 08/20/22 05/07/23 History amlodipine 5 mg tablet 5 mg PO DAILY 11/23/22 05/07/23 History aspirin 81 mg tablet,delayed 81 mg PO DAILY 11/23/22 05/07/23 History release Home Medication Comments: He has an order for oxycodone 5 mg q.4 hours as needed. He tells me he has not taken any of his medications at all today due to not being able to get to his medicines because of the pain. He tells me his is not help him take his medications. Allergies Allergy/AdvReac Type Severity Reaction Status Date / Time No Known Drug Allergies Allergy Verified 05/07/23 13:52 Exam Narrative: Exam Narrative: I examined patient in the hospital room. He is sitting in the chair at his bedside. Appears relatively comfortable with pillows and blankets supporting him. Very hard of hearing, not new. Vision is adequate. Appears anxious and afraid. As he tells me a story of how he ended up here today, he eventually tears up, states he is glad he is back at the hospital, that he knew as soon as he return home that his was not going to help him, but he thought it was too late. He states he is grateful for the family welfare social work professor staff stopping by his house to check on him. He was afraid he would not be able to continue to care for himself in his home at this time. Alert, oriented to self, place, time, situation. Cooperative, friendly. Able to make his needs and wants known. Able to engage in meaningful conversation. Neck is supple. Midline trachea. No JVD or hepatojugular reflux. No carotid bruits. Lungs are clear to auscultation. No wheezing, rhonchi, or rales. No CVA tenderness. Heart tones with regular rhythm. Murmur unchanged. No gallop or rub. Abdomen is thin with active bowel sounds, soft, nontender. Right knee is swollen. Knee immobilizer in place. No new injuries. Skin intact. No focal motor neurologic deficits. Took 2 nurses to assist with transferring patient from wheelchair to chair at bedside when he arrived to the floor. Const: Vital Signs, click to edit/add: Vital Signs - 24 hr 05/07/23 13:49 Temperature 98.4 F Pulse Rate [Right Pulse Oximeter] 88 Respiratory Rate 16 Blood Pressure [Ri ght Upper Arm] 111/63 Pulse Oximetry 97 Oxygen Delivery Me thod Room Air Documenting provider has reviewed patient's vital signs: yes Assessment and Plan Assessment and plan (1) Right knee pain: Problem comment: - unable to manage pain in his home alone, not supporting Status: Acute (2) Fracture, patella: Problem comment: Manage conservatively with knee immobilizer, WBAT. Pain management included scheduled Tylenol (checking CMP), lidocaine patch left thigh, p.r.n. oxycodone and encouraged on discharge. PT/OT consulted, recommending benefit from short-term rehab. Patient and eventually declining placement, requesting return to home without in home or outpatient therapies or home safety eval SCDs for VTE PPX. Will avoid chemoprophylaxis given history of GI bleed Status: Acute (3) Weakness: Problem comment: Acute on chronic. He returned home on 05/06/2023 thinking that he might actually get help from his . He refused SNF placement yesterday and at his 's insistence also refused in-home safety evaluation, inpatient or outpatient PT/OT. Realizes he needs TCU support now. Check labs. Status: Acute (4) Chronic anemia: Problem comment: - history of acute blood loss anemia due to gastrointestinal bleeding - off of anti-thrombotics and anticoagulants at this time - baseline hemoglobin around 9.5 Status: Acute (5) Safety awareness deficit: Problem comment: - he acknowledges that he made a poor decision about going to his home rather than a transitional care unit when he left the hospital yesterday Status: Acute (6) Environmental safety problem: Problem comment: - patient tells me it is unsafe for him to be in his home because of his condition and the lack of support from his , but also from her angry outbursts Status: Acute Plan 1. Readmit for observation, due to unavailability of TCU bed on admission 2. PT/OT/SS consult 3. Continue with supportive cares 4. [place] his request for DNR/ DNI
[2023-05-07] MEDS: polyethylene glycoL 3350 17 GM PACK PO (19:05)
[2023-05-07] MEDS: OXYCODONE 5 MG TABLET PO (19:07)
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
[2023-05-07 20:00] VITALS: BP 116/65; RESP 18; TEMP 36.7; O2SAT 94
[2023-05-07] MEDS: TAMSULOSIN HCL 0.4 MG CAPSULE PO (20:12)
[2023-05-07] MEDS: SENNOSIDES/DOCUSATE TABLET 1 TAB PO (20:12)
[2023-05-07] MEDS: OMEPRAZOLE 20 MG CAPSULE DR 40 MG PO (20:12)
[2023-05-07] MEDS: ACETAMINOPHEN 325 MG TABLET 650 MG PO (20:12)
[2023-05-07] MEDS: GABAPENTIN 300 MG CAPSULE PO (20:12)
[2023-05-07] MEDS: SODIUM CHLORIDE 0.9 % (FLUSH) 10 ML SYRINGE 5 ML IVF (20:13)
[2023-05-07 23:00] VITALS: BP 106/55; RESP 18; O2SAT 94; O2SAT 96
[2023-05-08] VITALS (7 sets, daily range): BP systolic 109–132; BP diastolic 63–78; PULSE 65–78; RESP 16–18; TEMP 36.6–37.2; O2SAT 91–98
[2023-05-08] MEDS: OMEPRAZOLE 20 MG CAPSULE DR 40 MG PO ×2 (06:02→21:00)
[2023-05-08] MEDS: OXYCODONE 5 MG TABLET PO ×2 (06:03→19:44)
--- NOTE | 2023-05-08 06:44 | PC.NURSE ---
pleasant and cooperative. calls appropriately. uses urinal at bedside. c/o pain in neck, back, and left knee - prn oxy given.
[2023-05-08 07:13] LABS: Lactate* 0.7 mmol/L (0.5-1.9)
[2023-05-08 07:20] LABS: Hematocrit 28.5 % (37.0-53.0); Hemoglobin* 9.5 gm/dL (13.5-17.5); Mean Corpuscular HGB Conc 33 gm/dL (32-36); Mean Corpuscular Hemoglobin 31 pg (26-34); Mean Corpuscular Volume 94 fL (80-100); Platelet Count* 442 K/uL (140-440); Red Blood Count 3.03 m/uL (4.30-5.90); White Blood Count* 8.06 K/uL (4.50-11.00)
[2023-05-08 07:26] LABS: Slide Review Reflex No
[2023-05-08 07:42] LABS: Chloride* 97 mmol/L (96-114); Sodium* 131 mmol/L (135-149)
[2023-05-08 07:43] LABS: Potassium* 4.6 mmol/L (3.6-5.1)
[2023-05-08 07:45] LABS: Creatine Kinase* 31 U/L (54-186); Creatinine* 0.6 mg/dL (0.5-1.5); Est. Creatinine Clearance* 61.62; Estimated Glomerular Filt Rate 101 ml/min
[2023-05-08 07:46] LABS: Anion Gap 4 mEq/L (7-15); Blood Urea Nitrogen* 29 mg/dL (7-30); Calcium* 8.4 mg/dL (8.4-10.6); Carbon Dioxide* 30 mmol/L (20-32); Glucose* 100 mg/dL (60-115); Magnesium* 2.3 mg/dL (1.5-2.6); Phosphorus* 4.2 mg/dL (2.5-4.5)
[2023-05-08 08:11] LABS: C Reactive Protein* 20.3 mg/dL (0.5-1.0)
[2023-05-08] MEDS: SENNOSIDES/DOCUSATE TABLET 1 TAB PO ×2 (09:50→20:59)
[2023-05-08] MEDS: GABAPENTIN 100 MG CAPSULE PO ×2 (09:50→14:01)
[2023-05-08] MEDS: ACETAMINOPHEN 325 MG TABLET 650 MG PO ×4 (09:50→20:59)
[2023-05-08] MEDS: AMLODIPINE 5 MG TABLET PO (09:50)
[2023-05-08] MEDS: ASPIRIN 81 MG TABLET EC PO (09:50)
[2023-05-08] MEDS: FERROUS SULFATE 325 MG TABLET PO (09:50)
[2023-05-08] MEDS: TAMSULOSIN HCL 0.4 MG CAPSULE PO ×2 (09:51→20:59)
[2023-05-08] MEDS: SODIUM CHLORIDE 0.9 % (FLUSH) 10 ML SYRINGE 5 ML IVF ×2 (09:51→21:00)
[2023-05-08] MEDS: polyethylene glycoL 3350 17 GM PACK PO (09:51)
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
[2023-05-08] MEDS: LIDOCAINE 5% PATCH 1 PATCH TRANSDERMA (11:01)
[2023-05-08] MEDS: CELECOXIB 200 MG CAPSULE PO (11:03)
[2023-05-08] MEDS: SODIUM CHLORIDE 1 GM TABLET PO ×2 (11:58→18:05)
--- NOTE | 2023-05-08 18:53 | PC.NURSE ---
Pt alert and oriented with some confusion in AM. Pt is assist of one with gait belt and walker. Pt has knee imbolizer on with movement. Pt walked in hallways x 3 during shift. Pt had complaints of pain ranging from 0-5. Pt awaiting placement. VSS.
[2023-05-08] MEDS: GABAPENTIN 300 MG CAPSULE PO (20:59)
[2023-05-09] VITALS (7 sets, daily range): BP systolic 100–151; BP diastolic 51–84; PULSE 64–80; RESP 16–18; TEMP 36.9–37.6; O2SAT 92–95
[2023-05-09] MEDS: OMEPRAZOLE 20 MG CAPSULE DR 40 MG PO ×2 (06:02→20:30)
[2023-05-09 06:47] LABS: Chloride* 99 mmol/L (96-114); Potassium* 4.2 mmol/L (3.6-5.1); Sodium* 132 mmol/L (135-149)
--- NOTE | 2023-05-09 06:49 | PC.NURSE ---
End of shift [id number]: A&O, pleasant and cooperative. VSS w/ sats >90% on RA. Reports pain in left knee and back 5/10. See eMAR for intervention. Pt otherwise states pain is tolerable and declines further interventions. A1 w/ walker and gait belt to bathroom. Knee immobilizer on while up. Uses call light appropriately.
[2023-05-09 06:50] LABS: Anion Gap 6 mEq/L (7-15); Blood Urea Nitrogen* 26 mg/dL (7-30); Carbon Dioxide* 27 mmol/L (20-32); Creatinine* 0.6 mg/dL (0.5-1.5); Est. Creatinine Clearance* 62.81; Estimated Glomerular Filt Rate 101 ml/min
[2023-05-09 06:51] LABS: Calcium* 8.6 mg/dL (8.4-10.6); Glucose* 105 mg/dL (60-115)
[2023-05-09 07:10] LABS: C Reactive Protein* 14.2 mg/dL (0.5-1.0)
[2023-05-09] MEDS: FERROUS SULFATE 325 MG TABLET PO (08:35)
[2023-05-09] MEDS: ASPIRIN 81 MG TABLET EC PO (08:35)
[2023-05-09] MEDS: TAMSULOSIN HCL 0.4 MG CAPSULE PO ×2 (08:35→20:29)
[2023-05-09] MEDS: GABAPENTIN 100 MG CAPSULE PO ×2 (08:35→14:06)
[2023-05-09] MEDS: SODIUM CHLORIDE 1 GM TABLET PO ×3 (08:35→18:02)
[2023-05-09] MEDS: SENNOSIDES/DOCUSATE TABLET 1 TAB PO ×2 (08:35→20:30)
[2023-05-09] MEDS: ACETAMINOPHEN 325 MG TABLET 650 MG PO ×4 (08:35→20:29)
[2023-05-09] MEDS: SODIUM CHLORIDE 0.9 % (FLUSH) 10 ML SYRINGE 5 ML IVF ×2 (08:36→20:30)
[2023-05-09] MEDS: OXYCODONE 5 MG TABLET PO ×2 (08:36→19:24)
[2023-05-09] MEDS: polyethylene glycoL 3350 17 GM PACK PO (08:36)
[2023-05-09] MEDS: LIDOCAINE 5% PATCH 1 PATCH TRANSDERMA (08:37)
[2023-05-09] MEDS: CELECOXIB 200 MG CAPSULE PO (08:37)
[2023-05-09] MEDS: AMLODIPINE 5 MG TABLET PO (08:40)
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
--- NOTE | 2023-05-09 18:15 | PC.NURSE ---
end of shift. pt has been alert and pleasant. Pt had complaints of pain ranging from 0-5. he is getting po pain meds. Pt is assist of one with gait belt and walker. Pt has knee immobilizer on with movement. Pt walked in hallways x 2 during shift.SL is patent. VSS. Lidoderm patch to lower back
[2023-05-09] MEDS: GABAPENTIN 300 MG CAPSULE PO (20:29)
[2023-05-10 02:46] VITALS: PULSE 67; RESP 16; TEMP 36.9; O2SAT 90
[2023-05-10] MEDS: OXYCODONE 5 MG TABLET PO (05:55)
[2023-05-10] MEDS: OMEPRAZOLE 20 MG CAPSULE DR 40 MG PO ×2 (05:56→20:28)
--- NOTE | 2023-05-10 06:39 | PC.NURSE ---
End of shift [id number]: A&O, pleasant and cooperative. VSS w/ sats >90% on RA. Reports pain in left knee and back 5/10. See eMAR for intervention. Ice pack to left knee. Pt otherwise states pain is tolerable and declines further interventions.?A1 w/ walker and gait belt to bathroom. Knee immobilizer on while up. Using IS at bedside. Uses call light appropriately.
[2023-05-10 06:46] LABS: Hemoglobin* 9.5 gm/dL (13.5-17.5)
[2023-05-10 06:52] LABS: Chloride* 99 mmol/L (96-114); Potassium* 4.4 mmol/L (3.6-5.1); Sodium* 133 mmol/L (135-149)
[2023-05-10 06:55] LABS: Anion Gap 5 mEq/L (7-15); Blood Urea Nitrogen* 24 mg/dL (7-30); Carbon Dioxide* 29 mmol/L (20-32); Creatinine* 0.6 mg/dL (0.5-1.5); Est. Creatinine Clearance* 57.93; Estimated Glomerular Filt Rate 101 ml/min
[2023-05-10 06:56] LABS: Calcium* 8.8 mg/dL (8.4-10.6); Glucose* 94 mg/dL (60-115)
[2023-05-10 07:13] LABS: C Reactive Protein* 17.2 mg/dL (0.5-1.0)
[2023-05-10 07:45] VITALS: BP 104/68; PULSE 89; RESP 16; RESP 20; TEMP 37; O2SAT 95
[2023-05-10] MEDS: LIDOCAINE 5% PATCH 1 PATCH TRANSDERMA (08:20)
[2023-05-10] MEDS: GABAPENTIN 100 MG CAPSULE PO ×2 (08:21→13:34)
[2023-05-10] MEDS: AMLODIPINE 5 MG TABLET PO (08:21)
[2023-05-10] MEDS: polyethylene glycoL 3350 17 GM PACK PO (08:21)
[2023-05-10] MEDS: ASPIRIN 81 MG TABLET EC PO (08:21)
[2023-05-10] MEDS: FERROUS SULFATE 325 MG TABLET PO (08:21)
[2023-05-10] MEDS: SENNOSIDES/DOCUSATE TABLET 1 TAB PO ×2 (08:21→20:29)
[2023-05-10] MEDS: CELECOXIB 200 MG CAPSULE PO (08:21)
[2023-05-10] MEDS: ACETAMINOPHEN 325 MG TABLET 650 MG PO ×4 (08:22→20:28)
[2023-05-10] MEDS: SODIUM CHLORIDE 1 GM TABLET PO ×3 (08:22→17:41)
[2023-05-10] MEDS: TAMSULOSIN HCL 0.4 MG CAPSULE PO ×2 (08:23→20:29)
[2023-05-10] MEDS: SODIUM CHLORIDE 0.9 % (FLUSH) 10 ML SYRINGE 5 ML IVF ×2 (10:47→20:31)
[2023-05-10 11:00] VITALS: BP 136/72; PULSE 74; RESP 18; TEMP 37.3; O2SAT 96
--- NOTE | 2023-05-10 11:05 | PM.IMPN1 ---
Progress Note: A&P Assessment and plan (1) Fracture, patella: Problem details: DOI 04/30/23 Manage conservatively with knee immobilizer, WBAT. Tylenol, Oxy, gabapentin, Celebrex (on PPI), Lidoderm patch SCDs for VTE PPX. Will avoid chemoprophylaxis given history of GI bleed PT/OT Status: Acute (2) Hyponatremia: Problem details: Acute on chronic. Salt tabs. 2000 mL fluid restriction. Trend. Status: Acute (3) Weakness: Problem details: Acute on chronic. He returned home on 05/06/2023 thinking that he might actually get help from his . He refused SNF placement yesterday and at his 's insistence also refused in-home safety evaluation, inpatient or outpatient PT/OT. Realizes he needs TCU support now. account services coordinator assisting with placement. Status: Acute (4) Chronic anemia: Problem details: - history of acute blood loss anemia due to gastrointestinal bleeding - off of anti-thrombotics and anticoagulants at this time - baseline hemoglobin around 9.5, stable Status: Acute (5) Environmental safety problem: Problem details: - patient tells me it is unsafe for him to be in his home because of his condition and the lack of support from his , but also from her angry outbursts - Vulnerable adult previously filed by [facility] score today last week Status: Acute (6) Hypertension: Problem details: - Continue amlodipine Status: Chronic Plan Awaiting placement, safe transportation to be determined Time Spent With Patient Total time spent: Total time spent caring for the patient today was 45 minutes. This includes time spent for the visit reviewing the chart, time spent during the visit, time spent after the visit and documentation and planning in coordination of care. Subjective Date Seen: 05/10/23 Interval history: Patient is seen sitting up in a chair this morning. Reports left lower extremity pain adequately managed, improving. Denies headache or dizziness. Denies chest pain or shortness of breath. Tolerating orals without nausea vomiting. Awaiting placement. Has requested his transport him from the hospital to SNF. Tells me his friend is ill and cannot take him. account services coordinator is aware of this. Exam Narrative: Exam Narrative: PHYSICAL EXAM General: Pleasant, conversant, NAD HEENT: Normocephalic, atraumatic, sclera white, EOMI, oral mucosa moist Cardiovascular: RRR, S1S2. No pitting edema Pulmonary: CTA bilaterally without rhonchi, rales, expiratory wheezes. No dyspnea Neurological: Alert, answering questions appropriately, cranial nerves intact, no focal findings Extremities: Knee immobilizer in place. Neurovascularly intact Skin: Warm, dry. Const: Vital Signs, click to edit/add: Vital Signs - 24 hr 05/09/23 11:15 05/09/23 15:30 05/09/23 15:30 Temperature 98.7 F 98.4 F Pulse Rate [Pulse Oximeter] 73 64 Respiratory Rate 18 18 18 Blood Pressure [Le ft Arm] 135/78 100/51 L Pulse Oximetry 94 94 94 Oxygen Delivery Me thod Room Air Room Air Room Air 05/09/23 15:30 05/09/23 19:19 05/09/23 23:15 Temperature 98.9 F 98.5 F Pulse Rate [Pulse Oximeter] 64 74 69 Respiratory Rate 18 18 16 Blood Pressure [Le ft Arm] 140/78 H 140/80 H Pulse Oximetry 95 93 Oxygen Delivery Va thod Room Air Room Air 05/09/23 23:16 05/10/23 02:46 05/10/23 07:45 Temperature 98.5 F Pulse Rate [Pulse Oximeter] 67 89 Respiratory Rate 16 16 20 Blood Pressure [Le ft Arm] Pulse Oximetry 90 Oxygen Delivery Va thod Room Air Room Air 05/10/23 07:45 05/10/23 07:45 Temperature 98.6 F Pulse Rate [Pulse Oximeter] 89 Respiratory Rate 16 20 Blood Pressure [Le ft Arm] 104/68 Pulse Oximetry 95 95 Oxygen Delivery Va thod Room Air Room Air Labs Labs: Laboratory Results - last 24 hr 05/10/23 05:47 Hgb 9.5 L Sodium 133 L Potassium 4.4 Chloride 99 Carbon Dioxide 29 Anion Gap 5 L BUN 24 Creatinine 0.6 Estimated Creat Clear 57.93 Estimated GFR 101 Glucose 94 Calcium 8.8 C-Reactive Protein 17.2 H
[2023-05-10 15:00] VITALS: BP 156/82; PULSE 60; PULSE 74; RESP 18; TEMP 36.9; O2SAT 97
--- NOTE | 2023-05-10 17:03 | PC.SOCIAL ---
Discharge planning: Met with pt who is apologetic for refusing a rehab placement before he went home last visit. He is requesting placement in [place] at [facility]. Faxed information and awaiting call back with decision on admit. 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
[2023-05-10 19:00] VITALS: BP 135/82; PULSE 72; RESP 16; TEMP 37.2; O2SAT 95
[2023-05-10] MEDS: GABAPENTIN 300 MG CAPSULE PO (20:29)
[2023-05-10 23:00] VITALS: BP 129/82; PULSE 79; RESP 16; TEMP 37.2; O2SAT 93
[2023-05-11] MEDS: OXYCODONE 5 MG TABLET PO ×2 (01:10→11:28)
[2023-05-11 03:00] VITALS: BP 108/69; PULSE 75; RESP 18; TEMP 37; O2SAT 93
--- NOTE | 2023-05-11 04:51 | PC.NURSE ---
PATIENT PLEASANT AND COOPERATIVE, REPORTING PAIN IN LEFT KNEE 5-08/22 BEING MANAGED WITH PRN OXYCODONE, ICE AND ELEVATION, IV LEAKING PER MD OKAY TO LEAVE IV OUT, IV DC'D CATHETER INTACT, VOIDING USING URINAL, KNEE IMMOBILIZER WHEN AMBULATING, UP 1A WALKER AND BELT.
[2023-05-11] MEDS: OMEPRAZOLE 20 MG CAPSULE DR 40 MG PO (06:22)
[2023-05-11 08:00] VITALS: PULSE 81; RESP 18; O2SAT 95
[2023-05-11] MEDS: FERROUS SULFATE 325 MG TABLET PO (08:52)
[2023-05-11] MEDS: SODIUM CHLORIDE 1 GM TABLET PO ×2 (08:52→11:28)
[2023-05-11] MEDS: polyethylene glycoL 3350 17 GM PACK PO (08:52)
[2023-05-11] MEDS: LIDOCAINE 5% PATCH 1 PATCH TRANSDERMA (08:52)
[2023-05-11] MEDS: CELECOXIB 200 MG CAPSULE PO (08:52)
[2023-05-11] MEDS: GABAPENTIN 100 MG CAPSULE PO ×2 (08:53→12:59)
[2023-05-11] MEDS: ASPIRIN 81 MG TABLET EC PO (08:53)
[2023-05-11] MEDS: SENNOSIDES/DOCUSATE TABLET 1 TAB PO (08:53)
[2023-05-11] MEDS: ACETAMINOPHEN 325 MG TABLET 650 MG PO ×2 (08:53→12:59)
[2023-05-11] MEDS: AMLODIPINE 5 MG TABLET PO (08:53)
[2023-05-11] MEDS: TAMSULOSIN HCL 0.4 MG CAPSULE PO (08:53)
--- NOTE | 2023-05-11 10:13 | P.DS_ITS ---
DS: Providers Provider Date Seen: 05/11/23 Date of admission: 05/09/23 07:52 Primary care physician: Justin Branch MD Admitting Clinician: Pedro Hurd MD Consults: 05/07/23 17:33 Consult to Physical Therapy [CONS] Routine Comment: Reason(s) for PT Consult:: Evaluate and Treat Any Restrictions?:: No Restrictions Consult to Regional Business Development Manager [CONS] Routine Comment: Reason for Consult:: Discharge Planning Needs 05/07/23 17:37 Consult to Occupational Therapy [CONS] Routine Comment: Reason(s) for OT Consult:: Evaluate and Treat Any Restrictions?:: No Restrictions Attending Physician on discharge: DANYELLE Seymour, JANEEN [facility] Date of Discharge: 05/11/23 DS: Diagnosis Discharge Diagnosis (1) Fracture, patella: Status: Acute Problem details: DOI 04/30/23 Manage conservatively with knee immobilizer, WBAT. Tylenol, Oxy, gabapentin, Lidoderm patch. Discharged to [facility] for ongoing PT/OT (2) Hyponatremia: Status: Acute Problem details: Acute on chronic. Outpatient follow-up with PCP. (3) Weakness: Status: Acute Problem details: Acute on chronic. He returned home on 05/06/2023 thinking that he might actually get help from his , having at his 's insistence also refused in-home safety evaluation, inpatient or outpatient PT/OT. Patient is now discharged to the [facility] for ongoing rehab. (4) Chronic anemia: Status: Acute Problem details: - history of acute blood loss anemia due to gastrointestinal bleeding - off of anti-thrombotics and anticoagulants at this time. Will avoid NSAIDs at this time. - baseline hemoglobin around 9.5, stable (5) Environmental safety problem: Status: Acute Problem details: - patient reported it is unsafe for him to be in his home because of his condition and the lack of support from his , but also from her angry outbursts - Vulnerable adult previously filed by [facility] score this hospital stay , was 16 last week (6) Hypertension: Status: Chronic Problem details: Amlodipine DS: Summary Hospital Course Hospital Course: [age] year old male readmitted to the hospital 24 hours after discharge, unable to care for himself in his home and reporting not supportive of his needs so readmitted for assistance in placement to alf facility. Course of care and details as noted above. Patient is discharged to the [facility], [facility] for ongoing rehabilitation. Remainder of chronic medical comorbidities were monitored and managed with home medications. Status at Discharge Functional status at discharge: uses cane/walker Overall status at discharge: patient is not back to baseline Time Spent with Patient Time attestation: Total time spent providing and/or coordinating discharge services: Time spent: Greater than 30 minutes Exam Narrative: Exam Narrative: PHYSICAL EXAM General: Pleasant, conversant, NAD Cardiovascular: RRR Pulmonary: No dyspnea Neurological: Alert, answering questions appropriately Skin: Warm, dry. Const: Vital Signs, click to edit/add: Vital Signs - 24 hr 05/10/23 11:00 05/10/23 15:00 05/10/23 15:00 Temperature 99.2 F Pulse Rate [Pulse Oximeter] 74 74 Respiratory Rate 18 18 18 Blood Pressure [Le ft Arm] 136/72 Pulse Oximetry 96 97 Oxygen Delivery Me thod Room Air Room Air 05/10/23 15:00 05/10/23 19:00 05/10/23 23:00 Temperature 98.5 F 98.9 F Pulse Rate [Pulse Oximeter] 60 72 Respiratory Rate 18 16 Blood Pressure [Le ft Arm] 156/82 H 135/82 Pulse Oximetry 97 95 Oxygen Delivery Me thod Room Air Room Air Room Air 05/10/23 23:00 05/10/23 23:00 05/11/23 03:00 Temperature 98.9 F 98.6 F Pulse Rate [Pulse Oximeter] 79 79 75 Respiratory Rate 16 18 Blood Pressure [Le ft Arm] 129/82 108/69 Pulse Oximetry 93 93 Oxygen Delivery Me thod Room Air Room Air DS: Data Data Completed and Pending Completed studies during hospitalization: Procedures Inspection of Upper Intestinal Tract, Via Natural or Artificial Opening Endoscopic (08/20/22) Introduction of Remdesivir Anti-infective into Peripheral Vein, Percutaneous Approach, [employer] (02/27/22) Transfusion of Nonautologous Red Blood Cells into Peripheral Vein, Percutaneous Approach (09/04/22) Discharge Plan Discharge Disposition: [facility] Date of Admission: 05/09/23 07:52 Attending Provider on Discharge: Renita Redman Primary Care Provider: Justin Branch Condition: Stable Discharge Medications: New oxycodone 5 mg Tablet 5 mg PO Q4H PRN (Reason: Pain) Qty: 20 0RF acetaminophen 325 mg Tablet 650 mg PO QID Qty: 90 0RF lidocaine 5 % Adhesive Patch,Medicated 1 patch transdermal Q24H Qty: 15 0RF Rx Instructions: OTC substitution Continued gabapentin 100 mg capsule 100 mg PO BID gabapentin 300 mg capsule 300 mg PO HS pantoprazole 40 mg tablet,delayed release (DR/EC) 40 mg PO BID amlodipine 5 mg tablet 5 mg PO DAILY aspirin 81 mg tablet,delayed release (DR/EC) 81 mg PO DAILY sennosides-docusate sodium [Stool Softener-Laxative] 8.6-50 mg Tablet 1 tab PO BID Qty: 30 0RF tamsulosin 0.4 mg capsule 0.4 mg PO BID ferrous sulfate 325 mg (65 mg iron) Tablet 325 mg PO DAILYWM Qty: 100 0RF Discontinued oxycodone 5 mg Tablet 5 mg PO Q4H PRN (Reason: Pain) Qty: 15 0RF Discharge Orders: Discharge Order (Routine); Ordered 05/11/23 Ordered By: Renita Redman Additional Instructions: Knee immobilizer. Weight bear as tolerated. Tylenol 4 times daily. Lidocaine patch, [id number], 12 hours per day. Oxycodone as needed for increased pain. Be aware this can increase your risk for falls. Stool softener twice daily while taking narcotics. PT/OT. Activity Level: Weight Bearing as Tolerated and Use Walker Activity Detail: per PT/OT Discharge Diet: Regular Follow Up Appointments: Justin Branch MD [Primary Care Provider] - (Post hospital follow-up, patellar fracture, knee effusion) Forms: [facility] Info Instructions Admit to: SNF Discharge Potential: Good Length of Stay: <30 days Can use facility standing orders?: Yes Code Status: DNR/DNI TEDs: Bilateral Knee Rehab Potential: Good Therapy: Physical Therapy and Occupational Therapy Therapy Orders: Evaluate and Treat Oxygen: No Urinary Catheter: No Orders are good >30 days: No Signature: DANYELLE Seymour, PA-C [facility]
[2023-05-11 11:00] VITALS: BP 141/65; PULSE 88; RESP 18; TEMP 36.6; O2SAT 94
--- NOTE | 2023-05-11 13:51 | PC.NURSE ---
Patient up in chair for most of the shift. Vitally stable and in a pleasant mood with nursing staff. Patient accepted to [facility] TCU- will plan to discharge today. All belongings sent with patient. Nurse called to give report and left a message with nurse at [facility] at 1230. No call back yet. Patient given PRN pain medications prior to leaving along with scheduled medications. Patient left with non-emergent EMS at 1340 with knee immobilizer on.
--- NOTE | 2023-05-11 13:53 | PC.SOCIAL ---
Discharge plan: Received call from [place] at [facility] stating they have a bed available for pt for admit today to short term rehab. Met with pt who is pleased with this plan. Pt is requesting non-emergency ambulance transport and agreed to private pay estimate of $150 and signed EMS request form. Pt states he will call his daughter to inform her of his admission to [facility], but requested high school social science teacher call and give her the informaiton on [facility] and that he will be discharging there today. Pt states if does not answer the phone, high school social science teacher can leave a message. Called and left message when she did not answer the phone and left information on address and phone number for [facility] and that pt will be going there today by transpot. Called [facility] Vulnerable adult worker assigned to this case, Adeline Cordoba, who is aware of discharge plans and will follow up with pt at [facility]. PAS completed and submitted prior to discharge and copy provided to [facility].
== END 2023-05-11 13:40 | DRG 563 ==
LOC: ED 16:17 → MEDSURG 16:31
PROVIDERS: Family Medicine; Admitting Provider Internal Medicine; Emergency Provider Student in an Organized Health Care Education/Training Program; PCP Family Medicine; Visit Provider Internal Medicine
DX: S82.091A Other fracture of right patella, initial encounter for closed fracture (principal); G90.3 Multi-system degeneration of the autonomic nervous system; E87.1 Hypo-osmolality and hyponatremia; M25.561 Pain in right knee; R53.1 Weakness; D64.9 Anemia, unspecified; Z63.8 Other specified problems related to primary support group; Z63.0 Problems in relationship with spouse or partner; Z60.8 Other problems related to social environment; I10 Essential (primary) hypertension; I71.40 Abdominal aortic aneurysm, without rupture, unspecified; J44.9 Chronic obstructive pulmonary disease, unspecified; Z85.118 Personal history of other malignant neoplasm of bronchus and lung; Z85.22 Personal history of malignant neoplasm of nasal cavities, middle ear, and accessory sinuses
CPT/HCPCS: 36415; 80048; 82550; 83605; 83735; 84100; 84443; 85018; 85027; 86140; 97110; 97116; 97161; 97166; 97530; 97535; 99282; 99285; A9270; G0378

== ENCOUNTER 2023-05-11 13:40 | Outpatient (CLI) | payer MEDICARE, BC, SELFPAY | END 2023-05-11 13:41 | disposition home or self-care (01) | LOC: AMB 05-20 18:04 | PROVIDERS: PCP Family Medicine; Visit Provider Student in an Organized Health Care Education/Training Program | DX: R53.1 Weakness (principal); D64.9 Anemia, unspecified | CPT/HCPCS: A0425; A0428 ==